=== PATIENT | female | born 1930 | race Caucasian/White ===

== ENCOUNTER 2017-03-12 19:47 | Emergency (ER) | payer MEDICARE, BC ==
[2017-03-12] MEDS ORDERED: SODIUM CHLORIDE 0.9% 1,000 ML IV STA (20:11)
--- NOTE | 2017-03-12 20:35 | ED ---
General Adult HPI - General Chief complaint: Dizziness Stated complaint: Dizziness Time Seen by Provider: 03/12/17 20:11 Source: patient, RN notes reviewed, old records reviewed Mode of arrival: wheelchair Limitations: no limitations - History of Present Illness Initial comments: This is an 86-year-old female the ER for multiple nonspecific complaints, patient states she is just does not feel well. Her left herself. She feels dizzy lightheaded and weak. Patient has no real significant medical issues of similar issues. She states the room is not spinning around. Denies headache denies episodes of nausea passed out no chest pain nephrosis of breath no dollop pain, no recent medication change, - Related Data Home Medications Medication Instructions Recorded Confirmed Gabapentin [Gabapentin] 300 mg PO BID PRN 11/04/15 03/12/17 Allopurinol [Zyloprim] 300 mg PO DAILY 03/12/17 03/12/17 Imbruvica 420 mg PO DAILY 03/12/17 03/12/17 Omeprazole 20 mg PO DAILY PRN 03/12/17 03/12/17 Allergies Allergy/AdvReac Type Severity Reaction Status Date / Time No Known Allergies Allergy Verified 03/12/17 20:34 Review of Systems ROS Statement: Those systems with pertinent positive or pertinent negative responses have been documented in the HPI. ROS Other: All systems not noted in ROS Statement are negative. Past Medical History Past Medical History: Coronary Artery Disease (CAD), Cancer, Hyperlipidemia, Hypertension History of Any Multi-Drug Resistant Organisms: None Reported Past Surgical History: No Surgical Hx Reported Past Psychological History: No Psychological Hx Reported Smoking Status: Never smoker Past Alcohol Use History: None Reported Past Drug Use History: None Reported General Exam Limitations: no limitations General appearance: alert, in no apparent distress Head exam: Present: atraumatic, normocephalic, normal inspection Eye exam: Present: normal appearance, PERRL, EOMI. Absent: scleral icterus, conjunctival injection, periorbital swelling ENT exam: Present: normal exam, mucous membranes moist Neck exam: Present: normal inspection. Absent: tenderness, meningismus, lymphadenopathy Respiratory exam: Present: normal lung sounds bilaterally. Absent: respiratory distress, wheezes, rales, rhonchi, stridor Cardiovascular Exam: Present: regular rate, normal rhythm, normal heart sounds. Absent: systolic murmur, diastolic murmur, rubs, gallop, clicks GI/Abdominal exam: Present: soft, normal bowel sounds. Absent: distended, tenderness, guarding, rebound, rigid Extremities exam: Present: normal inspection, full ROM, normal capillary refill. Absent: tenderness, pedal edema, joint swelling, calf tenderness Back exam: Present: normal inspection Neurological exam: Present: alert, oriented X3, CN II-XII intact Psychiatric exam: Present: normal affect, normal mood Skin exam: Present: warm, dry, intact, normal color. Absent: rash Course Vital Signs 03/12/17 03/12/17 03/12/17 19:50 21:03 21:50 Temperature 98.2 F 98.9 F Pulse Rate 83 75 Respiratory 20 18 Rate Blood Pressure 173/76 157/69 O2 Sat by Pulse 97 98 Oximetry - Reevaluation(s) Reevaluation #1: 03/12/17 20:58 Primary history does show severely elevated white count EKG Findings - EKG Comments: EKG Findings:: EKG shows sinus rhythm rate of 77, SC 188, QRS 1:30, QTC 482 - EKG Results: EKG: interpreted by CIELO Medical Decision Making - Medical Decision Making 86 female here with weakness and dizziness, no cause found. This time patient' s apartment apparently feeling better. Patient will be discharged home - Lab Data Result diagrams: 03/12/17 20:16 03/12/17 20:16 Lab Results 03/12/17 03/12/17 03/12/17 Range/Units 20:16 20:16 20:16 WBC 292.7 H* (3.8-10.6) k/uL RBC 3.52 L (3.80-5.40) m/uL Hgb 10.0 L (11.4-16.0) gm/dL Hct 31.5 L (34.0-46.0) % MCV 89.6 (80.0-100.0) fL MCH 28.3 (25.0-35.0) pg MCHC 31.6 (31.0-37.0) g/dL RDW 16.8 H (11.5-15.5) % Plt Count 65 L (150-450) k/uL Neutrophils % (Manual) 3.0 % Lymphocytes % (Manual) 96.0 % Monocytes % (Manual) 1.0 % Neutrophils # (Manual) 8.8 H (1.3-7.7) k/uL Lymphocytes # (Manual) 281.0 H (1.0-4.8) k/uL Monocytes # (Manual) 2.9 H (0-1.0) k/uL Nucleated RBCs 0 (0-0) /100 WBC Manual Slide Review Performed Hypochromasia Slight Anisocytosis Slight Ovalocytes Present Fragmented RBCs Present PT (9.0-12.0) sec INR (<1.1) APTT (22.0-30.0) sec Sodium 138 (137-145) mmol/L Potassium 3.6 (3.5-5.1) mmol/L Chloride 103 (98-107) mmol/L Carbon Dioxide 24 (22-30) mmol/L Anion Gap 11 mmol/L BUN 18 H (7-17) mg/dL Creatinine 0.80 (0.52-1.04) mg/dL Est GFR (MDRD) Af Amer >60 (>60 ml/min/1.73 sqM) Est GFR (MDRD) Non-Af >60 (>60 ml/min/1.73 sqM) Glucose 108 H (74-99) mg/dL Calcium 9.6 (8.4-10.2) mg/dL Phosphorus 3.3 (2.5-4.5) mg/dL Magnesium 1.7 (1.6-2.3) mg/dL Total Bilirubin 0.6 (0.2-1.3) mg/dL AST 23 (14-36) U/L ALT 20 (9-52) U/L Alkaline Phosphatase 70 (38-126) U/L Total Creatine Kinase 27 L (30-135) U/L CK-MB (CK-2) 0.7 (0.0-2.4) ng/mL CK-MB (CK-2) Rel Index 2.6 Troponin I <0.012 (0.000-0.034) ng/mL Total Protein 6.3 (6.3-8.2) g/dL Albumin 4.0 (3.5-5.0) g/dL Urine Color Urine Appearance (Clear) Urine pH (5.0-8.0) Ur Specific [place] (1.001-1.035) Urine Protein (Negative) Urine Glucose (UA) (Negative) Urine Ketones (Negative) Urine Blood (Negative) Urine Nitrite (Negative) Urine Bilirubin (Negative) Urine Urobilinogen (<2.0) mg/dL Ur Leukocyte Esterase (Negative) Urine RBC (0-5) /hpf Urine WBC (0-5) /hpf 03/12/17 03/12/17 Range/Units 20:16 21:00 WBC (3.8-10.6) k/uL RBC (3.80-5.40) m/uL Hgb (11.4-16.0) gm/dL Hct (34.0-46.0) % MCV (80.0-100.0) fL MCH (25.0-35.0) pg MCHC (31.0-37.0) g/dL RDW (11.5-15.5) % Plt Count (150-450) k/uL Neutrophils % (Manual) % Lymphocytes % (Manual) % Monocytes % (Manual) % Neutrophils # (Manual) (1.3-7.7) k/uL Lymphocytes # (Manual) (1.0-4.8) k/uL Monocytes # (Manual) (0-1.0) k/uL Nucleated RBCs (0-0) /100 WBC Manual Slide Review Hypochromasia Anisocytosis Ovalocytes Fragmented RBCs PT 10.0 (9.0-12.0) sec INR 1.0 (<1.1) APTT 22.1 (22.0-30.0) sec Sodium (137-145) mmol/L Potassium (3.5-5.1) mmol/L Chloride (98-107) mmol/L Carbon Dioxide (22-30) mmol/L Anion Gap mmol/L BUN (7-17) mg/dL Creatinine (0.52-1.04) mg/dL Est GFR (MDRD) Af Amer (>60 ml/min/1.73 sqM) Est GFR (MDRD) Non-Af (>60 ml/min/1.73 sqM) Glucose (74-99) mg/dL Calcium (8.4-10.2) mg/dL Phosphorus (2.5-4.5) mg/dL Magnesium (1.6-2.3) mg/dL Total Bilirubin (0.2-1.3) mg/dL AST (14-36) U/L ALT (9-52) U/L Alkaline Phosphatase (38-126) U/L Total Creatine Kinase (30-135) U/L CK-MB (CK-2) (0.0-2.4) ng/mL CK-MB (CK-2) Rel Index Troponin I (0.000-0.034) ng/mL Total Protein (6.3-8.2) g/dL Albumin (3.5-5.0) g/dL Urine Color Light Yellow Urine Appearance Clear (Clear) Urine pH 8.0 (5.0-8.0) Ur Specific [place] 1.005 (1.001-1.035) Urine Protein Negative (Negative) Urine Glucose (UA) Negative (Negative) Urine Ketones Negative (Negative) Urine Blood Small H (Negative) Urine Nitrite Negative (Negative) Urine Bilirubin Negative (Negative) Urine Urobilinogen <2.0 (<2.0) mg/dL Ur Leukocyte Esterase Small H (Negative) Urine RBC 13 H (0-5) /hpf Urine WBC 3 (0-5) /hpf - Radiology Data Radiology results: report reviewed (CT brain and chest x-ray are negative for acute disease), image reviewed Disposition Clinical Impression: Dehydration, Dizziness Disposition: HOME SELF-CARE Condition: Good Instructions: Dizziness (ED) Referrals: Janeth Castillo DO [Primary Care Provider] - 1-2 days
[2017-03-12 20:42] LABS: Partial Thromboplastin Time 22.1 sec (22.0-30.0)
[2017-03-12 20:46] LABS: Anisocytosis Slight; Aty Lym Flag Marked; CH 28.3; CHCM 31.6; HCT 31.5 % (34.0-46.0); HDW 3.05; Hypochromasia Slight; MCH 28.3 pg (25.0-35.0); MCHC 31.6 g/dL (31.0-37.0); MCV 89.6 fL (80.0-100.0); Mean Platelet Volume 8.8; RBC 3.52 m/uL (3.80-5.40); RDW 16.8 % (11.5-15.5); WBC (Perox) 264.1
[2017-03-12 20:49] LABS: WBC 292.7 k/uL (3.8-10.6)
[2017-03-12 20:50] LABS: ALT 20 U/L (9-52); AST 23 U/L (14-36); Alkaline Phosphatase 70 U/L (38-126); Anion Gap 11 mmol/L; Blood Urea Nitrogen 18 mg/dL (7-17); Calcium 9.6 mg/dL (8.4-10.2); Carbon Dioxide 24 mmol/L (22-30); Chloride 103 mmol/L (98-107); Glucose 108 mg/dL (74-99); Magnesium 1.7 mg/dL (1.6-2.3); Non-African American GFR(MDRD) >60 (>60 ml/min/1.73 sqM); Phosphorous 3.3 mg/dL (2.5-4.5); Potassium 3.6 mmol/L (3.5-5.1); Sodium 138 mmol/L (137-145); Total Bilirubin 0.6 mg/dL (0.2-1.3); Total Protein 6.3 g/dL (6.3-8.2)
--- NOTE | 2017-03-12 20:55 | XR ---
EXAMINATION TYPE: XR chest 2V DATE OF EXAM: 03/12/2017 8:49 PM COMPARISON: Prior chest x-ray 04 November 2015 HISTORY: Weakness, abnormal chest x-ray TECHNIQUE: Frontal and lateral views of the chest are obtained. FINDINGS: There is no focal air space opacity, pleural effusion, or pneumothorax seen. The cardiac silhouette size is stable and enlarged. There are overlying cardiac leads, patient is rotated. The o sseous structures are intact. IMPRESSION: Stable findings, cardiomegaly
[2017-03-12 20:58] LABS: Creatine Kinase 27 U/L (30-135)
[2017-03-12 20:59] LABS: Add Differential Manual Differential
--- NOTE | 2017-03-12 20:59 | CT ---
EXAMINATION TYPE: CT brain wo con DATE OF EXAM: 03/12/2017 8:47 PM COMPARISON: NONE HISTORY: Dizziness today CT DLP: 1036 mGycm Automated exposure control for dose reduction was used. FINDINGS: There is no acute intracranial hemorrhage, mass effect, or midline shift identified. Low attenuation present in the anterior limb of the internal capsule may represent old infarct. There is age-related atrophy. Cerebral vascular calcifications are present. The ventricles and sulci are within normal li mits in size. The globes are intact and the visualized sinuses are clear. IMPRESSION: No acute intracranial hemorrhage, mass effect, or midline shift is seen.
[2017-03-12 21:05] LABS: Nucleated Red Blood Cells 0 /100 WBC (0-0); Total Cells Counted 100
[2017-03-12 21:06] LABS: Manual Review Performed; Ovalocytes Present
[2017-03-12 21:09] LABS: Creatine Kinase MB 0.7 ng/mL (0.0-2.4); Troponin I <0.012 ng/mL (0.000-0.034)
[2017-03-12 21:20] LABS: Appearance,Urine Clear (Clear); Bilirubin,Urine Negative (Negative); Glucose,Urine (UA) Negative (Negative); Ketones,Urine Negative (Negative); Leukocyte Esterase,Urine Small (Negative); Nitrite,Urine Negative (Negative); Particle Count 514; Protein,Urine Negative (Negative); RBC,Urine 13 /hpf (0-5); Specific Gravity,Urine 1.005 (1.001-1.035); UA Billing (MACRO vs. MICRO) MICRO; Urobilinogen,Urine <2.0 mg/dL (<2.0); WBC,Urine 3 /hpf (0-5)
[2017-03-12 21:34] VITALS: BP 157/69; PULSE 75; RESP 18
[2017-03-12 21:51] VITALS: TEMP 98.9
== END 2017-03-12 21:50 | disposition home or self-care (01) ==
LOC: EC 19:47
DX: E86.0 Dehydration (principal); R42 Dizziness and giddiness; R53.1 Weakness; Z85.9 Personal history of malignant neoplasm, unspecified
CPT/HCPCS: 36415; 70450; 71020; 80053; 81001; 82550; 82553; 83735; 84100; 84484; 85025; 85610; 85730; 87086; 93005; 96360; 99285

== ENCOUNTER → 2017-09-25 | Outpatient (CLI) | payer MEDICARE, BC ==
--- NOTE | 2017-09-27 08:41 | MM ---
Reason for exam: screening (asymptomatic). Last mammogram was performed 1 year ago. History: Patient is postmenopausal and has history of other cancer at age 75. Family history of breast cancer in sister at age 83. Physical Findings: A clinical breast exam by your physician is recommended on an annual basis and results should be correlated with mammographic findings. MG 3D Screening Mammo W/Cad Bilateral CC and MLO view(s) were taken. Prior study comparison: September 20, 2016, bilateral MG 3d screening mammo w/ cad. September 16, 2015, bilateral MG screening mammo w CAD. September 15, 2014, bilateral MG screening mammo w CAD. The breast tissue is heterogeneously dense. This may lower the sensitivity of mammography. There is chronic nodularity in the right breast. Prominent axillary lymph nodes are stable to slightly increased in size compared to older priors. No significant new findings when compared with previous films. ASSESSMENT: Negative, BI-RAD 1 RECOMMENDATION: Routine screening mammogram of both breasts in 1 year. Manage patient on a clinical basis. (Prominent bilateral axillary lymph nodes which seem to be gradually increasing in size. We note a history of leukemia in this patient. Further evaluation to exclude leukemia/lymphoma or other systemic disease as clinically indicated). [facility]
== END | disposition home or self-care (01) ==
LOC: RADMAMWWP 11:15
PROVIDERS: ATTEND Family Medicine
DX: Z12.31 Encounter for screening mammogram for malignant neoplasm of breast (principal)
CPT/HCPCS: 77063; G0202

== ENCOUNTER 2018-05-20 02:55 | Inpatient (IN) | payer MEDICARE, BC ==
--- NOTE | 2018-05-20 03:43 | XR ---
EXAMINATION TYPE: XR chest 1V portable DATE OF EXAM: 05/20/2018 COMPARISON: 03/12/2017 HISTORY: Short of breath TECHNIQUE: Single frontal view of the chest is obtained. FINDINGS: Heart is enlarged. There is pulmonary vascular congestion. There is blunting of costophren ic angles. Thoracic aorta is atheromatous. There are chest leads. IMPRESSION: Congestive heart failure with pleural effusions that is new compared to old exam. Cardio megaly.
[2018-05-20 03:55] LABS: Anisocytosis Slight; HCT 26.6 % (34.0-46.0); HGB 8.3 gm/dL (11.4-16.0); Hypochromasia Marked; MCH 28.8 pg (25.0-35.0); MCHC 31.3 g/dL (31.0-37.0); MCV 91.9 fL (80.0-100.0); Mean Platelet Volume 7.3; Platelet Count 128 k/uL (150-450); RDW 18.2 % (11.5-15.5)
[2018-05-20 04:03] LABS: Calcium 9.5 mg/dL (8.4-10.2); Potassium 4.2 mmol/L (3.5-5.1); Total Bilirubin 0.5 mg/dL (0.2-1.3); Total Protein 6.1 g/dL (6.3-8.2)
[2018-05-20 04:16] LABS: WBC 319.4 k/uL (3.8-10.6)
[2018-05-20 04:38] LABS: Creatine Kinase MB 3.4 ng/mL (0.0-2.4); Troponin I 0.425 ng/mL (0.000-0.034)
[2018-05-20 04:41] LABS: D-Dimer 4.79 mg/L FEU (<0.60); Partial Thromboplastin Time 19.5 sec (22.0-30.0)
--- NOTE | 2018-05-20 05:23 | CT ---
EXAMINATION TYPE: CT chest angio for PE DATE OF EXAM: 05/20/2018 COMPARISON: None HISTORY: R/O PE chest pain CT DLP: 165.10 mGycm Automated exposure control for dose reduction was used. CONTRAST: CT Chest for pulmonary embolism performed with with IV Contrast, patient injected with 70 mL of Isovu e 370. FINDINGS: There are 3-D post processed images. There are mild to moderate bilateral pleural effusions. Heart is enlarged. There is interstitial and alveolar infiltrates in the mid and lower lung arce. I see no pulmonary mass. There is normal contrast opacification of the pulmonary arteries. I see no filling defect. Thoracic a raul has normal size. There is no evidence of aneurysm or dissection. There is no mediastinal adenopa thy. I see no bony destructive process. There is spurring in the thoracic spine. IMPRESSION: No evidence of pulmonary embolism. Cardiomegaly with pleural effusions and pulmonary edema consistent with congestive heart failure.
[2018-05-20] MEDS ORDERED: PANTOPRAZOLE 40 MG TABLET PO PRN (06:42)
[2018-05-20] MEDS ORDERED: GABAPENTIN 300 MG CAP PO PRN (06:42)
[2018-05-20] MEDS ORDERED: ENOXAPARIN 60 MG/0.6 ML SYRINGE SQ STA (06:44)
[2018-05-20] MEDS ORDERED: FUROSEMIDE 10 MG/ML 4 ML VIAL IV STA (06:44)
--- NOTE | 2018-05-20 06:50 | ED ---
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 She states that over the past 2 days she has been having what started as some mild dyspnea with exertion and now becoming more severe. She states that tonight after getting up to use the bathroom she was forced to sit back down and it took quite some time to catch her breath. The patient does acknowledge a little bit of cough but states that this is basically at her baseline. No fever or chills. No chest pain. No change in urination. She has not been having any bloody bowel movements or dark tarry stools. Patient denies leg pain or swelling. MD Complaint: shortness of breath Onset/Timin -: days(s) Severity: moderate Improves With: oxygen Worsens With: exertion Known History Of: other (CLL) Associated Symptoms: denies other symptoms Treatments Prior to Arrival: none - Related Data Home Oxygen Therapy: No Home Medications Medication Instructions Recorded Confirmed Gabapentin 300 mg PO BID PRN 11/04/15 03/12/17 Allopurinol [Zyloprim] 300 mg PO DAILY 03/12/17 03/12/17 Imbruvica 420 mg PO DAILY 03/12/17 03/12/17 Omeprazole 20 mg PO DAILY PRN 03/12/17 03/12/17 Allergies Allergy/AdvReac Type Severity Reaction Status Date / Time No Known Allergies Allergy Verified 05/20/18 03:00 Review of Systems ROS Statement: Those systems with pertinent positive or pertinent negative responses have been documented in the HPI. ROS Other: All systems not noted in ROS Statement are negative. Constitutional: Denies: fever, chills, weakness Respiratory: Reports: as per HPI, cough, dyspnea. Denies: wheezes, hemoptysis Cardiovascular: Reports: dyspnea on exertion. Denies: chest pain, palpitations , edema, syncope Gastrointestinal: Denies: abdominal pain, vomiting, diarrhea, melena, hematochezia Genitourinary: Denies: hematuria Musculoskeletal: Denies: back pain Skin: Denies: rash Neurological: Denies: headache, weakness, numbness, paresthesias Hematological/Lymphatic: Denies: easy bleeding Past Medical History Past Medical History: Coronary Artery Disease (CAD), Cancer, Hyperlipidemia, Hypertension History of Any Multi-Drug Resistant Organisms: None Reported Past Surgical History: No Surgical Hx Reported Past Psychological History: No Psychological Hx Reported Smoking Status: Never smoker Past Alcohol Use History: None Reported Past Drug Use History: None Reported General Exam Limitations: physical limitation General appearance: alert, in no apparent distress Head exam: Present: atraumatic, normocephalic Eye exam: Present: normal appearance. Absent: scleral icterus, conjunctival injection ENT exam: Present: normal oropharynx Neck exam: Present: normal inspection Respiratory exam: Present: rales (Bilateral bases). Absent: respiratory distress, wheezes, rhonchi, stridor, accessory muscle use, decreased breath sounds, prolonged expiratory Cardiovascular Exam: Present: normal rhythm, tachycardia (Rate approximately 14 bpm), systolic murmur (Grade 3/6 systolic ejection murmur, gallop, suggestive of aortic stenosis). Absent: diastolic murmur, rubs, gallop GI/Abdominal exam: Present: soft. Absent: distended, tenderness, guarding, rebound, mass, pulsatile mass Extremities exam: Present: normal inspection, normal capillary refill. Absent: pedal edema, calf tenderness Back exam: Present: normal inspection. Absent: CVA tenderness (R), CVA tenderness (L), vertebral tenderness Neurological exam: Present: alert Skin exam: Present: warm, dry, intact, normal color. Absent: rash Course Vital Signs 05/20/18 05/20/18 05/20/18 02:56 04:48 05:58 Temperature 97.4 F L Pulse Rate 107 H 87 90 Respiratory 18 17 22 Rate Blood Pressure 114/68 114/68 94/60 O2 Sat by Pulse 97 97 96 Oximetry Medical Decision Making - Medical Decision Making Patient is an 87-year-old woman presenting with worsening of exertional dyspnea. She is found to have some anemia and probably an underlying element of CHF. Dyspnea appears to be multifactorial, case discussed with Dr. Wiley who is covering for her primary physician and patient be admitted also to see her tamale maker/oncologist. - Lab Data Result diagrams: 05/20/18 03:05 05/20/18 03:05 Lab Results 05/20/18 05/20/18 05/20/18 Range/Units 03:05 03:05 03:05 WBC 319.4 H* (3.8-10.6) k/uL RBC 2.90 L (3.80-5.40) m/uL Hgb 8.3 L (11.4-16.0) gm/dL Hct 26.6 L (34.0-46.0) % MCV 91.9 (80.0-100.0) fL MCH 28.8 (25.0-35.0) pg MCHC 31.3 (31.0-37.0) g/dL RDW 18.2 H (11.5-15.5) % Plt Count 128 L (150-450) k/uL PT (9.0-12.0) sec INR (<1.2) APTT (22.0-30.0) sec D-Dimer (<0.60) mg/L FEU Sodium 138 (137-145) mmol/L Potassium 4.2 (3.5-5.1) mmol/L Chloride 103 (98-107) mmol/L Carbon Dioxide 25 (22-30) mmol/L Anion Gap 10 mmol/L BUN 29 H (7-17) mg/dL Creatinine 0.80 (0.52-1.04) mg/dL Est GFR (CKD-EPI)AfAm 76 (>60 ml/min/1.73 sqM) Est GFR (CKD-EPI)NonAf 66 (>60 ml/min/1.73 sqM) Glucose 133 H (74-99) mg/dL Calcium 9.5 (8.4-10.2) mg/dL Total Bilirubin 0.5 (0.2-1.3) mg/dL AST 37 H (14-36) U/L ALT 22 (9-52) U/L Alkaline Phosphatase 80 (38-126) U/L Total Creatine Kinase 28 L (30-135) U/L CK-MB (CK-2) 3.4 H* (0.0-2.4) ng/mL CK-MB (CK-2) Rel Index 12.1 Troponin I 0.425 H* (0.000-0.034) ng/mL NT-Pro-B Natriuret Pep pg/mL Total Protein 6.1 L (6.3-8.2) g/dL Albumin 4.0 (3.5-5.0) g/dL 05/20/18 05/20/18 Range/Units 03:05 03:05 WBC (3.8-10.6) k/uL RBC (3.80-5.40) m/uL Hgb (11.4-16.0) gm/dL Hct (34.0-46.0) % MCV (80.0-100.0) fL MCH (25.0-35.0) pg MCHC (31.0-37.0) g/dL RDW (11.5-15.5) % Plt Count (150-450) k/uL PT 10.0 (9.0-12.0) sec INR 1.0 (<1.2) APTT 19.5 L (22.0-30.0) sec D-Dimer 4.79 H (<0.60) mg/L FEU Sodium (137-145) mmol/L Potassium (3.5-5.1) mmol/L Chloride (98-107) mmol/L Carbon Dioxide (22-30) mmol/L Anion Gap mmol/L BUN (7-17) mg/dL Creatinine (0.52-1.04) mg/dL Est GFR (CKD-EPI)AfAm (>60 ml/min/1.73 sqM) Est GFR (CKD-EPI)NonAf (>60 ml/min/1.73 sqM) Glucose (74-99) mg/dL Calcium (8.4-10.2) mg/dL Total Bilirubin (0.2-1.3) mg/dL AST (14-36) U/L ALT (9-52) U/L Alkaline Phosphatase (38-126) U/L Total Creatine Kinase (30-135) U/L CK-MB (CK-2) (0.0-2.4) ng/mL CK-MB (CK-2) Rel Index Troponin I (0.000-0.034) ng/mL NT-Pro-B Natriuret Pep 30708 pg/mL Total Protein (6.3-8.2) g/dL Albumin (3.5-5.0) g/dL - EKG Data -: EKG Interpreted by Id EKG shows normal: sinus rhythm, axis (Normal), intervals (Normal) Rate: tachycardia (Rate 106 bpm) Interpretation: other (Possible old septal infarct) Disposition Clinical Impression: Congestive heart failure, Dyspnea, Anemia, CLL (chronic lymphocytic leukemia), Troponin level elevated Disposition: ADMITTED IP TO THIS HOSP Condition: Poor
[2018-05-20 08:30] LABS: Lymphocytes # (M) 313.01 k/uL (1.0-4.8); Monocytes # (M) 6.39 k/uL (0-1.0); Neutrophils # (M) 3.19 k/uL (1.3-7.7); Neutrophils % (M) 1 %; Nucleated Red Blood Cells 0 /100 WBC (0-0); Ovalocytes Present; Total Cells Counted 200
[2018-05-20] MEDS ORDERED: IMBRUVICA 420 MG PO SCH (09:00)
[2018-05-20 12:59] LABS: Creatine Kinase MB 3.4 ng/mL (0.0-2.4)
[2018-05-20 13:00] LABS: Troponin I 0.827 ng/mL (0.000-0.034)
--- NOTE | 2018-05-20 13:51 | P.HPIM ---
History of Present Illness H&P Date: 05/20/18 Chief Complaint: Shortness of breath Ginny Huerta is an 87-year-old female who presented to [facility] emergency room with a chief complaint of worsening shortness of breath patient states that she started having shortness of breath on Monday her symptoms worsened and she decided to come to emergency room on Monday, she was evaluated in emergency room she had tachycardia on presentation pulse ox was 97% on 2 L nasal cannula chest x-ray revealed evidence of pulmonary congestion suggestive of congestive heart failure exacerbation with pleural effusions and evidence of cardiomegaly, BNP was elevated at 18,100 d-dimer was elevated at 4.79 computed tomography scan angiogram of the chest was done and was negative for pulmonary embolism. Patient also had elevated troponin level of 0.425 on presentation, EKG revealed ST and T-wave changes in inferior leads patient was admitted to telemetry floor and cardiology consultation was requested. She was given IV Lasix in the emergency room and her shortness of breath improved significantly she has been maintained on oxygen supplements since presentation. Patient has a known history of chronic lymphocytic leukemia she has been followed by Dr. Kaplan for 11 years, currently she is only maintained on prednisone 5 mg by mouth daily her white blood count is significantly elevated at 319,000 hemoglobin is down to 8.3 on presentation. She states that she had received chemotherapy in the past by Dr. Kaplan but not recently. Patient denies any history of coronary artery disease or congestive heart failure, she states that she was seen by associate professor of english 1 year ago her next appointment will be in June of this year. Past Medical History Past Medical History: Coronary Artery Disease (CAD), Cancer, Hyperlipidemia, Hypertension History of Any Multi-Drug Resistant Organisms: None Reported Past Surgical History: No Surgical Hx Reported Past Psychological History: No Psychological Hx Reported Additional Psychological History / Comment(s): Patient lives with daughter. Patient juan diego ever suing tobacco. Juliana mosquera ever using alcohol Smoking Status: Never smoker Past Alcohol Use History: None Reported Past Drug Use History: None Reported Medications and Allergies Home Medications Medication Instructions Recorded Confirmed Type Allopurinol [Zyloprim] 300 mg PO DAILY 03/12/17 05/20/18 History Omeprazole 20 mg PO DAILY 03/12/17 05/20/18 History Gabapentin [Neurontin] 400 mg PO BID 05/20/18 05/20/18 History Levothyroxine Sodium [Synthroid] 25 mcg PO DAILY 05/20/18 05/20/18 History predniSONE 5 mg PO DAILY 05/20/18 05/20/18 History Allergies Allergy/AdvReac Type Severity Reaction Status Date / Time No Known Allergies Allergy Verified 05/20/18 03:00 Physical Exam Vitals: Vital Signs Temp Pulse Pulse Resp BP BP Pulse Ox 05/20/18 12:20 96.7 F L 88 20 129/58 97 05/20/18 11:56 97.6 F 90 18 96/68 98 05/20/18 09:02 93 18 112/67 98 05/20/18 08:42 55 L 18 118/81 98 05/20/18 08:15 78 18 91/59 98 05/20/18 05:58 90 22 94/60 96 05/20/18 04:48 87 17 114/68 97 05/20/18 02:56 97.4 F L 107 H 18 114/68 97 Intake and Output 05/19/18 05/20/18 05/20/18 22:59 06:59 14:59 Other: Weight 58.967 kg In general patient is alert and oriented 3 in no apparent distress HEENT head normocephalic and atraumatic Neck is supple no JVD no goiter no lymphadenopathy Chest exam reveals a few scattered rhonchi no wheezing Cardiac exam reveals regular heart sounds S1 and S2 no gallops no murmurs Abdomen is soft nontender no organomegaly with normal bowel sounds Extremity exam reveals no edema no cyanosis or clubbing Results CBC & Chem 7: 05/20/18 03:05 05/20/18 03:05 Labs: Abnormal Lab Results - Last 24 Hours (Table) 05/20/18 05/20/18 05/20/18 Range/Units 03:05 03:05 03:05 WBC 319.4 H* (3.8-10.6) k/uL RBC 2.90 L (3.80-5.40) m/uL Hgb 8.3 L (11.4-16.0) gm/dL Hct 26.6 L (34.0-46.0) % RDW 18.2 H (11.5-15.5) % Plt Count 128 L (150-450) k/uL Lymphocytes # (Manual) 313.01 H (1.0-4.8) k/uL Monocytes # (Manual) 6.39 H (0-1.0) k/uL APTT (22.0-30.0) sec D-Dimer (<0.60) mg/L FEU BUN 29 H (7-17) mg/dL Glucose 133 H (74-99) mg/dL AST 37 H (14-36) U/L Total Creatine Kinase 28 L (30-135) U/L CK-MB (CK-2) 3.4 H* (0.0-2.4) ng/mL Troponin I 0.425 H* (0.000-0.034) ng/mL Total Protein 6.1 L (6.3-8.2) g/dL 05/20/18 05/20/18 Range/Units 03:05 12:10 WBC (3.8-10.6) k/uL RBC (3.80-5.40) m/uL Hgb (11.4-16.0) gm/dL Hct (34.0-46.0) % RDW (11.5-15.5) % Plt Count (150-450) k/uL Lymphocytes # (Manual) (1.0-4.8) k/uL Monocytes # (Manual) (0-1.0) k/uL APTT 19.5 L (22.0-30.0) sec D-Dimer 4.79 H (<0.60) mg/L FEU BUN (7-17) mg/dL Glucose (74-99) mg/dL AST (14-36) U/L Total Creatine Kinase (30-135) U/L CK-MB (CK-2) 3.4 H* (0.0-2.4) ng/mL Troponin I 0.827 H* (0.000-0.034) ng/mL Total Protein (6.3-8.2) g/dL Thrombosis Risk Factor Assmnt - Choose All That Apply Any of the Below Risk Factors Present?: Yes Other Risk Factors: Yes Each Risk Factor Represents 3 Points: Age 75 years or older Other congenital or acquired thrombophilia - If yes, enter type in comment: No Thrombosis Risk Factor Assessment Total Risk Factor Score: 3 Thrombosis Risk Factor Assessment Level: Moderate Risk Assessment and Plan Plan: #1 worsening shortness of breath likely related to acute congestive heart failure exacerbation with check echocardiogram, cardiology consultation was requested patient improving with IV Lasix, patient has anemia and this may contribute to her shortness of breath. #2 elevated troponin level and EKG changes in the inferior leads, possible non- Q wave myocardial infarction cardiology consultation was requested in the emergency room, patient was started on subcu Lovenox #3 underlying history of chronic lymphocytic leukemia with severe leukocytosis and anemia, Dr. Harper was consulted #4 elevated d-dimer with negative computed tomography scan angiogram of the chest At this time will continue with current management awaiting input from cardiology and oncology, awaiting echocardiogram results Symptoms have improved significantly since admission Will add by mouth protonix for GI prophylaxis
[2018-05-20 15:14] LABS: Creatine Kinase MB 2.8 ng/mL (0.0-2.4); Troponin I 0.79 ng/mL (0.000-0.034)
--- NOTE | 2018-05-20 15:14 | P.CRDCN ---
History of Present Illness Consult date: 05/20/18 Chief complaint: Shortness of breath History of present illness: This is a pleasant 87-year-old female patient with a past medical history significant for chronic lymphocytic leukemia but no history of coronary artery disease or congestive heart failure or cardiac arrhythmia presented to the emergency room complaining of shortness of breath. The patient stated that the shortness of breath started about a week ago and was quite worse this past Monday when the patient noticed that she was unable to do her daily activities without being short of breath. No orthopnea and no paroxysmal nocturnal dyspnea. She is already feeling better. She did not have any symptoms of bilateral lower extremities edema.She did not have any symptoms of chest pain or chest discomfort. No dizziness or lightheadedness and no syncope. The patient did not have any fever or chills or cough. She decided to come to the emergency room where in the ER the patient saturation was 97% on 2 L nasal cannula. The chest x-ray showed findings consistent with CHF. The BNP came in to be around 18,000. The d-dimer came in to be alleviated but the computed tomography scan of the chest did not show any evidence of PE. The troponin was checked and came in to be slightly elevated along with slightly elevated CK-MB. The patient did not have no chest pain and no chest discomfort. The EKG showed sinus rhythm with intraventricular conduction delay and nonspecific changes. The patient denies having any history of coronary artery disease and she never seen a chief technology officer in the past. No history of congestive heart failure. No history of upper respiratory infection. On physical examination, the patient still have bilateral rhonchi mainly in the bases of the lung. The patient was admitted to the hospital and she was started on IV Lasix. Past Medical History Past Medical History: Coronary Artery Disease (CAD), Cancer, Hyperlipidemia, Hypertension History of Any Multi-Drug Resistant Organisms: None Reported Past Surgical History: No Surgical Hx Reported Past Psychological History: No Psychological Hx Reported Additional Psychological History / Comment(s): Patient lives with daughter. Patient juan diego ever suing tobacco. Kaykaydavidjaneth mosquera ever using alcohol Smoking Status: Never smoker Past Alcohol Use History: None Reported Past Drug Use History: None Reported Medications and Allergies Home Medications Medication Instructions Recorded Confirmed Type Allopurinol [Zyloprim] 300 mg PO DAILY 03/12/17 05/20/18 History Omeprazole 20 mg PO DAILY 03/12/17 05/20/18 History Gabapentin [Neurontin] 400 mg PO BID 05/20/18 05/20/18 History Levothyroxine Sodium [Synthroid] 25 mcg PO DAILY 05/20/18 05/20/18 History predniSONE 5 mg PO DAILY 05/20/18 05/20/18 History Allergies Allergy/AdvReac Type Severity Reaction Status Date / Time No Known Allergies Allergy Verified 05/20/18 03:00 Physical Exam Vitals: Vital Signs Temp Pulse Pulse Resp BP BP Pulse Ox 05/20/18 12:20 96.7 F L 88 20 129/58 97 05/20/18 11:56 97.6 F 90 18 96/68 98 05/20/18 09:02 93 18 112/67 98 05/20/18 08:42 55 L 18 118/81 98 05/20/18 08:15 78 18 91/59 98 05/20/18 05:58 90 22 94/60 96 05/20/18 04:48 87 17 114/68 97 05/20/18 02:56 97.4 F L 107 H 18 114/68 97 Intake and Output 05/20/18 05/20/18 05/20/18 06:59 14:59 22:59 Intake Total 240 Balance 240 Intake: Oral 240 Other: # Voids 1 Weight 58.967 kg - Constitutional General appearance: no acute distress - Respiratory Respiratory: bilateral: rales - Cardiovascular Rhythm: regular Heart sounds: normal: S1, S2 Results 05/20/18 03:05 05/20/18 03:05 Cardiac Enzymes 05/20/18 05/20/18 05/20/18 Range/Units 03:05 03:05 12:10 AST 37 H (14-36) U/L CK-MB (CK-2) 3.4 H* 3.4 H* (0.0-2.4) ng/mL Troponin I 0.425 H* 0.827 H* (0.000-0.034) ng/mL Coagulation 05/20/18 Range/Units 03:05 PT 10.0 (9.0-12.0) sec APTT 19.5 L (22.0-30.0) sec CBC 05/20/18 Range/Units 03:05 WBC 319.4 H* (3.8-10.6) k/uL RBC 2.90 L (3.80-5.40) m/uL Hgb 8.3 L (11.4-16.0) gm/dL Hct 26.6 L (34.0-46.0) % Plt Count 128 L (150-450) k/uL Comprehensive Metabolic Panel 05/20/18 Range/Units 03:05 Sodium 138 (137-145) mmol/L Potassium 4.2 (3.5-5.1) mmol/L Chloride 103 (98-107) mmol/L Carbon Dioxide 25 (22-30) mmol/L BUN 29 H (7-17) mg/dL Creatinine 0.80 (0.52-1.04) mg/dL Glucose 133 H (74-99) mg/dL Calcium 9.5 (8.4-10.2) mg/dL AST 37 H (14-36) U/L ALT 22 (9-52) U/L Alkaline Phosphatase 80 (38-126) U/L Total Protein 6.1 L (6.3-8.2) g/dL Albumin 4.0 (3.5-5.0) g/dL Current Medications Generic Name Dose Route Start Last Admin Trade Name Freq PRN Reason Stop Dose Admin Allopurinol 300 mg 05/20/18 13:45 Zyloprim PO DAILY [facility] Enoxaparin Sodium 60 mg 05/20/18 21:00 Lovenox SQ Q12HR JORDYN Furosemide 40 mg 05/20/18 21:00 Lasix IV Q12HR JORDYN Gabapentin 300 mg 05/20/18 06:42 Neurontin PO BID PRN Pain Levothyroxine Sodium 25 mcg 05/20/18 13:45 Synthroid PO DAILY@0630 JORDYN Pantoprazole Sodium 40 mg 05/20/18 06:42 Protonix PO DAILY PRN GERD Prednisone 5 mg 05/20/18 13:45 PO DAILY JORDYN Sodium Chloride 10 ml 05/20/18 09:00 05/20/18 09:04 Saline Flush IV 10 ml BID JORDYN Administration Intake and Output 05/20/18 05/20/18 05/20/18 06:59 14:59 22:59 Intake Total 240 Balance 240 Intake: Oral 240 Other: # Voids 1 Weight 58.967 kg 05/20/18 03:05 05/20/18 03:05 Assessment and Plan Assessment: Assessment #1 congestive heart failure exacerbation with a predominantly left heart failure more than right heart failure, and known if it's due to systolic or diastole dysfunction at this point. #2 mildly abnormal cardiac enzymes which is likely related to the congestive heart failure and fluid overload #3 mildly abnormal d-dimer. The computed tomography scan of the chest showed no PE. Plan #1 agree to keep the patient on the current dose of Lasix IV. #2 monitor the kidney function and electrolytes #3 agree to obtain an echocardiogram was Doppler to assess the LV function and for valvular abnormalities #4 consider the current treatment only for the mildly abnormal cardiac enzymes. I'm going to add aspirin to the current medical treatment. #5 follow-up with the patient. Thank you for allowing us participate in her care and we'll continue following up with the patient
[2018-05-20] MEDS: ALLOPURINOL 300 MG TAB PO SCH (18:12)
[2018-05-20] MEDS: predniSONE 5 MG TAB PO SCH (18:12)
[2018-05-20] MEDS: LEVOTHYROXINE 25 MCG TAB PO SCH (18:12)
[2018-05-20] MEDS: FUROSEMIDE 10 MG/ML 4 ML VIAL IV SCH (20:28)
[2018-05-20] MEDS: ENOXAPARIN 60 MG/0.6 ML SYRINGE SQ SCH (20:36)
[2018-05-21] MEDS: LEVOTHYROXINE 25 MCG TAB PO SCH (07:00)
[2018-05-21 07:52] LABS: Anisocytosis Slight; HCT 25.8 % (34.0-46.0); HGB 7.6 gm/dL (11.4-16.0); Hypochromasia Marked; MCH 26.8 pg (25.0-35.0); MCHC 29.5 g/dL (31.0-37.0); MCV 90.7 fL (80.0-100.0); Platelet Count 114 k/uL (150-450); RBC 2.85 m/uL (3.80-5.40); RDW 18.2 % (11.5-15.5)
[2018-05-21 07:54] LABS: Albumin 3.8 g/dL (3.5-5.0); Calcium 9.1 mg/dL (8.4-10.2); Potassium 3.8 mmol/L (3.5-5.1); Total Bilirubin 0.5 mg/dL (0.2-1.3); Total Protein 5.9 g/dL (6.3-8.2)
[2018-05-21 07:55] LABS: WBC 279.6 k/uL (3.8-10.6)
[2018-05-21 08:22] LABS: Lymphocytes # (M) 271.21 k/uL (1.0-4.8); Neutrophils # (M) 8.39 k/uL (1.3-7.7); Neutrophils % (M) 3 %; Nucleated Red Blood Cells 0 /100 WBC (0-0); Total Cells Counted 100
[2018-05-21 08:23] LABS: Poikilocytosis (M) Present
[2018-05-21] MEDS: ASPIRIN 81 MG PO SCH (09:02)
[2018-05-21] MEDS: ALLOPURINOL 300 MG TAB PO SCH (09:02)
[2018-05-21] MEDS: predniSONE 5 MG TAB PO SCH (09:02)
[2018-05-21] MEDS: ENOXAPARIN 60 MG/0.6 ML SYRINGE SQ SCH ×2 (09:02→19:46)
[2018-05-21] MEDS: FUROSEMIDE 10 MG/ML 4 ML VIAL IV SCH ×2 (10:22→19:46)
--- NOTE | 2018-05-21 10:56 | P.PN ---
Subjective Progress Note Date: 05/21/18 Ginny Huerta is an 87-year-old female who presented to [facility] emergency room with a chief complaint of worsening shortness of breath patient states that she started having shortness of breath on Monday her symptoms worsened and she decided to come to emergency room on Monday, she was evaluated in emergency room she had tachycardia on presentation pulse ox was 97% on 2 L nasal cannula chest x-ray revealed evidence of pulmonary congestion suggestive of congestive heart failure exacerbation with pleural effusions and evidence of cardiomegaly, BNP was elevated at 18,100 d-dimer was elevated at 4.79 computed tomography scan angiogram of the chest was done and was negative for pulmonary embolism. Patient also had elevated troponin level of 0.425 on presentation, EKG revealed ST and T-wave changes in inferior leads patient was admitted to telemetry floor and cardiology consultation was requested. She was given IV Lasix in the emergency room and her shortness of breath improved significantly she has been maintained on oxygen supplements since presentation. Patient has a known history of chronic lymphocytic leukemia she has been followed by Dr. Kaplan for 11 years, currently she is only maintained on prednisone 5 mg by mouth daily her white blood count is significantly elevated at 319,000 hemoglobin is down to 8.3 on presentation. She states that she had received chemotherapy in the past by Dr. Kaplan but not recently. Patient denies any history of coronary artery disease or congestive heart failure, she states that she was seen by manufacturing management associate 1 year ago her next appointment will be in June of this year. 05/21/2018 patient reports improvement in her shortness of breath. She has been off of the oxygen since last night. She denies any chest pain. Denies any nausea or vomiting. Denies any burning with urination. She is reporting constipation. It's been about 2 days since her last bowel movement. White count 279.6 and hemoglobin 7.6 Objective - Vital Signs Vital signs: Vital Signs Temp 97.7 F 05/21/18 08:55 Pulse 86 05/21/18 08:55 Resp 18 05/21/18 08:55 BP 98/57 05/21/18 08:55 Pulse Ox 96 05/21/18 09:26 Intake & Output 05/20/18 05/21/18 05/21/18 18:59 06:59 18:59 Intake Total 360 20 Output Total 600 Balance 360 -580 Intake: IV 20 Invasive Line 1 20 Oral 360 Output: Urine 600 Other: Voiding Method Toilet Toilet Toilet # Voids 0 1 - Exam Head normocephalic Neck supple Lungs clear to auscultation bilaterally no wheezing or crackles Heart regular rate and rhythm S1-S2, no rub or gallop Abdomen is soft nontender nondistended positive bowel sounds no hepatosplenomegaly Extremities no edema Neuro alert and orientated to 3 - Labs CBC & Chem 7: 05/21/18 06:32 18 06:32 Labs: Abnormal Lab Results - Last 24 Hours (Table) 05/20/18 05/20/18 05/21/18 Range/Units 12:10 14:32 06:32 WBC 279.6 H* (3.8-10.6) k/uL RBC 2.85 L (3.80-5.40) m/uL Hgb 7.6 L (11.4-16.0) gm/dL Hct 25.8 L (34.0-46.0) % MCHC 29.5 L (31.0-37.0) g/dL RDW 18.2 H (11.5-15.5) % Plt Count 114 L (150-450) k/uL Neutrophils # (Manual) 8.39 H (1.3-7.7) k/uL Lymphocytes # (Manual) 271.21 H (1.0-4.8) k/uL BUN (7-17) mg/dL Glucose (74-99) mg/dL CK-MB (CK-2) 3.4 H* 2.8 H* (0.0-2.4) ng/mL Troponin I 0.827 H* 0.790 H* (0.000-0.034) ng/mL Total Protein (6.3-8.2) g/dL 05/21/18 Range/Units 06:32 WBC (3.8-10.6) k/uL RBC (3.80-5.40) m/uL Hgb (11.4-16.0) gm/dL Hct (34.0-46.0) % MCHC (31.0-37.0) g/dL RDW (11.5-15.5) % Plt Count (150-450) k/uL Neutrophils # (Manual) (1.3-7.7) k/uL Lymphocytes # (Manual) (1.0-4.8) k/uL BUN 26 H (7-17) mg/dL Glucose 112 H (74-99) mg/dL CK-MB (CK-2) (0.0-2.4) ng/mL Troponin I (0.000-0.034) ng/mL Total Protein 5.9 L (6.3-8.2) g/dL Assessment and Plan Assessment: #1 worsening shortness of breath likely related to congestive heart failure exacerbation and possibly anemia. #2 acute congestive heart failure exacerbation: Awaiting echo to evaluate LV function. Continue IV Lasix. Cardiology following #3 underlying history of chronic lymphocytic leukemia with severe leukocytosis and anemia, Dr. Harper was consulted #4 elevated d-dimer with negative computed tomography scan angiogram of the chest #5 elevated troponins evaluated by cardiology. They felt this is likely related to congestive heart failure and fluid overload. Cardiology has added an aspirin GI prophylaxis Protonix and DVT prophylaxis Lovenox I performed an examination of the patient and discussed their management with the physician Mechanism Assembler. I have reviewed the Physician Mechanism Assembler's notes and agree with the documented findings and plan of care
--- NOTE | 2018-05-21 13:16 | ECHOF ---
Referral Reason:Heart Failure MEASUREMENTS -------- HEIGHT: 152.4 cm WEIGHT: 59.0 kg BP: 98/56 IVSd: 0.7 cm (0.6 - 1.1) LVIDd: 5.3 cm (3.9 - 5.3) LVPWd: 0.9 cm (0.6 - 1.1) IVSs: 1.1 cm LVIDs: 4.3 cm LVPWs: 0.9 cm LAESV Index (A-L): 41.62 ml/m Ao Diam: 2.8 cm (2.0 - 3.7) LA Diam: 3.1 cm (2.7 - 3.8) AV Cusp: 0.7 cm (1.5 - 2.6) MV E Niranjan: 1.34 m/s MV DecT: 175 ms MV A Niranjan: 1.98 m/s MV E/A Ratio: 0.67 AV maxP.57 mmHg AV meanP.14 mmHg RAP: 5.00 mmHg RVSP: 38.42 mmHg FINDINGS -------- Sinus rhythm. This was a technically good study. The left ventricular size is normal. Left ventricular wall thickness is normal. There is severe g lobal hypokinesis of LV . Overall left ventricular systolic function is severely impaired with, an EF between 20 - 25 %. The RV was not well visualized. LA is severely dilated >40 ml/m2 The right atrium is normal in size. There is severe aortic valve sclerosis. There is mild aortic regurgitation. There is severe aorti c stenosis present. Peak/mean gradient across the Aortic Valve is 72.57mmHg / 44.14mmHg. The mitral valve leaflets are mildly thickened. Moderate mitral annular calcification present. Mi [id number] mitral regurgitation is present. Mild tricuspid regurgitation present. There is mild pulmonary hypertension. The right ventricular systolic pressure, as measured by Doppler, is 38.42mmHg. Trace/mild (physiologic) pulmonic regurgitation. The aortic root size is normal. Normal inferior vena cava with normal inspiratory collapse consistent with estimated right atrial pre ssure of 5 mmHg. There is no pericardial effusion. CONCLUSIONS -------- 1. Sinus rhythm. 2. This was a technically good study. 3. The left ventricular size is normal. 4. Left ventricular wall thickness is normal. 5. There is severe global hypokinesis of LV . 6. Overall left ventricular systolic function is severely impaired with, an EF between 20 - 25 %. 7. The RV was not well visualized. 8. LA is severely dilated >40 ml/m2 9. There is severe aortic valve sclerosis. 10. There is mild aortic regurgitation. 11. There is severe aortic stenosis present. 12. Peak/mean gradient across the Aortic Valve is 72.57mmHg / 44.14mmHg. 13. The mitral valve leaflets are mildly thickened. 14. Moderate mitral annular calcification present. 15. [id number] mitral regurgitation is present. 16. Mild tricuspid regurgitation present. 17. There is mild pulmonary hypertension. 18. The right ventricular systolic pressure, as measured by Doppler, is 38.42mmHg. 19. Trace/mild (physiologic) pulmonic regurgitation. 20. The aortic root size is normal. 21. There is no pericardial effusion. CRANBERRY SORTER: Rajeev Eden RDCS
--- NOTE | 2018-05-21 14:01 | XR ---
EXAMINATION TYPE: XR chest 2V DATE OF EXAM: 05/21/2018 COMPARISON: Prior chest x-ray and chest CT 05/20/2018 HISTORY: Shortness of breath, pleural effusion TECHNIQUE: Frontal and lateral views of the chest are obtained. FINDINGS: There is improvement in interstitium. There is persistent blunting of the costophrenic ang les. Heart size remains enlarged. No evident pneumothorax. Pulmonary artery appears prominently. IMPRESSION: Improvement in patient's volume status. Bilateral effusions and associated atelectasis v ersus edema. Correlate for pulmonary artery hypertension.
--- NOTE | 2018-05-21 14:06 | P.PN ---
Subjective Progress Note Date: 05/21/18 This is a pleasant 87-year-old female patient with a past medical history significant for chronic lymphocytic leukemia but no history of coronary artery disease or congestive heart failure or cardiac arrhythmia presented to the emergency room complaining of shortness of breath. The patient stated that the shortness of breath started about a week ago and was quite worse this past Monday when the patient noticed that she was unable to do her daily activities without being short of breath. No orthopnea and no paroxysmal nocturnal dyspnea. She did not have any symptoms of bilateral lower extremities edema.She did not have any symptoms of chest pain or chest discomfort. No dizziness or lightheadedness and no syncope. The patient did not have any fever or chills or cough. She decided to come to the emergency room where in the ER the patient saturation was 97% on 2 L nasal cannula. The chest x-ray showed findings consistent with CHF. The BNP came in to be around 18,000. The d-dimer came in to be alleviated but the computed tomography scan of the chest did not show any evidence of PE. The troponin was checked and came in to be slightly elevated along with slightly elevated CK-MB. The patient did not have no chest pain and no chest discomfort. The EKG showed sinus rhythm with intraventricular conduction delay and nonspecific changes. The patient denies having any history of coronary artery disease and she never seen a loader helper sorting yard in the past. No history of congestive heart failure. No history of upper respiratory infection. Upon examination, patient is resting currently in bed. She feels her breathing is quite a bit better. She remains on Lasix 80 mg IV push every 12 hours. Objective - Vital Signs Vital signs: Vital Signs Temp 98.1 F 05/21/18 11:50 Pulse 100 05/21/18 11:50 Resp 18 05/21/18 11:50 BP 94/56 05/21/18 11:50 Pulse Ox 98 05/21/18 11:50 Intake & Output 05/20/18 05/21/18 05/21/18 18:59 06:59 18:59 Intake Total 360 20 Output Total 600 Balance 360 -580 Weight 53.4 kg Intake: IV 20 Invasive Line 1 20 Oral 360 Output: Urine 600 Other: Voiding Method Toilet Toilet Toilet # Voids 0 1 - Exam PHYSICAL EXAMINATION: HEENT: Head is atraumatic, normocephalic. Pupils equal, round. Neck is supple. There is no elevated jugular venous pressure. HEART EXAMINATION: Heart sounds regular, S1 and S2 with a systolic murmur. CHEST EXAMINATION: Lungs reveal crackles bilateral bases. No chest wall tenderness is noted on palpation or with deep breathing. ABDOMEN: Soft, nontender. Bowel sounds are heard. No organomegaly noted. EXTREMITIES: 2+ peripheral pulses with no evidence of peripheral edema and no calf tenderness noted. NEUROLOGIC patient is awake, alert and oriented x3. . - Labs CBC & Chem 7: 05/21/18 06:32 18 06:32 Labs: Abnormal Lab Results - Last 24 Hours (Table) 05/20/18 05/21/18 05/21/18 Range/Units 14:32 06:32 06:32 WBC 279.6 H* (3.8-10.6) k/uL RBC 2.85 L (3.80-5.40) m/uL Hgb 7.6 L (11.4-16.0) gm/dL Hct 25.8 L (34.0-46.0) % MCHC 29.5 L (31.0-37.0) g/dL RDW 18.2 H (11.5-15.5) % Plt Count 114 L (150-450) k/uL Neutrophils # (Manual) 8.39 H (1.3-7.7) k/uL Lymphocytes # (Manual) 271.21 H (1.0-4.8) k/uL BUN 26 H (7-17) mg/dL Glucose 112 H (74-99) mg/dL CK-MB (CK-2) 2.8 H* (0.0-2.4) ng/mL Troponin I 0.790 H* (0.000-0.034) ng/mL Total Protein 5.9 L (6.3-8.2) g/dL Assessment and Plan Assessment: #1 Congestive heart failure exacerbation, awaiting echocardiogram results #2 without abnormal cardiac enzymes likely related to congestive heart failure and fluid overload #3 elevated d-dimer, computed tomography scan of the chest showed no evidence of PE Plan: From cardiology's perspective, we will continue current dose of Lasix IV. Continue monitor renal function, electrolytes, daily weights and intake and output. We will await echocardiogram results. Further recommendations to follow. ASSISTANT DIRECTOR OF FINANCIAL AID note has been reviewed, I agree with a documented findings and plan of care. Patient was seen and examined.
--- NOTE | 2018-05-21 14:54 | P.CNPUL ---
History of Present Illness Consult date: 05/21/18 Requesting physician: Agustin Wiley Reason for consult: dyspnea, pleural effusion, abnormal CXR/CT Chief complaint: Shortness of breath, fatigue, CHF, pleural effusions History of present illness: Ginny is a 87-year-old white female patient of Dr. Castillo, presented to the emergency department on 05/20/2018 at 0255 by ambulance, with complaints of increasing shortness of breath, fatigue for the last 2 days. Patient states she has been increasingly dyspneic with her usual activities of daily living, such as walking to the bathroom, getting dressed, and she has to take frequent breaks of breath. Denied any fever or chills, denied any chest pain, no swelling in her lower legs. Denied any headache, denied any lightheadedness or dizziness. No cough, no hemoptysis, no phlegm production, no chest wall tenderness. No abdominal pain. Past medical history is positive for chronic lymphocytic leukemia diagnosed 11 years ago, the patient had received chemotherapy, however that was stopped about a year ago, and the patient is presently on prednisone of 5 mg daily. Other history includes hypertension, hyperlipidemia, she was told she has a heart murmur about a year ago. No fever , no chills, patient is on room air, with a pulse ox of 98%, hemodynamically stable, EKG in the emergency department showed sinus tachycardia with bundle branch block. Chest x-ray showed congestive heart failure with pleural effusions. D-dimer was elevated at 4.79, CT angios was completed showed no evidence of pulmonary embolism, cardiomegaly with pleural effusions and pulmonary edema consistent with congestive heart failure. Echocardiogram was completed, and showed severely impaired left ventricular systolic function with an EF between 20-25%, severe aortic valve sclerosis, with mild aortic regurgitation, with peak/mean gradients across the aortic valve of 72.57 mmHg/ 44.14 mmHg. [id number] mitral regurgitation, mild tricuspid regurgitation , with mild pulmonary hypertension with right ventricular systolic pressure of 38.4 mmHg. Patient was started on IV diuretics, has been diuresing, and she is already reporting improvement in her breathing. Admission lab work showed WBC of 319.4, hemoglobin of 8.3, electrolytes were within normal limits, BUN was 29 , creatinine is 0.80, 3 sets of troponins were completed, and they topped out at 0.827, and CK-MB topped out at 3.4, proBNP was elevated at 18,100. Urinalysis showed small amount of blood, and leukocyte esterase. We were consulted in regards to the pleural effusions, and dyspnea Past Medical History Past Medical History: Cancer, Hyperlipidemia, Hypertension History of Any Multi-Drug Resistant Organisms: None Reported Past Surgical History: No Surgical Hx Reported Past Psychological History: No Psychological Hx Reported Additional Psychological History / Comment(s): Patient lives with daughter. Patient juan diego ever suing tobacco. Juliana mosquera ever using alcohol Smoking Status: Never smoker Past Alcohol Use History: None Reported Past Drug Use History: None Reported Medications and Allergies Home Medications Medication Instructions Recorded Confirmed Type Allopurinol [Zyloprim] 300 mg PO DAILY 03/12/17 05/20/18 History Omeprazole 20 mg PO DAILY 03/12/17 05/20/18 History Gabapentin [Neurontin] 400 mg PO BID 05/20/18 05/20/18 History Levothyroxine Sodium [Synthroid] 25 mcg PO DAILY 05/20/18 05/20/18 History predniSONE 5 mg PO DAILY 05/20/18 05/20/18 History Allergies Allergy/AdvReac Type Severity Reaction Status Date / Time No Known Allergies Allergy Verified 05/20/18 03:00 Physical Exam Vitals: Vital Signs Temp Pulse Resp BP Pulse Ox 05/21/18 11:50 98.1 F 100 16 94/56 98 05/21/18 09:26 96 05/21/18 08:55 97.7 F 86 18 98/57 96 05/21/18 04:00 98.8 F 92 15 98/56 93 L 05/21/18 00:00 97.5 F L 96 19 93/54 98 05/20/18 20:00 97.6 F 103 H 19 113/56 97 05/20/18 18:10 97.2 F L 83 18 123/56 98 Intake and Output 05/20/18 05/21/18 05/21/18 22:59 06:59 14:59 Intake Total 140 Output Total 600 Balance 140 -600 Intake: IV 20 Invasive Line 1 20 Oral 120 Output: Urine 600 Other: Voiding Method Toilet Toilet Toilet # Voids 0 1 Weight 53.4 kg GENERAL EXAM: Alert, pleasant 87-year-old white female comfortable in no apparent distress. HEAD: Normocephalic/atraumatic. EYES: Normal reaction of pupils, equal size. Conjunctiva pink, sclera white. NOSE: Clear with pink turbinates. THROAT: No erythema or exudates. NECK: No masses, no JVD, no thyroid enlargement, no adenopathy. CHEST: No chest wall deformity. Symmetrical expansion. LUNGS: Equal air entry with no crackles, wheeze, rhonchi or dullness. CVS: Regular rate and rhythm, normal S1 and S2, patient has harsh systolic murmur loudest at the right sternal border second her costal space midclavicular line, and soft systolic murmur on the left, fifth intercostal space midclavicular line ABDOMEN: Soft, nontender. No hepatosplenomegaly, normal bowel sounds, no guarding or rigidity. EXTREMITIES: No clubbing, no edema, no cyanosis, 2+ pulses and upper and lower extremities. MUSCULOSKELETAL: Muscle strength and tone normal. SPINE: No scoliosis or deformity SKIN: No rashes CENTRAL NERVOUS SYSTEM: Alert and oriented -3. No focal deficits, tone is normal in all 4 extremities. PSYCHIATRIC: Alert and oriented -3. Appropriate affect. Intact judgment and insight. Results - Laboratory Findings CBC and BMP: 05/21/18 06:32 05/21/18 06:32 PT/INR, D-dimer PT 10.0 sec (9.0-12.0) 05/20/18 03:05 INR 1.0 (<1.2) 05/20/18 03:05 D-Dimer 4.79 mg/L FEU (<0.60) H 05/20/18 03:05 Abnormal lab findings: Abnormal Labs 05/20/18 05/20/18 05/20/18 03:05 03:05 03:05 WBC 319.4 H* RBC 2.90 L Hgb 8.3 L Hct 26.6 L MCHC RDW 18.2 H Plt Count 128 L Neutrophils # (Manual) Lymphocytes # (Manual) 313.01 H Monocytes # (Manual) 6.39 H APTT D-Dimer BUN 29 H Glucose 133 H AST 37 H Total Creatine Kinase 28 L CK-MB (CK-2) 3.4 H* Troponin I 0.425 H* Total Protein 6.1 L 05/20/18 05/20/18 05/20/18 03:05 12:10 14:32 WBC RBC Hgb Hct MCHC RDW Plt Count Neutrophils # (Manual) Lymphocytes # (Manual) Monocytes # (Manual) APTT 19.5 L D-Dimer 4.79 H BUN Glucose AST Total Creatine Kinase CK-MB (CK-2) 3.4 H* 2.8 H* Troponin I 0.827 H* 0.790 H* Total Protein 05/21/18 05/21/18 06:32 06:32 WBC 279.6 H* RBC 2.85 L Hgb 7.6 L Hct 25.8 L MCHC 29.5 L RDW 18.2 H Plt Count 114 L Neutrophils # (Manual) 8.39 H Lymphocytes # (Manual) 271.21 H Monocytes # (Manual) APTT D-Dimer BUN 26 H Glucose 112 H AST Total Creatine Kinase CK-MB (CK-2) Troponin I Total Protein 5.9 L - Diagnostic Findings Chest x-ray: report reviewed, image reviewed CT scan - chest: report reviewed, image reviewed Additional studies: EKG reviewed Assessment and Plan Plan: Assessment: #1. Acute exacerbation of systolic congestive heart failure, severely reduced left ventricular systolic function with an EF of 20-25% #2. Dyspnea, fatigue, bilateral pleural effusions, pulmonary vascular congestion due to the above #3. Valvular heart disease, severe aortic valve sclerosis, [id number] mitral regurgitation with moderate mitral annular calcification #4. Mild pulmonary hypertension #5. Chronic lymphocytic leukemia, status post chemotherapy treatments, continued a year ago, and the patient is currently on oral prednisone of #6. Hypertension, hyperlipidemia #7. Abnormal cardiac enzymes related to acute exacerbation of congestive heart failure and fluid overload #8. Elevated d-dimer, CT angios did not show any evidence of pulmonary embolism and benign. #9. Lifetime nonsmoker Plan: Repeat chest x-ray was obtained shows improvement in patient's volume status, treatment in the appearance of bilateral pleural effusions and associated atelectasis. She is responding well to IV diuretics, breathing easier today, less dyspneic, she is maintaining stable oxygenation on room air, afebrile. Continue IV diuretics, no need for thoracentesis at this time. Echocardiogram results were reviewed, and patient has significant valvular heart disease, cardiology is following. I performed a history & physical examination of the patient and discussed their management with my nurse practitioner, Cookie Diaz. I reviewed the nurse practitioner's note and agree with the documented findings and plan of care. Lung sounds are positive for a few scattered crackles over bilateral bases. The findings and the impression was discussed with the patient. I attest to the documentation by the nurse practitioner.
[2018-05-21 15:02] VITALS: BMI 23.0
--- NOTE | 2018-05-21 15:50 | P.CONS ---
History of Present Illness - Reason for Consult Consult date: 05/21/18 CLL Requesting physician: Tirso Baez - Chief Complaint DIPTI - History of Present Illness Ms. Huerta is a very pleasant lady who is monitored and treated by Dr. Harper for CLL that was originally diagnosed in July 2006, pt was on watchful approach for many years. Pt had symptoms of RUQ/abd pain in mid-2015, CT abdomen on 05/27/16 revealed splenomegaly, likely r/t to CLL but, she did not want any treatment. 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 She did well and continued on f/u when in January 2018 she had progressive anemia-low 8 range. Pt agreed to treatment with prednisone 2.5mg daily that she started 01/16/18, CBC/Hgb stable and since she was tolerating the prednisone dose was increased to 5 mg on 02/13/18 to see if CBC would improve. Pt admitted for CHF exacerbation, she states that she was feeling pretty good up until about a week ago, symptoms included activity intolerance, progressive SOB even at rest, BLE swelling and weakness. She denies fevers, appetite is fair, no difficulty swallowing, nausea, chest pain, palpitations, her cough has been congested, small amounts of clear/whitish sputum, BLE swelling is much better since admit, she is ambulating, denies any pain. Review of Systems 14 point ROS is negative except if otherwise stated in HPI Past Medical History Past Medical History: Cancer, Hyperlipidemia, Hypertension History of Any Multi-Drug Resistant Organisms: None Reported Past Surgical History: Appendectomy, Cholecystectomy, Hysterectomy Past Anesthesia/Blood Transfusion Reactions: No Reported Reaction (history of blood transfusion without complications) Past Psychological History: No Psychological Hx Reported Additional Psychological History / Comment(s): Patient lives with daughter. Patient denies ever using tobacco. Patietn denies ever using alcohol Smoking Status: Never smoker Past Alcohol Use History: None Reported Past Drug Use History: None Reported - Past Family History Father Family Medical History: No Reported History Additional Family Medical History / Comment(s): pt denies any significant medical conditions in mother or father Medications and Allergies Home Medications Medication Instructions Recorded Confirmed Type Allopurinol [Zyloprim] 300 mg PO DAILY 03/12/17 05/20/18 History Omeprazole 20 mg PO DAILY 03/12/17 05/20/18 History Gabapentin [Neurontin] 400 mg PO BID 05/20/18 05/20/18 History Levothyroxine Sodium [Synthroid] 25 mcg PO DAILY 05/20/18 05/20/18 History predniSONE 5 mg PO DAILY 05/20/18 05/20/18 History Allergies Allergy/AdvReac Type Severity Reaction Status Date / Time No Known Allergies Allergy Verified 05/20/18 03:00 Physical Exam Vitals: Vital Signs Temp Pulse Resp BP Pulse Ox 05/21/18 11:50 98.1 F 100 16 94/56 98 05/21/18 09:26 96 05/21/18 08:55 97.7 F 86 18 98/57 96 05/21/18 04:00 98.8 F 92 15 98/56 93 L 05/21/18 00:00 97.5 F L 96 19 93/54 98 05/20/18 20:00 97.6 F 103 H 19 113/56 97 05/20/18 18:10 97.2 F L 83 18 123/56 98 Intake and Output 05/20/18 05/21/18 05/21/18 22:59 06:59 14:59 Intake Total 140 360 Output Total 600 Balance 140 -600 360 Intake: IV 20 Invasive Line 1 20 Oral 120 360 Output: Urine 600 Other: Voiding Method Toilet Toilet Toilet # Voids 0 1 4 Weight 53.4 kg - Constitutional General appearance: average body habitus, cooperative, no acute distress - EENT Eyes: anicteric sclerae, EOMI ENT: normal oropharynx - Neck Neck: no lymphadenopathy - Respiratory Respiratory: bilateral: CTA (upper 2/3), rales (bases) - Cardiovascular Rhythm: regular Heart sounds: normal: S1, S2 Abnormal Heart Sounds: systolic murmur (3/6>at LSB, 5th ICS ) leg Peripheral Edema: bilateral: Trace - Gastrointestinal General gastrointestinal: no absent bowel sounds, no decreased bowel sounds, no distended, no hepatomegaly, no hyperactive bowel sounds, normal bowel sounds, no organomegaly, no rigid, no scaphoid, soft, no splenomegaly, no tenderness, no umbilical hernia, no ventral hernia - Integumentary Integumentary: decreased turgor - Neurologic Neurologic: CNII-XII intact - Musculoskeletal Musculoskeletal: generalized weakness, strength equal bilaterally - Psychiatric Psychiatric: A&O x's 3, appropriate affect, intact judgment & insight Results CBC & Chem 7: 05/21/18 06:32 18 06:32 Labs: Abnormal Lab Results - Last 24 Hours (Table) 05/20/18 05/21/18 05/21/18 Range/Units 14:32 06:32 06:32 WBC 279.6 H* (3.8-10.6) k/uL RBC 2.85 L (3.80-5.40) m/uL Hgb 7.6 L (11.4-16.0) gm/dL Hct 25.8 L (34.0-46.0) % MCHC 29.5 L (31.0-37.0) g/dL RDW 18.2 H (11.5-15.5) % Plt Count 114 L (150-450) k/uL Neutrophils # (Manual) 8.39 H (1.3-7.7) k/uL Lymphocytes # (Manual) 271.21 H (1.0-4.8) k/uL BUN 26 H (7-17) mg/dL Glucose 112 H (74-99) mg/dL CK-MB (CK-2) 2.8 H* (0.0-2.4) ng/mL Troponin I 0.790 H* (0.000-0.034) ng/mL Total Protein 5.9 L (6.3-8.2) g/dL Comments: ECHO report reviewed Chest x-ray: report reviewed CT scan - chest: report reviewed Assessment and Plan (1) Anemia Narrative/Plan: Secondary to CLL. Her Hgb has been in the 8 range, no PRBCs planned at this time. Pt is currently asymptomatic. Cont to monitor CBC. Transfuse conservatively and for symptoms. Current Visit: Yes Status: Chronic Priority: Medium Code(s): D64.9 - ANEMIA, UNSPECIFIED SNOMED Code(s): 095568808 (2) CLL (chronic lymphocytic leukemia) Narrative/Plan: Leukocytosis and lymphocytosis from CLL, elevated slightly when compared to recent results from office (lymphocyte % 60-80's, currently in the 90's). Suspect r/t CHF exacerbation. Pt is feeling better and labs are fairly stable today. CBC daily Pt has refused recommended therapies previously. Cont on 5mg prednisone for now , f/u with Dr. Harper as scheduled. 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 No acute intervention.
[2018-05-21] MEDS: DOCUSATE 100 MG CAP PO SCH ×2 (19:46→19:57)
[2018-05-22] MEDS: LEVOTHYROXINE 25 MCG TAB PO SCH (07:08)
[2018-05-22 07:22] LABS: Anisocytosis Slight; HCT 26.5 % (34.0-46.0); Hypochromasia Moderate; MCH 31.6 pg (25.0-35.0); MCV 90.3 fL (80.0-100.0); Mean Platelet Volume 7.2; Platelet Count 120 k/uL (150-450); RBC 2.93 m/uL (3.80-5.40)
[2018-05-22 07:25] LABS: Albumin 4.1 g/dL (3.5-5.0); Calcium 8.9 mg/dL (8.4-10.2); Potassium 3.1 mmol/L (3.5-5.1); Total Bilirubin 0.6 mg/dL (0.2-1.3); Total Protein 6.3 g/dL (6.3-8.2); WBC 308.8 k/uL (3.8-10.6)
[2018-05-22 07:27] LABS: HGB 9.3 gm/dL (11.4-16.0)
[2018-05-22] MEDS ORDERED: PANTOPRAZOLE 40 MG TABLET PO SCH (07:30)
[2018-05-22] MEDS: ENOXAPARIN 60 MG/0.6 ML SYRINGE SQ SCH (07:51)
[2018-05-22] MEDS: FUROSEMIDE 10 MG/ML 4 ML VIAL IV SCH (07:51)
[2018-05-22] MEDS: ASPIRIN 81 MG PO SCH (07:52)
[2018-05-22] MEDS: ALLOPURINOL 300 MG TAB PO SCH (07:52)
[2018-05-22] MEDS: DOCUSATE 100 MG CAP PO SCH (07:52)
[2018-05-22] MEDS: predniSONE 5 MG TAB PO SCH (07:52)
[2018-05-22 08:59] LABS: Lymphocytes # (M) 299.54 k/uL (1.0-4.8); Neutrophils # (M) 6.18 k/uL (1.3-7.7); Neutrophils % (M) 2 %
[2018-05-22 09:00] LABS: Eosinophils # (M) 3.09 k/uL (0-0.7); Monocytes # (M) 3.09 k/uL (0-1.0); Nucleated Red Blood Cells 0 /100 WBC (0-0); Total Cells Counted 200
[2018-05-22] MEDS ORDERED: POTASSIUM CHLORIDE ER 20 MEQ TAB.ER PO STA (09:10)
[2018-05-22 10:40] VITALS: RESP 16
--- NOTE | 2018-05-22 11:03 | P.PN ---
Subjective Progress Note Date: 05/22/18 Principal diagnosis: CHF secondary to systolic dysfunction/severe aortic stenosis This is a pleasant 87-year-old female patient with a past medical history significant for chronic lymphocytic leukemia but no history of coronary artery disease or congestive heart failure or cardiac arrhythmia presented to the emergency room complaining of shortness of breath. The patient stated that the shortness of breath started about a week ago and was quite worse this past Monday when the patient noticed that she was unable to do her daily activities without being short of breath. No orthopnea and no paroxysmal nocturnal dyspnea. She is already feeling better. She did not have any symptoms of bilateral lower extremities edema.She did not have any symptoms of chest pain or chest discomfort. No dizziness or lightheadedness and no syncope. The patient did not have any fever or chills or cough. She decided to come to the emergency room where in the ER the patient saturation was 97% on 2 L nasal cannula. The chest x-ray showed findings consistent with CHF. The BNP came in to be around 18,000. The d-dimer came in to be alleviated but the computed tomography scan of the chest did not show any evidence of PE. The troponin was checked and came in to be slightly elevated along with slightly elevated CK-MB. The patient did not have no chest pain and no chest discomfort. The EKG showed sinus rhythm with intraventricular conduction delay and nonspecific changes. The patient denies having any history of coronary artery disease and she never seen a custom shoe designer and maker in the past. No history of congestive heart failure. No history of upper respiratory infection. On follow-up with the patient today, she is feeling better in term of shortness of breath. No chest pain or chest discomfort. She continues to be on Lasix IV. The echocardiogram revealed severe cardiomyopathy with EF of 20% with evidence of severe aortic stenosis. Because of that, and because of the blood pressure on the low side, I am going to DC the Lasix IV and start the patient on small dose of Lasix by mouth. I would avoid any blood pressure medications on her or any medications to treat the cardiomyopathy because of her aortic valve condition and the tendency of developing hypotension. Objective - Vital Signs Vital signs: Vital Signs Temp 96.8 F L 05/22/18 08:00 Pulse 84 05/22/18 08:00 Resp 16 05/22/18 08:00 BP 102/52 05/22/18 08:00 Pulse Ox 95 05/22/18 08:00 Intake & Output 05/21/18 05/22/18 05/22/18 18:59 06:59 18:59 Intake Total 540 620 250 Output Total 500 Balance 540 120 250 Weight 53.4 kg 53.1 kg Intake: IV 20 10 Invasive Line 1 20 10 Oral 540 600 240 Output: Urine 500 Other: Voiding Method Toilet Toilet Toilet # Voids 4 3 - Constitutional General appearance: Present: no acute distress - Respiratory Respiratory: bilateral: diminished, rales - Cardiovascular Rhythm: regular Heart sounds: normal: S1, S2 Abnormal Heart Sounds: Present: systolic murmur - Labs CBC & Chem 7: 05/22/18 06:20 05/22/18 06:20 Labs: Abnormal Lab Results - Last 24 Hours (Table) 05/22/18 05/22/18 Range/Units 06:20 06:20 WBC 308.8 H* (3.8-10.6) k/uL RBC 2.93 L (3.80-5.40) m/uL Hgb 9.3 L D (11.4-16.0) gm/dL Hct 26.5 L (34.0-46.0) % RDW 18.0 H (11.5-15.5) % Plt Count 120 L (150-450) k/uL Lymphocytes # (Manual) 299.54 H (1.0-4.8) k/uL Monocytes # (Manual) 3.09 H (0-1.0) k/uL Eosinophils # (Manual) 3.09 H (0-0.7) k/uL Potassium 3.1 L (3.5-5.1) mmol/L Chloride 96 L (98-107) mmol/L Carbon Dioxide 31 H (22-30) mmol/L BUN 32 H (7-17) mg/dL Glucose 113 H (74-99) mg/dL Assessment and Plan Assessment: Assessment #1 congestive heart failure exacerbation secondary to systolic dysfunction. #2 severe cardiomyopathy, and known if is ischemic or nonischemic. The EF is 20 % #3 severe aortic stenoses. Plan #1 DC Lasix IV and start the patient on Lasix by mouth #2 avoid any medications for the cardiomyopathy. #3 follow-up with the patient
--- NOTE | 2018-05-22 11:46 | CDI ---
Last Revision, October 2017 Documentation Clarification Form Date: 05/22/2018 11:37:00 AM From: Autumn BrooksTAMIA, CCDS Admit Date: 05/20/2018 6:42:00 AM Patient Name: Ginny Huerta Visit Number: [id number] Discharge Date: ATTENTION: The Clinical Documentation Specialists (CDI) and [facility] Coding Staff appreciate your assistance in clarifying documentation. Please respond to the clarification below the line at the bottom and electronically sign. The CDI & [facility] Coding staff will review the response and follow-up if needed. Please note: Queries are made part of the Legal Health Record. If you have any questions, please contact the author of this message via ITS. Dr. Agustin Wiley: 87 yo female, admitted with Acute Exacerbation of Systolic Congestive Heart Failure and possible anemia. Anemia nos is documented in the History & Physical, the Oncology consult & subsequent progress notes. History/Risk Factors: CLL, Thrombocytopenia, CAD, Hypertension & Hyperlipidemia. Clinical indicators: Presented with SOB at rest & with exertion. Hemoglobin: 8.3 - 7.6 - 9.3 Hematocrit: 26.6 - 25.8 - 26.5 Treatment: IV fl rate 10, IV Lasix, now po. In order to capture the severity of condition, please clarify the type of anemia and etiology if known: Iron deficiency anemia Hemolytic anemia Drug induced anemia Anemia due to malignancy Nutritional anemia Anemia of chronic kidney disease Unable to determine Other, please specify Please continue to document in your progress notes and discharge summary in order to capture severity of illness and risk of mortality. Include clinical findings that support your diagnosis. MTDD
--- NOTE | 2018-05-22 11:51 | P.PN ---
Subjective Progress Note Date: 05/22/18 Principal diagnosis: Acute exacerbation of chronic systolic congestive heart failureSherrell Gross is a 87-year-old white female patient of Dr. Castillo, presented to the emergency department on 05/20/2018 at 0255 by ambulance, with complaints of increasing shortness of breath, fatigue for the last 2 days. Patient states she has been increasingly dyspneic with her usual activities of daily living, such as walking to the bathroom, getting dressed, and she has to take frequent breaks of breath. Denied any fever or chills, denied any chest pain, no swelling in her lower legs. Denied any headache, denied any lightheadedness or dizziness. No cough, no hemoptysis, no phlegm production, no chest wall tenderness. No abdominal pain. Past medical history is positive for chronic lymphocytic leukemia diagnosed 11 years ago, the patient had received chemotherapy, however that was stopped about a year ago, and the patient is presently on prednisone of 5 mg daily. Other history includes hypertension, hyperlipidemia, she was told she has a heart murmur about a year ago. No fever , no chills, patient is on room air, with a pulse ox of 98%, hemodynamically stable, EKG in the emergency department showed sinus tachycardia with bundle branch block. Chest x-ray showed congestive heart failure with pleural effusions. D-dimer was elevated at 4.79, CT angios was completed showed no evidence of pulmonary embolism, cardiomegaly with pleural effusions and pulmonary edema consistent with congestive heart failure. Echocardiogram was completed, and showed severely impaired left ventricular systolic function with an EF between 20-25%, severe aortic valve sclerosis, with mild aortic regurgitation, with peak/mean gradients across the aortic valve of 72.57 mmHg/ 44.14 mmHg. [id number]-lllddcyg mitral regurgitation, mild tricuspid regurgitation , with mild pulmonary hypertension with right ventricular systolic pressure of 38.4 mmHg. Patient was started on IV diuretics, has been diuresing, and she is already reporting improvement in her breathing. Admission lab work showed WBC of 319.4, hemoglobin of 8.3, electrolytes were within normal limits, BUN was 29 , creatinine is 0.80, 3 sets of troponins were completed, and they topped out at 0.827, and CK-MB topped out at 3.4, proBNP was elevated at 18,100. Urinalysis showed small amount of blood, and leukocyte esterase. We were consulted in regards to the pleural effusions, and dyspnea. The patient is seen again today 05/22/2018 in follow-up on the selective care unit. She is currently awake and alert in no acute distress. She is resting quite comfortably in bed. She states she is breathing quite a bit easier today as compared to yesterday. Nearly back to her baseline. She is maintaining good O2 saturations in the mid 90s on room air. She's been afebrile. Hemodynamically stable. Weight stable. Creatinine 1.00. She is anxious to go home. Objective - Vital Signs Vital signs: Vital Signs Temp 96.8 F L 05/22/18 08:00 Pulse 84 05/22/18 08:00 Resp 16 05/22/18 08:00 BP 102/52 05/22/18 08:00 Pulse Ox 95 05/22/18 08:00 Intake & Output 05/21/18 05/22/18 05/22/18 18:59 06:59 18:59 Intake Total 540 620 250 Output Total 500 Balance 540 120 250 Weight 53.4 kg 53.1 kg Intake: IV 20 10 Invasive Line 1 20 10 Oral 540 600 240 Output: Urine 500 Other: Voiding Method Toilet Toilet Toilet # Voids 4 3 - Exam GENERAL EXAM: Alert, pleasant 87-year-old white female comfortable in no apparent distress. HEAD: Normocephalic/atraumatic. EYES: Normal reaction of pupils, equal size. Conjunctiva pink, sclera white. NOSE: Clear with pink turbinates. THROAT: No erythema or exudates. NECK: No masses, no JVD, no thyroid enlargement, no adenopathy. CHEST: No chest wall deformity. Symmetrical expansion. LUNGS: Equal air entry with no crackles, wheeze, rhonchi or dullness. CVS: Regular rate and rhythm, normal S1 and S2, patient has harsh systolic murmur loudest at the right sternal border second her costal space midclavicular line, and soft systolic murmur on the left, fifth intercostal space midclavicular line ABDOMEN: Soft, nontender. No hepatosplenomegaly, normal bowel sounds, no guarding or rigidity. EXTREMITIES: No clubbing, no edema, no cyanosis, 2+ pulses and upper and lower extremities. MUSCULOSKELETAL: Muscle strength and tone normal. SPINE: No scoliosis or deformity SKIN: No rashes CENTRAL NERVOUS SYSTEM: Alert and oriented -3. No focal deficits, tone is normal in all 4 extremities. PSYCHIATRIC: Alert and oriented -3. Appropriate affect. Intact judgment and insight. - Labs CBC & Chem 7: 05/22/18 06:20 05/22/18 06:20 Labs: Abnormal Lab Results - Last 24 Hours (Table) 05/22/18 05/22/18 Range/Units 06:20 06:20 WBC 308.8 H* (3.8-10.6) k/uL RBC 2.93 L (3.80-5.40) m/uL Hgb 9.3 L D (11.4-16.0) gm/dL Hct 26.5 L (34.0-46.0) % RDW 18.0 H (11.5-15.5) % Plt Count 120 L (150-450) k/uL Lymphocytes # (Manual) 299.54 H (1.0-4.8) k/uL Monocytes # (Manual) 3.09 H (0-1.0) k/uL Eosinophils # (Manual) 3.09 H (0-0.7) k/uL Potassium 3.1 L (3.5-5.1) mmol/L Chloride 96 L (98-107) mmol/L Carbon Dioxide 31 H (22-30) mmol/L BUN 32 H (7-17) mg/dL Glucose 113 H (74-99) mg/dL Assessment and Plan Assessment: Assessment: #1. Acute exacerbation of systolic congestive heart failure, severely reduced left ventricular systolic function with an EF of 20-25% #2. Dyspnea, fatigue, bilateral pleural effusions, pulmonary vascular congestion due to the above #3. Valvular heart disease, severe aortic valve sclerosis, [id number]-sv-[id number] mitral regurgitation with moderate mitral annular calcification #4. Mild pulmonary hypertension #5. Chronic lymphocytic leukemia, status post chemotherapy treatments, continued a year ago, and the patient is currently on oral prednisone of #6. Hypertension, hyperlipidemia #7. Abnormal cardiac enzymes related to acute exacerbation of congestive heart failure and fluid overload #8. Elevated d-dimer, CT angios did not show any evidence of pulmonary embolism and benign. #9. Lifetime nonsmoker Plan: The patient was seen and evaluated by Dr. Campos. The patient is much improved today as compared to yesterday responding well to diuretics. No plans for thoracentesis at this time. She is stable from the pulmonary standpoint. I, the cosigning physician, performed a history & physical examination of the patient. Lungs sounds are clear. Maintaining good O2 saturations in the 90s on room air. I discussed the assessment and plan of care with my nurse practitioner, Lilian Hartman. I attest to the above note as dictated by her.
--- NOTE | 2018-05-22 12:05 | P.PN ---
Subjective Progress Note Date: 05/22/18 Principal diagnosis: CHF exacerbation Patient seen today in follow-up. reathing is better, leg swelling is only minor , appetite is fair, patient is ambulating in the room. No pain to report. Objective - Vital Signs Vital signs: Vital Signs Temp 96.8 F L 05/22/18 08:00 Pulse 84 05/22/18 08:00 Resp 16 05/22/18 08:00 BP 102/52 05/22/18 08:00 Pulse Ox 95 05/22/18 08:00 Intake & Output 05/21/18 05/22/18 05/22/18 18:59 06:59 18:59 Intake Total 540 620 250 Output Total 500 Balance 540 120 250 Weight 53.4 kg 53.1 kg Intake: IV 20 10 Invasive Line 1 20 10 Oral 540 600 240 Output: Urine 500 Other: Voiding Method Toilet Toilet Toilet # Voids 4 3 - Constitutional General appearance: Present: average body habitus, cooperative, no acute distress - Respiratory Respiratory: bilateral: CTA, rales (few scattered in the bases bilateral) - Cardiovascular Heart sounds: normal: S1, S2 Abnormal Heart Sounds: Present: systolic murmur - Peripheral edema leg Peripheral Edema: bilateral: Trace - Gastrointestinal General gastrointestinal: Present: normal bowel sounds, soft - Neurologic Neurologic: Present: CNII-XII intact - Musculoskeletal Musculoskeletal: Present: strength equal bilaterally - Psychiatric Psychiatric: Present: A&O x's 3, appropriate affect, intact judgment & insight - Labs CBC & Chem 7: 05/22/18 06:20 05/22/18 06:20 Labs: Abnormal Lab Results - Last 24 Hours (Table) 05/22/18 05/22/18 Range/Units 06:20 06:20 WBC 308.8 H* (3.8-10.6) k/uL RBC 2.93 L (3.80-5.40) m/uL Hgb 9.3 L D (11.4-16.0) gm/dL Hct 26.5 L (34.0-46.0) % RDW 18.0 H (11.5-15.5) % Plt Count 120 L (150-450) k/uL Lymphocytes # (Manual) 299.54 H (1.0-4.8) k/uL Monocytes # (Manual) 3.09 H (0-1.0) k/uL Eosinophils # (Manual) 3.09 H (0-0.7) k/uL Potassium 3.1 L (3.5-5.1) mmol/L Chloride 96 L (98-107) mmol/L Carbon Dioxide 31 H (22-30) mmol/L BUN 32 H (7-17) mg/dL Glucose 113 H (74-99) mg/dL Assessment and Plan (1) Anemia Current Visit: Yes Status: Chronic Priority: Medium Code(s): D64.9 - ANEMIA, UNSPECIFIED SNOMED Code(s): 443648254 (2) CLL (chronic lymphocytic leukemia) Current Visit: Yes Status: Chronic Priority: Medium Code(s): C91.90 - LYMPHOID LEUKEMIA, UNSPECIFIED NOT HAVING ACHIEVED REMISSION SNOMED Code(s): 87435218 Plan: CBC reviewed, noted changes to white count, still within patient's fluctuation pattern, no acute intervention. Patient's hemoglobin and platelets are stable, no intervention. Continue 5 mg of prednisone daily Continue daily PPI prophylaxis follow-up as scheduled with Dr. Harper
[2018-05-22 13:25] VITALS: BP 101/63; PULSE 91; TEMP 97.2
--- NOTE | 2018-05-22 14:30 | P.DS ---
Providers Date of admission: 05/20/18 06:42 Expected date of discharge: 05/22/18 Attending physician: Agustin Wiley Consults: 05/20/18 06:39 Consult Physician Routine Consulting Provider: Shaan Harper Consult Reason/Comments: CLL patient Do you want consulting provider notified?: Yes 05/20/18 06:54 Consult Physician Routine Consulting Provider: Reggie Kong Consult Reason/Comments: elevated troponin Do you want consulting provider notified?: Yes 05/20/18 12:59 Consult Physician Routine Consulting Provider: Judith Epperson Consult Reason/Comments: pleural effusion, dyspnea Do you want consulting provider notified?: Yes Primary care physician: Janeth Castillo [facility] Course: Discharge diagnosis #1 worsening shortness of breath likely related to congestive heart failure exacerbation and possibly anemia. #2 acute systolic congestive heart failure exacerbation: Echo shows an EF of 20 % with evidence of severe aortic stenosis. Case discussed with cardiology. They have switched her over to oral Lasix 20 mg daily. Blood pressures have been on the lower side. Cardiology wants to avoid any blood pressure medications or any medications to treat the cardiomyopathy because of her aortic valve condition and the tendency of developing hypotension #3 underlying history of chronic lymphocytic leukemia with severe leukocytosis and anemia, Dr. Harper was consulted #4 elevated d-dimer with negative computed tomography scan angiogram of the chest #5 elevated troponins evaluated by cardiology. They felt this is likely related to congestive heart failure and fluid overload. Cardiology has added an aspirin #6 anemia secondary to CLL. Hemoglobin stable did not require transfusions. Hemoglobin 9.3 at discharge #7 leukocytosis and lymphocytosis secondary to CLL patient seen by oncology the recommending patient to continue prednisone. And she'll follow-up with Dr. Kaplan as scheduled #8 mild thrombocytopenia secondary to CLL #9 hypokalemia: Patient received potassium supplement for potassium of 3.1. We' ll add a daily potassium of K-Dur 10 milliequivalents daily. Hospital course Ginny Huerta is an 87-year-old female who presented to [facility] emergency room with a chief complaint of worsening shortness of breath patient states that she started having shortness of breath on Monday her symptoms worsened and she decided to come to emergency room on Monday, she was evaluated in emergency room she had tachycardia on presentation pulse ox was 97% on 2 L nasal cannula chest x-ray revealed evidence of pulmonary congestion suggestive of congestive heart failure exacerbation with pleural effusions and evidence of cardiomegaly, BNP was elevated at 18,100 d-dimer was elevated at 4.79 computed tomography scan angiogram of the chest was done and was negative for pulmonary embolism. Patient also had elevated troponin level of 0.425 on presentation, EKG revealed ST and T-wave changes in inferior leads patient was admitted to telemetry floor and cardiology consultation was requested. She was given IV Lasix in the emergency room and her shortness of breath improved significantly she has been maintained on oxygen supplements since presentation. Patient has a known history of chronic lymphocytic leukemia she has been followed by Dr. Kaplan for 11 years, currently she is only maintained on prednisone 5 mg by mouth daily her white blood count is significantly elevated at 319,000 hemoglobin is down to 8.3 on presentation. She states that she had received chemotherapy in the past by Dr. Kaplan but not recently. Patient denies any history of coronary artery disease or congestive heart failure, she states that she was seen by receiving associate 1 year ago her next appointment will be in June of this year. 05/21/2018 patient reports improvement in her shortness of breath. She has been off of the oxygen since last night. She denies any chest pain. Denies any nausea or vomiting. Denies any burning with urination. She is reporting constipation. It's been about 2 days since her last bowel movement. White count 279.6 and hemoglobin 7.6 05/22/2018 patient is stable for discharge today. She was treated for congestive heart failure exacerbation. She was found to have an EF of 20-25% with echo showing severe aortic stenosis. Case discussed with cardiology. They have cleared her for discharge. During this admission they have added Lasix 20 mg by mouth daily and aspirin 81 mg daily. They'll follow her closely in the office. To discuss if any further treatment regarding the severe aortic stenosis. Patient's symptoms have improved. She is medically stable for discharge. Recommend checking BMP in 3 days I performed an examination of the patient and discussed their management with the physician Territory Sales Representative. I have reviewed the Physician Territory Sales Representative's notes and agree with the documented findings and plan of care Patient Condition at Discharge: Stable Plan - Discharge Summary Discharge Rx Participant: Yes New Discharge Prescriptions: New Aspirin 81 mg PO DAILY #30 chew Furosemide [Lasix] 20 mg PO DAILY #30 tab Continue Omeprazole 20 mg PO DAILY Allopurinol [Zyloprim] 300 mg PO DAILY Gabapentin [Neurontin] 400 mg PO BID Levothyroxine Sodium [Synthroid] 25 mcg PO DAILY predniSONE 5 mg PO DAILY Discharge Medication List Allopurinol [Zyloprim] 300 mg PO DAILY 03/12/17 [History] Omeprazole 20 mg PO DAILY 03/12/17 [History] Gabapentin [Neurontin] 400 mg PO BID 05/20/18 [History] Levothyroxine Sodium [Synthroid] 25 mcg PO DAILY 05/20/18 [History] predniSONE 5 mg PO DAILY 05/20/18 [History] Aspirin 81 mg PO DAILY #30 chew 05/22/18 [Rx] Furosemide [Lasix] 20 mg PO DAILY #30 tab 05/22/18 [Rx] Follow up Appointment(s)/Referral(s): Janeth Castillo DO [Primary Care Provider] - 05/28/18 1:15 pm (Monday at [place] location) Shaan Harper MD [STAFF PHYSICIAN] - 06/11/18 2:15 pm Reggie Kong MD [STAFF PHYSICIAN] - 1 Week Activity/Diet/Wound Care/Special Instructions: Diet: cardiac Activity: as tolerated Discharge Disposition: HOME WITH HOME HEALTH SERVICES
[2018-05-23] MEDS ORDERED: FUROSEMIDE 20 MG TAB PO SCH (09:00)
== END 2018-05-22 17:56 | disposition home health service (06) | DRG 292 ==
LOC: EC 02:55 → 6SEL 06:42
PROVIDERS: ADMIT Internal Medicine; ATTEND Internal Medicine
DX: I11.0 Hypertensive heart disease with heart failure (principal); C91.10 Chronic lymphocytic leukemia of B-cell type not having achieved remission; I50.23 Acute on chronic systolic (congestive) heart failure; D63.0 Anemia in neoplastic disease; D69.59 Other secondary thrombocytopenia; E78.5 Hyperlipidemia, unspecified; E87.6 Hypokalemia; I25.10 Atherosclerotic heart disease of native coronary artery without angina pectoris; I27.20 Pulmonary hypertension, unspecified; I42.9 Cardiomyopathy, unspecified; K59.00 Constipation, unspecified; R79.1 Abnormal coagulation profile; Z79.52 Long term (current) use of systemic steroids; Z79.82 Long term (current) use of aspirin; Z90.710 Acquired absence of both cervix and uterus; Z92.21 Personal history of antineoplastic chemotherapy; Z79.899 Other long term (current) drug therapy
CPT/HCPCS: 36415; 71045; 71046; 71275; 80053; 82550; 82553; 83735; 83880; 84484; 85025; 85379; 85610; 85730; 93005; 93306; 94760; 96372; 96374; 99285

== ENCOUNTER 2018-06-08 16:39 | Inpatient (IN) | payer MEDICARE, BC ==
[2018-06-08] MEDS ORDERED: IPRATROPIUM-ALBUTEROL 3 ML NEB INHALATION STA (18:39)
--- NOTE | 2018-06-08 18:42 | ED ---
General Adult HPI - General Chief complaint: Shortness of Breath Stated complaint: SOB when lying down Time Seen by Provider: 06/08/18 18:38 Source: patient, family, RN notes reviewed, old records reviewed Mode of arrival: wheelchair Limitations: no limitations - History of Present Illness Initial comments: This is an 87-year-old female the ER for evaluation. Patient started by family for evaluation of significant shortness of breath difficulty breathing 2-3 days of significant shortness of breath. Patient herself denies chest pain with that she cannot catch her breath. Symptoms are going on for about a week but significantly worse over the last 2 days. Patient cannot lay flat, cannot sleep , has not slept in 2 days. No recent change in medications. No fevers cough or congestion - Related Data Home Medications Medication Instructions Recorded Confirmed Allopurinol [Zyloprim] 300 mg PO DAILY 03/12/17 05/20/18 Omeprazole 20 mg PO DAILY 03/12/17 05/20/18 Gabapentin [Neurontin] 400 mg PO BID 05/20/18 05/20/18 Levothyroxine Sodium [Synthroid] 25 mcg PO DAILY 05/20/18 05/20/18 predniSONE 5 mg PO DAILY 05/20/18 05/20/18 Previous Rx's Medication Instructions Recorded Aspirin 81 mg PO DAILY #30 chew 05/22/18 Furosemide [Lasix] 20 mg PO DAILY #30 tab 05/22/18 Potassium Chloride ER [K-Dur 10] 10 meq PO DAILY #30 tab 05/22/18 Allergies Allergy/AdvReac Type Severity Reaction Status Date / Time No Known Allergies Allergy Verified 06/08/18 18:24 Review of Systems ROS Statement: Those systems with pertinent positive or pertinent negative responses have been documented in the HPI. ROS Other: All systems not noted in ROS Statement are negative. Past Medical History Past Medical History: Cancer, Hyperlipidemia, Hypertension Additional Past Medical History / Comment(s): cll History of Any Multi-Drug Resistant Organisms: None Reported Past Surgical History: Appendectomy, Cholecystectomy, Hysterectomy Past Anesthesia/Blood Transfusion Reactions: No Reported Reaction (history of blood transfusion without complications) Past Psychological History: No Psychological Hx Reported Smoking Status: Never smoker Past Alcohol Use History: None Reported Past Drug Use History: None Reported - Past Family History Father Family Medical History: No Reported History Additional Family Medical History / Comment(s): pt denies any significant medical conditions in mother or father General Exam Limitations: no limitations General appearance: alert, in no apparent distress Head exam: Present: atraumatic, normocephalic, normal inspection Eye exam: Present: normal appearance, PERRL, EOMI. Absent: scleral icterus, conjunctival injection, periorbital swelling ENT exam: Present: normal exam, mucous membranes moist Neck exam: Present: normal inspection. Absent: tenderness, meningismus, lymphadenopathy Respiratory exam: Present: normal lung sounds bilaterally. Absent: respiratory distress, wheezes, rales, rhonchi, stridor Cardiovascular Exam: Present: regular rate, normal rhythm, normal heart sounds. Absent: systolic murmur, diastolic murmur, rubs, gallop, clicks GI/Abdominal exam: Present: soft, normal bowel sounds. Absent: distended, tenderness, guarding, rebound, rigid Extremities exam: Present: normal inspection, full ROM, normal capillary refill. Absent: tenderness, pedal edema, joint swelling, calf tenderness Back exam: Present: normal inspection Neurological exam: Present: alert, oriented X3, CN II-XII intact Psychiatric exam: Present: normal affect, normal mood Skin exam: Present: warm, dry, intact, normal color. Absent: rash Course Vital Signs 06/08/18 18:21 Temperature 98.1 F Pulse Rate 107 H Respiratory 20 Rate Blood Pressure 106/68 O2 Sat by Pulse 93 L Oximetry - Reevaluation(s) Reevaluation #1: 06/08/18 19:28 Records thoroughly reviewed Reevaluation #2: 06/08/18 19:28 Spoke with of cardiology regarding patient, EKG Findings - EKG Comments: EKG Findings:: EKG shows sinus tachycardia rate of 111, WI 146, QRS 1:30, QTc 492 Medical Decision Making - Medical Decision Making 87 female the ER for evaluation of significant shortness of breath significant CHF exacerbation with impending respiratory failure. Low pulse ox. Patient will be admitted for IV diuresis and monitoring of cardiopulmonary state - Radiology Data Radiology results: report reviewed (CXR is neg for CHF), image reviewed Disposition Clinical Impression: Congestive heart failure, Systolic congestive heart failure, Acute respiratory failure Disposition: ADMITTED IP TO THIS [facility] Condition: Serious Is patient prescribed a controlled substance at d/c from ED?: No Referrals: Jnaeth Castillo DO [Primary Care Provider] - 1-2 days
[2018-06-08 19:14] LABS: Anisocytosis Slight; HCT 26.7 % (34.0-46.0); HGB 7.9 gm/dL (11.4-16.0); Hypochromasia Moderate; MCH 26.8 pg (25.0-35.0); MCHC 29.6 g/dL (31.0-37.0); MCV 90.4 fL (80.0-100.0); Mean Platelet Volume 7.6; Platelet Count 123 k/uL (150-450); RBC 2.95 m/uL (3.80-5.40); RDW 18.5 % (11.5-15.5)
--- NOTE | 2018-06-08 19:22 | XR ---
EXAMINATION TYPE: XR chest 2V DATE OF EXAM: 06/08/2018 COMPARISON: 05/21/2018 HISTORY: Short of breath TECHNIQUE: Frontal and lateral views of the chest are obtained. FINDINGS: Heart is enlarged. There is blunting of costophrenic angles. There is pulmonary vascular c ongestion. There are chest leads. Bony thorax is intact. IMPRESSION: There is some congestive heart failure that is slightly worse than last exam. There is i ncreasing pleural fluid.
[2018-06-08 19:28] LABS: WBC 375.9 k/uL (3.8-10.6)
[2018-06-08 19:30] LABS: INR 1.1 (<1.2); Prothrombin Time 10.8 sec (9.0-12.0)
[2018-06-08 19:32] LABS: Albumin 4.2 g/dL (3.5-5.0); Calcium 9.2 mg/dL (8.4-10.2); Magnesium 2.2 mg/dL (1.6-2.3); Potassium 4.7 mmol/L (3.5-5.1); Total Bilirubin 0.6 mg/dL (0.2-1.3); Total Protein 6.1 g/dL (6.3-8.2)
[2018-06-08 19:37] LABS: Creatine Kinase <20 U/L (30-135)
[2018-06-08 19:46] LABS: Partial Thromboplastin Time 20.4 sec (22.0-30.0)
[2018-06-08 19:51] LABS: Creatine Kinase MB 1.7 ng/mL (0.0-2.4)
[2018-06-08 20:13] LABS: Eosinophils # (M) 3.76 k/uL (0-0.7); Lymphocytes # (M) 345.83 k/uL (1.0-4.8); Monocytes # (M) 3.76 k/uL (0-1.0); Neutrophils # (M) 30.07 k/uL (1.3-7.7); Neutrophils % (M) 8 %; Nucleated Red Blood Cells 0 /100 WBC (0-0); Total Cells Counted 200
[2018-06-08 20:14] LABS: Ovalocytes Present; Poikilocytosis (M) Present; Troponin I 0.072 ng/mL (0.000-0.034)
[2018-06-08] MEDS: SODIUM CHLORIDE 0.9% 1,000 ML IV SCH (21:00)
[2018-06-08] MEDS ORDERED: FUROSEMIDE 10 MG/ML 4 ML VIAL IV SCH (21:00)
--- NOTE | 2018-06-08 21:05 | CONS ---
CONSULTATION Ginny Huerta is an 87-year-old female who presented to the ER at [facility] with increasing shortness of breath. This had started about a week or so ago. She is unable to lie flat. She has had a 12-pound weight gain over the last 14 days and apparently had been followed by Home Health Care as well as Telemedicine. None of her diuretics were adjusted. She was not counseled regarding any of her fluid intake. She subsequently came into the ED, was found to be in congestive heart failure and subsequently was admitted for further evaluation. She denies any fever, chills or rigors. Chest x-ray showed evidence of blunting of the costophrenic angles with pulmonary vascular congestion and cardiomegaly as well. Her recent echocardiogram on 05/21/2018 showed an ejection fraction between 20% and 25% with severe global hypokinesis. She did not pass out. PAST MEDICAL HISTORY: 1. Cardiomyopathy. 2. Coronary artery disease. 3. CLL, with which her white cell counts have been extremely high, for which she is on prednisone. 4. History of hypothyroidism. 5. History of gout. SOCIAL HISTORY: Patient was never a smoker. She does not drink alcohol excessively. She was not exposed to any chemicals. FAMILY HISTORY: Noncontributory. MEDICATIONS PRIOR TO ADMISSION: 1. Prednisone. 2. Potassium chloride. 3. Omeprazole. 4. Synthroid. 5. Neurontin. 6. Lasix. 7. Aspirin. 8. Zyloprim. PHYSICAL EXAMINATION: Respiratory rate is 20, pulse rate of 107, temperature 98.1, blood pressure 106/68. Weight is pending, but at home it had been 122 pounds. HEENT reveals pupils that are equal. There is prominence of her jugular veins. Chest reveals decreased breath sounds with scattered crackles in the bases. Cardiovascular system is in S1, S2. Short systolic murmur. S3 is heard. ABDOMEN: Soft. There is 1+ to 2+ pedal edema. LABS: White count 375,000. Hemoglobin 7.9, platelet count 123,000. Neutrophils 30,700, lymphocytes 345,000. Sodium 131, potassium 4.7, chloride 94, bicarb 26, BUN 30, creatinine of 0.9. Troponin 0.072. NT proBNP 22,700, albumin of 4.2. IMPRESSION AT THIS TIME: 1. Congestive heart failure with acute exacerbation. 2. Acute on chronic respiratory failure. 3. Bilateral pleural effusions secondary to congestive heart failure. 4. Chronic lymphocytic leukemia. At this point in time, keep her on an CLAUDIA inhibitor. Keep her in negative fluid balance. Keep her on supplemental oxygen. Check her weights daily. She was counseled regarding her weight as far as the fluid status is concerned. She was counseled regarding her condition and this approach in the presence of her daughter and has a fair understanding of our recommendations. MMCHRISTINAL / SAMSONN: [id number] /
[2018-06-08] MEDS: HEPARIN SODIUM,PORCINE 5,000 UNIT/ML 1 ML VIAL SQ SCH (21:43)
[2018-06-08] MEDS: LISINOPRIL 10 MG TAB PO SCH (21:43)
[2018-06-08] MEDS: GABAPENTIN 400 MG CAP PO SCH (21:43)
[2018-06-08] MEDS: FUROSEMIDE 10 MG/ML 4 ML VIAL IV SCH (23:42)
[2018-06-09 01:25] LABS: Glucose,Whole Blood 152 mg/dL (75-99)
[2018-06-09 04:35] LABS: Anisocytosis Slight; HCT 22.2 % (34.0-46.0); HGB 7.1 gm/dL (11.4-16.0); Hypochromasia Marked; MCH 28.8 pg (25.0-35.0); MCV 89.8 fL (80.0-100.0); Platelet Count 102 k/uL (150-450); RBC 2.47 m/uL (3.80-5.40); RDW 17.7 % (11.5-15.5)
[2018-06-09 04:38] LABS: WBC 291.1 k/uL (3.8-10.6)
[2018-06-09 04:43] LABS: Calcium 8.4 mg/dL (8.4-10.2)
--- NOTE | 2018-06-09 06:19 | CT ---
EXAMINATION TYPE: CT abdomen pelvis wo con DATE OF EXAM: 06/09/2018 COMPARISON: 05/27/2016 HISTORY: Abd distention CT DLP: 291.20 mGycm Automated exposure control for dose reduction was used. TECHNIQUE: Helical acquisition of images was performed from the lung bases through the pelvis. FINDINGS: There are moderate-sized bilateral pleural effusions. Heart is enlarged. There is small pericardial e ffusion. There are bilateral infiltrates and atelectasis at the lung bases. Liver shows no focal defect. There are clips from cholecystectomy. Bile ducts are not dilated. Spleen is markedly enlarged and measures 16 x 9 cm. There is medial displacement of the left kidney due to enlarged spleen. The kidneys show no hydronephrosis. I see no retroperitoneal adenopathy. Abdominal a raul is atheromatous. Exam is limited by lack of IV contrast. There is possible mesenteric and celiac adenopathy. I see no pancreatic mass. Bladder distends smoothly. There is no ascites. There is no evidence of a bowel obstruction. I see no bony destructive process. There is L3-4 moderate bony spinal stenosis. There is also similar spinal stenosis at L4-5. There are enlarged inguinal lymph nodes that measure up to 2 x 2 centimeters. IMPRESSION: COMPARED TO LAST EXAM THERE ARE NEW MODERATE-SIZED PLEURAL EFFUSIONS. CARDIOMEGALY. BILATERAL LOWER L OBE PULMONARY INFILTRATES AND ATELECTASIS. THIS COULD RELATE TO CONGESTIVE HEART FAILURE. THERE IS MODERATELY SEVERE SPLENOMEGALY THAT HAS PROGRESSED COMPARED TO OLD EXAM THERE IS MASS EFFECT ON THE LEFT KIDNEY. BILATERAL ENLARGED INGUINAL LYMPH NODES MEASURE UP TO 2 X 2 CENTIMETERS. NO HYDR ONEPHROSIS. 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 THE ADENOPATHY IS NEW COMPARED TO THE OLD CT SCAN OF AND 05/27/2016. Lymphoma should be highly considered. Moderate lumbar bony spinal stenosis as above.
[2018-06-09] MEDS: SODIUM CHLORIDE 0.9% 1,000 ML IV SCH ×2 (06:22→15:39)
[2018-06-09] MEDS: LEVOTHYROXINE 25 MCG TAB PO SCH (06:22)
[2018-06-09] MEDS: ASPIRIN 81 MG PO SCH (08:41)
[2018-06-09] MEDS: predniSONE 5 MG TAB PO SCH (08:41)
[2018-06-09] MEDS: ALLOPURINOL 300 MG TAB PO SCH (08:41)
[2018-06-09] MEDS: PANTOPRAZOLE 40 MG TABLET PO SCH (08:41)
[2018-06-09] MEDS: GABAPENTIN 400 MG CAP PO SCH ×2 (08:41→20:17)
[2018-06-09] MEDS ORDERED: POTASSIUM CHLORIDE ER 10 MEQ TAB.ER.PRT PO SCH (09:00)
[2018-06-09] MEDS ORDERED: ENOXAPARIN 40 MG/0.4 ML SYRINGE SQ SCH (09:00)
--- NOTE | 2018-06-09 12:33 | P.CRDCN ---
History of Present Illness Consult date: 06/09/18 Requesting physician: Agustin Wiley Consult reason: congestive heart failure Chief complaint: Shortness of breath History of present illness: This is a pleasant 87-year-old female with past medical history significant for chronic lymphocytic leukemia, hyperlipidemia, nonsmoker, she does not drink alcohol, she had a recent admission to the hospital in May of this year at which time she presented with congestive cardiac failure, who did an echocardiogram with Doppler study on admission which revealed an ejection fraction of 20-25%, LAD was severely dilated, patient was noted to have severe aortic stenosis and mild to moderate mitral regurgitation. Patient was not initiated on any medications for her cardiomyopathy because of significant hypotension at that time. She presents to the hospital on this occasion with progressively worsening shortness of breath, positive PND and orthopnea, and bilateral swelling in her feet. Chest x-ray showed congestive heart failure slightly worse than prior exam. With an increase in pleural fluid. EKG showed sinus tachycardia with a left bundle-branch block pattern. CAT scan of the abdomen and pelvis was performed which revealed new moderate-sized pleural effusions, cardiomegaly, bilateral lower lobe pulmonary infiltrates and atelectasis. Moderately severe splenomegaly has progressed as compared with prior exam. There is a mass effect in the left kidney. Bilateral large inguinal lymph nodes. Significant retroperitoneal adenopathy with enlarged para -aortic nodes as well as mesenteric and celiac lymph nodes. This appears to be new as compared with prior exam. Blood pressure on arrival here 106/60 with a heart rate of 107, 93% on room air. Blood pressure this morning, 75/44, heart rate in the 70s, 97% on 3 L of oxygen. White blood cell count 291, hemoglobin 7.1, platelet count 102. Sodium 134, potassium 4.0, BUN 30, creatinine 0.9. Troponins 0.7, 0.9, 0.1. BNP level 22,700. At the time of my examination this morning, patient does state that her breathing is improved since admission, she still feels somewhat short of breath. Past Medical History Past Medical History: Cancer, Heart Failure, Hyperlipidemia, Hypertension, Thyroid Disorder Additional Past Medical History / Comment(s): CLL History of Any Multi-Drug Resistant Organisms: None Reported Past Surgical History: Appendectomy, Cholecystectomy, Hysterectomy Past Anesthesia/Blood Transfusion Reactions: No Reported Reaction Past Psychological History: No Psychological Hx Reported Additional Psychological History / Comment(s): Patient lives with daughter. Patient denies ever using tobacco. Patietn denies ever using alcohol. Smoking Status: Never smoker Past Alcohol Use History: None Reported Past Drug Use History: None Reported - Past Family History Father Family Medical History: No Reported History Additional Family Medical History / Comment(s): pt denies any significant medical conditions in mother or father Medications and Allergies Home Medications Medication Instructions Recorded Confirmed Type Allopurinol [Zyloprim] 300 mg PO DAILY 03/12/17 06/08/18 History Omeprazole 20 mg PO DAILY 03/12/17 06/08/18 History Gabapentin [Neurontin] 400 mg PO BID 05/20/18 06/08/18 History Levothyroxine Sodium [Synthroid] 25 mcg PO DAILY 05/20/18 06/08/18 History predniSONE 5 mg PO DAILY 05/20/18 06/08/18 History Aspirin 81 mg PO DAILY #30 chew 05/22/18 06/08/18 Rx Furosemide [Lasix] 20 mg PO DAILY #30 tab 05/22/18 06/08/18 Rx Potassium Chloride ER [K-Dur 10] 10 meq PO DAILY #30 tab 05/22/18 06/08/18 Rx Allergies Allergy/AdvReac Type Severity Reaction Status Date / Time No Known Allergies Allergy Verified 06/08/18 18:24 Physical Exam Vitals: Vital Signs Temp Pulse Pulse Resp BP BP BP 06/09/18 11:32 97.0 F L 76 18 75/44 06/09/18 08:00 97.0 F L 75 18 80/48 06/09/18 04:46 87 18 102/56 06/09/18 04:20 92/53 06/09/18 04:00 96.8 F L 82 20 80/53 06/09/18 01:32 97.5 F L 84 20 106/52 06/08/18 23:56 97.6 F 92 19 98/53 06/08/18 20:56 98.1 F 98 16 97/50 06/08/18 20:08 97 F L 102 H 18 106/60 06/08/18 19:53 108 H 06/08/18 19:31 107 H 06/08/18 18:21 98.1 F 107 H 20 106/68 Pulse Ox 06/09/18 11:32 97 06/09/18 08:00 98 06/09/18 04:46 97 06/09/18 04:20 06/09/18 04:00 97 06/09/18 01:32 98 06/08/18 23:56 99 06/08/18 20:56 93 L 06/08/18 20:08 95 06/08/18 19:53 06/08/18 19:31 06/08/18 18:21 93 L Intake and Output 06/08/18 06/09/18 06/09/18 22:59 06:59 14:59 Intake Total 500 Output Total 450 Balance -450 500 Intake: Intake, IV Titration 500 Amount Sodium Chloride 0.9% 1, 500 000 ml @ 100 mls/hr IV . Q10H [facility] Rx#:[id number] Output: Urine 450 Other: Voiding Method Toilet # Voids 1 1 Weight 54 kg 55 kg PHYSICAL EXAMINATION: GENERAL: 87-year-old female in no acute distress at the time of my examination. HEENT: Head is atraumatic, normocephalic. Pupils equal, round. Sclera anicteric. Conjunctiva are clear. Mucous membranes of the mouth are moist. Neck is supple. There is elevated jugular venous pressure to the angle of the jaw. No carotid bruit is heard. HEART EXAMINATION: Heart S1 no S2 audible, systolic murmur suggesting severe aortic stenosis is noted. CHEST EXAMINATION: There are diminished bilaterally quarter to half way up. ABDOMEN: Soft, nontender. Bowel sounds are heard. No organomegaly noted. EXTREMITIES: 2+ peripheral pulses with trace evidence of peripheral edema and no calf tenderness noted. NEUROLOGIC patient is awake, alert and oriented X3. . Results 06/09/18 04:22 06/09/18 04:28 Cardiac Enzymes 06/08/18 06/08/18 06/09/18 Range/Units 18:57 18:57 00:47 AST 27 (14-36) U/L CK-MB (CK-2) 1.7 (0.0-2.4) ng/mL Troponin I 0.072 H* 0.094 H* (0.000-0.034) ng/mL 06/09/18 Range/Units 06:15 AST (14-36) U/L CK-MB (CK-2) (0.0-2.4) ng/mL Troponin I 0.106 H* (0.000-0.034) ng/mL Coagulation 06/08/18 Range/Units 18:57 PT 10.8 (9.0-12.0) sec APTT 20.4 L (22.0-30.0) sec CBC 06/08/18 06/09/18 Range/Units 18:57 04:22 WBC 375.9 H* 291.1 H* (3.8-10.6) k/uL RBC 2.95 L 2.47 L (3.80-5.40) m/uL Hgb 7.9 L 7.1 L (11.4-16.0) gm/dL Hct 26.7 L 22.2 L (34.0-46.0) % Plt Count 123 L 102 L (150-450) k/uL Comprehensive Metabolic Panel 06/08/18 06/09/18 Range/Units 18:57 04:28 Sodium 131 L 134 L (137-145) mmol/L Potassium 4.7 4.0 (3.5-5.1) mmol/L Chloride 94 L 98 (98-107) mmol/L Carbon Dioxide 26 28 (22-30) mmol/L BUN 30 H 30 H (7-17) mg/dL Creatinine 0.90 0.91 (0.52-1.04) mg/dL Glucose 126 H 104 H (74-99) mg/dL Calcium 9.2 8.4 (8.4-10.2) mg/dL AST 27 (14-36) U/L ALT 30 (9-52) U/L Alkaline Phosphatase 93 (38-126) U/L Total Protein 6.1 L (6.3-8.2) g/dL Albumin 4.2 (3.5-5.0) g/dL Current Medications Generic Name Dose Route Start Last Admin Trade Name Freq PRN Reason Stop Dose Admin Allopurinol 300 mg 06/09/18 09:00 06/09/18 08:41 Zyloprim PO 300 mg DAILY JORDYN Administration Aspirin 81 mg 06/09/18 09:00 06/09/18 08:41 Aspirin PO 81 mg DAILY JORDYN Administration Furosemide 40 mg 06/09/18 00:00 06/08/18 23:42 Lasix IV 40 mg Q8HR JORDYN Administration Gabapentin 400 mg 06/08/18 21:00 06/09/18 08:41 Neurontin PO 400 mg BID JORDYN Administration Heparin Sodium (Porcine) 5,000 unit 06/08/18 21:00 06/08/18 21:43 Heparin SQ 5,000 unit Q12HR JORDYN Administration Sodium Chloride 1,000 mls @ 100 mls/hr 06/08/18 19:30 06/09/18 06:22 Saline 0.9% IV 100 mls/hr .Q10H JORDYN Administration Levothyroxine Sodium 25 mcg 06/09/18 06:30 06/09/18 06:22 Synthroid PO 25 mcg 0630 JORDYN Administration Lisinopril 10 mg 06/08/18 21:00 06/08/18 21:43 Zestril PO 10 mg BID JORDYN Administration Pantoprazole Sodium 40 mg 06/09/18 09:00 06/09/18 08:41 Protonix PO 40 mg DAILY JORDYN Administration Potassium Chloride 10 meq 06/09/18 09:00 06/09/18 08:41 K-Dur 10 PO 10 meq DAILY JORDYN Administration Prednisone 5 mg 06/09/18 09:00 06/09/18 08:41 PO 5 mg DAILY JORDYN Administration Intake and Output 06/08/18 06/09/18 06/09/18 22:59 06:59 14:59 Intake Total 500 Output Total 450 Balance -450 500 Intake: Intake, IV Titration 500 Amount Sodium Chloride 0.9% 1, 500 000 ml @ 100 mls/hr IV . Q10H JORDYN Rx#:[id number] Output: Urine 450 Other: Voiding Method Toilet # Voids 1 1 Weight 54 kg 55 kg 06/09/18 04:22 06/09/18 04:28 EKG Interpretations (text) EKG shows a sinus tachycardia with left bundle branch block pattern Assessment and Plan Plan: Assessment and plan #1 systolic congestive heart failure acute on chronic. Bilateral pleural effusions. Echocardiogram with Doppler study was performed in May of this year which revealed an ejection fraction of 20-25%, severe global hypokinesia, severe aortic stenosis, moderate MR. BNP level 22,700. #2 chronic lymphocytic leukemia #3 hyperlipidemia #4 cardiomyopathy, unknown etiology #5 abnormal troponin, likely representing a type II event. Plan We'll not repeat an echocardiogram with Doppler study as the patient just recently had one a couple of weeks ago. We will consult hematology. We'll obtain ultrasound of the chest bilaterally to assess her pleural effusions. Continue IV Lasix. Continue to monitor intake and output along with daily weights and daily lytes BUN and creatinine. We will decrease her lisinopril to 2.5mg daily. Discontinue potassium and start the patient on Aldactone. Patient has not been able to tolerate medications for cardiomyopathy because of hypotension, if blood pressure tolerates, consider low-dose beta tree. Further recommendations to follow. DNP note has been reviewed, I agree with a documented findings and plan of care. Patient was seen and examined.
[2018-06-09] MEDS: FUROSEMIDE 10 MG/ML 4 ML VIAL IV SCH ×2 (13:07→15:39)
[2018-06-09] MEDS: LISINOPRIL 10 MG TAB PO SCH (13:07)
--- NOTE | 2018-06-09 13:09 | PN ---
PROGRESS NOTE DATE OF SERVICE: 06/09/2018 She is less short of breath. She is sitting up in bed. She has a blood pressure of 102/56, respiratory rate of 18, pulse rate 87, temperature 97 degrees Fahrenheit, O2 saturation on 3 L by nasal cannula is 98%. HEENT is unremarkable. Chest reveals decreased breath sounds on the bases. Cardiovascular system reveals an S1, S2. Abdomen is soft. There is 1+ pedal edema. IMPRESSION: At this time is: 1. Congestive heart failure with congestive cardiomyopathy. 2. CLL for which her hemoglobin is around 7 along with a white count of 291. 3. Hyponatremia. 4. Medical debility. Continue to keep her in negative fluid balance. Use afterload reduction and diuretic to further treat her. Increase her activity level slowly. Optimize her fluid status. She was counseled regarding her condition. STACI / JULY: [id number] /
[2018-06-09] MEDS: HEPARIN SODIUM,PORCINE 5,000 UNIT/ML 1 ML VIAL SQ SCH ×2 (13:34→20:17)
--- NOTE | 2018-06-09 14:09 | US ---
EXAMINATION TYPE: US chest DATE OF EXAM: 06/09/2018 COMPARISON: NONE CLINICAL HISTORY: assess bilateral pleural eff and lazara for possible. SOB EXAM MEASUREMENTS: Right Pleural Effusion fluid pocket: 8.0cm Right skin to fluid thickness: 3.7cm, lung tissue overlays access point to fluid Left Pleural Effusion fluid pocket: 8.2cm Left skin to fluid thickness: 2.8cm Right side NOT marked for possible thoracentesis - patient has lung tissue that overlays entry point for tap Left side marked for possible thoracentesis outside the dept. Pulmonologists are able to review the images in the patient?s EMR. IMPRESSIONS: BILATERAL PLEURAL EFFUSIONS, LARGER ON THE LEFT THAN THE RIGHT.
[2018-06-09] MEDS ORDERED: DOCUSATE 100 MG CAP PO PRN (15:36)
[2018-06-09] MEDS ORDERED: SENNOSIDES 8.6 MG TAB PO PRN (15:36)
--- NOTE | 2018-06-09 15:39 | P.GSCN ---
History of Present Illness Consult date: 06/09/18 History of present illness: Is a 87-year-old female with multiple medical comorbidities who has been experiencing some abdominal distention and bloating per the patient. She denies any nausea vomiting. She is tolerating her diet. She had a very small hard bowel movement. She states she's been constipated over the last several days. She denies any history of abdominal surgery. She denies any current abdominal pain at this time. Past Medical History Past Medical History: Cancer, Heart Failure, Hyperlipidemia, Hypertension, Thyroid Disorder Additional Past Medical History / Comment(s): CLL History of Any Multi-Drug Resistant Organisms: None Reported Past Surgical History: Appendectomy, Cholecystectomy, Hysterectomy Past Anesthesia/Blood Transfusion Reactions: No Reported Reaction Past Psychological History: No Psychological Hx Reported Additional Psychological History / Comment(s): Patient lives with daughter. Patient denies ever using tobacco. Jimn denies ever using alcohol. Smoking Status: Never smoker Past Alcohol Use History: None Reported Past Drug Use History: None Reported - Past Family History Father Family Medical History: No Reported History Additional Family Medical History / Comment(s): pt denies any significant medical conditions in mother or father Medications and Allergies Home Medications Medication Instructions Recorded Confirmed Type Allopurinol [Zyloprim] 300 mg PO DAILY 03/12/17 06/08/18 History Omeprazole 20 mg PO DAILY 03/12/17 06/08/18 History Gabapentin [Neurontin] 400 mg PO BID 05/20/18 06/08/18 History Levothyroxine Sodium [Synthroid] 25 mcg PO DAILY 05/20/18 06/08/18 History predniSONE 5 mg PO DAILY 05/20/18 06/08/18 History Aspirin 81 mg PO DAILY #30 chew 05/22/18 06/08/18 Rx Furosemide [Lasix] 20 mg PO DAILY #30 tab 05/22/18 06/08/18 Rx Potassium Chloride ER [K-Dur 10] 10 meq PO DAILY #30 tab 05/22/18 06/08/18 Rx Allergies Allergy/AdvReac Type Severity Reaction Status Date / Time No Known Allergies Allergy Verified 06/08/18 18:24 Surgical - Exam Osteopathic Statement: *. No significant issues noted on an osteopathic structural exam other than those noted in the History and Physical/Consult. Vital Signs Temp Pulse Resp BP Pulse Ox 98.1 F 107 H 20 106/68 93 L 06/08/18 18:21 06/08/18 18:21 06/08/18 18:21 06/08/18 18:21 06/08/18 18:21 - General well developed, well nourished, no distress - Neck trachea midline - Respiratory normal expansion, normal respiratory effort - Abdomen Mild distention Abdomen: soft, non tender - Neurologic normal coordination, normal sensation - Psychiatric oriented to time, oriented to person, oriented to place Results - Labs 06/09/18 04:22 06/09/18 04:28 Abnormal Lab Results - Last 24 Hours (Table) 06/08/18 06/08/18 06/08/18 Range/Units 18:57 18:57 18:57 WBC 375.9 H* (3.8-10.6) k/uL RBC 2.95 L (3.80-5.40) m/uL Hgb 7.9 L (11.4-16.0) gm/dL Hct 26.7 L (34.0-46.0) % MCHC 29.6 L (31.0-37.0) g/dL RDW 18.5 H (11.5-15.5) % Plt Count 123 L (150-450) k/uL Neutrophils # (Manual) 30.07 H (1.3-7.7) k/uL Lymphocytes # (Manual) 345.83 H (1.0-4.8) k/uL Monocytes # (Manual) 3.76 H (0-1.0) k/uL Eosinophils # (Manual) 3.76 H (0-0.7) k/uL APTT (22.0-30.0) sec Sodium 131 L (137-145) mmol/L Chloride 94 L (98-107) mmol/L BUN 30 H (7-17) mg/dL Glucose 126 H (74-99) mg/dL POC Glucose (mg/dL) (75-99) mg/dL Total Creatine Kinase <20 L (30-135) U/L Troponin I 0.072 H* (0.000-0.034) ng/mL Total Protein 6.1 L (6.3-8.2) g/dL 06/08/18 06/09/18 06/09/18 Range/Units 18:57 00:47 01:24 WBC (3.8-10.6) k/uL RBC (3.80-5.40) m/uL Hgb (11.4-16.0) gm/dL Hct (34.0-46.0) % MCHC (31.0-37.0) g/dL RDW (11.5-15.5) % Plt Count (150-450) k/uL Neutrophils # (Manual) (1.3-7.7) k/uL Lymphocytes # (Manual) (1.0-4.8) k/uL Monocytes # (Manual) (0-1.0) k/uL Eosinophils # (Manual) (0-0.7) k/uL APTT 20.4 L (22.0-30.0) sec Sodium (137-145) mmol/L Chloride (98-107) mmol/L BUN (7-17) mg/dL Glucose (74-99) mg/dL POC Glucose (mg/dL) 152 H (75-99) mg/dL Total Creatine Kinase (30-135) U/L Troponin I 0.094 H* (0.000-0.034) ng/mL Total Protein (6.3-8.2) g/dL 06/09/18 06/09/18 06/09/18 Range/Units 04:22 04:28 06:15 WBC 291.1 H* (3.8-10.6) k/uL RBC 2.47 L (3.80-5.40) m/uL Hgb 7.1 L (11.4-16.0) gm/dL Hct 22.2 L (34.0-46.0) % MCHC (31.0-37.0) g/dL RDW 17.7 H (11.5-15.5) % Plt Count 102 L (150-450) k/uL Neutrophils # (Manual) (1.3-7.7) k/uL Lymphocytes # (Manual) (1.0-4.8) k/uL Monocytes # (Manual) (0-1.0) k/uL Eosinophils # (Manual) (0-0.7) k/uL APTT (22.0-30.0) sec Sodium 134 L (137-145) mmol/L Chloride (98-107) mmol/L BUN 30 H (7-17) mg/dL Glucose 104 H (74-99) mg/dL POC Glucose (mg/dL) (75-99) mg/dL Total Creatine Kinase (30-135) U/L Troponin I 0.106 H* (0.000-0.034) ng/mL Total Protein (6.3-8.2) g/dL Diabetes panel 06/08/18 06/09/18 Range/Units 18:57 04:28 Sodium 131 L 134 L (137-145) mmol/L Potassium 4.7 4.0 (3.5-5.1) mmol/L Chloride 94 L 98 (98-107) mmol/L Carbon Dioxide 26 28 (22-30) mmol/L BUN 30 H 30 H (7-17) mg/dL Creatinine 0.90 0.91 (0.52-1.04) mg/dL Glucose 126 H 104 H (74-99) mg/dL Calcium 9.2 8.4 (8.4-10.2) mg/dL AST 27 (14-36) U/L ALT 30 (9-52) U/L Alkaline Phosphatase 93 (38-126) U/L Total Protein 6.1 L (6.3-8.2) g/dL Albumin 4.2 (3.5-5.0) g/dL Calcium panel 06/08/18 06/09/18 Range/Units 18:57 04:28 Calcium 9.2 8.4 (8.4-10.2) mg/dL Albumin 4.2 (3.5-5.0) g/dL Pituitary panel 06/08/18 06/09/18 Range/Units 18:57 04:28 Sodium 131 L 134 L (137-145) mmol/L Potassium 4.7 4.0 (3.5-5.1) mmol/L Chloride 94 L 98 (98-107) mmol/L Carbon Dioxide 26 28 (22-30) mmol/L BUN 30 H 30 H (7-17) mg/dL Creatinine 0.90 0.91 (0.52-1.04) mg/dL Glucose 126 H 104 H (74-99) mg/dL Calcium 9.2 8.4 (8.4-10.2) mg/dL Adrenal panel 06/08/18 06/09/18 Range/Units 18:57 04:28 Sodium 131 L 134 L (137-145) mmol/L Potassium 4.7 4.0 (3.5-5.1) mmol/L Chloride 94 L 98 (98-107) mmol/L Carbon Dioxide 26 28 (22-30) mmol/L BUN 30 H 30 H (7-17) mg/dL Creatinine 0.90 0.91 (0.52-1.04) mg/dL Glucose 126 H 104 H (74-99) mg/dL Calcium 9.2 8.4 (8.4-10.2) mg/dL Total Bilirubin 0.6 (0.2-1.3) mg/dL AST 27 (14-36) U/L ALT 30 (9-52) U/L Alkaline Phosphatase 93 (38-126) U/L Total Protein 6.1 L (6.3-8.2) g/dL Albumin 4.2 (3.5-5.0) g/dL Assessment and Plan Assessment: Constipation Plan: Discussed with the patient starting her on stool softeners. She'll be started on Colace and Senokot. This can be taken when necessary. Patient can continue on a regular diet. We will continue to follow
[2018-06-09 15:43] LABS: Reticulocyte % 9.5 % (0.5-2.0)
[2018-06-09 15:47] LABS: Uric Acid 3.1 mg/dL (3.7-7.4)
[2018-06-09 16:47] LABS: Glucose,Whole Blood 256 mg/dL (75-99)
--- NOTE | 2018-06-09 22:11 | P.CONS ---
History of Present Illness - Reason for Consult Consult date: 06/09/18 CLL Requesting physician: Nadia Lynn - Chief Complaint Shortness of Breath - History of Present Illness Ms. Huerta is a patient of Dr. 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 She was diagnosed with CLL in . She had a CT scan of abdomen on 05/27/2016 (because of RUQ abdominal pain happened over night and resolved) revealed splenomegaly. She required blood transfusion for progressive anemia in and in . CLL FISH done on 11/28/2016 revealed TP53/17p13.1 deletion and 13q14 She started ibrutinib on 01/16/2017. She did well until 03/08/2017 when she started to have episodes of dizzyness, loss of strength,went to ER,EKG revealed sinus tachycardiac and supraventricular premature complex,repeat EKG on 03/15/2017 revealed similar finding,imbruvica was discontinued on 03/08/2017 and she declined further treatment. She declined further treatments with the exception of low dose prednisone. She was started on 2.5mg/day on 01/16/2018, she felt a little better and her hemoglobin has remained stable although did not improve. She was increased to a dose to 5 mg/day of prednisone in May 2018. Ms. Huerta presented to [facility] ED on 06/08/18 with complaints of progressive Shortness of Breath over the past few days. She was recently admitted in May of this year for exacerbation of CHF. Her Ejection Fracture on that admission revealed 20-25% per echocardiogram. It was also noted she had severe dilation of the LAD, severe aortic stenosis, and mitral regurgitation. On presentation she was in mild distress with positive orthopnea and bilateral lower extremity edema. Chest Xray revealed bilateral pleural effusions, abnormal EKG. A CT of the abdomen and pelvis was also copleted and showed likely progression of underlying CLL with progressive splenomegaly, mass effect on the left kidney, significant bilateral inguinal lymphadenopathy, retroperitoneal adenopathy with enlarged para-arotic, mesenteric, and celiac nodes. Blood pressure has been running low, this am 75/44. She is requiring 3-4Liters of oxygen to maintain saturations above 92%. Her blood counts today revealed the following: WBC = 291 , Hemoglin = 7.1, Platelets = 107BNP = 22,700. During assessment she states she is overall feeling better than admission but still very short of breath with exertion. Swelling of legs has also improved since admission. Review of Systems A 14 point review of systems was assessed and completed and all negative except HPI Past Medical History Past Medical History: Cancer, Heart Failure, Hyperlipidemia, Hypertension, Thyroid Disorder Additional Past Medical History / Comment(s): CLL History of Any Multi-Drug Resistant Organisms: None Reported Past Surgical History: Appendectomy, Cholecystectomy, Hysterectomy Past Anesthesia/Blood Transfusion Reactions: No Reported Reaction Past Psychological History: No Psychological Hx Reported Additional Psychological History / Comment(s): Patient lives with daughter. Patient denies ever using tobacco. Patietn denies ever using alcohol. Smoking Status: Never smoker Past Alcohol Use History: None Reported Past Drug Use History: None Reported - Past Family History Father Family Medical History: No Reported History Additional Family Medical History / Comment(s): pt denies any significant medical conditions in mother or father Medications and Allergies Home Medications Medication Instructions Recorded Confirmed Type Allopurinol [Zyloprim] 300 mg PO DAILY 03/12/17 06/08/18 History Omeprazole 20 mg PO DAILY 03/12/17 06/08/18 History Gabapentin [Neurontin] 400 mg PO BID 05/20/18 06/08/18 History Levothyroxine Sodium [Synthroid] 25 mcg PO DAILY 05/20/18 06/08/18 History predniSONE 5 mg PO DAILY 05/20/18 06/08/18 History Aspirin 81 mg PO DAILY #30 chew 05/22/18 06/08/18 Rx Furosemide [Lasix] 20 mg PO DAILY #30 tab 05/22/18 06/08/18 Rx Potassium Chloride ER [K-Dur 10] 10 meq PO DAILY #30 tab 05/22/18 06/08/18 Rx Allergies Allergy/AdvReac Type Severity Reaction Status Date / Time No Known Allergies Allergy Verified 06/08/18 18:24 Physical Exam Vitals: Vital Signs Temp Pulse Pulse Resp BP BP BP 06/09/18 11:32 97.0 F L 76 18 75/44 06/09/18 08:00 97.0 F L 75 18 80/48 06/09/18 04:46 87 18 102/56 06/09/18 04:20 92/53 06/09/18 04:00 96.8 F L 82 20 80/53 06/09/18 01:32 97.5 F L 84 20 106/52 06/08/18 23:56 97.6 F 92 19 98/53 06/08/18 20:56 98.1 F 98 16 97/50 06/08/18 20:08 97 F L 102 H 18 106/60 06/08/18 19:53 108 H 06/08/18 19:31 107 H 06/08/18 18:21 98.1 F 107 H 20 106/68 Pulse Ox 06/09/18 11:32 97 06/09/18 08:00 98 06/09/18 04:46 97 06/09/18 04:20 06/09/18 04:00 97 06/09/18 01:32 98 06/08/18 23:56 99 06/08/18 20:56 93 L 06/08/18 20:08 95 06/08/18 19:53 06/08/18 19:31 06/08/18 18:21 93 L Intake and Output 06/08/18 06/09/18 06/09/18 22:59 06:59 14:59 Intake Total 500 Output Total 450 Balance -450 500 Intake: Intake, IV Titration 500 Amount Sodium Chloride 0.9% 1, 500 000 ml @ 100 mls/hr IV . Q10H [facility] Rx#:[id number] Output: Urine 450 Other: Voiding Method Toilet # Voids 1 1 Weight 54 kg 55 kg 55 kg - Constitutional General appearance: cooperative, mild distress - EENT Eyes: EOMI, dentition normal ENT: hard of hearing, NA/AT, normal oropharynx - Neck Supple, Trachea midline Neck: normal ROM - Respiratory Respiratory: bilateral: diminished (throughout, Left greater than right) - Cardiovascular Rhythm: irregularly irregular leg Peripheral Edema: bilateral: 1+ - Gastrointestinal Palpable Lymphadenopathy General gastrointestinal: normal bowel sounds, organomegaly, soft, splenomegaly - Integumentary Integumentary: pale - Neurologic Non focal defects Neurologic: CNII-XII intact - Musculoskeletal Musculoskeletal: generalized weakness, strength equal bilaterally - Psychiatric Psychiatric: A&O x's 3, appropriate affect, intact judgment & insight Results CBC & Chem 7: 06/09/18 04:22 06/09/18 04:28 Labs: Abnormal Lab Results - Last 24 Hours (Table) 06/08/18 06/08/18 06/08/18 Range/Units 18:57 18:57 18:57 WBC 375.9 H* (3.8-10.6) k/uL RBC 2.95 L (3.80-5.40) m/uL Hgb 7.9 L (11.4-16.0) gm/dL Hct 26.7 L (34.0-46.0) % MCHC 29.6 L (31.0-37.0) g/dL RDW 18.5 H (11.5-15.5) % Plt Count 123 L (150-450) k/uL Neutrophils # (Manual) 30.07 H (1.3-7.7) k/uL Lymphocytes # (Manual) 345.83 H (1.0-4.8) k/uL Monocytes # (Manual) 3.76 H (0-1.0) k/uL Eosinophils # (Manual) 3.76 H (0-0.7) k/uL APTT (22.0-30.0) sec Sodium 131 L (137-145) mmol/L Chloride 94 L (98-107) mmol/L BUN 30 H (7-17) mg/dL Glucose 126 H (74-99) mg/dL POC Glucose (mg/dL) (75-99) mg/dL Total Creatine Kinase <20 L (30-135) U/L Troponin I 0.072 H* (0.000-0.034) ng/mL Total Protein 6.1 L (6.3-8.2) g/dL 06/08/18 06/09/18 06/09/18 Range/Units 18:57 00:47 01:24 WBC (3.8-10.6) k/uL RBC (3.80-5.40) m/uL Hgb (11.4-16.0) gm/dL Hct (34.0-46.0) % MCHC (31.0-37.0) g/dL RDW (11.5-15.5) % Plt Count (150-450) k/uL Neutrophils # (Manual) (1.3-7.7) k/uL Lymphocytes # (Manual) (1.0-4.8) k/uL Monocytes # (Manual) (0-1.0) k/uL Eosinophils # (Manual) (0-0.7) k/uL APTT 20.4 L (22.0-30.0) sec Sodium (137-145) mmol/L Chloride (98-107) mmol/L BUN (7-17) mg/dL Glucose (74-99) mg/dL POC Glucose (mg/dL) 152 H (75-99) mg/dL Total Creatine Kinase (30-135) U/L Troponin I 0.094 H* (0.000-0.034) ng/mL Total Protein (6.3-8.2) g/dL 06/09/18 06/09/18 06/09/18 Range/Units 04:22 04:28 06:15 WBC 291.1 H* (3.8-10.6) k/uL RBC 2.47 L (3.80-5.40) m/uL Hgb 7.1 L (11.4-16.0) gm/dL Hct 22.2 L (34.0-46.0) % MCHC (31.0-37.0) g/dL RDW 17.7 H (11.5-15.5) % Plt Count 102 L (150-450) k/uL Neutrophils # (Manual) (1.3-7.7) k/uL Lymphocytes # (Manual) (1.0-4.8) k/uL Monocytes # (Manual) (0-1.0) k/uL Eosinophils # (Manual) (0-0.7) k/uL APTT (22.0-30.0) sec Sodium 134 L (137-145) mmol/L Chloride (98-107) mmol/L BUN 30 H (7-17) mg/dL Glucose 104 H (74-99) mg/dL POC Glucose (mg/dL) (75-99) mg/dL Total Creatine Kinase (30-135) U/L Troponin I 0.106 H* (0.000-0.034) ng/mL Total Protein (6.3-8.2) g/dL Chest x-ray: report reviewed CT scan - abdomen: report reviewed CT scan - pelvis: report reviewed Assessment and Plan Plan: Assessment and Recommendations: 1. Chronic Lymphocytic Leukemia - Likely with progressive disease - Continue on Prednisone 5mg PO Daily - Patient has refused further treatment other than Prednisone - She will continue on supportive care and symptom management with the refusal of other treatment modalities - Check LDH and Uric acid 2. Leukocytosis secondary to CLL - Monitor Differential 3. Normocytic Anemia - Secondary to chronic disease and CLL - Continue to monitor CBC and Transfuse hemoglobin less than 7. Reasonable to transfuse less than 7.5 with symptoms, will defer to Cardiology for hemoglobin between 7-7.5. - Recheck Anemia work-up (Retic, Iron studies, B12, Folate) 4. Thrombocytopenia - Secondary to CLL - No transfusion needed at this time - Monitor CBC and if lower than 10 transfuse platelets - If s/s bleeding transfusion support below 50K 5. Exacerbation CHF - Per Cardiology 6. Acute on Chronic Respiratory Failure - Secondary to #5 - Pulmonology 7. Bilateral Pleural Effusions. Thank You for allowing us to care along with you for this patient.
[2018-06-10] MEDS: FUROSEMIDE 10 MG/ML 4 ML VIAL IV SCH ×4 (06:14→23:16)
[2018-06-10] MEDS: LEVOTHYROXINE 25 MCG TAB PO SCH (06:29)
[2018-06-10] MEDS: SODIUM CHLORIDE 0.9% 1,000 ML IV SCH ×3 (06:30→20:05)
[2018-06-10] MEDS: LISINOPRIL 2.5 MG TAB PO SCH (08:28)
[2018-06-10] MEDS: ASPIRIN 81 MG PO SCH (08:30)
[2018-06-10] MEDS: predniSONE 5 MG TAB PO SCH (08:30)
[2018-06-10] MEDS: HEPARIN SODIUM,PORCINE 5,000 UNIT/ML 1 ML VIAL SQ SCH (08:30)
[2018-06-10] MEDS: ALLOPURINOL 300 MG TAB PO SCH (08:30)
[2018-06-10] MEDS: PANTOPRAZOLE 40 MG TABLET PO SCH (08:30)
[2018-06-10] MEDS: GABAPENTIN 400 MG CAP PO SCH ×2 (08:30→20:04)
--- NOTE | 2018-06-10 09:49 | P.PN ---
Subjective Progress Note Date: 06/10/18 Patient seen and examined denies any abdominal pain. Passing gas no bowel movement. She states she feels that she is about to have a bowel movement no nausea vomiting tolerating diet Objective - Vital Signs Vital signs: Vital Signs Temp 97.8 F 06/10/18 08:00 Pulse 85 06/10/18 08:00 Resp 18 06/10/18 08:00 BP 86/52 06/10/18 08:00 Pulse Ox 98 06/10/18 08:00 Intake & Output 06/09/18 06/10/18 06/10/18 18:59 06:59 18:59 Intake Total 620 120 Output Total 100 600 Balance 520 -600 120 Weight 55 kg 59 kg Intake: Intake, IV Titration 500 Amount Sodium Chloride 0.9% 1, 500 000 ml @ 100 mls/hr IV . Q10H [facility] Rx#:[id number] Oral 120 120 Output: Urine 100 600 Other: Voiding Method Bedpan Bedpan # Voids 1 1 # Bowel Movements 0 - Constitutional General appearance: Present: cooperative - Respiratory Details: Nonlabored - Cardiovascular Rhythm: regular - Gastrointestinal Gastrointestinal Comment(s): Soft mild distention no tenderness palpation - Psychiatric Psychiatric: Present: A&O x's 3 - Labs CBC & Chem 7: 06/09/18 04:22 06/09/18 04:28 Labs: Abnormal Lab Results - Last 24 Hours (Table) 06/09/18 06/09/18 06/09/18 Range/Units 04:22 04:22 16:28 Retic Count 9.5 H (0.5-2.0) % POC Glucose (mg/dL) 256 H (75-99) mg/dL Uric Acid 3.1 L (3.7-7.4) mg/dL Assessment and Plan Assessment: Constipation, splenomegaly, CLL Plan: Discussed with the patient starting her on stool softeners. She'll be started on Colace and Senokot. This can be taken when necessary. Patient can continue on a regular diet. Management of CLL per heme/onc. No plans for acute surgical intervention at this time
--- NOTE | 2018-06-10 17:46 | P.PN ---
Subjective Progress Note Date: 06/10/18 Principal diagnosis: Acute exacerbation of systolic heart failure with baseline ejection fraction 20% , bilateral pleural effusion left more than right, shortness of breath related to above, CLL 06/10/2018, patient seen eval examined during the rounds clinically she is slightly better in terms of breathing but is still get short of breath, patient underwent ultrasound of the chest bilateral pleural effusion is noted right more than left on the right side more than 8 cm depth of fluid has been noted, procedure thoracentesis has been explained to the patient patient would like to proceed to relieve symptoms Ms. Huerta presented to [facility] ED on 06/08/18 with complaints of progressive Shortness of Breath over the past few days. She was recently admitted in May of this year for exacerbation of CHF. Her Ejection Fracture on that admission revealed 20-25% per echocardiogram. It was also noted she had severe dilation of the LAD, severe aortic stenosis, and mitral regurgitation. On presentation she was in mild distress with positive orthopnea and bilateral lower extremity edema. Chest Xray revealed bilateral pleural effusions, abnormal EKG. A CT of the abdomen and pelvis was also copleted and showed likely progression of underlying CLL with progressive splenomegaly, mass effect on the left kidney, significant bilateral inguinal lymphadenopathy, retroperitoneal adenopathy with enlarged para-arotic, mesenteric, and celiac nodes. Blood pressure has been running low, this am 75/44. She is requiring 3-4Liters of oxygen to maintain saturations above 92%. Her blood counts today revealed the following: WBC = 291 , Hemoglin = 7.1, Platelets = 107BNP = 22,700. During assessment she states she is overall feeling better than admission but still very short of breath with exertion. Swelling of legs has also improved since admission. Objective - Vital Signs Vital signs: Vital Signs Temp 97.1 F L 06/10/18 16:00 Pulse 96 06/10/18 16:00 Resp 18 06/10/18 16:00 BP 86/55 06/10/18 16:00 Pulse Ox 96 06/10/18 16:00 Intake & Output 06/09/18 06/10/18 06/10/18 18:59 06:59 18:59 Intake Total 620 240 Output Total 100 600 600 Balance 520 -600 -360 Weight 55 kg 59 kg Intake: Intake, IV Titration 500 Amount Sodium Chloride 0.9% 1, 500 000 ml @ 100 mls/hr IV . Q10H [facility] Rx#:[id number] Oral 120 240 Output: Urine 100 600 600 Other: Voiding Method Bedpan Bedpan # Voids 1 1 # Bowel Movements 0 - Exam - Constitutional General appearance: cooperative, mild distress - EENT Eyes: EOMI, dentition normal ENT: hard of hearing, NA/AT, normal oropharynx - Neck Supple, Trachea midline Neck: normal ROM - Respiratory Respiratory: bilateral: diminished (throughout, Left greater than right) - Cardiovascular Rhythm: irregularly irregular leg Peripheral Edema: bilateral: 1+ - Gastrointestinal Palpable Lymphadenopathy General gastrointestinal: normal bowel sounds, organomegaly, soft, splenomegaly - Integumentary Integumentary: pale - Neurologic Non focal defects Neurologic: CNII-XII intact - Musculoskeletal Musculoskeletal: generalized weakness, strength equal bilaterally - Psychiatric Psychiatric: A&O x's 3, appropriate affect, intact judgment & insight - Labs CBC & Chem 7: 06/09/18 04:22 06/09/18 04:28 Assessment and Plan Assessment: Acute exacerbation of CHF due to acute on chronic systolic heart failure Bilateral pleural effusion left more than right CLL and severe leukocytosis related to above Chronic anemia thrombocytopenia Plan: Repeat labs tomorrow Patient could benefit from thoracentesis provided platelet count remains stable Continue gentle diuresis Repeat labs tomorrow We'll DC the heparin due to thrombocytopenia we'll use pneumatic compression device for DVT prophylaxis Time with Patient: Greater than 30
[2018-06-10 20:11] LABS: Glucose,Whole Blood 152 mg/dL (75-99)
[2018-06-11] MEDS ORDERED: ALPRAZolam 0.5 MG TAB PO PRN (03:32)
[2018-06-11] MEDS ORDERED: FUROSEMIDE 10 MG/ML 4 ML VIAL IV STA (03:32)
[2018-06-11 04:04] LABS: Glucose,Whole Blood 215 mg/dL (75-99)
[2018-06-11 04:29] LABS: Glucose,Whole Blood 369 mg/dL (75-99)
[2018-06-11 06:39] LABS: Albumin 3.6 g/dL (3.5-5.0); Calcium 7.7 mg/dL (8.4-10.2); Total Bilirubin 0.5 mg/dL (0.2-1.3); Total Protein 5.6 g/dL (6.3-8.2)
[2018-06-11] MEDS: SODIUM CHLORIDE 0.9% 1,000 ML IV SCH (06:39)
[2018-06-11] MEDS: LEVOTHYROXINE 25 MCG TAB PO SCH ×2 (06:39→13:07)
[2018-06-11 06:47] LABS: Potassium 4.7 mmol/L (3.5-5.1)
[2018-06-11 08:00] LABS: Anisocytosis Slight; HCT 26.1 % (34.0-46.0); HGB 10.1 gm/dL (11.4-16.0); Hypochromasia Moderate; MCH 35.3 pg (25.0-35.0); Mean Platelet Volume 10.5; RBC 2.87 m/uL (3.80-5.40); RDW 18.2 % (11.5-15.5)
[2018-06-11] MEDS: FUROSEMIDE 10 MG/ML 4 ML VIAL IV SCH ×2 (08:03→16:30)
[2018-06-11] MEDS: LISINOPRIL 2.5 MG TAB PO SCH (08:05)
[2018-06-11] MEDS: ALLOPURINOL 300 MG TAB PO SCH ×2 (08:05→13:08)
[2018-06-11] MEDS: GABAPENTIN 400 MG CAP PO SCH ×3 (08:05→20:02)
[2018-06-11] MEDS: ASPIRIN 81 MG PO SCH (08:05)
[2018-06-11] MEDS: predniSONE 5 MG TAB PO SCH ×2 (08:05→13:07)
[2018-06-11] MEDS: PANTOPRAZOLE 40 MG TABLET PO SCH ×2 (08:05→13:08)
[2018-06-11 08:23] LABS: MCHC 38.8 g/dL (31.0-37.0)
[2018-06-11 08:49] LABS: Lymphocytes # (M) 339.15 k/uL (1.0-4.8); Neutrophils # (M) 17.85 k/uL (1.3-7.7); Neutrophils % (M) 5 %; Nucleated Red Blood Cells 0 /100 WBC (0-0); Poikilocytosis (M) Present; Total Cells Counted 100
[2018-06-11 08:50] LABS: Platelet Count 95 k/uL (150-450)
--- NOTE | 2018-06-11 10:09 | P.PN ---
Subjective Progress Note Date: 06/11/18 Principal diagnosis: Acute exacerbation of systolic heart failure with baseline ejection fraction 20% , bilateral pleural effusion left more than right, shortness of breath related to above, CLL, acute agitated delirium acute hypoxic respiratory failure 06/11/2018, patient seen hawa examined during the rounds patient had a rough night she became's hypoxic short of breath has a significant respiratory distress she did require extra dose of furosemide in addition required BiPAP 15/ 10 currently she is down to 6 L oxygen she is sleeping I have discussed with the oncology service about thoracentesis on the left side that may relieve some of the respiratory distress would plan to do it this afternoon 06/10/2018, patient seen hawa examined during the rounds clinically she is slightly better in terms of breathing but is still get short of breath, patient underwent ultrasound of the chest bilateral pleural effusion is noted right more than left on the right side more than 8 cm depth of fluid has been noted, procedure thoracentesis has been explained to the patient patient would like to proceed to relieve symptoms Ms. Huerta presented to [facility] ED on 06/08/18 with complaints of progressive Shortness of Breath over the past few days. She was recently admitted in May of this year for exacerbation of CHF. Her Ejection Fracture on that admission revealed 20-25% per echocardiogram. It was also noted she had severe dilation of the LAD, severe aortic stenosis, and mitral regurgitation. On presentation she was in mild distress with positive orthopnea and bilateral lower extremity edema. Chest Xray revealed bilateral pleural effusions, abnormal EKG. A CT of the abdomen and pelvis was also copleted and showed likely progression of underlying CLL with progressive splenomegaly, mass effect on the left kidney, significant bilateral inguinal lymphadenopathy, retroperitoneal adenopathy with enlarged para-arotic, mesenteric, and celiac nodes. Blood pressure has been running low, this am 75/44. She is requiring 3-4Liters of oxygen to maintain saturations above 92%. Her blood counts today revealed the following: WBC = 291 , Hemoglin = 7.1, Platelets = 107BNP = 22,700. During assessment she states she is overall feeling better than admission but still very short of breath with exertion. Swelling of legs has also improved since admission. Objective - Vital Signs Vital signs: Vital Signs Temp 96.7 F L 06/11/18 08:01 Pulse 77 06/11/18 08:01 Resp 26 H 06/11/18 08:01 BP 90/53 06/11/18 08:01 Pulse Ox 97 06/11/18 08:01 Intake & Output 06/10/18 06/11/18 06/11/18 18:59 06:59 18:59 Intake Total 480 950 Output Total 600 1150 Balance -120 -200 Weight 57.5 kg Intake: Intake, IV Titration 800 Amount Sodium Chloride 0.9% 1, 800 000 ml @ 100 mls/hr IV . Q10H [facility] Rx#:[id number] Oral 480 150 Output: Urine 600 1150 Other: Voiding Method Bedpan Bedpan Indwelling Catheter - Exam - Constitutional General appearance: cooperative, mild distress - EENT Eyes: EOMI, dentition normal ENT: hard of hearing, NA/AT, normal oropharynx - Neck Supple, Trachea midline Neck: normal ROM - Respiratory Respiratory: bilateral: diminished (throughout, Left greater than right) - Cardiovascular Rhythm: irregularly irregular leg Peripheral Edema: bilateral: 1+ - Gastrointestinal Palpable Lymphadenopathy General gastrointestinal: normal bowel sounds, organomegaly, soft, splenomegaly - Integumentary Integumentary: pale - Neurologic Non focal defects Neurologic: CNII-XII intact - Musculoskeletal Musculoskeletal: generalized weakness, strength equal bilaterally - Psychiatric Psychiatric: A&O x's 3, appropriate affect, intact judgment & insight - Labs CBC & Chem 7: 06/11/18 06:03 06/11/18 06:03 Labs: Abnormal Lab Results - Last 24 Hours (Table) 06/10/18 06/11/18 06/11/18 Range/Units 20:10 03:44 04:27 WBC (3.8-10.6) k/uL RBC (3.80-5.40) m/uL Hgb (11.4-16.0) gm/dL Hct (34.0-46.0) % MCH (25.0-35.0) pg MCHC (31.0-37.0) g/dL RDW (11.5-15.5) % Plt Count (150-450) k/uL Neutrophils # (Manual) (1.3-7.7) k/uL Lymphocytes # (Manual) (1.0-4.8) k/uL Sodium (137-145) mmol/L Carbon Dioxide (22-30) mmol/L BUN (7-17) mg/dL Glucose (74-99) mg/dL POC Glucose (mg/dL) 152 H 215 H 369 H (75-99) mg/dL Calcium (8.4-10.2) mg/dL AST (14-36) U/L Total Protein (6.3-8.2) g/dL 06/11/18 06/11/18 Range/Units 06:03 06:03 WBC 357.0 H* (3.8-10.6) k/uL RBC 2.87 L (3.80-5.40) m/uL Hgb 10.1 L D (11.4-16.0) gm/dL Hct 26.1 L (34.0-46.0) % MCH 35.3 H (25.0-35.0) pg MCHC 38.8 H (31.0-37.0) g/dL RDW 18.2 H (11.5-15.5) % Plt Count 95 L (150-450) k/uL Neutrophils # (Manual) 17.85 H (1.3-7.7) k/uL Lymphocytes # (Manual) 339.15 H (1.0-4.8) k/uL Sodium 134 L (137-145) mmol/L Carbon Dioxide 17 L (22-30) mmol/L BUN 24 H (7-17) mg/dL Glucose 213 H (74-99) mg/dL POC Glucose (mg/dL) (75-99) mg/dL Calcium 7.7 L (8.4-10.2) mg/dL AST 61 H (14-36) U/L Total Protein 5.6 L (6.3-8.2) g/dL Assessment and Plan Assessment: Acute exacerbation of CHF due to acute on chronic systolic heart failure Acute hypoxic respirator failure related to above Bilateral pleural effusion left more than right CLL and severe leukocytosis related to above Chronic anemia thrombocytopenia Plan: Repeat labs reviewed, events noted Patient could benefit from thoracentesis will do later on today Continue gentle diuresis Repeat labs tomorrow We'll DC the heparin due to thrombocytopenia we'll use pneumatic compression device for DVT prophylaxis Time with Patient: Greater than 30
[2018-06-11 10:20] LABS: Iron Saturation 12.58 (12.00-45.00)
[2018-06-11 10:32] LABS: Folate, Serum >24.0 ng/mL
--- NOTE | 2018-06-11 12:10 | P.PN ---
Subjective Progress Note Date: 06/11/18 Principal diagnosis: Exacerbation CHF, Chronic Lymphocytic Leukemia Ms Huerta is very lethargic this am, difficult to arouse. This is a change from her baseline when seen in consultation 2 days prior. Discussed with nurse and stated she became hypoxic overnight, although at this time her vistals are stable. Discussed with Dr. Muro and planning for thoracentesis, platlets are 90K. Ok from Hematology standpoint. Objective - Vital Signs Vital signs: Vital Signs Temp 96.7 F L 06/11/18 08:01 Pulse 78 06/11/18 11:32 Resp 18 06/11/18 11:32 BP 86/49 06/11/18 11:41 Pulse Ox 99 06/11/18 11:32 Intake & Output 06/10/18 06/11/18 06/11/18 18:59 06:59 18:59 Intake Total 480 950 Output Total 600 1150 Balance -120 -200 Weight 57.5 kg Intake: Intake, IV Titration 800 Amount Sodium Chloride 0.9% 1, 800 000 ml @ 100 mls/hr IV . Q10H [facility] Rx#:[id number] Oral 480 150 Output: Urine 600 1150 Other: Voiding Method Bedpan Bedpan Indwelling Catheter - Exam Difficult to arouse, lethargic, no following commands without repetitve prompting - Constitutional General appearance: Present: no acute distress - EENT EENT Comment(s): Dry mucus membranes Eyes: Present: dentition normal ENT: Present: hard of hearing, NA/AT - Neck Details: supple, Trache Midline Neck: Present: normal ROM - Respiratory Respiratory: bilateral: diminished (Bilateral) - Cardiovascular Rhythm: regular Heart sounds: normal: S1, S2 - Gastrointestinal General gastrointestinal: Present: distended, soft, tenderness - Integumentary Integumentary: Present: pale - Neurologic Neurologic: Present: focal deficits - Musculoskeletal Musculoskeletal: Present: generalized weakness - Psychiatric Psychiatric Comment(s): Difficult to arouse, does awake with prompting, speech slurred - Labs CBC & Chem 7: 06/11/18 06:03 06/11/18 06:03 Labs: Abnormal Lab Results - Last 24 Hours (Table) 06/10/18 06/11/18 06/11/18 Range/Units 20:10 03:44 04:27 WBC (3.8-10.6) k/uL RBC (3.80-5.40) m/uL Hgb (11.4-16.0) gm/dL Hct (34.0-46.0) % MCH (25.0-35.0) pg MCHC (31.0-37.0) g/dL RDW (11.5-15.5) % Plt Count (150-450) k/uL Neutrophils # (Manual) (1.3-7.7) k/uL Lymphocytes # (Manual) (1.0-4.8) k/uL Sodium (137-145) mmol/L Carbon Dioxide (22-30) mmol/L BUN (7-17) mg/dL Glucose (74-99) mg/dL POC Glucose (mg/dL) 152 H 215 H 369 H (75-99) mg/dL Calcium (8.4-10.2) mg/dL AST (14-36) U/L Total Protein (6.3-8.2) g/dL 06/11/18 06/11/18 Range/Units 06:03 06:03 WBC 357.0 H* (3.8-10.6) k/uL RBC 2.87 L (3.80-5.40) m/uL Hgb 10.1 L D (11.4-16.0) gm/dL Hct 26.1 L (34.0-46.0) % MCH 35.3 H (25.0-35.0) pg MCHC 38.8 H (31.0-37.0) g/dL RDW 18.2 H (11.5-15.5) % Plt Count 95 L (150-450) k/uL Neutrophils # (Manual) 17.85 H (1.3-7.7) k/uL Lymphocytes # (Manual) 339.15 H (1.0-4.8) k/uL Sodium 134 L (137-145) mmol/L Carbon Dioxide 17 L (22-30) mmol/L BUN 24 H (7-17) mg/dL Glucose 213 H (74-99) mg/dL POC Glucose (mg/dL) (75-99) mg/dL Calcium 7.7 L (8.4-10.2) mg/dL AST 61 H (14-36) U/L Total Protein 5.6 L (6.3-8.2) g/dL Assessment and Plan Plan: Assessment and Recommendations: 1. Chronic Lymphocytic Leukemia - Likely with progressive disease - Continue on Prednisone 5mg PO Daily - Patient has refused further treatment other than Prednisone - She will continue on supportive care and symptom management with the refusal of other treatment modalities - Check LDH and Uric acid 2. Leukocytosis secondary to CLL - Monitor Differential 3. Normocytic Anemia - Secondary to chronic disease and CLL - Continue to monitor CBC and Transfuse hemoglobin less than 7. Reasonable to transfuse less than 7.5 with symptoms, will defer to Cardiology for hemoglobin between 7-7.5. - Recheck Anemia work-up (Retic, Iron studies, B12, Folate) 4. Thrombocytopenia - Secondary to CLL - No transfusion needed at this time - Monitor CBC and if lower than 10 transfuse platelets - If s/s bleeding transfusion support below 50K 5. Exacerbation CHF - Per Cardiology 6. Acute on Chronic Respiratory Failure - Secondary to #5 - Pulmonology 7. Bilateral Pleural Effusions. - Discussed with Dr. Jina worrell and ok for thoracentesis with platlet count 95K 8. Acute Mental Status change, DIfficult to arouse and not following commands: - CHange from baseline - Not answering questions this am - CT head without contrast - If Negtive consider negro work-up (UA, repeat Cxray, BC) Thank You for allowing us to care along with you for this patient.
--- NOTE | 2018-06-11 14:23 | P.PN ---
Subjective Progress Note Date: 06/11/18 This is a pleasant 87-year-old female with past medical history significant for chronic lymphocytic leukemia, hyperlipidemia, nonsmoker, she does not drink alcohol, she had a recent admission to the hospital in May of this year at which time she presented with congestive cardiac failure, who did an echocardiogram with Doppler study on admission which revealed an ejection fraction of 20-25%, LAD was severely dilated, patient was noted to have severe aortic stenosis and mild to moderate mitral regurgitation. Patient was not initiated on any medications for her cardiomyopathy because of significant hypotension at that time. She presents to the hospital on this occasion with progressively worsening shortness of breath, positive PND and orthopnea, and bilateral swelling in her feet. Chest x-ray showed congestive heart failure slightly worse than prior exam. With an increase in pleural fluid. EKG showed sinus tachycardia with a left bundle-branch block pattern. CAT scan of the abdomen and pelvis was performed which revealed new moderate-sized pleural effusions, cardiomegaly, bilateral lower lobe pulmonary infiltrates and atelectasis. Moderately severe splenomegaly has progressed as compared with prior exam. There is a mass effect in the left kidney. Bilateral large inguinal lymph nodes. Significant retroperitoneal adenopathy with enlarged para -aortic nodes as well as mesenteric and celiac lymph nodes. This appears to be new as compared with prior exam. Blood pressure on arrival here 106/60 with a heart rate of 107, 93% on room air. Blood pressure this morning, 75/44, heart rate in the 70s, 97% on 3 L of oxygen. White blood cell count 291, hemoglobin 7.1, platelet count 102. Sodium 134, potassium 4.0, BUN 30, creatinine 0.9. Troponins 0.7, 0.9, 0.1. BNP level 22,700. At the time of my examination this morning, patient does state that her breathing is improved since admission, she still feels somewhat short of breath. 06/11/2018 Patient seen and examined this morning, very short of breath, somewhat lethargic. Ultrasound of the chest revealed bilateral significant pleural effusions of 8 cm. Patient had been seen in consultation by hematology to have cleared the patient to go ahead with a thoracentesis. Let pressure this morning 86/40 with a heart rate in the 70s, 95% on 5 L of oxygen. Sodium 134, potassium 4.7, BUN 24, creatinine 0.8. Objective - Vital Signs Vital signs: Vital Signs Temp 96.7 F L 06/11/18 08:01 Pulse 78 06/11/18 11:32 Resp 20 06/11/18 11:32 BP 86/49 06/11/18 11:41 Pulse Ox 99 06/11/18 11:32 Intake & Output 06/10/18 06/11/18 06/11/18 18:59 06:59 18:59 Intake Total 480 950 400 Output Total 600 1150 Balance -120 -200 400 Weight 57.5 kg Intake: Intake, IV Titration 800 Amount Sodium Chloride 0.9% 1, 800 000 ml @ 100 mls/hr IV . Q10H [facility] Rx#:[id number] Oral 480 150 400 Output: Urine 600 1150 Other: Voiding Method Bedpan Bedpan Indwelling Catheter - Exam PHYSICAL EXAMINATION: GENERAL: 87-year-old female in no acute distress at the time of my examination. HEENT: Head is atraumatic, normocephalic. Pupils equal, round. Sclera anicteric. Conjunctiva are clear. Mucous membranes of the mouth are moist. Neck is supple. There is elevated jugular venous pressure to the angle of the jaw. No carotid bruit is heard. HEART EXAMINATION: Heart S1 no S2 audible, systolic murmur suggesting severe aortic stenosis is noted. CHEST EXAMINATION: There are diminished bilaterally quarter to half way up. ABDOMEN: Soft, nontender. Bowel sounds are heard. No organomegaly noted. EXTREMITIES: 2+ peripheral pulses with trace evidence of peripheral edema and no calf tenderness noted. NEUROLOGIC patient is awake, alert and oriented X3. - Labs CBC & Chem 7: 06/11/18 06:03 06/11/18 06:03 Labs: Abnormal Lab Results - Last 24 Hours (Table) 06/09/18 06/10/18 06/11/18 Range/Units 04:22 20:10 03:44 WBC (3.8-10.6) k/uL RBC (3.80-5.40) m/uL Hgb (11.4-16.0) gm/dL Hct (34.0-46.0) % MCH (25.0-35.0) pg MCHC (31.0-37.0) g/dL RDW (11.5-15.5) % Plt Count (150-450) k/uL Neutrophils # (Manual) (1.3-7.7) k/uL Lymphocytes # (Manual) (1.0-4.8) k/uL Sodium (137-145) mmol/L Carbon Dioxide (22-30) mmol/L BUN (7-17) mg/dL Glucose (74-99) mg/dL POC Glucose (mg/dL) 152 H 215 H (75-99) mg/dL Calcium (8.4-10.2) mg/dL Iron 41 L (50-170) ug/dL AST (14-36) U/L Total Protein (6.3-8.2) g/dL 06/11/18 06/11/18 06/11/18 Range/Units 04:27 06:03 06:03 WBC 357.0 H* (3.8-10.6) k/uL RBC 2.87 L (3.80-5.40) m/uL Hgb 10.1 L D (11.4-16.0) gm/dL Hct 26.1 L (34.0-46.0) % MCH 35.3 H (25.0-35.0) pg MCHC 38.8 H (31.0-37.0) g/dL RDW 18.2 H (11.5-15.5) % Plt Count 95 L (150-450) k/uL Neutrophils # (Manual) 17.85 H (1.3-7.7) k/uL Lymphocytes # (Manual) 339.15 H (1.0-4.8) k/uL Sodium 134 L (137-145) mmol/L Carbon Dioxide 17 L (22-30) mmol/L BUN 24 H (7-17) mg/dL Glucose 213 H (74-99) mg/dL POC Glucose (mg/dL) 369 H (75-99) mg/dL Calcium 7.7 L (8.4-10.2) mg/dL Iron (50-170) ug/dL AST 61 H (14-36) U/L Total Protein 5.6 L (6.3-8.2) g/dL Assessment and Plan Plan: Assessment and plan #1 systolic congestive heart failure acute on chronic. Bilateral pleural effusions. Echocardiogram with Doppler study was performed in May of this year which revealed an ejection fraction of 20-25%, severe global hypokinesia, severe aortic stenosis, moderate MR. BNP level 22,700. #2 chronic lymphocytic leukemia #3 hyperlipidemia #4 cardiomyopathy, unknown etiology #5 abnormal troponin, likely representing a type II event. Plan Patient has significant bilateral pleural effusions. We would recommend patient undergo thoracentesis by pulmonary. Patient has been cleared by hematology undergo thoracentesis if the platelets are above 90, platelet count is 95 today. We will continue IV Lasix, continue to follow. DNP note has been reviewed, I agree with a documented findings and plan of care. Patient was seen and examined.
[2018-06-11] MEDS ORDERED: LIDOCAINE 1% INJ 10MG/ML (20 ML MDV) SQ ONE (14:29)
[2018-06-11 16:29] LABS: Glucose,Whole Blood 138 mg/dL (75-99)
--- NOTE | 2018-06-11 16:41 | PN ---
PROGRESS NOTE This patient is admitted with congestive cardiac failure. Patient has a history of chronic lymphocytic leukemia. Patient has evidence of bilateral pleural effusion. Ultrasound of the chest shows moderate to large-size pleural effusion. The patient's hemoglobin was 7.7. Hematologic consultation is requested. The patient's blood pressure is 99/60 mmHg. First and second heart sounds are normal. Lung examination reveals bilateral diminished air entry. We will ask Pulmonary Service to consider therapeutic thoracentesis. MMODL / IJN: [id number] /
[2018-06-11] MEDS: INSULIN ASPART 100 UNIT/ML 1 ML 10 ML VIAL SQ SCH ×2 (16:58→21:05)
--- NOTE | 2018-06-11 17:51 | P.PCN ---
Date of Procedure: 06/11/18 Preoperative Diagnosis: Acute hypoxic respirator failure, acute exacerbation of CHF related to acute on chronic systolic heart failure, bilateral pleural effusion more so on the left side compared right side, chronic lymphocytic leukemia Postoperative Diagnosis: As above Procedure(s) Performed: Left thoracentesis Anesthesia: local Surgeon: Dani Muro Estimated Blood Loss (ml): 1 Condition: stable Disposition: floor Indications for Procedure: As above Operative Findings: As below Description of Procedure: Patient prepared and draped and has a usual fashion, informed consent obtained from the patient and family, ultrasound was performed to lazara the maximum depth of the fluid, 1% lidocaine was infiltrated in posterior mid scapular line at eighth intercostal space, after infiltration of 1% lidocaine gauge 24 needle was placed on upper margin of the rib into the pleural cavity blood-tinged pleural fluid was aspirated followed by placement of a stab incision through the stab incision catheter in needle was placed needle was withdrawn catheter left in position and 850 mL of the dark hemorrhagic pleural fluid aspirated patient tolerated the procedure well no complication noted post procedure chest x-ray pending labs are being ordered
--- NOTE | 2018-06-11 18:04 | XR ---
EXAMINATION: XR chest 1V portable DATE AND TIME: 06/11/2018 5:42 PM ORDERING PROVIDER: Dani Muro CLINICAL INDICATION: post thoracentesis TECHNIQUE: AP portable upright COMPARISON: 06/08/2008 DESCRIPTION: On the right there is now a moderate pleural effusion, with associated complete atelecta sis of the right middle and right lower lobes. This right pleural effusion has increased at least mil dly compared to the prior study. There is no right pneumothorax. The right upper lobe is well inflate d and clear. On the left, a small pleural effusion is evident. No left pneumothorax. There is only partial left lo wer lobe atelectasis; nearly all of the left lung parenchyma is well expanded and clear. Moderately enlarged cardiac silhouette is redemonstrated. No acute bone or soft tissue findings. IMPRESSION: INTERVAL WORSENING ON THE RIGHT.
[2018-06-11 21:05] LABS: Glucose,Whole Blood 124 mg/dL (75-99)
[2018-06-11 22:30] LABS: Appearance,BF Bloody; Color,BF Red; Nucleated Cells, Body Fluid 5111 /uL; RBC, Body Fluid 30500 /uL
[2018-06-11 22:31] LABS: Mononuclear WBC,Body Fluid 99 %; Polynuclear WBC,Body Fluid 1 %; Total Cells Counted,Body Fluid 100
[2018-06-12] MEDS: FUROSEMIDE 10 MG/ML 4 ML VIAL IV SCH ×2 (01:12→09:58)
[2018-06-12 01:46] LABS: Total Protein, Body Fluid 1866 mg/dL
[2018-06-12 06:12] LABS: Glucose,Whole Blood 114 mg/dL (75-99)
[2018-06-12] MEDS: INSULIN ASPART 100 UNIT/ML 1 ML 10 ML VIAL SQ SCH ×4 (06:15→20:59)
[2018-06-12] MEDS: LEVOTHYROXINE 25 MCG TAB PO SCH (06:16)
[2018-06-12 06:27] LABS: Anisocytosis Slight; HCT 22.7 % (34.0-46.0); Hypochromasia Marked; MCH 29.1 pg (25.0-35.0); MCHC 31.6 g/dL (31.0-37.0); MCV 92.2 fL (80.0-100.0); Mean Platelet Volume 7.6; RBC 2.46 m/uL (3.80-5.40); RDW 18.6 % (11.5-15.5)
[2018-06-12 06:36] LABS: HGB 7.2 gm/dL (11.4-16.0); Platelet Count 86 k/uL (150-450); WBC 290.7 k/uL (3.8-10.6)
[2018-06-12 06:48] LABS: Calcium 7.4 mg/dL (8.4-10.2); Potassium 3.3 mmol/L (3.5-5.1); Total Protein 4.9 g/dL (6.3-8.2)
[2018-06-12] MEDS ORDERED: Potassium Replacement Protocol 1 EACH MISC MISCELLANE PRN (07:08)
[2018-06-12] MEDS: PANTOPRAZOLE 40 MG TABLET PO SCH (07:54)
[2018-06-12] MEDS: ALLOPURINOL 300 MG TAB PO SCH (07:54)
[2018-06-12] MEDS: GABAPENTIN 400 MG CAP PO SCH ×2 (07:54→20:59)
[2018-06-12] MEDS: POTASSIUM CHLORIDE ER 20 MEQ TAB.ER PO SCH ×2 (07:54→09:20)
[2018-06-12] MEDS: predniSONE 5 MG TAB PO SCH (07:55)
--- NOTE | 2018-06-12 08:09 | XR ---
EXAMINATION TYPE: XR chest 1V portable DATE OF EXAM: 06/12/2018 COMPARISON: Prior chest 06/11/2018 HISTORY: Status post thoracentesis TECHNIQUE: Single frontal view of the chest is obtained. FINDINGS: There is not a significant interval change. No evident pneumothorax. Bibasilar increased d ensity persists. Heart is enlarged. There are overlying cardiac leads. IMPRESSION: No evident complication status post thoracentesis. Bibasilar effusions and associated at electasis versus edema, correlate to exclude pneumonia. Cardiomegaly.
[2018-06-12] MEDS: ASPIRIN 81 MG PO SCH (09:59)
[2018-06-12] MEDS: LISINOPRIL 2.5 MG TAB PO SCH (09:59)
[2018-06-12 10:39] LABS: Lymphocytes # (M) 281.98 k/uL (1.0-4.8); Monocytes # (M) 5.81 k/uL (0-1.0); Neutrophils # (M) 5.81 k/uL (1.3-7.7); Neutrophils % (M) 2 %; Nucleated Red Blood Cells 0 /100 WBC (0-0); Poikilocytosis (M) Present; Total Cells Counted 200
[2018-06-12 12:00] LABS: Anisocytosis Slight; HCT 25.3 % (34.0-46.0); HGB 7.9 gm/dL (11.4-16.0); Hypochromasia Marked; MCH 29.4 pg (25.0-35.0); MCHC 31.4 g/dL (31.0-37.0); MCV 93.6 fL (80.0-100.0); Mean Platelet Volume 7.4; RDW 18.6 % (11.5-15.5)
[2018-06-12 12:08] LABS: Platelet Count 99 k/uL (150-450)
[2018-06-12 12:21] LABS: Glucose,Whole Blood 171 mg/dL (75-99)
--- NOTE | 2018-06-12 12:31 | P.PN ---
Subjective Progress Note Date: 06/12/18 Principal diagnosis: Exacerbation CHF, Chronic Lymphocytic Leukemia Ms Huerta's mental status has greatly improved since yesterday. She is alert and conversational. She remembers being "very tired and out of it" yesterday. She had fluid removed from lung and states she is feeling better. Objective - Vital Signs Vital signs: Vital Signs Temp 97.1 F L 06/12/18 11:27 Pulse 105 H 06/12/18 11:27 Resp 18 06/12/18 11:27 BP 94/57 06/12/18 11:27 Pulse Ox 95 06/12/18 11:27 Intake & Output 06/11/18 06/12/18 06/12/18 18:59 06:59 18:59 Intake Total 1040 200 240 Output Total 800 1100 Balance 240 -900 240 Weight 55.4 kg Intake: Oral 1040 200 240 Output: Urine 800 1100 Uretheral ([place]) 800 Stool 0 0 Other: Voiding Method Indwelling Catheter Indwelling Catheter # Voids 1 # Bowel Movements 1 - Constitutional General appearance: Present: cooperative, no acute distress - EENT Eyes: Present: EOMI, PERRLA, dentition normal ENT: Present: hard of hearing, NA/AT, normal oropharynx - Neck Details: Supple, Trachea midline Neck: Present: normal ROM - Respiratory Respiratory: bilateral: diminished (No increased effort) - Cardiovascular Heart rate: 103 Rhythm: irregularly irregular - Gastrointestinal General gastrointestinal: Present: normal bowel sounds, soft - Integumentary Integumentary: Present: pale - Neurologic Neurologic Comment(s): No focal defects Neurologic: Present: CNII-XII intact - Musculoskeletal Musculoskeletal: Present: generalized weakness, strength equal bilaterally - Psychiatric Psychiatric: Present: A&O x's 3, appropriate affect, intact judgment & insight - Labs CBC & Chem 7: 06/12/18 11:39 06/12/18 05:49 Labs: Abnormal Lab Results - Last 24 Hours (Table) 06/09/18 06/11/18 06/11/18 Range/Units 04:22 16:27 20:50 WBC (3.8-10.6) k/uL RBC (3.80-5.40) m/uL Hgb (11.4-16.0) gm/dL Hct (34.0-46.0) % RDW (11.5-15.5) % Plt Count (150-450) k/uL Lymphocytes # (Manual) (1.0-4.8) k/uL Monocytes # (Manual) (0-1.0) k/uL Sodium (137-145) mmol/L Potassium (3.5-5.1) mmol/L BUN (7-17) mg/dL POC Glucose (mg/dL) 138 H 124 H (75-99) mg/dL Calcium (8.4-10.2) mg/dL Iron 41 L (50-170) ug/dL Total Protein (6.3-8.2) g/dL 06/12/18 06/12/18 06/12/18 Range/Units 05:49 05:49 06:03 WBC 290.7 H* (3.8-10.6) k/uL RBC 2.46 L (3.80-5.40) m/uL Hgb 7.2 L D (11.4-16.0) gm/dL Hct 22.7 L (34.0-46.0) % RDW 18.6 H (11.5-15.5) % Plt Count 86 L (150-450) k/uL Lymphocytes # (Manual) 281.98 H (1.0-4.8) k/uL Monocytes # (Manual) 5.81 H (0-1.0) k/uL Sodium 133 L (137-145) mmol/L Potassium 3.3 L (3.5-5.1) mmol/L BUN 21 H (7-17) mg/dL POC Glucose (mg/dL) 114 H (75-99) mg/dL Calcium 7.4 L (8.4-10.2) mg/dL Iron (50-170) ug/dL Total Protein 4.9 L (6.3-8.2) g/dL 06/12/18 Range/Units 11:39 WBC 338.0 H* (3.8-10.6) k/uL RBC 2.70 L (3.80-5.40) m/uL Hgb 7.9 L (11.4-16.0) gm/dL Hct 25.3 L (34.0-46.0) % RDW 18.6 H (11.5-15.5) % Plt Count 99 L (150-450) k/uL Lymphocytes # (Manual) (1.0-4.8) k/uL Monocytes # (Manual) (0-1.0) k/uL Sodium (137-145) mmol/L Potassium (3.5-5.1) mmol/L BUN (7-17) mg/dL POC Glucose (mg/dL) (75-99) mg/dL Calcium (8.4-10.2) mg/dL Iron (50-170) ug/dL Total Protein (6.3-8.2) g/dL Microbiology - Last 24 Hours (Table) 06/11/18 16:30 Gram Stain - Preliminary Pleural Fluid Body Fluid Culture - Preliminary 06/11/18 16:30 Anaerobic Culture - Preliminary Pleural Fluid 06/11/18 16:30 Acid Fast Bacilli Culture - Preliminary Pleural Fluid 06/11/18 16:30 Fungal Culture - Preliminary Pleural Fluid Assessment and Plan Plan: Assessment and Recommendations: 1. Chronic Lymphocytic Leukemia - Likely with progressive disease - Continue on Prednisone 5mg PO Daily - Patient has refused further treatment other than Prednisone - She will continue on supportive care and symptom management with the refusal of other treatment modalities - Check LDH and Uric acid 2. Leukocytosis secondary to CLL - Monitor Differential 3. Normocytic Anemia - Secondary to chronic disease and CLL - Continue to monitor CBC and Transfuse hemoglobin less than 7. Reasonable to transfuse less than 7.5 with symptoms. - Hemoglobin 7.2 today, she is asymptomatic, no transfusion needed frp, hematology standpoint 4. Thrombocytopenia - Secondary to CLL - No transfusion needed at this time - Monitor CBC and if lower than 10 transfuse platelets - If s/s bleeding transfusion support below 50K 5. Exacerbation CHF - Per Cardiology 6. Acute on Chronic Respiratory Failure - Secondary to #5 - Pulmonology 7. Bilateral Pleural Effusions. - Discussed with Dr. Jina worrell and ok for thoracentesis with platelet count 86K 8. Acute Mental Status change: Resolved - Improved, likely medication related. Thank You for allowing us to care along with you for this patient.
[2018-06-12 12:43] LABS: Lymphocytes # (M) 331.24 k/uL (1.0-4.8); Neutrophils # (M) 6.76 k/uL (1.3-7.7); Neutrophils % (M) 2 %; Nucleated Red Blood Cells 0 /100 WBC (0-0); Poikilocytosis (M) Present; Total Cells Counted 100
--- NOTE | 2018-06-12 12:52 | P.PN ---
Subjective Progress Note Date: 06/12/18 Acute exacerbation of systolic heart failure with baseline ejection fraction 20% , bilateral pleural effusion left more than right, shortness of breath related to above, CLL, acute agitated delirium acute hypoxic respiratory failure Ms. Huerta presented to [facility] ED on 06/08/18 with complaints of progressive Shortness of Breath over the past few days. She was recently admitted in May of this year for exacerbation of CHF. Her Ejection Fracture on that admission revealed 20-25% per echocardiogram. It was also noted she had severe dilation of the LAD, severe aortic stenosis, and mitral regurgitation. On presentation she was in mild distress with positive orthopnea and bilateral lower extremity edema. Chest Xray revealed bilateral pleural effusions, abnormal EKG. A CT of the abdomen and pelvis was also copleted and showed likely progression of underlying CLL with progressive splenomegaly, mass effect on the left kidney, significant bilateral inguinal lymphadenopathy, retroperitoneal adenopathy with enlarged para-arotic, mesenteric, and celiac nodes. Blood pressure has been running low, this am 75/44. She is requiring 3-4Liters of oxygen to maintain saturations above 92%. Her blood counts today revealed the following: WBC = 291 , Hemoglin = 7.1, Platelets = 107BNP = 22,700. During assessment she states she is overall feeling better than admission but still very short of breath with exertion. Swelling of legs has also improved since admission. 06/10/2018, patient seen eval examined during the rounds clinically she is slightly better in terms of breathing but is still get short of breath, patient underwent ultrasound of the chest bilateral pleural effusion is noted right more than left on the right side more than 8 cm depth of fluid has been noted, procedure thoracentesis has been explained to the patient patient would like to proceed to relieve symptoms 06/11/2018, patient seen eval examined during the rounds patient had a rough night she became's hypoxic short of breath has a significant respiratory distress she did require extra dose of furosemide in addition required BiPAP 15/ 10 currently she is down to 6 L oxygen she is sleeping I have discussed with the oncology service about thoracentesis on the left side that may relieve some of the respiratory distress would plan to do it this afternoon On 06/12/2018 patient is currently sitting up in bed stating she feels much improved from yesterday. Patient underwent a thoracentesis yesterday removing 850 mL. Patient denies chest pain or shortness breath at this time. Blood pressure remains marginal. Hemoglobin level 7.2 patient is asymptomatic, no transfusion per oncology services. Will continue to monitor patient closely Objective - Vital Signs Vital signs: Vital Signs Temp 97.1 F L 06/12/18 11:27 Pulse 105 H 06/12/18 11:27 Resp 18 06/12/18 11:27 BP 94/57 06/12/18 11:27 Pulse Ox 95 06/12/18 11:27 Intake & Output 06/11/18 06/12/18 06/12/18 18:59 06:59 18:59 Intake Total 1040 200 240 Output Total 800 1100 Balance 240 -900 240 Weight 55.4 kg Intake: Oral 1040 200 240 Output: Urine 800 1100 Uretheral ([place]) 800 Stool 0 0 Other: Voiding Method Indwelling Catheter Indwelling Catheter # Voids 1 # Bowel Movements 1 - Exam Head normocephalic Neck supple Lungs diminished bilaterally Heart regular rate and rhythm S1-S2, no rub or gallop Abdomen is soft nontender nondistended positive bowel sounds no hepatosplenomegaly Extremities no edema Neuro alert and orientated to 3 - Labs CBC & Chem 7: 06/12/18 11:39 06/12/18 05:49 Labs: Abnormal Lab Results - Last 24 Hours (Table) 06/11/18 06/11/18 06/12/18 Range/Units 16:27 20:50 05:49 WBC (3.8-10.6) k/uL RBC (3.80-5.40) m/uL Hgb (11.4-16.0) gm/dL Hct (34.0-46.0) % RDW (11.5-15.5) % Plt Count (150-450) k/uL Lymphocytes # (Manual) (1.0-4.8) k/uL Monocytes # (Manual) (0-1.0) k/uL Sodium 133 L (137-145) mmol/L Potassium 3.3 L (3.5-5.1) mmol/L BUN 21 H (7-17) mg/dL POC Glucose (mg/dL) 138 H 124 H (75-99) mg/dL Calcium 7.4 L (8.4-10.2) mg/dL Total Protein 4.9 L (6.3-8.2) g/dL 06/12/18 06/12/18 06/12/18 Range/Units 05:49 06:03 11:39 WBC 290.7 H* 338.0 H* (3.8-10.6) k/uL RBC 2.46 L 2.70 L (3.80-5.40) m/uL Hgb 7.2 L D 7.9 L (11.4-16.0) gm/dL Hct 22.7 L 25.3 L (34.0-46.0) % RDW 18.6 H 18.6 H (11.5-15.5) % Plt Count 86 L 99 L (150-450) k/uL Lymphocytes # (Manual) 281.98 H (1.0-4.8) k/uL Monocytes # (Manual) 5.81 H (0-1.0) k/uL Sodium (137-145) mmol/L Potassium (3.5-5.1) mmol/L BUN (7-17) mg/dL POC Glucose (mg/dL) 114 H (75-99) mg/dL Calcium (8.4-10.2) mg/dL Total Protein (6.3-8.2) g/dL 06/12/18 Range/Units 11:50 WBC (3.8-10.6) k/uL RBC (3.80-5.40) m/uL Hgb (11.4-16.0) gm/dL Hct (34.0-46.0) % RDW (11.5-15.5) % Plt Count (150-450) k/uL Lymphocytes # (Manual) (1.0-4.8) k/uL Monocytes # (Manual) (0-1.0) k/uL Sodium (137-145) mmol/L Potassium (3.5-5.1) mmol/L BUN (7-17) mg/dL POC Glucose (mg/dL) 171 H (75-99) mg/dL Calcium (8.4-10.2) mg/dL Total Protein (6.3-8.2) g/dL Microbiology - Last 24 Hours (Table) 06/11/18 16:30 Gram Stain - Preliminary Pleural Fluid Body Fluid Culture - Preliminary 06/11/18 16:30 Anaerobic Culture - Preliminary Pleural Fluid 06/11/18 16:30 Acid Fast Bacilli Culture - Preliminary Pleural Fluid 06/11/18 16:30 Fungal Culture - Preliminary Pleural Fluid Assessment and Plan Assessment: 1. Acute exacerbation of CHF due to acute on chronic systolic heart failure. Patient currently remains on 40 mg IV Lasix. 2. Acute hypoxic respirator failure related to above. 3. Bilateral pleural effusion left more than right. Patient received left thoracentesis yesterday with 850 mL of fluid removed. Chest x-ray completed showing no evident complications status post pleurocentesis. Bibasilar effusions and associated atelectasis versus edema, correlate to exclude pneumonia. Cardiomegaly. 4. Chronic lymphocytic leukemia and severe leukocytosis related to above. Oncology services are following. WBC remains elevated at 338 5. Chronic anemia thrombocytopenia. Hemoglobin 7.9 patient remains asymptomatic. We'll hold off on transfusion per oncology services. Platelets 99 DVT prophylaxis SCDs due to thrombocytopenia and GI prophylaxis protonix I performed an examination of the patient and discussed their management with the Nurse Practitioner. I have reviewed the Nurse Practitioner's notes and agree with the documented findings and plan of care
[2018-06-12 13:24] LABS: Hemoglobin A1C 6.1 % (4.0-6.0)
--- NOTE | 2018-06-12 14:50 | P.PN ---
Subjective Progress Note Date: 06/12/18 This is a pleasant 87-year-old female with past medical history significant for chronic lymphocytic leukemia, hyperlipidemia, nonsmoker, she does not drink alcohol, she had a recent admission to the hospital in May of this year at which time she presented with congestive cardiac failure, who did an echocardiogram with Doppler study on admission which revealed an ejection fraction of 20-25%, LAD was severely dilated, patient was noted to have severe aortic stenosis and mild to moderate mitral regurgitation. Patient was not initiated on any medications for her cardiomyopathy because of significant hypotension at that time. She presents to the hospital on this occasion with progressively worsening shortness of breath, positive PND and orthopnea, and bilateral swelling in her feet. Chest x-ray showed congestive heart failure slightly worse than prior exam. With an increase in pleural fluid. EKG showed sinus tachycardia with a left bundle-branch block pattern. CAT scan of the abdomen and pelvis was performed which revealed new moderate-sized pleural effusions, cardiomegaly, bilateral lower lobe pulmonary infiltrates and atelectasis. Moderately severe splenomegaly has progressed as compared with prior exam. There is a mass effect in the left kidney. Bilateral large inguinal lymph nodes. Significant retroperitoneal adenopathy with enlarged para -aortic nodes as well as mesenteric and celiac lymph nodes. This appears to be new as compared with prior exam. Blood pressure on arrival here 106/60 with a heart rate of 107, 93% on room air. Blood pressure this morning, 75/44, heart rate in the 70s, 97% on 3 L of oxygen. White blood cell count 291, hemoglobin 7.1, platelet count 102. Sodium 134, potassium 4.0, BUN 30, creatinine 0.9. Troponins 0.7, 0.9, 0.1. BNP level 22,700. At the time of my examination this morning, patient does state that her breathing is improved since admission, she still feels somewhat short of breath. 06/11/2018 Patient seen and examined this morning, very short of breath, somewhat lethargic. Ultrasound of the chest revealed bilateral significant pleural effusions of 8 cm. Patient had been seen in consultation by hematology to have cleared the patient to go ahead with a thoracentesis. Let pressure this morning 86/40 with a heart rate in the 70s, 95% on 5 L of oxygen. Sodium 134, potassium 4.7, BUN 24, creatinine 0.8. 06/12/2018 Should seen and examined this morning, underwent left-sided thoracentesis for 850 mL of dark hemorrhagic fluid yesterday. She was seen and examined this morning sitting up in bed, appeared more stable than yesterday, alert and oriented. Still short of breath. Pressure this morning in the 80 systolic range. CLAUDIA inhibitor has been discontinued, we will also decrease her Lasix to 20 mg daily today. Objective - Vital Signs Vital signs: Vital Signs Temp 97.1 F L 06/12/18 11:27 Pulse 105 H 06/12/18 11:27 Resp 18 06/12/18 11:27 BP 94/57 06/12/18 11:27 Pulse Ox 95 06/12/18 11:27 Intake & Output 06/11/18 06/12/18 06/12/18 18:59 06:59 18:59 Intake Total 1040 200 360 Output Total 800 1100 Balance 240 -900 360 Weight 55.4 kg Intake: Oral 1040 200 360 Output: Urine 800 1100 Uretheral ([place]) 800 Stool 0 0 Other: Voiding Method Indwelling Catheter Indwelling Catheter # Voids 0 # Bowel Movements 1 - Exam PHYSICAL EXAMINATION: GENERAL: 87-year-old female in no acute distress at the time of my examination. HEENT: Head is atraumatic, normocephalic. Pupils equal, round. Sclera anicteric. Conjunctiva are clear. Mucous membranes of the mouth are moist. Neck is supple. There is elevated jugular venous pressure to the angle of the jaw. No carotid bruit is heard. HEART EXAMINATION: Heart S1 no S2 audible, systolic murmur suggesting severe aortic stenosis is noted. CHEST EXAMINATION: There are diminished bilaterally quarter to half way up on the right, a quarter way up on the left. ABDOMEN: Soft, nontender. Bowel sounds are heard. No organomegaly noted. EXTREMITIES: 2+ peripheral pulses with trace evidence of peripheral edema and no calf tenderness noted. NEUROLOGIC patient is awake, alert and oriented X3. - Labs CBC & Chem 7: 06/12/18 11:39 06/12/18 05:49 Labs: Abnormal Lab Results - Last 24 Hours (Table) 06/11/18 06/11/18 06/12/18 Range/Units 16:27 20:50 05:49 WBC (3.8-10.6) k/uL RBC (3.80-5.40) m/uL Hgb (11.4-16.0) gm/dL Hct (34.0-46.0) % RDW (11.5-15.5) % Plt Count (150-450) k/uL Lymphocytes # (Manual) (1.0-4.8) k/uL Monocytes # (Manual) (0-1.0) k/uL Sodium 133 L (137-145) mmol/L Potassium 3.3 L (3.5-5.1) mmol/L BUN 21 H (7-17) mg/dL POC Glucose (mg/dL) 138 H 124 H (75-99) mg/dL Calcium 7.4 L (8.4-10.2) mg/dL Total Protein 4.9 L (6.3-8.2) g/dL 06/12/18 06/12/18 06/12/18 Range/Units 05:49 06:03 11:39 WBC 290.7 H* 338.0 H* (3.8-10.6) k/uL RBC 2.46 L 2.70 L (3.80-5.40) m/uL Hgb 7.2 L D 7.9 L (11.4-16.0) gm/dL Hct 22.7 L 25.3 L (34.0-46.0) % RDW 18.6 H 18.6 H (11.5-15.5) % Plt Count 86 L 99 L (150-450) k/uL Lymphocytes # (Manual) 281.98 H 331.24 H (1.0-4.8) k/uL Monocytes # (Manual) 5.81 H (0-1.0) k/uL Sodium (137-145) mmol/L Potassium (3.5-5.1) mmol/L BUN (7-17) mg/dL POC Glucose (mg/dL) 114 H (75-99) mg/dL Calcium (8.4-10.2) mg/dL Total Protein (6.3-8.2) g/dL 06/12/18 Range/Units 11:50 WBC (3.8-10.6) k/uL RBC (3.80-5.40) m/uL Hgb (11.4-16.0) gm/dL Hct (34.0-46.0) % RDW (11.5-15.5) % Plt Count (150-450) k/uL Lymphocytes # (Manual) (1.0-4.8) k/uL Monocytes # (Manual) (0-1.0) k/uL Sodium (137-145) mmol/L Potassium (3.5-5.1) mmol/L BUN (7-17) mg/dL POC Glucose (mg/dL) 171 H (75-99) mg/dL Calcium (8.4-10.2) mg/dL Total Protein (6.3-8.2) g/dL Microbiology - Last 24 Hours (Table) 06/11/18 16:30 Gram Stain - Preliminary Pleural Fluid Body Fluid Culture - Preliminary 06/11/18 16:30 Anaerobic Culture - Preliminary Pleural Fluid 06/11/18 16:30 Acid Fast Bacilli Culture - Preliminary Pleural Fluid 06/11/18 16:30 Fungal Culture - Preliminary Pleural Fluid Assessment and Plan Plan: Assessment and plan #1 systolic congestive heart failure acute on chronic. Bilateral pleural effusions. Echocardiogram with Doppler study was performed in May of this year which revealed an ejection fraction of 20-25%, severe global hypokinesia, severe aortic stenosis, moderate MR. BNP level 22,700. #2 chronic lymphocytic leukemia #3 hyperlipidemia #4 cardiomyopathy, unknown etiology #5 abnormal troponin, likely representing a type II event. Plan Patient is hypotensive, we will discontinue the CLAUDIA inhibitor and decrease her Lasix to 20 mg daily. Overall prognosis is guarded being that the patient has CLL and. Severe aortic stenosis. DNP note has been reviewed, I agree with a documented findings and plan of care. Patient was seen and examined.
[2018-06-12 17:04] LABS: Glucose,Whole Blood 138 mg/dL (75-99)
[2018-06-12 20:35] LABS: Glucose,Whole Blood 127 mg/dL (75-99)
[2018-06-13 05:38] LABS: Glucose,Whole Blood 112 mg/dL (75-99)
[2018-06-13] MEDS: INSULIN ASPART 100 UNIT/ML 1 ML 10 ML VIAL SQ SCH ×4 (06:05→22:24)
[2018-06-13] MEDS: LEVOTHYROXINE 25 MCG TAB PO SCH (06:07)
[2018-06-13 06:43] LABS: Anisocytosis Slight; HCT 24.3 % (34.0-46.0); HGB 7.3 gm/dL (11.4-16.0); Hypochromasia Marked; MCH 28.1 pg (25.0-35.0); MCHC 30.1 g/dL (31.0-37.0); MCV 93.6 fL (80.0-100.0); Macrocytosis Slight; Mean Platelet Volume 7.3; Platelet Count 89 k/uL (150-450); RDW 18.6 % (11.5-15.5)
[2018-06-13 06:45] LABS: WBC 292.5 k/uL (3.8-10.6)
[2018-06-13 06:53] LABS: Albumin 3.1 g/dL (3.5-5.0); Calcium 7.8 mg/dL (8.4-10.2); Magnesium 2.2 mg/dL (1.6-2.3); Phosphorus 2.4 mg/dL (2.5-4.5); Potassium 4.2 mmol/L (3.5-5.1); Total Bilirubin 0.5 mg/dL (0.2-1.3); Total Protein 4.9 g/dL (6.3-8.2)
[2018-06-13 07:13] LABS: Lymphocytes # (M) 286.65 k/uL (1.0-4.8); Neutrophils # (M) 5.85 k/uL (1.3-7.7); Neutrophils % (M) 2 %
[2018-06-13 07:14] LABS: Nucleated Red Blood Cells 0 /100 WBC (0-0); Total Cells Counted 100
[2018-06-13 07:16] LABS: Poikilocytosis (M) Present
[2018-06-13] MEDS ORDERED: FUROSEMIDE 10 MG/ML 4 ML VIAL IV SCH (09:00)
[2018-06-13] MEDS: GABAPENTIN 400 MG CAP PO SCH ×2 (09:31→20:24)
[2018-06-13] MEDS: ALLOPURINOL 300 MG TAB PO SCH (09:31)
[2018-06-13] MEDS: predniSONE 5 MG TAB PO SCH (09:31)
[2018-06-13] MEDS: PANTOPRAZOLE 40 MG TABLET PO SCH (09:31)
[2018-06-13] MEDS: ASPIRIN 81 MG PO SCH (09:31)
--- NOTE | 2018-06-13 11:34 | P.PN ---
Subjective Progress Note Date: 06/13/18 Acute exacerbation of systolic heart failure with baseline ejection fraction 20% , bilateral pleural effusion left more than right, shortness of breath related to above, CLL, acute agitated delirium acute hypoxic respiratory failure Ms. Huerta presented to [facility] ED on 06/08/18 with complaints of progressive Shortness of Breath over the past few days. She was recently admitted in May of this year for exacerbation of CHF. Her Ejection Fracture on that admission revealed 20-25% per echocardiogram. It was also noted she had severe dilation of the LAD, severe aortic stenosis, and mitral regurgitation. On presentation she was in mild distress with positive orthopnea and bilateral lower extremity edema. Chest Xray revealed bilateral pleural effusions, abnormal EKG. A CT of the abdomen and pelvis was also copleted and showed likely progression of underlying CLL with progressive splenomegaly, mass effect on the left kidney, significant bilateral inguinal lymphadenopathy, retroperitoneal adenopathy with enlarged para-arotic, mesenteric, and celiac nodes. Blood pressure has been running low, this am 75/44. She is requiring 3-4Liters of oxygen to maintain saturations above 92%. Her blood counts today revealed the following: WBC = 291 , Hemoglin = 7.1, Platelets = 107BNP = 22,700. During assessment she states she is overall feeling better than admission but still very short of breath with exertion. Swelling of legs has also improved since admission. 06/10/2018, patient seen eval examined during the rounds clinically she is slightly better in terms of breathing but is still get short of breath, patient underwent ultrasound of the chest bilateral pleural effusion is noted right more than left on the right side more than 8 cm depth of fluid has been noted, procedure thoracentesis has been explained to the patient patient would like to proceed to relieve symptoms 06/11/2018, patient seen eval examined during the rounds patient had a rough night she became's hypoxic short of breath has a significant respiratory distress she did require extra dose of furosemide in addition required BiPAP 15/ 10 currently she is down to 6 L oxygen she is sleeping I have discussed with the oncology service about thoracentesis on the left side that may relieve some of the respiratory distress would plan to do it this afternoon On 06/12/2018 patient is currently sitting up in bed stating she feels much improved from yesterday. Patient underwent a thoracentesis yesterday removing 850 mL. Patient denies chest pain or shortness breath at this time. Blood pressure remains marginal. Hemoglobin level 7.2 patient is asymptomatic, no transfusion per oncology services. Will continue to monitor patient closely On 06/13/2018 patient is currently sitting up in bed A & O x 3. Patient remains on 3 L NC. Denies chest pain or shortness of breath. Hemoglobin 7.3 patient remains asymptomatic . Oncology services are following for her CLL. Cardiology services CLAUDIA inhibitor has been discontinued and Lasix have been decreased to 20 mg per. Objective - Vital Signs Vital signs: Vital Signs Temp 97.0 F L 06/13/18 03:45 Pulse 101 H 06/13/18 03:45 Resp 18 06/13/18 03:45 BP 101/58 06/13/18 03:45 Pulse Ox 98 06/13/18 03:45 Intake & Output 06/12/18 06/13/18 06/13/18 18:59 06:59 18:59 Intake Total 480 20 240 Balance 480 20 240 Weight 58.5 kg Intake: IV 20 0.9 20 Oral 480 240 Other: Voiding Method Incontinent # Voids 0 # Bowel Movements 1 - Exam Head normocephalic Neck supple Lungs diminished bilaterally Heart regular rate and rhythm S1-S2, no rub or gallop Abdomen is soft nontender nondistended positive bowel sounds no hepatosplenomegaly Extremities no edema Neuro alert and orientated to 3 - Labs CBC & Chem 7: 06/13/18 06:02 06/13/18 06:02 Labs: Abnormal Lab Results - Last 24 Hours (Table) 06/11/18 06/12/18 06/12/18 Range/Units 06:03 11:39 11:50 WBC 338.0 H* (3.8-10.6) k/uL RBC 2.70 L (3.80-5.40) m/uL Hgb 7.9 L (11.4-16.0) gm/dL Hct 25.3 L (34.0-46.0) % MCHC (31.0-37.0) g/dL RDW 18.6 H (11.5-15.5) % Plt Count 99 L (150-450) k/uL Lymphocytes # (Manual) 331.24 H (1.0-4.8) k/uL Sodium (137-145) mmol/L BUN (7-17) mg/dL Glucose (74-99) mg/dL POC Glucose (mg/dL) 171 H (75-99) mg/dL Hemoglobin A1c 6.1 H (4.0-6.0) % Calcium (8.4-10.2) mg/dL Phosphorus (2.5-4.5) mg/dL AST (14-36) U/L Total Protein (6.3-8.2) g/dL Albumin (3.5-5.0) g/dL 06/12/18 06/12/18 06/13/18 Range/Units 16:29 20:34 05:37 WBC (3.8-10.6) k/uL RBC (3.80-5.40) m/uL Hgb (11.4-16.0) gm/dL Hct (34.0-46.0) % MCHC (31.0-37.0) g/dL RDW (11.5-15.5) % Plt Count (150-450) k/uL Lymphocytes # (Manual) (1.0-4.8) k/uL Sodium (137-145) mmol/L BUN (7-17) mg/dL Glucose (74-99) mg/dL POC Glucose (mg/dL) 138 H 127 H 112 H (75-99) mg/dL Hemoglobin A1c (4.0-6.0) % Calcium (8.4-10.2) mg/dL Phosphorus (2.5-4.5) mg/dL AST (14-36) U/L Total Protein (6.3-8.2) g/dL Albumin (3.5-5.0) g/dL 06/13/18 06/13/18 Range/Units 06:02 06:02 WBC 292.5 H* (3.8-10.6) k/uL RBC 2.60 L (3.80-5.40) m/uL Hgb 7.3 L (11.4-16.0) gm/dL Hct 24.3 L (34.0-46.0) % MCHC 30.1 L (31.0-37.0) g/dL RDW 18.6 H (11.5-15.5) % Plt Count 89 L (150-450) k/uL Lymphocytes # (Manual) 286.65 H (1.0-4.8) k/uL Sodium 132 L (137-145) mmol/L BUN 20 H (7-17) mg/dL Glucose 102 H (74-99) mg/dL POC Glucose (mg/dL) (75-99) mg/dL Hemoglobin A1c (4.0-6.0) % Calcium 7.8 L (8.4-10.2) mg/dL Phosphorus 2.4 L (2.5-4.5) mg/dL AST 49 H (14-36) U/L Total Protein 4.9 L (6.3-8.2) g/dL Albumin 3.1 L (3.5-5.0) g/dL Microbiology - Last 24 Hours (Table) 06/11/18 16:30 Gram Stain - Preliminary Pleural Fluid Body Fluid Culture - Preliminary 06/11/18 16:30 Acid Fast Bacilli Smear - Final Pleural Fluid Acid Fast Bacilli Culture - Preliminary Assessment and Plan Assessment: 1. Acute exacerbation of CHF due to acute on chronic systolic heart failure. Patient currently remains on 40 mg IV Lasix. Cardiology services are following. Per cardiology 2Decho with Doppler study was performed in May of this year which revealed an EF of 20-25%, severe global hypokinesia with severe aortic stenosis, moderate MR. 2. Acute hypoxic respirator failure related to above. 3. Bilateral pleural effusion left more than right. Patient received left thoracentesis yesterday with 850 mL of fluid removed. Chest x-ray completed showing no evident complications status post pleurocentesis. Bibasilar effusions and associated atelectasis versus edema, correlate to exclude pneumonia. Cardiomegaly. 4. Chronic lymphocytic leukemia and severe leukocytosis related to above. Oncology services are following. WBC remains elevated at 338 5. Chronic anemia thrombocytopenia. Hemoglobin 7.9 patient remains asymptomatic. We'll hold off on transfusion per oncology services. Platelets 89. Hemoglobin 7.3 6. Elevated cardiac enzymes. Troponins on admission 0.072, 0.094 and 0.106. Cardiology services are following. Per cardiology abnormal troponins, likely representing a type II event 7. Hyperlipedmia 8. Cardiomyopathy , uknown etiology. Cardiology services are following DVT prophylaxis SCDs due to thrombocytopenia and GI prophylaxis protonix I performed an examination of the patient and discussed their management with the Nurse Practitioner. I have reviewed the Nurse Practitioner's notes and agree with the documented findings and plan of care
[2018-06-13 11:38] LABS: Glucose,Whole Blood 152 mg/dL (75-99)
[2018-06-13 12:46] LABS: Anisocytosis Slight; HCT 25.9 % (34.0-46.0); HGB 7.8 gm/dL (11.4-16.0); Hypochromasia Marked; MCV 93.5 fL (80.0-100.0); Mean Platelet Volume 7.5; Platelet Count 104 k/uL (150-450); RBC 2.77 m/uL (3.80-5.40); RDW 18.7 % (11.5-15.5)
[2018-06-13 12:48] LABS: WBC 313.7 k/uL (3.8-10.6)
--- NOTE | 2018-06-13 13:29 | P.PN ---
Subjective Progress Note Date: 06/13/18 Principal diagnosis: Exacerbation CHF, Chronic Lymphocytic Leukemia Ms Huerta's mental status is stable today, her hemoglobin and platelets show mild improvement, WBC mildly increased as well, which is stable for her disease Objective - Vital Signs Vital signs: Vital Signs Temp 96.9 F L 06/13/18 12:00 Pulse 92 06/13/18 12:00 Resp 16 06/13/18 12:00 BP 85/55 06/13/18 12:00 Pulse Ox 97 06/13/18 12:00 Intake & Output 06/12/18 06/13/18 06/13/18 18:59 06:59 18:59 Intake Total 480 20 480 Output Total 0 Balance 480 20 480 Weight 58.5 kg Intake: IV 20 0.9 20 Oral 480 480 Output: Stool 0 Other: Voiding Method Incontinent Incontinent # Voids 0 # Bowel Movements 1 1 - Constitutional General appearance: Present: cooperative, no acute distress - EENT Eyes: Present: PERRLA, dentition normal ENT: Present: hard of hearing, NA/AT, normal oropharynx - Neck Details: supple, trachea midline Neck: Present: normal ROM - Respiratory Respiratory: bilateral: CTA (bilateral no increased effort) - Cardiovascular Rhythm: irregularly irregular - Gastrointestinal General gastrointestinal: Present: distended, normal bowel sounds, soft - Integumentary Integumentary: Present: pale - Neurologic Neurologic: Present: CNII-XII intact - Musculoskeletal Musculoskeletal: Present: generalized weakness, strength equal bilaterally - Psychiatric Psychiatric: Present: A&O x's 3, appropriate affect - Labs CBC & Chem 7: 06/13/18 12:22 06/13/18 06:02 Labs: Abnormal Lab Results - Last 24 Hours (Table) 06/11/18 06/12/18 06/12/18 Range/Units 06:03 16:29 20:34 WBC (3.8-10.6) k/uL RBC (3.80-5.40) m/uL Hgb (11.4-16.0) gm/dL Hct (34.0-46.0) % MCHC (31.0-37.0) g/dL RDW (11.5-15.5) % Plt Count (150-450) k/uL Lymphocytes # (Manual) (1.0-4.8) k/uL Sodium (137-145) mmol/L BUN (7-17) mg/dL Glucose (74-99) mg/dL POC Glucose (mg/dL) 138 H 127 H (75-99) mg/dL Hemoglobin A1c 6.1 H (4.0-6.0) % Calcium (8.4-10.2) mg/dL Phosphorus (2.5-4.5) mg/dL AST (14-36) U/L Total Protein (6.3-8.2) g/dL Albumin (3.5-5.0) g/dL 06/13/18 06/13/18 06/13/18 Range/Units 05:37 06:02 06:02 WBC 292.5 H* (3.8-10.6) k/uL RBC 2.60 L (3.80-5.40) m/uL Hgb 7.3 L (11.4-16.0) gm/dL Hct 24.3 L (34.0-46.0) % MCHC 30.1 L (31.0-37.0) g/dL RDW 18.6 H (11.5-15.5) % Plt Count 89 L (150-450) k/uL Lymphocytes # (Manual) 286.65 H (1.0-4.8) k/uL Sodium 132 L (137-145) mmol/L BUN 20 H (7-17) mg/dL Glucose 102 H (74-99) mg/dL POC Glucose (mg/dL) 112 H (75-99) mg/dL Hemoglobin A1c (4.0-6.0) % Calcium 7.8 L (8.4-10.2) mg/dL Phosphorus 2.4 L (2.5-4.5) mg/dL AST 49 H (14-36) U/L Total Protein 4.9 L (6.3-8.2) g/dL Albumin 3.1 L (3.5-5.0) g/dL 06/13/18 06/13/18 Range/Units 11:29 12:22 WBC 313.7 H* (3.8-10.6) k/uL RBC 2.77 L (3.80-5.40) m/uL Hgb 7.8 L (11.4-16.0) gm/dL Hct 25.9 L (34.0-46.0) % MCHC 30.0 L (31.0-37.0) g/dL RDW 18.7 H (11.5-15.5) % Plt Count 104 L (150-450) k/uL Lymphocytes # (Manual) (1.0-4.8) k/uL Sodium (137-145) mmol/L BUN (7-17) mg/dL Glucose (74-99) mg/dL POC Glucose (mg/dL) 152 H (75-99) mg/dL Hemoglobin A1c (4.0-6.0) % Calcium (8.4-10.2) mg/dL Phosphorus (2.5-4.5) mg/dL AST (14-36) U/L Total Protein (6.3-8.2) g/dL Albumin (3.5-5.0) g/dL Microbiology - Last 24 Hours (Table) 06/11/18 16:30 Gram Stain - Preliminary Pleural Fluid Body Fluid Culture - Preliminary 06/11/18 16:30 Acid Fast Bacilli Smear - Final Pleural Fluid Acid Fast Bacilli Culture - Preliminary Assessment and Plan Plan: Assessment and Recommendations: 1. Chronic Lymphocytic Leukemia - Likely with progressive disease - Continue on Prednisone 5mg PO Daily - Patient has refused further treatment other than Prednisone - She will continue on supportive care and symptom management with the refusal of other treatment modalities - Reviewed LDH and Uric acid, stable 2. Leukocytosis secondary to CLL - Monitor Differential - mildly increased tday, stable for her untreated disease 3. Normocytic Anemia - Secondary to chronic disease and CLL - Continue to monitor CBC and Transfuse hemoglobin less than 7. Reasonable to transfuse less than 7.5 with symptoms. - Hemoglobin 7.8 today, she is asymptomatic, no transfusion needed frp, hematology standpoint 4. Thrombocytopenia - Secondary to CLL - No transfusion needed at this time - Monitor CBC and if lower than 10 transfuse platelets - If s/s bleeding transfusion support below 50K - Stable over 100 today 5. Exacerbation CHF - Per Cardiology 6. Acute on Chronic Respiratory Failure - Secondary to #5 - Pulmonology 7. Bilateral Pleural Effusions. - Discussed with Dr. Muro today and ok for thoracentesis with platelet count 86K 8. Acute Mental Status change: Resolved - Improved, likely medication related. Thank You for allowing us to care along with you for this patient.
[2018-06-13 14:09] LABS: Lymphocytes # (M) 298.02 k/uL (1.0-4.8); Neutrophils # (M) 15.69 k/uL (1.3-7.7); Neutrophils % (M) 5 %; Nucleated Red Blood Cells 0 /100 WBC (0-0); Total Cells Counted 200
[2018-06-13 14:10] LABS: Poikilocytosis (M) Present; Target Cells Present
--- NOTE | 2018-06-13 14:52 | P.PN ---
Subjective Progress Note Date: 06/13/18 This is a pleasant 87-year-old female with past medical history significant for chronic lymphocytic leukemia, hyperlipidemia, nonsmoker, she does not drink alcohol, she had a recent admission to the hospital in May of this year at which time she presented with congestive cardiac failure, who did an echocardiogram with Doppler study on admission which revealed an ejection fraction of 20-25%, LAD was severely dilated, patient was noted to have severe aortic stenosis and mild to moderate mitral regurgitation. Patient was not initiated on any medications for her cardiomyopathy because of significant hypotension at that time. She presents to the hospital on this occasion with progressively worsening shortness of breath, positive PND and orthopnea, and bilateral swelling in her feet. Chest x-ray showed congestive heart failure slightly worse than prior exam. With an increase in pleural fluid. EKG showed sinus tachycardia with a left bundle-branch block pattern. CAT scan of the abdomen and pelvis was performed which revealed new moderate-sized pleural effusions, cardiomegaly, bilateral lower lobe pulmonary infiltrates and atelectasis. Moderately severe splenomegaly has progressed as compared with prior exam. There is a mass effect in the left kidney. Bilateral large inguinal lymph nodes. Significant retroperitoneal adenopathy with enlarged para -aortic nodes as well as mesenteric and celiac lymph nodes. This appears to be new as compared with prior exam. Blood pressure on arrival here 106/60 with a heart rate of 107, 93% on room air. Blood pressure this morning, 75/44, heart rate in the 70s, 97% on 3 L of oxygen. White blood cell count 291, hemoglobin 7.1, platelet count 102. Sodium 134, potassium 4.0, BUN 30, creatinine 0.9. Troponins 0.7, 0.9, 0.1. BNP level 22,700. At the time of my examination this morning, patient does state that her breathing is improved since admission, she still feels somewhat short of breath. 06/11/2018 Patient seen and examined this morning, very short of breath, somewhat lethargic. Ultrasound of the chest revealed bilateral significant pleural effusions of 8 cm. Patient had been seen in consultation by hematology to have cleared the patient to go ahead with a thoracentesis. Let pressure this morning 86/40 with a heart rate in the 70s, 95% on 5 L of oxygen. Sodium 134, potassium 4.7, BUN 24, creatinine 0.8. 06/12/2018 Should seen and examined this morning, underwent left-sided thoracentesis for 850 mL of dark hemorrhagic fluid yesterday. She was seen and examined this morning sitting up in bed, appeared more stable than yesterday, alert and oriented. Still short of breath. Pressure this morning in the 80 systolic range. CLAUDIA inhibitor has been discontinued, we will also decrease her Lasix to 20 mg daily today. 06/13/2018 Patient seen and examined this morning, she is sitting up in her chair at bedside. Repeat chest x-ray did show significant improvement, she still has evidence of small bilateral pleural effusions. Overall she is feeling significantly better, air entry much improved bilaterally. Blood pressure 90/ 50 with a heart rate in the 90s, 97% on 3 L of oxygen. Hemoglobin 7.8 today, platelet count 104. Objective - Vital Signs Vital signs: Vital Signs Temp 96.9 F L 06/13/18 12:00 Pulse 92 06/13/18 12:00 Resp 16 06/13/18 12:00 BP 85/55 06/13/18 12:00 Pulse Ox 97 06/13/18 12:00 Intake & Output 06/12/18 06/13/18 06/13/18 18:59 06:59 18:59 Intake Total 480 20 480 Output Total 0 Balance 480 20 480 Weight 58.5 kg Intake: IV 20 0.9 20 Oral 480 480 Output: Stool 0 Other: Voiding Method Incontinent Incontinent # Voids 0 # Bowel Movements 1 1 - Exam PHYSICAL EXAMINATION: GENERAL: 87-year-old female in no acute distress at the time of my examination. HEENT: Head is atraumatic, normocephalic. Pupils equal, round. Sclera anicteric. Conjunctiva are clear. Mucous membranes of the mouth are moist. Neck is supple. There is elevated jugular venous pressure to the angle of the jaw. No carotid bruit is heard. HEART EXAMINATION: Heart S1 no S2 audible, systolic murmur suggesting severe aortic stenosis is noted. CHEST EXAMINATION: There are diminished bilaterally quarter to half way up on the right, a quarter way up on the left. ABDOMEN: Soft, nontender. Bowel sounds are heard. No organomegaly noted. EXTREMITIES: 2+ peripheral pulses with trace evidence of peripheral edema and no calf tenderness noted. NEUROLOGIC patient is awake, alert and oriented X3. - Labs CBC & Chem 7: 06/13/18 12:22 06/13/18 06:02 Labs: Abnormal Lab Results - Last 24 Hours (Table) 06/11/18 06/12/18 06/12/18 Range/Units 06:03 16:29 20:34 WBC (3.8-10.6) k/uL RBC (3.80-5.40) m/uL Hgb (11.4-16.0) gm/dL Hct (34.0-46.0) % MCHC (31.0-37.0) g/dL RDW (11.5-15.5) % Plt Count (150-450) k/uL Neutrophils # (Manual) (1.3-7.7) k/uL Lymphocytes # (Manual) (1.0-4.8) k/uL Sodium (137-145) mmol/L BUN (7-17) mg/dL Glucose (74-99) mg/dL POC Glucose (mg/dL) 138 H 127 H (75-99) mg/dL Hemoglobin A1c 6.1 H (4.0-6.0) % Calcium (8.4-10.2) mg/dL Phosphorus (2.5-4.5) mg/dL AST (14-36) U/L Total Protein (6.3-8.2) g/dL Albumin (3.5-5.0) g/dL 06/13/18 06/13/18 06/13/18 Range/Units 05:37 06:02 06:02 WBC 292.5 H* (3.8-10.6) k/uL RBC 2.60 L (3.80-5.40) m/uL Hgb 7.3 L (11.4-16.0) gm/dL Hct 24.3 L (34.0-46.0) % MCHC 30.1 L (31.0-37.0) g/dL RDW 18.6 H (11.5-15.5) % Plt Count 89 L (150-450) k/uL Neutrophils # (Manual) (1.3-7.7) k/uL Lymphocytes # (Manual) 286.65 H (1.0-4.8) k/uL Sodium 132 L (137-145) mmol/L BUN 20 H (7-17) mg/dL Glucose 102 H (74-99) mg/dL POC Glucose (mg/dL) 112 H (75-99) mg/dL Hemoglobin A1c (4.0-6.0) % Calcium 7.8 L (8.4-10.2) mg/dL Phosphorus 2.4 L (2.5-4.5) mg/dL AST 49 H (14-36) U/L Total Protein 4.9 L (6.3-8.2) g/dL Albumin 3.1 L (3.5-5.0) g/dL 06/13/18 06/13/18 Range/Units 11:29 12:22 WBC 313.7 H* (3.8-10.6) k/uL RBC 2.77 L (3.80-5.40) m/uL Hgb 7.8 L (11.4-16.0) gm/dL Hct 25.9 L (34.0-46.0) % MCHC 30.0 L (31.0-37.0) g/dL RDW 18.7 H (11.5-15.5) % Plt Count 104 L (150-450) k/uL Neutrophils # (Manual) 15.69 H (1.3-7.7) k/uL Lymphocytes # (Manual) 298.02 H (1.0-4.8) k/uL Sodium (137-145) mmol/L BUN (7-17) mg/dL Glucose (74-99) mg/dL POC Glucose (mg/dL) 152 H (75-99) mg/dL Hemoglobin A1c (4.0-6.0) % Calcium (8.4-10.2) mg/dL Phosphorus (2.5-4.5) mg/dL AST (14-36) U/L Total Protein (6.3-8.2) g/dL Albumin (3.5-5.0) g/dL Microbiology - Last 24 Hours (Table) 06/11/18 16:30 Gram Stain - Preliminary Pleural Fluid Body Fluid Culture - Preliminary 06/11/18 16:30 Acid Fast Bacilli Smear - Final Pleural Fluid Acid Fast Bacilli Culture - Preliminary Assessment and Plan Plan: Assessment and plan #1 systolic congestive heart failure acute on chronic. Bilateral pleural effusions. Echocardiogram with Doppler study was performed in May of this year which revealed an ejection fraction of 20-25%, severe global hypokinesia, severe aortic stenosis, moderate MR. BNP level 22,700. #2 chronic lymphocytic leukemia #3 hyperlipidemia #4 cardiomyopathy, unknown etiology #5 abnormal troponin, likely representing a type II event. Plan We'll continue current dose of IV Lasix, check lytes BUN and creatinine in the morning. DNP note has been reviewed, I agree with a documented findings and plan of care. Patient was seen and examined.
[2018-06-13] MEDS: FUROSEMIDE 10 MG/ML 2 ML VIAL IV SCH ×2 (16:40→20:23)
[2018-06-13 16:46] LABS: Glucose,Whole Blood 152 mg/dL (75-99)
[2018-06-13 21:11] LABS: Glucose,Whole Blood 152 mg/dL (75-99)
[2018-06-14 05:52] LABS: Glucose,Whole Blood 123 mg/dL (75-99)
[2018-06-14] MEDS: INSULIN ASPART 100 UNIT/ML 1 ML 10 ML VIAL SQ SCH ×4 (05:57→22:10)
[2018-06-14] MEDS: LEVOTHYROXINE 25 MCG TAB PO SCH (05:57)
[2018-06-14 06:05] LABS: Anisocytosis Slight; HCT 24.9 % (34.0-46.0); Hypochromasia Marked; MCH 29.7 pg (25.0-35.0); MCV 92.8 fL (80.0-100.0); Mean Platelet Volume 7.5; Platelet Count 106 k/uL (150-450); RBC 2.68 m/uL (3.80-5.40); RDW 18.5 % (11.5-15.5)
[2018-06-14 06:11] LABS: WBC 281.9 k/uL (3.8-10.6)
[2018-06-14 06:16] LABS: Albumin 3.1 g/dL (3.5-5.0); Calcium 8.1 mg/dL (8.4-10.2); Magnesium 2.2 mg/dL (1.6-2.3); Phosphorus 2.5 mg/dL (2.5-4.5); Potassium 4.2 mmol/L (3.5-5.1); Total Bilirubin 0.5 mg/dL (0.2-1.3)
[2018-06-14 06:35] LABS: INR 1.1 (<1.2); Prothrombin Time 10.4 sec (9.0-12.0)
[2018-06-14 07:32] LABS: Lymphocytes # (M) 279.08 k/uL (1.0-4.8); Neutrophils # (M) 2.82 k/uL (1.3-7.7); Neutrophils % (M) 1 %; Nucleated Red Blood Cells 0 /100 WBC (0-0); Total Cells Counted 100
[2018-06-14 07:34] LABS: Poikilocytosis (M) Present
[2018-06-14 07:57] LABS: Partial Thromboplastin Time 20.5 sec (22.0-30.0)
[2018-06-14] MEDS: PANTOPRAZOLE 40 MG TABLET PO SCH (09:07)
[2018-06-14] MEDS: ASPIRIN 81 MG PO SCH (09:08)
[2018-06-14] MEDS: predniSONE 5 MG TAB PO SCH (09:08)
[2018-06-14] MEDS: FUROSEMIDE 10 MG/ML 2 ML VIAL IV SCH ×2 (09:08→15:43)
[2018-06-14] MEDS: ALLOPURINOL 300 MG TAB PO SCH (09:08)
[2018-06-14] MEDS: GABAPENTIN 400 MG CAP PO SCH ×2 (09:08→20:06)
--- NOTE | 2018-06-14 09:52 | US ---
EXAMINATION TYPE: US chest DATE OF EXAM: 06/14/2018 COMPARISON: US 2018 CLINICAL HISTORY: follow up after thoracentesis. TECHNIQUE: Targeted ultrasound of the posterior lower left hemithorax EXAM MEASUREMENTS: Left Pleural Effusion pocket size: 3.9 cm Left skin surface to fluid distance: 2.3 cm Left side pocket of fluid seen at previous thora site, lung seen within mid portion of fluid pocket. Pulmonologists are able to review the images in the patient?s EMR. IMPRESSIONS: Small left pleural effusion
--- NOTE | 2018-06-14 10:55 | P.PN ---
Subjective Progress Note Date: 06/14/18 Acute exacerbation of systolic heart failure with baseline ejection fraction 20% , bilateral pleural effusion left more than right, shortness of breath related to above, CLL, acute agitated delirium acute hypoxic respiratory failure Ms. Huerta presented to [facility] ED on 06/08/18 with complaints of progressive Shortness of Breath over the past few days. She was recently admitted in May of this year for exacerbation of CHF. Her Ejection Fracture on that admission revealed 20-25% per echocardiogram. It was also noted she had severe dilation of the LAD, severe aortic stenosis, and mitral regurgitation. On presentation she was in mild distress with positive orthopnea and bilateral lower extremity edema. Chest Xray revealed bilateral pleural effusions, abnormal EKG. A CT of the abdomen and pelvis was also copleted and showed likely progression of underlying CLL with progressive splenomegaly, mass effect on the left kidney, significant bilateral inguinal lymphadenopathy, retroperitoneal adenopathy with enlarged para-arotic, mesenteric, and celiac nodes. Blood pressure has been running low, this am 75/44. She is requiring 3-4Liters of oxygen to maintain saturations above 92%. Her blood counts today revealed the following: WBC = 291 , Hemoglin = 7.1, Platelets = 107BNP = 22,700. During assessment she states she is overall feeling better than admission but still very short of breath with exertion. Swelling of legs has also improved since admission. 06/10/2018, patient seen eval examined during the rounds clinically she is slightly better in terms of breathing but is still get short of breath, patient underwent ultrasound of the chest bilateral pleural effusion is noted right more than left on the right side more than 8 cm depth of fluid has been noted, procedure thoracentesis has been explained to the patient patient would like to proceed to relieve symptoms 06/11/2018, patient seen eval examined during the rounds patient had a rough night she became's hypoxic short of breath has a significant respiratory distress she did require extra dose of furosemide in addition required BiPAP 15/ 10 currently she is down to 6 L oxygen she is sleeping I have discussed with the oncology service about thoracentesis on the left side that may relieve some of the respiratory distress would plan to do it this afternoon On 06/12/2018 patient is currently sitting up in bed stating she feels much improved from yesterday. Patient underwent a thoracentesis yesterday removing 850 mL. Patient denies chest pain or shortness breath at this time. Blood pressure remains marginal. Hemoglobin level 7.2 patient is asymptomatic, no transfusion per oncology services. Will continue to monitor patient closely On 06/13/2018 patient is currently sitting up in bed A & O x 3. Patient remains on 3 L NC. Denies chest pain or shortness of breath. Hemoglobin 7.3 patient remains asymptomatic . Oncology services are following for her CLL. Cardiology services CLAUDIA inhibitor has been discontinued and Lasix have been decreased to 20 mg per. On 06/14/2018 patient is currently resting comfortably in bed. Patient states she feels improved from previous days. Patient is still on 2 L nasal cannula. Patient did not wear any home O2 previously. Hemoglobin up to 8.0. oncology services are still following for her CLL. Lasix 20 twice a day. Blood pressure remains marginal. Patient continues to be asymptomatic and making good urine. Objective - Vital Signs Vital signs: Vital Signs Temp 96.9 F L 06/14/18 04:00 Pulse 89 06/14/18 04:00 Resp 20 06/14/18 04:00 BP 86/54 06/14/18 04:00 Pulse Ox 98 06/14/18 04:00 Intake & Output 06/13/18 06/14/18 06/14/18 18:59 06:59 18:59 Intake Total 720 Output Total 0 3800 Balance 720 -3800 Weight 53.5 kg Intake: Oral 720 Output: Urine 3800 Stool 0 0 Other: Voiding Method Incontinent Incontinent # Voids 2 2 # Bowel Movements 1 1 - Exam Head normocephalic Neck supple Lungs diminished bilaterally Heart regular rate and rhythm S1-S2, no rub or gallop Abdomen is soft nontender nondistended positive bowel sounds no hepatosplenomegaly Extremities no edema Neuro alert and orientated to 3 - Labs CBC & Chem 7: 06/14/18 05:46 06/14/18 05:46 Labs: Abnormal Lab Results - Last 24 Hours (Table) 06/13/18 06/13/18 06/13/18 Range/Units 11:29 12:22 16:22 WBC 313.7 H* (3.8-10.6) k/uL RBC 2.77 L (3.80-5.40) m/uL Hgb 7.8 L (11.4-16.0) gm/dL Hct 25.9 L (34.0-46.0) % MCHC 30.0 L (31.0-37.0) g/dL RDW 18.7 H (11.5-15.5) % Plt Count 104 L (150-450) k/uL Neutrophils # (Manual) 15.69 H (1.3-7.7) k/uL Lymphocytes # (Manual) 298.02 H (1.0-4.8) k/uL APTT (22.0-30.0) sec Sodium (137-145) mmol/L BUN (7-17) mg/dL Glucose (74-99) mg/dL POC Glucose (mg/dL) 152 H 152 H (75-99) mg/dL Calcium (8.4-10.2) mg/dL Total Protein (6.3-8.2) g/dL Albumin (3.5-5.0) g/dL 06/13/18 06/14/18 06/14/18 Range/Units 21:09 05:46 05:46 WBC 281.9 H* (3.8-10.6) k/uL RBC 2.68 L (3.80-5.40) m/uL Hgb 8.0 L (11.4-16.0) gm/dL Hct 24.9 L (34.0-46.0) % MCHC (31.0-37.0) g/dL RDW 18.5 H (11.5-15.5) % Plt Count 106 L (150-450) k/uL Neutrophils # (Manual) (1.3-7.7) k/uL Lymphocytes # (Manual) 279.08 H (1.0-4.8) k/uL APTT (22.0-30.0) sec Sodium 133 L (137-145) mmol/L BUN 18 H (7-17) mg/dL Glucose 111 H (74-99) mg/dL POC Glucose (mg/dL) 152 H (75-99) mg/dL Calcium 8.1 L (8.4-10.2) mg/dL Total Protein 5.0 L (6.3-8.2) g/dL Albumin 3.1 L (3.5-5.0) g/dL 06/14/18 06/14/18 Range/Units 05:46 05:51 WBC (3.8-10.6) k/uL RBC (3.80-5.40) m/uL Hgb (11.4-16.0) gm/dL Hct (34.0-46.0) % MCHC (31.0-37.0) g/dL RDW (11.5-15.5) % Plt Count (150-450) k/uL Neutrophils # (Manual) (1.3-7.7) k/uL Lymphocytes # (Manual) (1.0-4.8) k/uL APTT 20.5 L (22.0-30.0) sec Sodium (137-145) mmol/L BUN (7-17) mg/dL Glucose (74-99) mg/dL POC Glucose (mg/dL) 123 H (75-99) mg/dL Calcium (8.4-10.2) mg/dL Total Protein (6.3-8.2) g/dL Albumin (3.5-5.0) g/dL Microbiology - Last 24 Hours (Table) 06/11/18 16:30 Anaerobic Culture - Preliminary Pleural Fluid 06/11/18 16:30 Gram Stain - Preliminary Pleural Fluid Body Fluid Culture - Preliminary Assessment and Plan Assessment: 1. Acute exacerbation of CHF due to acute on chronic systolic heart failure. Patient currently remains on 40 mg IV Lasix. Cardiology services are following. Per cardiology 2Decho with Doppler study was performed in May of this year which revealed an EF of 20-25%, severe global hypokinesia with severe aortic stenosis, moderate MR. 2. Acute hypoxic respirator failure related to above. 3. Bilateral pleural effusion left more than right. Patient received left thoracentesis 06/11 with 850 mL of fluid removed. Chest x-ray completed showing no evident complications status post pleurocentesis. Bibasilar effusions and associated atelectasis versus edema, correlate to exclude pneumonia. Cardiomegaly. Per Dr. Muro considering possible thoracentesis today on the right side. 4. Chronic lymphocytic leukemia and severe leukocytosis related to above. Oncology services are following. WBC remains elevated at 281.9 5. Chronic anemia thrombocytopenia. Hemoglobin 7.9 patient remains asymptomatic. We'll hold off on transfusion per oncology services. Platelets 104. Hemoglobin 8.0 6. Elevated cardiac enzymes. Troponins on admission 0.072, 0.094 and 0.106. Cardiology services are following. Per cardiology abnormal troponins, likely representing a type II event 7. Hyperlipedmia 8. Cardiomyopathy , uknown etiology. Cardiology services are following 9. hypotension. Blood pressure remains in the high 80s low 90s. Patient is making good urine and is asymptomatic. Lasix had been decreased to 20 twice a day. We'll continue to monitor closely DVT prophylaxis SCDs due to thrombocytopenia and GI prophylaxis protonix I performed an examination of the patient and discussed their management with the Nurse Practitioner. I have reviewed the Nurse Practitioner's notes and agree with the documented findings and plan of care
[2018-06-14 11:45] LABS: Glucose,Whole Blood 119 mg/dL (75-99)
--- NOTE | 2018-06-14 13:10 | P.PN ---
Subjective Progress Note Date: 06/14/18 Principal diagnosis: Exacerbation CHF, Chronic Lymphocytic Leukemia Ms Huerta's mental status is stable today, She is doing well without complaints of acute events over night. Objective - Vital Signs Vital signs: Vital Signs Temp 96.9 F L 06/14/18 12:00 Pulse 99 06/14/18 12:00 Resp 22 06/14/18 12:00 BP 86/56 06/14/18 12:00 Pulse Ox 99 06/14/18 12:00 Intake & Output 06/13/18 06/14/18 06/14/18 18:59 06:59 18:59 Intake Total 720 240 Output Total 0 3800 200 Balance 720 -3800 40 Weight 53.5 kg Intake: Oral 720 240 Output: Urine 3800 200 Stool 0 0 0 Other: Voiding Method Incontinent Incontinent Bedside Commode Incontinent # Voids 2 2 1 # Bowel Movements 1 1 0 - Constitutional General appearance: Present: cooperative, no acute distress - EENT Eyes: Present: EOMI, dentition normal ENT: Present: hard of hearing, NA/AT, normal oropharynx - Neck Details: Supple, Trachea Midline Neck: Present: normal ROM - Respiratory Respiratory: bilateral: diminished (BIlateral L>R) - Cardiovascular Rhythm: regular Heart sounds: normal: S1, S2 - Gastrointestinal General gastrointestinal: Present: distended, soft, tenderness - Integumentary Integumentary: Present: pale - Neurologic Neurologic Comment(s): NO focal defects Neurologic: Present: CNII-XII intact - Musculoskeletal Musculoskeletal: Present: generalized weakness, strength equal bilaterally - Psychiatric Psychiatric: Present: A&O x's 3, appropriate affect, intact judgment & insight - Labs CBC & Chem 7: 06/14/18 05:46 06/14/18 05:46 Labs: Abnormal Lab Results - Last 24 Hours (Table) 06/13/18 06/13/18 06/13/18 Range/Units 12:22 16:22 21:09 WBC (3.8-10.6) k/uL RBC (3.80-5.40) m/uL Hgb (11.4-16.0) gm/dL Hct (34.0-46.0) % RDW (11.5-15.5) % Plt Count (150-450) k/uL Neutrophils # (Manual) 15.69 H (1.3-7.7) k/uL Lymphocytes # (Manual) 298.02 H (1.0-4.8) k/uL APTT (22.0-30.0) sec Sodium (137-145) mmol/L BUN (7-17) mg/dL Glucose (74-99) mg/dL POC Glucose (mg/dL) 152 H 152 H (75-99) mg/dL Calcium (8.4-10.2) mg/dL Total Protein (6.3-8.2) g/dL Albumin (3.5-5.0) g/dL 06/14/18 06/14/18 06/14/18 Range/Units 05:46 05:46 05:46 WBC 281.9 H* (3.8-10.6) k/uL RBC 2.68 L (3.80-5.40) m/uL Hgb 8.0 L (11.4-16.0) gm/dL Hct 24.9 L (34.0-46.0) % RDW 18.5 H (11.5-15.5) % Plt Count 106 L (150-450) k/uL Neutrophils # (Manual) (1.3-7.7) k/uL Lymphocytes # (Manual) 279.08 H (1.0-4.8) k/uL APTT 20.5 L (22.0-30.0) sec Sodium 133 L (137-145) mmol/L BUN 18 H (7-17) mg/dL Glucose 111 H (74-99) mg/dL POC Glucose (mg/dL) (75-99) mg/dL Calcium 8.1 L (8.4-10.2) mg/dL Total Protein 5.0 L (6.3-8.2) g/dL Albumin 3.1 L (3.5-5.0) g/dL 06/14/18 06/14/18 Range/Units 05:51 11:43 WBC (3.8-10.6) k/uL RBC (3.80-5.40) m/uL Hgb (11.4-16.0) gm/dL Hct (34.0-46.0) % RDW (11.5-15.5) % Plt Count (150-450) k/uL Neutrophils # (Manual) (1.3-7.7) k/uL Lymphocytes # (Manual) (1.0-4.8) k/uL APTT (22.0-30.0) sec Sodium (137-145) mmol/L BUN (7-17) mg/dL Glucose (74-99) mg/dL POC Glucose (mg/dL) 123 H 119 H (75-99) mg/dL Calcium (8.4-10.2) mg/dL Total Protein (6.3-8.2) g/dL Albumin (3.5-5.0) g/dL Microbiology - Last 24 Hours (Table) 06/11/18 16:30 Anaerobic Culture - Preliminary Pleural Fluid 06/11/18 16:30 Gram Stain - Preliminary Pleural Fluid Body Fluid Culture - Preliminary Assessment and Plan Plan: Assessment and Recommendations: 1. Chronic Lymphocytic Leukemia - Likely with progressive disease - Continue on Prednisone 5mg PO Daily - Patient has refused further treatment other than Prednisone - She will continue on supportive care and symptom management with the refusal of other treatment modalities - Reviewed LDH and Uric acid, stable 2. Leukocytosis secondary to CLL - Monitor Differential - mildly increased tday, stable for her untreated disease 3. Normocytic Anemia - Secondary to chronic disease and CLL - Continue to monitor CBC and Transfuse hemoglobin less than 7. Reasonable to transfuse less than 7.5 with symptoms. - Hemoglobin 7.8 today, she is asymptomatic, no transfusion needed frp, hematology standpoint 4. Thrombocytopenia - Secondary to CLL - No transfusion needed at this time - Monitor CBC and if lower than 10 transfuse platelets - If s/s bleeding transfusion support below 50K - Stable over 100 today 5. Exacerbation CHF - Per Cardiology 6. Acute on Chronic Respiratory Failure - Secondary to #5 - Pulmonology 7. Bilateral Pleural Effusions. - Discussed plan for left thoracentesis today with Pulmonary, She is status POst Right on 06/11/18 8. Acute Mental Status change: Resolved - Improved, likely medication related. Thank You for allowing us to care along with you for this patient.
--- NOTE | 2018-06-14 14:52 | P.PN ---
Subjective Progress Note Date: 06/14/18 This is a pleasant 87-year-old female with past medical history significant for chronic lymphocytic leukemia, hyperlipidemia, nonsmoker, she does not drink alcohol, she had a recent admission to the hospital in May of this year at which time she presented with congestive cardiac failure, who did an echocardiogram with Doppler study on admission which revealed an ejection fraction of 20-25%, LAD was severely dilated, patient was noted to have severe aortic stenosis and mild to moderate mitral regurgitation. Patient was not initiated on any medications for her cardiomyopathy because of significant hypotension at that time. She presents to the hospital on this occasion with progressively worsening shortness of breath, positive PND and orthopnea, and bilateral swelling in her feet. Chest x-ray showed congestive heart failure slightly worse than prior exam. With an increase in pleural fluid. EKG showed sinus tachycardia with a left bundle-branch block pattern. CAT scan of the abdomen and pelvis was performed which revealed new moderate-sized pleural effusions, cardiomegaly, bilateral lower lobe pulmonary infiltrates and atelectasis. Moderately severe splenomegaly has progressed as compared with prior exam. There is a mass effect in the left kidney. Bilateral large inguinal lymph nodes. Significant retroperitoneal adenopathy with enlarged para -aortic nodes as well as mesenteric and celiac lymph nodes. This appears to be new as compared with prior exam. Blood pressure on arrival here 106/60 with a heart rate of 107, 93% on room air. Blood pressure this morning, 75/44, heart rate in the 70s, 97% on 3 L of oxygen. White blood cell count 291, hemoglobin 7.1, platelet count 102. Sodium 134, potassium 4.0, BUN 30, creatinine 0.9. Troponins 0.7, 0.9, 0.1. BNP level 22,700. At the time of my examination this morning, patient does state that her breathing is improved since admission, she still feels somewhat short of breath. 06/11/2018 Patient seen and examined this morning, very short of breath, somewhat lethargic. Ultrasound of the chest revealed bilateral significant pleural effusions of 8 cm. Patient had been seen in consultation by hematology to have cleared the patient to go ahead with a thoracentesis. Let pressure this morning 86/40 with a heart rate in the 70s, 95% on 5 L of oxygen. Sodium 134, potassium 4.7, BUN 24, creatinine 0.8. 06/12/2018 Should seen and examined this morning, underwent left-sided thoracentesis for 850 mL of dark hemorrhagic fluid yesterday. She was seen and examined this morning sitting up in bed, appeared more stable than yesterday, alert and oriented. Still short of breath. Pressure this morning in the 80 systolic range. CLAUDIA inhibitor has been discontinued, we will also decrease her Lasix to 20 mg daily today. 06/13/2018 Patient seen and examined this morning, she is sitting up in her chair at bedside. Repeat chest x-ray did show significant improvement, she still has evidence of small bilateral pleural effusions. Overall she is feeling significantly better, air entry much improved bilaterally. Blood pressure 90/ 50 with a heart rate in the 90s, 97% on 3 L of oxygen. Hemoglobin 7.8 today, platelet count 104. 06/14/2018 Patient seen and examined this morning, a repeat ultrasound of the chest was performed which revealed a small left sided pleural effusion. Patient diuresed well through the night last night her weight is down significantly. We will continue her on The os of IV Lasix. Objective - Vital Signs Vital signs: Vital Signs Temp 96.9 F L 06/14/18 12:00 Pulse 99 06/14/18 12:00 Resp 22 06/14/18 12:00 BP 86/56 06/14/18 12:00 Pulse Ox 99 06/14/18 12:00 Intake & Output 06/13/18 06/14/18 06/14/18 18:59 06:59 18:59 Intake Total 720 340 Output Total 0 3800 200 Balance 720 -3800 140 Weight 53.5 kg Intake: Oral 720 340 Output: Urine 3800 200 Stool 0 0 0 Other: Voiding Method Incontinent Incontinent Bedside Commode Incontinent # Voids 2 2 1 # Bowel Movements 1 1 0 - Exam PHYSICAL EXAMINATION: GENERAL: 87-year-old female in no acute distress at the time of my examination. HEENT: Head is atraumatic, normocephalic. Pupils equal, round. Sclera anicteric. Conjunctiva are clear. Mucous membranes of the mouth are moist. Neck is supple. There is elevated jugular venous pressure to the angle of the jaw. No carotid bruit is heard. HEART EXAMINATION: Heart S1 no S2 audible, systolic murmur suggesting severe aortic stenosis is noted. CHEST EXAMINATION: There is improvement in air entry bilaterally . ABDOMEN: Soft, nontender. Bowel sounds are heard. No organomegaly noted. EXTREMITIES: 2+ peripheral pulses with trace evidence of peripheral edema and no calf tenderness noted. NEUROLOGIC patient is awake, alert and oriented X3. - Labs CBC & Chem 7: 06/14/18 05:46 06/14/18 05:46 Labs: Abnormal Lab Results - Last 24 Hours (Table) 06/13/18 06/13/18 06/14/18 Range/Units 16:22 21:09 05:46 WBC 281.9 H* (3.8-10.6) k/uL RBC 2.68 L (3.80-5.40) m/uL Hgb 8.0 L (11.4-16.0) gm/dL Hct 24.9 L (34.0-46.0) % RDW 18.5 H (11.5-15.5) % Plt Count 106 L (150-450) k/uL Lymphocytes # (Manual) 279.08 H (1.0-4.8) k/uL APTT (22.0-30.0) sec Sodium (137-145) mmol/L BUN (7-17) mg/dL Glucose (74-99) mg/dL POC Glucose (mg/dL) 152 H 152 H (75-99) mg/dL Calcium (8.4-10.2) mg/dL Total Protein (6.3-8.2) g/dL Albumin (3.5-5.0) g/dL 06/14/18 06/14/18 06/14/18 Range/Units 05:46 05:46 05:51 WBC (3.8-10.6) k/uL RBC (3.80-5.40) m/uL Hgb (11.4-16.0) gm/dL Hct (34.0-46.0) % RDW (11.5-15.5) % Plt Count (150-450) k/uL Lymphocytes # (Manual) (1.0-4.8) k/uL APTT 20.5 L (22.0-30.0) sec Sodium 133 L (137-145) mmol/L BUN 18 H (7-17) mg/dL Glucose 111 H (74-99) mg/dL POC Glucose (mg/dL) 123 H (75-99) mg/dL Calcium 8.1 L (8.4-10.2) mg/dL Total Protein 5.0 L (6.3-8.2) g/dL Albumin 3.1 L (3.5-5.0) g/dL 06/14/18 Range/Units 11:43 WBC (3.8-10.6) k/uL RBC (3.80-5.40) m/uL Hgb (11.4-16.0) gm/dL Hct (34.0-46.0) % RDW (11.5-15.5) % Plt Count (150-450) k/uL Lymphocytes # (Manual) (1.0-4.8) k/uL APTT (22.0-30.0) sec Sodium (137-145) mmol/L BUN (7-17) mg/dL Glucose (74-99) mg/dL POC Glucose (mg/dL) 119 H (75-99) mg/dL Calcium (8.4-10.2) mg/dL Total Protein (6.3-8.2) g/dL Albumin (3.5-5.0) g/dL Microbiology - Last 24 Hours (Table) 06/11/18 16:30 Anaerobic Culture - Preliminary Pleural Fluid 06/11/18 16:30 Gram Stain - Preliminary Pleural Fluid Body Fluid Culture - Preliminary Assessment and Plan Plan: Assessment and plan #1 systolic congestive heart failure acute on chronic. Bilateral pleural effusions. Echocardiogram with Doppler study was performed in May of this year which revealed an ejection fraction of 20-25%, severe global hypokinesia, severe aortic stenosis, moderate MR. BNP level 22,700. #2 chronic lymphocytic leukemia #3 hyperlipidemia #4 cardiomyopathy, unknown etiology #5 abnormal troponin, likely representing a type II UT Plan We'll continue current dose of IV Lasix, check lytes BUN and creatinine in the morning. DNP note has been reviewed, I agree with a documented findings and plan of care. Patient was seen and examined.
[2018-06-14 16:32] LABS: Glucose,Whole Blood 243 mg/dL (75-99)
--- NOTE | 2018-06-14 17:50 | P.CNPUL ---
History of Present Illness Consult date: 06/14/18 Reason for consult: dyspnea, pleural effusion Chief complaint: SOB, acute on chronic hypoxic respirator failure, pleural infusion History of present illness: 87-year-old female who has the bilateral pleural effusion more so on the left side compared right side she is status post a left thoracentesis is 850 mL of fluid has been removed patient has severe degree of ischemic cardiomyopathy with ejection fraction only 20%, since thoracentesis she has been doing very well with supplemental oxygen of 4 L I have repeated the ultrasound today no significant effusion is seen no plans for thoracentesis continue gentle diuresis review of the data revealed that Ms. Huerta presented to [facility] ED on 06/08/18 with complaints of progressive Shortness of Breath over the past few days. She was recently admitted in May of this year for exacerbation of CHF. Her Ejection Fracture on that admission revealed 20-25% per echocardiogram. It was also noted she had severe dilation of the LAD, severe aortic stenosis, and mitral regurgitation. On presentation she was in mild distress with positive orthopnea and bilateral lower extremity edema. Chest Xray revealed bilateral pleural effusions, abnormal EKG. A CT of the abdomen and pelvis was also copleted and showed likely progression of underlying CLL with progressive splenomegaly, mass effect on the left kidney, significant bilateral inguinal lymphadenopathy, retroperitoneal adenopathy with enlarged para-arotic, mesenteric, and celiac nodes. Blood pressure has been running low, this am 75/ 44. She is requiring 3-4Liters of oxygen to maintain saturations above 92%. Her blood counts today revealed the following: WBC = 291, Hemoglin = 7.1, Platelets = 107BNP = 22,700. During assessment she states she is overall feeling better than admission but still very short of breath with exertion. Swelling of legs has also improved since admission. 06/10/2018, patient seen eval examined during the rounds clinically she is slightly better in terms of breathing but is still get short of breath, patient underwent ultrasound of the chest bilateral pleural effusion is noted right more than left on the right side more than 8 cm depth of fluid has been noted, procedure thoracentesis has been explained to the patient patient would like to proceed to relieve symptoms 06/11/2018, patient seen eval examined during the rounds patient had a rough night she became's hypoxic short of breath has a significant respiratory distress she did require extra dose of furosemide in addition required BiPAP 15/ 10 currently she is down to 6 L oxygen she is sleeping I have discussed with the oncology service about thoracentesis on the left side that may relieve some of the respiratory distress would plan to do it this afternoon On 06/12/2018 patient is currently sitting up in bed stating she feels much improved from yesterday. Patient underwent a thoracentesis yesterday removing 850 mL. Patient denies chest pain or shortness breath at this time. Blood pressure remains marginal. Hemoglobin level 7.2 patient is asymptomatic, no transfusion per oncology services. Will continue to monitor patient closely On 06/13/2018 patient is currently sitting up in bed A & O x 3. Patient remains on 3 L NC. Denies chest pain or shortness of breath. Hemoglobin 7.3 patient remains asymptomatic . Oncology services are following for her CLL. Cardiology services CLAUDIA inhibitor has been discontinued and Lasix have been decreased to 20 mg per. Today patient is resting comfortably denies any chest pain now that FiO2 is down to 2 L breathing comfortably her hemoglobin is 8 oncology services following patient is on by mouth Lasix blood pressure remains on the low side but stable noted that patient is on small dose of prednisone prior to arrival Will give a stress dose of steroid and resume prednisone Review of Systems All systems: negative Past Medical History Past Medical History: Cancer, Heart Failure, Hyperlipidemia, Hypertension, Thyroid Disorder Additional Past Medical History / Comment(s): CLL History of Any Multi-Drug Resistant Organisms: None Reported Past Surgical History: Appendectomy, Cholecystectomy, Hysterectomy Past Anesthesia/Blood Transfusion Reactions: No Reported Reaction Past Psychological History: No Psychological Hx Reported Additional Psychological History / Comment(s): Patient lives with daughter. Patient denies ever using tobacco. Patietn denies ever using alcohol. Smoking Status: Never smoker Past Alcohol Use History: None Reported Past Drug Use History: None Reported - Past Family History Father Family Medical History: No Reported History Additional Family Medical History / Comment(s): pt denies any significant medical conditions in mother or father Medications and Allergies Home Medications Medication Instructions Recorded Confirmed Type Allopurinol [Zyloprim] 300 mg PO DAILY 03/12/17 06/08/18 History Omeprazole 20 mg PO DAILY 03/12/17 06/08/18 History Gabapentin [Neurontin] 400 mg PO BID 05/20/18 06/08/18 History Levothyroxine Sodium [Synthroid] 25 mcg PO DAILY 05/20/18 06/08/18 History predniSONE 5 mg PO DAILY 05/20/18 06/08/18 History Aspirin 81 mg PO DAILY #30 chew 05/22/18 06/08/18 Rx Furosemide [Lasix] 20 mg PO DAILY #30 tab 05/22/18 06/08/18 Rx Potassium Chloride ER [K-Dur 10] 10 meq PO DAILY #30 tab 05/22/18 06/08/18 Rx Allergies Allergy/AdvReac Type Severity Reaction Status Date / Time No Known Allergies Allergy Verified 06/08/18 18:24 Physical Exam Vitals: Vital Signs Temp Pulse Resp BP Pulse Ox 06/14/18 16:00 97.1 F L 108 H 16 103/58 96 06/14/18 12:00 96.9 F L 99 22 86/56 99 06/14/18 08:00 96.8 F L 105 H 20 83/56 97 06/14/18 04:00 96.9 F L 89 20 86/54 98 06/14/18 00:00 94 20 88/62 99 06/13/18 20:00 97.2 F L 108 H 24 83/54 98 Intake and Output 06/14/18 06/14/18 06/14/18 06:59 14:59 22:59 Intake Total 340 Output Total 2000 200 0 Balance -1999 140 0 Intake: Oral 340 Output: Urine 1999 200 Stool 0 0 0 Other: Voiding Method Incontinent Bedside Commode Bedside Commode Incontinent Incontinent # Voids 2 1 # Bowel Movements 1 0 Weight 53.5 kg - Constitutional General appearance: cooperative, mild distress - EENT Eyes: EOMI, dentition normal ENT: hard of hearing, NA/AT, normal oropharynx - Neck Supple, Trachea midline Neck: normal ROM - Respiratory Respiratory: bilateral improved air entry compared to prior exam very minimal reduced air entry at the bases - Cardiovascular Rhythm: irregularly irregular leg Peripheral Edema: bilateral: 1+ - Gastrointestinal Palpable Lymphadenopathy General gastrointestinal: normal bowel sounds, organomegaly, soft, splenomegaly - Integumentary Integumentary: pale - Neurologic Non focal defects Neurologic: CNII-XII intact - Musculoskeletal Musculoskeletal: generalized weakness, strength equal bilaterally - Psychiatric Psychiatric: A&O x's 3, appropriate affect, intact judgment & insight Results - Laboratory Findings CBC and BMP: 06/14/18 05:46 06/14/18 05:46 PT/INR, D-dimer PT 10.4 sec (9.0-12.0) 06/14/18 05:46 INR 1.1 (<1.2) 06/14/18 05:46 Abnormal lab findings: Abnormal Labs 06/08/18 06/08/18 06/08/18 18:57 18:57 18:57 WBC 375.9 H* RBC 2.95 L Hgb 7.9 L Hct 26.7 L MCH MCHC 29.6 L RDW 18.5 H Plt Count 123 L Neutrophils # (Manual) 30.07 H Lymphocytes # (Manual) 345.83 H Monocytes # (Manual) 3.76 H Eosinophils # (Manual) 3.76 H Retic Count APTT Sodium 131 L Potassium Chloride 94 L Carbon Dioxide BUN 30 H Glucose 126 H POC Glucose (mg/dL) Hemoglobin A1c Uric Acid Calcium Phosphorus Iron AST Total Creatine Kinase <20 L Troponin I 0.072 H* Total Protein 6.1 L Albumin 06/08/18 06/09/18 06/09/18 18:57 00:47 01:24 WBC RBC Hgb Hct MCH MCHC RDW Plt Count Neutrophils # (Manual) Lymphocytes # (Manual) Monocytes # (Manual) Eosinophils # (Manual) Retic Count APTT 20.4 L Sodium Potassium Chloride Carbon Dioxide BUN Glucose POC Glucose (mg/dL) 152 H Hemoglobin A1c Uric Acid Calcium Phosphorus Iron AST Total Creatine Kinase Troponin I 0.094 H* Total Protein Albumin 06/09/18 06/09/18 06/09/18 04:22 04:22 04:22 WBC 291.1 H* RBC 2.47 L Hgb 7.1 L Hct 22.2 L MCH MCHC RDW 17.7 H Plt Count 102 L Neutrophils # (Manual) Lymphocytes # (Manual) Monocytes # (Manual) Eosinophils # (Manual) Retic Count 9.5 H APTT Sodium Potassium Chloride Carbon Dioxide BUN Glucose POC Glucose (mg/dL) Hemoglobin A1c Uric Acid 3.1 L Calcium Phosphorus Iron AST Total Creatine Kinase Troponin I Total Protein Albumin 06/09/18 06/09/18 06/09/18 04:22 04:28 06:15 WBC RBC Hgb Hct MCH MCHC RDW Plt Count Neutrophils # (Manual) Lymphocytes # (Manual) Monocytes # (Manual) Eosinophils # (Manual) Retic Count APTT Sodium 134 L Potassium Chloride Carbon Dioxide BUN 30 H Glucose 104 H POC Glucose (mg/dL) Hemoglobin A1c Uric Acid Calcium Phosphorus Iron 41 L AST Total Creatine Kinase Troponin I 0.106 H* Total Protein Albumin 06/09/18 06/10/18 06/11/18 16:28 20:10 03:44 WBC RBC Hgb Hct MCH MCHC RDW Plt Count Neutrophils # (Manual) Lymphocytes # (Manual) Monocytes # (Manual) Eosinophils # (Manual) Retic Count APTT Sodium Potassium Chloride Carbon Dioxide BUN Glucose POC Glucose (mg/dL) 256 H 152 H 215 H Hemoglobin A1c Uric Acid Calcium Phosphorus Iron AST Total Creatine Kinase Troponin I Total Protein Albumin 06/11/18 06/11/18 06/11/18 04:27 06:03 06:03 WBC 357.0 H* RBC 2.87 L Hgb 10.1 L D Hct 26.1 L MCH 35.3 H MCHC 38.8 H RDW 18.2 H Plt Count 95 L Neutrophils # (Manual) 17.85 H Lymphocytes # (Manual) 339.15 H Monocytes # (Manual) Eosinophils # (Manual) Retic Count APTT Sodium 134 L Potassium Chloride Carbon Dioxide 17 L BUN 24 H Glucose 213 H POC Glucose (mg/dL) 369 H Hemoglobin A1c Uric Acid Calcium 7.7 L Phosphorus Iron AST 61 H Total Creatine Kinase Troponin I Total Protein 5.6 L Albumin 06/11/18 06/11/18 06/11/18 06:03 16:27 20:50 WBC RBC Hgb Hct MCH MCHC RDW Plt Count Neutrophils # (Manual) Lymphocytes # (Manual) Monocytes # (Manual) Eosinophils # (Manual) Retic Count APTT Sodium Potassium Chloride Carbon Dioxide BUN Glucose POC Glucose (mg/dL) 138 H 124 H Hemoglobin A1c 6.1 H Uric Acid Calcium Phosphorus Iron AST Total Creatine Kinase Troponin I Total Protein Albumin 06/12/18 06/12/18 06/12/18 05:49 05:49 06:03 WBC 290.7 H* RBC 2.46 L Hgb 7.2 L D Hct 22.7 L MCH MCHC RDW 18.6 H Plt Count 86 L Neutrophils # (Manual) Lymphocytes # (Manual) 281.98 H Monocytes # (Manual) 5.81 H Eosinophils # (Manual) Retic Count APTT Sodium 133 L Potassium 3.3 L Chloride Carbon Dioxide BUN 21 H Glucose POC Glucose (mg/dL) 114 H Hemoglobin A1c Uric Acid Calcium 7.4 L Phosphorus Iron AST Total Creatine Kinase Troponin I Total Protein 4.9 L Albumin 06/12/18 06/12/18 06/12/18 11:39 11:50 16:29 WBC 338.0 H* RBC 2.70 L Hgb 7.9 L Hct 25.3 L MCH MCHC RDW 18.6 H Plt Count 99 L Neutrophils # (Manual) Lymphocytes # (Manual) 331.24 H Monocytes # (Manual) Eosinophils # (Manual) Retic Count APTT Sodium Potassium Chloride Carbon Dioxide BUN Glucose POC Glucose (mg/dL) 171 H 138 H Hemoglobin A1c Uric Acid Calcium Phosphorus Iron AST Total Creatine Kinase Troponin I Total Protein Albumin 06/12/18 06/13/18 06/13/18 20:34 05:37 06:02 WBC 292.5 H* RBC 2.60 L Hgb 7.3 L Hct 24.3 L MCH MCHC 30.1 L RDW 18.6 H Plt Count 89 L Neutrophils # (Manual) Lymphocytes # (Manual) 286.65 H Monocytes # (Manual) Eosinophils # (Manual) Retic Count APTT Sodium Potassium Chloride Carbon Dioxide BUN Glucose POC Glucose (mg/dL) 127 H 112 H Hemoglobin A1c Uric Acid Calcium Phosphorus Iron AST Total Creatine Kinase Troponin I Total Protein Albumin 06/13/18 06/13/18 06/13/18 06:02 11:29 12:22 WBC 313.7 H* RBC 2.77 L Hgb 7.8 L Hct 25.9 L MCH MCHC 30.0 L RDW 18.7 H Plt Count 104 L Neutrophils # (Manual) 15.69 H Lymphocytes # (Manual) 298.02 H Monocytes # (Manual) Eosinophils # (Manual) Retic Count APTT Sodium 132 L Potassium Chloride Carbon Dioxide BUN 20 H Glucose 102 H POC Glucose (mg/dL) 152 H Hemoglobin A1c Uric Acid Calcium 7.8 L Phosphorus 2.4 L Iron AST 49 H Total Creatine Kinase Troponin I Total Protein 4.9 L Albumin 3.1 L 06/13/18 06/13/18 06/14/18 16:22 21:09 05:46 WBC 281.9 H* RBC 2.68 L Hgb 8.0 L Hct 24.9 L MCH MCHC RDW 18.5 H Plt Count 106 L Neutrophils # (Manual) Lymphocytes # (Manual) 279.08 H Monocytes # (Manual) Eosinophils # (Manual) Retic Count APTT Sodium Potassium Chloride Carbon Dioxide BUN Glucose POC Glucose (mg/dL) 152 H 152 H Hemoglobin A1c Uric Acid Calcium Phosphorus Iron AST Total Creatine Kinase Troponin I Total Protein Albumin 06/14/18 06/14/18 06/14/18 05:46 05:46 05:51 WBC RBC Hgb Hct MCH MCHC RDW Plt Count Neutrophils # (Manual) Lymphocytes # (Manual) Monocytes # (Manual) Eosinophils # (Manual) Retic Count APTT 20.5 L Sodium 133 L Potassium Chloride Carbon Dioxide BUN 18 H Glucose 111 H POC Glucose (mg/dL) 123 H Hemoglobin A1c Uric Acid Calcium 8.1 L Phosphorus Iron AST Total Creatine Kinase Troponin I Total Protein 5.0 L Albumin 3.1 L 06/14/18 06/14/18 11:43 16:30 WBC RBC Hgb Hct MCH MCHC RDW Plt Count Neutrophils # (Manual) Lymphocytes # (Manual) Monocytes # (Manual) Eosinophils # (Manual) Retic Count APTT Sodium Potassium Chloride Carbon Dioxide BUN Glucose POC Glucose (mg/dL) 119 H 243 H Hemoglobin A1c Uric Acid Calcium Phosphorus Iron AST Total Creatine Kinase Troponin I Total Protein Albumin - Diagnostic Findings Chest x-ray: report reviewed, image reviewed (Findings as noted above, repeat ultrasound revealed minimal effusion) Assessment and Plan Assessment: Acute exacerbation of CHF due to acute on chronic systolic heart failure Acute hypoxic respirator failure related to above Bilateral pleural effusion left more than right, status post left thoracentesis CLL and severe leukocytosis related to above Chronic anemia thrombocytopenia Ischemic cardiomyopathy Chronic anemia Suspect component of adrenal insufficiency Plan: Repeat labs reviewed, events noted Patient could benefit from stress dose of steroids with reinitiation of prednisone No plans for repeat thoracentesis 1 now Continue gentle diuresis We'll DC the heparin due to thrombocytopenia we'll use pneumatic compression device for DVT prophylaxis Time with Patient: Greater than 30
[2018-06-14] MEDS ORDERED: HYDROCORTISONE SUCCINATE 100 MG/2 ML VIAL IV ONE (18:45)
[2018-06-14 20:43] LABS: Glucose,Whole Blood 108 mg/dL (75-99)
[2018-06-15 05:50] LABS: Glucose,Whole Blood 160 mg/dL (75-99)
[2018-06-15] MEDS: LEVOTHYROXINE 25 MCG TAB PO SCH (06:37)
[2018-06-15] MEDS: INSULIN ASPART 100 UNIT/ML 1 ML 10 ML VIAL SQ SCH ×4 (06:58→21:12)
[2018-06-15 07:07] LABS: Anisocytosis Slight; HCT 24.4 % (34.0-46.0); HGB 7.5 gm/dL (11.4-16.0); Hypochromasia Marked; MCH 28.4 pg (25.0-35.0); MCHC 30.6 g/dL (31.0-37.0); MCV 93.1 fL (80.0-100.0); Platelet Count 96 k/uL (150-450); RBC 2.62 m/uL (3.80-5.40); RDW 18.6 % (11.5-15.5)
[2018-06-15 07:10] LABS: WBC 280.3 k/uL (3.8-10.6)
[2018-06-15 07:13] LABS: Albumin 3.1 g/dL (3.5-5.0); Calcium 8.3 mg/dL (8.4-10.2); Potassium 4.4 mmol/L (3.5-5.1); Total Bilirubin 0.5 mg/dL (0.2-1.3)
[2018-06-15] MEDS: PANTOPRAZOLE 40 MG TABLET PO SCH (07:56)
[2018-06-15] MEDS: ALLOPURINOL 300 MG TAB PO SCH (07:56)
[2018-06-15] MEDS: GABAPENTIN 400 MG CAP PO SCH ×2 (07:56→20:29)
[2018-06-15] MEDS: ASPIRIN 81 MG PO SCH (07:56)
[2018-06-15] MEDS: FUROSEMIDE 10 MG/ML 2 ML VIAL IV SCH ×2 (07:56→20:29)
[2018-06-15] MEDS: predniSONE 5 MG TAB PO SCH (07:56)
[2018-06-15 08:43] LABS: Neutrophils # (M) 5.61 k/uL (1.3-7.7); Neutrophils % (M) 2 %; Nucleated Red Blood Cells 0 /100 WBC (0-0); Total Cells Counted 200
[2018-06-15 08:44] LABS: Ovalocytes Present; Poikilocytosis (M) Present; Tear Drop Cells Present
[2018-06-15 11:40] LABS: Glucose,Whole Blood 140 mg/dL (75-99)
--- NOTE | 2018-06-15 12:53 | P.PN ---
Subjective Progress Note Date: 06/15/18 Acute exacerbation of systolic heart failure with baseline ejection fraction 20% , bilateral pleural effusion left more than right, shortness of breath related to above, CLL, acute agitated delirium acute hypoxic respiratory failure Ms. Huerta presented to [facility] ED on 06/08/18 with complaints of progressive Shortness of Breath over the past few days. She was recently admitted in May of this year for exacerbation of CHF. Her Ejection Fracture on that admission revealed 20-25% per echocardiogram. It was also noted she had severe dilation of the LAD, severe aortic stenosis, and mitral regurgitation. On presentation she was in mild distress with positive orthopnea and bilateral lower extremity edema. Chest Xray revealed bilateral pleural effusions, abnormal EKG. A CT of the abdomen and pelvis was also copleted and showed likely progression of underlying CLL with progressive splenomegaly, mass effect on the left kidney, significant bilateral inguinal lymphadenopathy, retroperitoneal adenopathy with enlarged para-arotic, mesenteric, and celiac nodes. Blood pressure has been running low, this am 75/44. She is requiring 3-4Liters of oxygen to maintain saturations above 92%. Her blood counts today revealed the following: WBC = 291 , Hemoglin = 7.1, Platelets = 107BNP = 22,700. During assessment she states she is overall feeling better than admission but still very short of breath with exertion. Swelling of legs has also improved since admission. 06/10/2018, patient seen eval examined during the rounds clinically she is slightly better in terms of breathing but is still get short of breath, patient underwent ultrasound of the chest bilateral pleural effusion is noted right more than left on the right side more than 8 cm depth of fluid has been noted, procedure thoracentesis has been explained to the patient patient would like to proceed to relieve symptoms 06/11/2018, patient seen eval examined during the rounds patient had a rough night she became's hypoxic short of breath has a significant respiratory distress she did require extra dose of furosemide in addition required BiPAP currently she is down to 6 L oxygen she is sleeping I have discussed with the oncology service about thoracentesis on the left side that may relieve some of the respiratory distress would plan to do it this afternoon On 06/12/2018 patient is currently sitting up in bed stating she feels much improved from yesterday. Patient underwent a thoracentesis yesterday removing 850 mL. Patient denies chest pain or shortness breath at this time. Blood pressure remains marginal. Hemoglobin level 7.2 patient is asymptomatic, no transfusion per oncology services. Will continue to monitor patient closely On 06/13/2018 patient is currently sitting up in bed A & O x 3. Patient remains on 3 L NC. Denies chest pain or shortness of breath. Hemoglobin 7.3 patient remains asymptomatic . Oncology services are following for her CLL. Cardiology services CLAUDIA inhibitor has been discontinued and Lasix have been decreased to 20 mg per. On 06/14/2018 patient is currently resting comfortably in bed. Patient states she feels improved from previous days. Patient is still on 2 L nasal cannula. Patient did not wear any home O2 previously. Hemoglobin up to 8.0. oncology services are still following for her CLL. Lasix 20 twice a day. Blood pressure remains marginal. Patient continues to be asymptomatic and making good urine. On 06/15/2018 patient is currently resting comfortably in bed a known 3. Patient is currently on room air. Per pulmonary no plans for repeat thoracentesis at this point and to continue gentle diuresing. Patient denies chest pain or shortness of breath. She remains on IV Lasix 20 mg every 12 hours. Patient received 100 mg of Solu-Cortef [address] Muro per pulmonology. Objective - Vital Signs Vital signs: Vital Signs Temp 97.7 F 06/15/18 07:54 Pulse 103 H 06/15/18 07:54 Resp 16 06/15/18 07:54 BP 94/55 06/15/18 07:54 Pulse Ox 94 L 06/15/18 07:54 Intake & Output 06/14/18 06/15/18 06/15/18 18:59 06:59 18:59 Intake Total 340 Output Total 1300 1100 Balance -960 -1100 Weight 53.5 kg Intake: Oral 340 Output: Urine 1300 1100 Stool 0 0 Other: Voiding Method Bedside Commode Bedside Commode Bedside Commode Incontinent Incontinent Incontinent # Voids 1 1 # Bowel Movements 0 1 - Exam Head normocephalic Neck supple Lungs diminished bilaterally Heart regular rate and rhythm S1-S2, no rub or gallop Abdomen is soft nontender nondistended positive bowel sounds no hepatosplenomegaly Extremities no edema Neuro alert and orientated to 3 - Labs CBC & Chem 7: 06/15/18 05:54 06/15/18 05:54 Labs: Abnormal Lab Results - Last 24 Hours (Table) 06/14/18 06/14/18 06/15/18 Range/Units 16:30 20:41 05:48 WBC (3.8-10.6) k/uL RBC (3.80-5.40) m/uL Hgb (11.4-16.0) gm/dL Hct (34.0-46.0) % MCHC (31.0-37.0) g/dL RDW (11.5-15.5) % Plt Count (150-450) k/uL Lymphocytes # (Manual) (1.0-4.8) k/uL Sodium (137-145) mmol/L BUN (7-17) mg/dL Glucose (74-99) mg/dL POC Glucose (mg/dL) 243 H 108 H 160 H (75-99) mg/dL Calcium (8.4-10.2) mg/dL Total Protein (6.3-8.2) g/dL Albumin (3.5-5.0) g/dL 06/15/18 06/15/18 06/15/18 Range/Units 05:54 05:54 11:34 WBC 280.3 H* (3.8-10.6) k/uL RBC 2.62 L (3.80-5.40) m/uL Hgb 7.5 L (11.4-16.0) gm/dL Hct 24.4 L (34.0-46.0) % MCHC 30.6 L (31.0-37.0) g/dL RDW 18.6 H (11.5-15.5) % Plt Count 96 L (150-450) k/uL Lymphocytes # (Manual) 277.50 H (1.0-4.8) k/uL Sodium 133 L (137-145) mmol/L BUN 20 H (7-17) mg/dL Glucose 135 H (74-99) mg/dL POC Glucose (mg/dL) 140 H (75-99) mg/dL Calcium 8.3 L (8.4-10.2) mg/dL Total Protein 5.0 L (6.3-8.2) g/dL Albumin 3.1 L (3.5-5.0) g/dL Microbiology - Last 24 Hours (Table) 06/11/18 16:30 Gram Stain - Preliminary Pleural Fluid Body Fluid Culture - Preliminary Assessment and Plan Assessment: 1. Acute exacerbation of CHF due to acute on chronic systolic heart failure. Patient currently remains on 40 mg IV Lasix. Cardiology services are following. Per cardiology 2Decho with Doppler study was performed in May of this year which revealed an EF of 20-25%, severe global hypokinesia with severe aortic stenosis, moderate MR. 2. Acute hypoxic respirator failure related to above. 3. Bilateral pleural effusion left more than right. Patient received left thoracentesis 06/11 with 850 mL of fluid removed. Chest x-ray completed showing no evident complications status post pleurocentesis. Bibasilar effusions and associated atelectasis versus edema, correlate to exclude pneumonia. Cardiomegaly. Per Dr. Muro considering possible thoracentesis today on the right side. No need for thoracentesis at this time per pulmonary. Patient received 1 time dose of 100 [address] Solu-Cortef per Dr. Muro. 4. Chronic lymphocytic leukemia and severe leukocytosis related to above. Oncology services are following. WBC remains elevated at 280.3. Per oncology patient has refused further treatment other than prednisone will continue current supportive care and symptom management. 5. Chronic anemia thrombocytopenia. Hemoglobin 7.9 patient remains asymptomatic. We'll hold off on transfusion per oncology services. Platelets 96. Hemoglobin 7.5 6. Elevated cardiac enzymes. Troponins on admission 0.072, 0.094 and 0.106. Cardiology services are following. Per cardiology abnormal troponins, likely representing a type II event 7. Hyperlipedmia 8. Cardiomyopathy , uknown etiology. Cardiology services are following 9. hypotension. Blood pressure remains in the high 80s low 90s. Patient is making good urine and is asymptomatic. Lasix had been decreased to 20 twice a day. We'll continue to monitor closely DVT prophylaxis SCDs due to thrombocytopenia and GI prophylaxis protonix I performed an examination of the patient and discussed their management with the Nurse Practitioner. I have reviewed the Nurse Practitioner's notes and agree with the documented findings and plan of care
[2018-06-15 15:15] VITALS: BMI 20.2
--- NOTE | 2018-06-15 15:30 | P.PN ---
Subjective Progress Note Date: 06/15/18 Principal diagnosis: Acute exacerbation of systolic heart failure with baseline ejection fraction 20% , bilateral pleural effusion left more than right, shortness of breath related to above, CLL, acute agitated delirium acute hypoxic respiratory failure 7-year-old female who has the bilateral pleural effusion more so on the left side compared right side she is status post a left thoracentesis is 850 mL of fluid has been removed patient has severe degree of ischemic cardiomyopathy with ejection fraction only 20%, since thoracentesis she has been doing very well with supplemental oxygen of 4 L I have repeated the ultrasound today no significant effusion is seen no plans for thoracentesis continue gentle diuresis review of the data revealed that Ms. Huerta presented to [facility] ED on 06/08/18 with complaints of progressive Shortness of Breath over the past few days. She was recently admitted in May of this year for exacerbation of CHF. Her Ejection Fracture on that admission revealed 20-25% per echocardiogram. It was also noted she had severe dilation of the LAD, severe aortic stenosis, and mitral regurgitation. On presentation she was in mild distress with positive orthopnea and bilateral lower extremity edema. Chest Xray revealed bilateral pleural effusions, abnormal EKG. A CT of the abdomen and pelvis was also copleted and showed likely progression of underlying CLL with progressive splenomegaly, mass effect on the left kidney, significant bilateral inguinal lymphadenopathy, retroperitoneal adenopathy with enlarged para-arotic, mesenteric, and celiac nodes. Blood pressure has been running low, this am 75/ 44. She is requiring 3-4Liters of oxygen to maintain saturations above 92%. Her blood counts today revealed the following: WBC = 291, Hemoglin = 7.1, Platelets = 107BNP = 22,700. During assessment she states she is overall feeling better than admission but still very short of breath with exertion. Swelling of legs has also improved since admission. 06/10/2018, patient seen eval examined during the rounds clinically she is slightly better in terms of breathing but is still get short of breath, patient underwent ultrasound of the chest bilateral pleural effusion is noted right more than left on the right side more than 8 cm depth of fluid has been noted, procedure thoracentesis has been explained to the patient patient would like to proceed to relieve symptoms 06/11/2018, patient seen eval examined during the rounds patient had a rough night she became's hypoxic short of breath has a significant respiratory distress she did require extra dose of furosemide in addition required BiPAP currently she is down to 6 L oxygen she is sleeping I have discussed with the oncology service about thoracentesis on the left side that may relieve some of the respiratory distress would plan to do it this afternoon On 06/12/2018 patient is currently sitting up in bed stating she feels much improved from yesterday. Patient underwent a thoracentesis yesterday removing 850 mL. Patient denies chest pain or shortness breath at this time. Blood pressure remains marginal. Hemoglobin level 7.2 patient is asymptomatic, no transfusion per oncology services. Will continue to monitor patient closely On 06/13/2018 patient is currently sitting up in bed A & O x 3. Patient remains on 3 L NC. Denies chest pain or shortness of breath. Hemoglobin 7.3 patient remains asymptomatic . Oncology services are following for her CLL. Cardiology services CLAUDIA inhibitor has been discontinued and Lasix have been decreased to 20 mg per. 06/14/2018, patient is resting comfortably denies any chest pain now that FiO2 is down to 2 L breathing comfortably her hemoglobin is 8 oncology services following patient is on by mouth Lasix blood pressure remains on the low side but stable noted that patient is on small dose of prednisone prior to arrival Will give a stress dose of steroid and resume prednisone 06/15/2018, patient seen eval examined during the rounds clinically doing well awake and alert she is sleeping but arousable no obvious distress is present, her labs are reviewed medications reviewed patient blood pressure did come up with IV hard to cortisone but again back to in 80s she is off of oxygen sats are in mid 90s, her pleural fluid culture results and report Reviewed, no growth noted . Objective - Vital Signs Vital signs: Vital Signs Temp 97.7 F 06/15/18 07:54 Pulse 100 06/15/18 12:20 Resp 16 06/15/18 12:20 BP 86/55 06/15/18 12:20 Pulse Ox 96 06/15/18 12:20 Intake & Output 06/14/18 06/15/18 06/15/18 18:59 06:59 18:59 Intake Total 340 Output Total 1300 1100 350 Balance -960 -1100 -350 Weight 53.5 kg 53.5 kg Intake: Oral 340 Output: Urine 1300 1100 350 Stool 0 0 Other: Voiding Method Bedside Commode Bedside Commode Bedside Commode Incontinent Incontinent Incontinent # Voids 1 1 # Bowel Movements 0 1 - Exam - Constitutional General appearance: cooperative, mild distress - EENT Eyes: EOMI, dentition normal ENT: hard of hearing, NA/AT, normal oropharynx - Neck Supple, Trachea midline Neck: normal ROM - Respiratory Respiratory: bilateral: diminished (throughout, Left greater than right) - Cardiovascular Rhythm: irregularly irregular leg Peripheral Edema: bilateral: 1+ - Gastrointestinal Palpable Lymphadenopathy General gastrointestinal: normal bowel sounds, organomegaly, soft, splenomegaly - Integumentary Integumentary: pale - Neurologic Non focal defects Neurologic: CNII-XII intact - Musculoskeletal Musculoskeletal: generalized weakness, strength equal bilaterally - Psychiatric Psychiatric: A&O x's 3, appropriate affect, intact judgment & insight - Labs CBC & Chem 7: 06/15/18 05:54 06/15/18 05:54 Labs: Abnormal Lab Results - Last 24 Hours (Table) 06/14/18 06/14/18 06/15/18 Range/Units 16:30 20:41 05:48 WBC (3.8-10.6) k/uL RBC (3.80-5.40) m/uL Hgb (11.4-16.0) gm/dL Hct (34.0-46.0) % MCHC (31.0-37.0) g/dL RDW (11.5-15.5) % Plt Count (150-450) k/uL Lymphocytes # (Manual) (1.0-4.8) k/uL Sodium (137-145) mmol/L BUN (7-17) mg/dL Glucose (74-99) mg/dL POC Glucose (mg/dL) 243 H 108 H 160 H (75-99) mg/dL Calcium (8.4-10.2) mg/dL Total Protein (6.3-8.2) g/dL Albumin (3.5-5.0) g/dL 06/15/18 06/15/18 06/15/18 Range/Units 05:54 05:54 11:34 WBC 280.3 H* (3.8-10.6) k/uL RBC 2.62 L (3.80-5.40) m/uL Hgb 7.5 L (11.4-16.0) gm/dL Hct 24.4 L (34.0-46.0) % MCHC 30.6 L (31.0-37.0) g/dL RDW 18.6 H (11.5-15.5) % Plt Count 96 L (150-450) k/uL Lymphocytes # (Manual) 277.50 H (1.0-4.8) k/uL Sodium 133 L (137-145) mmol/L BUN 20 H (7-17) mg/dL Glucose 135 H (74-99) mg/dL POC Glucose (mg/dL) 140 H (75-99) mg/dL Calcium 8.3 L (8.4-10.2) mg/dL Total Protein 5.0 L (6.3-8.2) g/dL Albumin 3.1 L (3.5-5.0) g/dL Microbiology - Last 24 Hours (Table) 06/11/18 16:30 Gram Stain - Preliminary Pleural Fluid Body Fluid Culture - Preliminary Assessment and Plan Assessment: Acute exacerbation of CHF due to acute on chronic systolic heart failure Acute hypoxic respirator failure related to above Bilateral pleural effusion left more than right, status post left thoracentesis CLL and severe leukocytosis related to above Chronic anemia thrombocytopenia Ischemic cardiomyopathy Chronic anemia Suspect component of adrenal insufficiency Plan: Repeat labs reviewed, events noted Observe patient off of oxygen and check pulse ox if it's more than 90% DC oxygen No plans for repeat thoracentesis for now Continue gentle diuresis Continue pneumatic compression device for DVT prophylaxis Time with Patient: Greater than 30
[2018-06-15 16:23] LABS: Glucose,Whole Blood 163 mg/dL (75-99)
--- NOTE | 2018-06-15 18:33 | P.PN ---
Subjective Progress Note Date: 06/15/18 Principal diagnosis: Exacerbation CHF, Chronic Lymphocytic Leukemia Ms Huerta's mental status is stable today, She is doing well without complaints of acute events over night. SHe is resting well, awakes easiy and alert when awakes. Hemoglobin 7.5 today Objective - Vital Signs Vital signs: Vital Signs Temp 97.6 F 06/15/18 16:05 Pulse 98 06/15/18 16:05 Resp 16 06/15/18 16:05 BP 95/56 06/15/18 16:05 Pulse Ox 95 06/15/18 16:05 Intake & Output 06/14/18 06/15/18 06/15/18 18:59 06:59 18:59 Intake Total 340 180 Output Total 1300 1100 350 Balance -960 -1100 -170 Weight 53.5 kg 53.5 kg Intake: Oral 340 180 Output: Urine 1300 1100 350 Stool 0 0 0 Other: Voiding Method Bedside Commode Bedside Commode Bedside Commode Incontinent Incontinent Incontinent # Voids 1 1 2 # Bowel Movements 0 1 - Constitutional General appearance: Present: cooperative, no acute distress - EENT Eyes: Present: EOMI, dentition normal ENT: Present: hard of hearing, NA/AT, normal oropharynx - Neck Details: supple, trachea midline Neck: Present: normal ROM - Respiratory Respiratory: bilateral: CTA (no increased effort) - Cardiovascular Rhythm: regular Heart sounds: normal: S1, S2 - Integumentary Integumentary: Present: pale - Neurologic Neurologic Comment(s): no focal defects Neurologic: Present: CNII-XII intact - Musculoskeletal Musculoskeletal: Present: gait normal, generalized weakness, strength equal bilaterally - Psychiatric Psychiatric: Present: A&O x's 3, appropriate affect, intact judgment & insight - Labs CBC & Chem 7: 06/15/18 05:54 06/15/18 05:54 Labs: Abnormal Lab Results - Last 24 Hours (Table) 06/14/18 06/15/18 06/15/18 Range/Units 20:41 05:48 05:54 WBC 280.3 H* (3.8-10.6) k/uL RBC 2.62 L (3.80-5.40) m/uL Hgb 7.5 L (11.4-16.0) gm/dL Hct 24.4 L (34.0-46.0) % MCHC 30.6 L (31.0-37.0) g/dL RDW 18.6 H (11.5-15.5) % Plt Count 96 L (150-450) k/uL Lymphocytes # (Manual) 277.50 H (1.0-4.8) k/uL Sodium (137-145) mmol/L BUN (7-17) mg/dL Glucose (74-99) mg/dL POC Glucose (mg/dL) 108 H 160 H (75-99) mg/dL Calcium (8.4-10.2) mg/dL Total Protein (6.3-8.2) g/dL Albumin (3.5-5.0) g/dL 06/15/18 06/15/18 06/15/18 Range/Units 05:54 11:34 16:21 WBC (3.8-10.6) k/uL RBC (3.80-5.40) m/uL Hgb (11.4-16.0) gm/dL Hct (34.0-46.0) % MCHC (31.0-37.0) g/dL RDW (11.5-15.5) % Plt Count (150-450) k/uL Lymphocytes # (Manual) (1.0-4.8) k/uL Sodium 133 L (137-145) mmol/L BUN 20 H (7-17) mg/dL Glucose 135 H (74-99) mg/dL POC Glucose (mg/dL) 140 H 163 H (75-99) mg/dL Calcium 8.3 L (8.4-10.2) mg/dL Total Protein 5.0 L (6.3-8.2) g/dL Albumin 3.1 L (3.5-5.0) g/dL Microbiology - Last 24 Hours (Table) 06/11/18 16:30 Gram Stain - Preliminary Pleural Fluid Body Fluid Culture - Preliminary Assessment and Plan Plan: Assessment and Recommendations: 1. Chronic Lymphocytic Leukemia - Likely with progressive disease - Continue on Prednisone 5mg PO Daily - Patient has refused further treatment other than Prednisone - She will continue on supportive care and symptom management with the refusal of other treatment modalities - Reviewed LDH and Uric acid, stable 2. Leukocytosis secondary to CLL - Monitor Differential - mildly increased tday, stable for her untreated disease 3. Normocytic Anemia - Secondary to chronic disease and CLL - Continue to monitor CBC and Transfuse hemoglobin less than 7. Reasonable to transfuse less than 7.5 with symptoms. - Hemoglobin 7.5 today, she is asymptomatic, no transfusion needed frp, hematology standpoint 4. Thrombocytopenia - Secondary to CLL - No transfusion needed at this time - Monitor CBC and if lower than 10 transfuse platelets - If s/s bleeding transfusion support below 50K - Stable 96K today 5. Exacerbation CHF - Per Cardiology 6. Acute on Chronic Respiratory Failure - Secondary to #5 - Pulmonology 7. Bilateral Pleural Effusions. - Discussed plan for left thoracentesis today with Pulmonary, She is status POst Right on 06/11/18 8. Acute Mental Status change: Resolved - Improved, likely medication related. Thank You for allowing us to care along with you for this patient.
[2018-06-15 21:01] LABS: Glucose,Whole Blood 157 mg/dL (75-99)
[2018-06-16 06:28] LABS: Anisocytosis Slight; HCT 26.1 % (34.0-46.0); Hypochromasia Marked; MCH 28.4 pg (25.0-35.0); MCHC 30.5 g/dL (31.0-37.0); MCV 93.2 fL (80.0-100.0); Mean Platelet Volume 7.4; Platelet Count 112 k/uL (150-450); RDW 18.6 % (11.5-15.5)
[2018-06-16 06:29] LABS: Glucose,Whole Blood 108 mg/dL (75-99)
[2018-06-16 06:37] LABS: WBC 279.3 k/uL (3.8-10.6)
[2018-06-16] MEDS: INSULIN ASPART 100 UNIT/ML 1 ML 10 ML VIAL SQ SCH ×4 (06:39→20:59)
[2018-06-16] MEDS: LEVOTHYROXINE 25 MCG TAB PO SCH (06:41)
[2018-06-16 06:44] LABS: Albumin 3.2 g/dL (3.5-5.0); Calcium 8.6 mg/dL (8.4-10.2); Total Bilirubin 0.4 mg/dL (0.2-1.3); Total Protein 5.1 g/dL (6.3-8.2)
[2018-06-16 07:00] LABS: Lymphocytes # (M) 276.51 k/uL (1.0-4.8); Neutrophils # (M) 2.79 k/uL (1.3-7.7); Neutrophils % (M) 1 %; Nucleated Red Blood Cells 0 /100 WBC (0-0); Total Cells Counted 100
--- NOTE | 2018-06-16 08:31 | P.PN ---
Subjective Progress Note Date: 06/16/18 Principal diagnosis: Acute exacerbation of systolic heart failure with baseline ejection fraction 20% , bilateral pleural effusion left more than right, shortness of breath related to above, CLL, acute agitated delirium acute hypoxic respiratory failure 7-year-old female who has the bilateral pleural effusion more so on the left side compared right side she is status post a left thoracentesis is 850 mL of fluid has been removed patient has severe degree of ischemic cardiomyopathy with ejection fraction only 20%, since thoracentesis she has been doing very well with supplemental oxygen of 4 L I have repeated the ultrasound today no significant effusion is seen no plans for thoracentesis continue gentle diuresis review of the data revealed that Ms. Huerta presented to [facility] ED on 06/08/18 with complaints of progressive Shortness of Breath over the past few days. She was recently admitted in May of this year for exacerbation of CHF. Her Ejection Fracture on that admission revealed 20-25% per echocardiogram. It was also noted she had severe dilation of the LAD, severe aortic stenosis, and mitral regurgitation. On presentation she was in mild distress with positive orthopnea and bilateral lower extremity edema. Chest Xray revealed bilateral pleural effusions, abnormal EKG. A CT of the abdomen and pelvis was also copleted and showed likely progression of underlying CLL with progressive splenomegaly, mass effect on the left kidney, significant bilateral inguinal lymphadenopathy, retroperitoneal adenopathy with enlarged para-arotic, mesenteric, and celiac nodes. Blood pressure has been running low, this am 75/ 44. She is requiring 3-4Liters of oxygen to maintain saturations above 92%. Her blood counts today revealed the following: WBC = 291, Hemoglin = 7.1, Platelets = 107BNP = 22,700. During assessment she states she is overall feeling better than admission but still very short of breath with exertion. Swelling of legs has also improved since admission. 06/10/2018, patient seen eval examined during the rounds clinically she is slightly better in terms of breathing but is still get short of breath, patient underwent ultrasound of the chest bilateral pleural effusion is noted right more than left on the right side more than 8 cm depth of fluid has been noted, procedure thoracentesis has been explained to the patient patient would like to proceed to relieve symptoms 06/11/2018, patient seen eval examined during the rounds patient had a rough night she became's hypoxic short of breath has a significant respiratory distress she did require extra dose of furosemide in addition required BiPAP currently she is down to 6 L oxygen she is sleeping I have discussed with the oncology service about thoracentesis on the left side that may relieve some of the respiratory distress would plan to do it this afternoon On 06/12/2018 patient is currently sitting up in bed stating she feels much improved from yesterday. Patient underwent a thoracentesis yesterday removing 850 mL. Patient denies chest pain or shortness breath at this time. Blood pressure remains marginal. Hemoglobin level 7.2 patient is asymptomatic, no transfusion per oncology services. Will continue to monitor patient closely On 06/13/2018 patient is currently sitting up in bed A & O x 3. Patient remains on 3 L NC. Denies chest pain or shortness of breath. Hemoglobin 7.3 patient remains asymptomatic . Oncology services are following for her CLL. Cardiology services CLAUDIA inhibitor has been discontinued and Lasix have been decreased to 20 mg per. 06/14/2018, patient is resting comfortably denies any chest pain now that FiO2 is down to 2 L breathing comfortably her hemoglobin is 8 oncology services following patient is on by mouth Lasix blood pressure remains on the low side but stable noted that patient is on small dose of prednisone prior to arrival Will give a stress dose of steroid and resume prednisone 06/15/2018, patient seen hawa examined during the rounds clinically doing well awake and alert she is sleeping but arousable no obvious distress is present, her labs are reviewed medications reviewed patient blood pressure did come up with IV hard to cortisone but again back to in 80s she is off of oxygen sats are in mid 90s, her pleural fluid culture results and report Reviewed, no growth noted 06/16/2018, patient seen hawa examined during the rounds clinically patient has been doing well awake and alert breathing comfortably no obvious distress is present, blood pressure continued to be on the lower side but stable, patient has been on prednisone tolerating very well she has chronic leukocytosis related to CLL . Objective - Vital Signs Vital signs: Vital Signs Temp 97.6 F 06/16/18 04:00 Pulse 95 06/16/18 04:00 Resp 16 06/16/18 04:00 BP 85/59 06/16/18 04:00 Pulse Ox 94 L 06/16/18 04:00 Intake & Output 06/15/18 06/16/18 06/16/18 18:59 06:59 18:59 Intake Total 180 Output Total 350 450 Balance -170 -450 Weight 53.5 kg 55.6 kg Intake: Oral 180 Output: Urine 350 450 Stool 0 Other: Voiding Method Bedside Commode Bedside Commode Incontinent # Voids 2 1 - Exam - Constitutional General appearance: cooperative, mild distress - EENT Eyes: EOMI, dentition normal ENT: hard of hearing, NA/AT, normal oropharynx - Neck Supple, Trachea midline Neck: normal ROM - Respiratory Respiratory: bilateral: diminished (throughout, Left greater than right) - Cardiovascular Rhythm: irregularly irregular leg Peripheral Edema: bilateral: 1+ - Gastrointestinal Palpable Lymphadenopathy General gastrointestinal: normal bowel sounds, organomegaly, soft, splenomegaly - Integumentary Integumentary: pale - Neurologic Non focal defects Neurologic: CNII-XII intact - Musculoskeletal Musculoskeletal: generalized weakness, strength equal bilaterally - Psychiatric Psychiatric: A&O x's 3, appropriate affect, intact judgment & insight - Labs CBC & Chem 7: 06/16/18 06:03 06/16/18 06:03 Labs: Abnormal Lab Results - Last 24 Hours (Table) 06/15/18 06/15/18 06/15/18 Range/Units 05:54 11:34 16:21 WBC (3.8-10.6) k/uL RBC (3.80-5.40) m/uL Hgb (11.4-16.0) gm/dL Hct (34.0-46.0) % MCHC (31.0-37.0) g/dL RDW (11.5-15.5) % Plt Count (150-450) k/uL Lymphocytes # (Manual) 277.50 H (1.0-4.8) k/uL Sodium (137-145) mmol/L BUN (7-17) mg/dL Glucose (74-99) mg/dL POC Glucose (mg/dL) 140 H 163 H (75-99) mg/dL Total Protein (6.3-8.2) g/dL Albumin (3.5-5.0) g/dL 06/15/18 06/16/18 06/16/18 Range/Units 21:00 06:03 06:03 WBC 279.3 H* (3.8-10.6) k/uL RBC 2.80 L (3.80-5.40) m/uL Hgb 8.0 L (11.4-16.0) gm/dL Hct 26.1 L (34.0-46.0) % MCHC 30.5 L (31.0-37.0) g/dL RDW 18.6 H (11.5-15.5) % Plt Count 112 L (150-450) k/uL Lymphocytes # (Manual) 276.51 H (1.0-4.8) k/uL Sodium 136 L (137-145) mmol/L BUN 29 H (7-17) mg/dL Glucose 102 H (74-99) mg/dL POC Glucose (mg/dL) 157 H (75-99) mg/dL Total Protein 5.1 L (6.3-8.2) g/dL Albumin 3.2 L (3.5-5.0) g/dL 06/16/18 Range/Units 06:28 WBC (3.8-10.6) k/uL RBC (3.80-5.40) m/uL Hgb (11.4-16.0) gm/dL Hct (34.0-46.0) % MCHC (31.0-37.0) g/dL RDW (11.5-15.5) % Plt Count (150-450) k/uL Lymphocytes # (Manual) (1.0-4.8) k/uL Sodium (137-145) mmol/L BUN (7-17) mg/dL Glucose (74-99) mg/dL POC Glucose (mg/dL) 108 H (75-99) mg/dL Total Protein (6.3-8.2) g/dL Albumin (3.5-5.0) g/dL Microbiology - Last 24 Hours (Table) 06/11/18 16:30 Anaerobic Culture - Final Pleural Fluid 06/11/18 16:30 Gram Stain - Final Pleural Fluid Body Fluid Culture - Final Assessment and Plan Assessment: Acute exacerbation of CHF due to acute on chronic systolic heart failure Acute hypoxic respirator failure related to above Bilateral pleural effusion left more than right, status post left thoracentesis , so far no recurrence has been noted by repeat evaluation CLL and severe leukocytosis related to above Chronic anemia thrombocytopenia Ischemic cardiomyopathy Chronic anemia Suspect component of adrenal insufficiency Plan: Previous data graphic studies and labs reviewed, events noted Observe patient off of oxygen and check pulse ox if it's more than 90% DC oxygen No plans for repeat thoracentesis for now Continue gentle diuresis Continue pneumatic compression device for DVT prophylaxis Time with Patient: Greater than 30
[2018-06-16] MEDS: PANTOPRAZOLE 40 MG TABLET PO SCH (09:05)
[2018-06-16] MEDS: ASPIRIN 81 MG PO SCH (09:05)
[2018-06-16] MEDS: GABAPENTIN 400 MG CAP PO SCH ×2 (09:05→21:00)
[2018-06-16] MEDS: FUROSEMIDE 10 MG/ML 2 ML VIAL IV SCH ×2 (09:05→21:00)
[2018-06-16] MEDS: predniSONE 5 MG TAB PO SCH (09:05)
[2018-06-16] MEDS: ALLOPURINOL 300 MG TAB PO SCH (09:05)
--- NOTE | 2018-06-16 10:58 | P.PN ---
Subjective Progress Note Date: 06/16/18 Acute exacerbation of systolic heart failure with baseline ejection fraction 20% , bilateral pleural effusion left more than right, shortness of breath related to above, CLL, acute agitated delirium acute hypoxic respiratory failure Ms. Huerta presented to [facility] ED on 06/08/18 with complaints of progressive Shortness of Breath over the past few days. She was recently admitted in May of this year for exacerbation of CHF. Her Ejection Fracture on that admission revealed 20-25% per echocardiogram. It was also noted she had severe dilation of the LAD, severe aortic stenosis, and mitral regurgitation. On presentation she was in mild distress with positive orthopnea and bilateral lower extremity edema. Chest Xray revealed bilateral pleural effusions, abnormal EKG. A CT of the abdomen and pelvis was also copleted and showed likely progression of underlying CLL with progressive splenomegaly, mass effect on the left kidney, significant bilateral inguinal lymphadenopathy, retroperitoneal adenopathy with enlarged para-arotic, mesenteric, and celiac nodes. Blood pressure has been running low, this am 75/44. She is requiring 3-4Liters of oxygen to maintain saturations above 92%. Her blood counts today revealed the following: WBC = 291 , Hemoglin = 7.1, Platelets = 107BNP = 22,700. During assessment she states she is overall feeling better than admission but still very short of breath with exertion. Swelling of legs has also improved since admission. 06/10/2018, patient seen eval examined during the rounds clinically she is slightly better in terms of breathing but is still get short of breath, patient underwent ultrasound of the chest bilateral pleural effusion is noted right more than left on the right side more than 8 cm depth of fluid has been noted, procedure thoracentesis has been explained to the patient patient would like to proceed to relieve symptoms 06/11/2018, patient seen eval examined during the rounds patient had a rough night she became's hypoxic short of breath has a significant respiratory distress she did require extra dose of furosemide in addition required BiPAP 15/ 10 currently she is down to 6 L oxygen she is sleeping I have discussed with the oncology service about thoracentesis on the left side that may relieve some of the respiratory distress would plan to do it this afternoon On 06/12/2018 patient is currently sitting up in bed stating she feels much improved from yesterday. Patient underwent a thoracentesis yesterday removing 850 mL. Patient denies chest pain or shortness breath at this time. Blood pressure remains marginal. Hemoglobin level 7.2 patient is asymptomatic, no transfusion per oncology services. Will continue to monitor patient closely On 06/13/2018 patient is currently sitting up in bed A & O x 3. Patient remains on 3 L NC. Denies chest pain or shortness of breath. Hemoglobin 7.3 patient remains asymptomatic . Oncology services are following for her CLL. Cardiology services CLAUDIA inhibitor has been discontinued and Lasix have been decreased to 20 mg per. On 06/14/2018 patient is currently resting comfortably in bed. Patient states she feels improved from previous days. Patient is still on 2 L nasal cannula. Patient did not wear any home O2 previously. Hemoglobin up to 8.0. oncology services are still following for her CLL. Lasix 20 twice a day. Blood pressure remains marginal. Patient continues to be asymptomatic and making good urine. On 06/15/2018 patient is currently resting comfortably in bed a known 3. Patient is currently on room air. Per pulmonary no plans for repeat thoracentesis at this point and to continue gentle diuresing. Patient denies chest pain or shortness of breath. She remains on IV Lasix 20 mg every 12 hours. Patient received 100 mg of Solu-Cortef [address] Muro per pulmonology. On 06/16/2018 patient is alert and oriented 3 in no apparent distress she is sitting up in bed without oxygen, she denies any chest pain or shortness of breath, there is no fever or chills no headache no dizziness no cough no nausea or vomiting no abdominal pain and no urinary symptoms. Objective - Vital Signs Vital signs: Vital Signs Temp 97.7 F 06/16/18 08:00 Pulse 103 H 06/16/18 08:00 Resp 18 06/16/18 08:00 BP 99/56 06/16/18 08:00 Pulse Ox 96 06/16/18 08:00 Intake & Output 06/15/18 06/16/18 06/16/18 18:59 06:59 18:59 Intake Total 180 Output Total 350 450 0 Balance -170 -450 0 Weight 53.5 kg 55.6 kg Intake: Oral 180 Output: Urine 350 450 Stool 0 0 Other: Voiding Method Bedside Commode Bedside Commode Bedside Commode Incontinent # Voids 2 1 - Exam Head normocephalic and atraumatic Neck supple no JVD no goiter Lungs diminished bilaterally no wheezing Heart regular rate and rhythm S1-S2, no rub or gallop Abdomen is soft nontender nondistended positive bowel sounds no hepatosplenomegaly Extremities no edema no cyanosis or clubbing Neuro alert and orientated to 3 - Labs CBC & Chem 7: 06/16/18 06:03 06/16/18 06:03 Labs: Abnormal Lab Results - Last 24 Hours (Table) 06/15/18 06/15/18 06/15/18 Range/Units 11:34 16:21 21:00 WBC (3.8-10.6) k/uL RBC (3.80-5.40) m/uL Hgb (11.4-16.0) gm/dL Hct (34.0-46.0) % MCHC (31.0-37.0) g/dL RDW (11.5-15.5) % Plt Count (150-450) k/uL Lymphocytes # (Manual) (1.0-4.8) k/uL Sodium (137-145) mmol/L BUN (7-17) mg/dL Glucose (74-99) mg/dL POC Glucose (mg/dL) 140 H 163 H 157 H (75-99) mg/dL Total Protein (6.3-8.2) g/dL Albumin (3.5-5.0) g/dL 06/16/18 06/16/18 06/16/18 Range/Units 06:03 06:03 06:28 WBC 279.3 H* (3.8-10.6) k/uL RBC 2.80 L (3.80-5.40) m/uL Hgb 8.0 L (11.4-16.0) gm/dL Hct 26.1 L (34.0-46.0) % MCHC 30.5 L (31.0-37.0) g/dL RDW 18.6 H (11.5-15.5) % Plt Count 112 L (150-450) k/uL Lymphocytes # (Manual) 276.51 H (1.0-4.8) k/uL Sodium 136 L (137-145) mmol/L BUN 29 H (7-17) mg/dL Glucose 102 H (74-99) mg/dL POC Glucose (mg/dL) 108 H (75-99) mg/dL Total Protein 5.1 L (6.3-8.2) g/dL Albumin 3.2 L (3.5-5.0) g/dL Microbiology - Last 24 Hours (Table) 06/11/18 16:30 Anaerobic Culture - Final Pleural Fluid 06/11/18 16:30 Gram Stain - Final Pleural Fluid Body Fluid Culture - Final Assessment and Plan Plan: 1. Acute exacerbation of CHF due to acute on chronic systolic heart failure. Patient currently remains on 40 mg IV Lasix. Cardiology services are following. Per cardiology 2Decho with Doppler study was performed in May of this year which revealed an EF of 20-25%, severe global hypokinesia with severe aortic stenosis, moderate MR. 2. Acute hypoxic respirator failure related to above. 3. Bilateral pleural effusion left more than right. Patient received left thoracentesis 06/11 with 850 mL of fluid removed. Chest x-ray completed showing no evident complications status post pleurocentesis. Bibasilar effusions and associated atelectasis versus edema, correlate to exclude pneumonia. Cardiomegaly. Per Dr. Muro considering possible thoracentesis today on the right side. No need for thoracentesis at this time per pulmonary. Patient received 1 time dose of 100 mg Solu-Cortef per Dr. Muro. 4. Chronic lymphocytic leukemia and severe leukocytosis related to above. Oncology services are following. WBC remains elevated at 280.3. Per oncology patient has refused further treatment other than prednisone will continue current supportive care and symptom management. 5. Chronic anemia thrombocytopenia. Hemoglobin 7.9 patient remains asymptomatic. We'll hold off on transfusion per oncology services. Platelets 96. Hemoglobin 7.5 6. Elevated cardiac enzymes. Troponins on admission 0.072, 0.094 and 0.106. Cardiology services are following. Per cardiology abnormal troponins, likely representing a type II event 7. Hyperlipedmia 8. Cardiomyopathy , uknown etiology. Cardiology services are following 9. hypotension. Blood pressure remains in the high 80s low 90s. Patient is making good urine and is asymptomatic. Lasix had been decreased to 20 twice a day. We'll continue to monitor closely Plan at this time to recheck chest x-ray tomorrow, monitor patient and check pulse ox without oxygen with ambulation Recheck labs in a.m. If patient is stable plan for discharge home on Monday, patient lives at home with her daughter and she wants to return to her home. Will increase ambulation in the meanwhile. DVT prophylaxis SCDs due to thrombocytopenia and GI prophylaxis protonix
[2018-06-16 12:01] LABS: Glucose,Whole Blood 115 mg/dL (75-99)
--- NOTE | 2018-06-16 13:37 | XR ---
EXAMINATION TYPE: XR chest 2V DATE OF EXAM: 06/16/2018 HISTORY: follow up pleural effusion. REFERENCE: Previous study dated 06/12/2018. FINDINGS: There are bilateral effusions, worse on the right than the left. Right-sided effusion has i ncreased in size. The heart is mildly enlarged. There is bibasilar atelectasis. IMPRESSION: WORSENING RIGHT-SIDED PLEURAL EFFUSION. THIS MAY BE LOCULATED.
[2018-06-16 17:12] LABS: Glucose,Whole Blood 155 mg/dL (75-99)
[2018-06-16 20:44] LABS: Glucose,Whole Blood 120 mg/dL (75-99)
[2018-06-17 06:18] LABS: Anisocytosis Slight; HGB 7.6 gm/dL (11.4-16.0); Hypochromasia Marked; MCH 28.3 pg (25.0-35.0); MCHC 30.3 g/dL (31.0-37.0); MCV 93.3 fL (80.0-100.0); Mean Platelet Volume 7.1; Platelet Count 114 k/uL (150-450); RBC 2.68 m/uL (3.80-5.40); RDW 18.5 % (11.5-15.5)
[2018-06-17 06:20] LABS: Glucose,Whole Blood 147 mg/dL (75-99)
[2018-06-17 06:23] LABS: WBC 276.1 k/uL (3.8-10.6)
[2018-06-17 06:30] LABS: Albumin 3.1 g/dL (3.5-5.0); Calcium 8.5 mg/dL (8.4-10.2); Potassium 3.9 mmol/L (3.5-5.1); Total Bilirubin 0.4 mg/dL (0.2-1.3)
[2018-06-17] MEDS: LEVOTHYROXINE 25 MCG TAB PO SCH (06:52)
[2018-06-17] MEDS: INSULIN ASPART 100 UNIT/ML 1 ML 10 ML VIAL SQ SCH ×4 (06:52→23:12)
[2018-06-17] MEDS: ASPIRIN 81 MG PO SCH (07:38)
[2018-06-17] MEDS: ALLOPURINOL 300 MG TAB PO SCH (07:38)
[2018-06-17] MEDS: predniSONE 5 MG TAB PO SCH (07:38)
[2018-06-17] MEDS: GABAPENTIN 400 MG CAP PO SCH ×2 (07:38→23:12)
[2018-06-17] MEDS: PANTOPRAZOLE 40 MG TABLET PO SCH (07:39)
[2018-06-17 08:38] LABS: Lymphocytes # (M) 265.06 k/uL (1.0-4.8); Monocytes # (M) 2.76 k/uL (0-1.0); Neutrophils # (M) 11.04 k/uL (1.3-7.7); Neutrophils % (M) 4 %; Nucleated Red Blood Cells 0 /100 WBC (0-0); Poikilocytosis (M) Present; Total Cells Counted 200
[2018-06-17] MEDS: FUROSEMIDE 10 MG/ML 2 ML VIAL IV SCH ×2 (10:44→23:12)
[2018-06-17 12:03] LABS: Glucose,Whole Blood 124 mg/dL (75-99)
--- NOTE | 2018-06-17 13:50 | P.PN ---
Subjective Progress Note Date: 06/17/18 Acute exacerbation of systolic heart failure with baseline ejection fraction 20% , bilateral pleural effusion left more than right, shortness of breath related to above, CLL, acute agitated delirium acute hypoxic respiratory failure Ms. Huerta presented to [facility] ED on 06/08/18 with complaints of progressive Shortness of Breath over the past few days. She was recently admitted in May of this year for exacerbation of CHF. Her Ejection Fracture on that admission revealed 20-25% per echocardiogram. It was also noted she had severe dilation of the LAD, severe aortic stenosis, and mitral regurgitation. On presentation she was in mild distress with positive orthopnea and bilateral lower extremity edema. Chest Xray revealed bilateral pleural effusions, abnormal EKG. A CT of the abdomen and pelvis was also copleted and showed likely progression of underlying CLL with progressive splenomegaly, mass effect on the left kidney, significant bilateral inguinal lymphadenopathy, retroperitoneal adenopathy with enlarged para-arotic, mesenteric, and celiac nodes. Blood pressure has been running low, this am 75/44. She is requiring 3-4Liters of oxygen to maintain saturations above 92%. Her blood counts today revealed the following: WBC = 291 , Hemoglin = 7.1, Platelets = 107BNP = 22,700. During assessment she states she is overall feeling better than admission but still very short of breath with exertion. Swelling of legs has also improved since admission. 06/10/2018, patient seen eval examined during the rounds clinically she is slightly better in terms of breathing but is still get short of breath, patient underwent ultrasound of the chest bilateral pleural effusion is noted right more than left on the right side more than 8 cm depth of fluid has been noted, procedure thoracentesis has been explained to the patient patient would like to proceed to relieve symptoms 06/11/2018, patient seen eval examined during the rounds patient had a rough night she became's hypoxic short of breath has a significant respiratory distress she did require extra dose of furosemide in addition required BiPAP 15/ 10 currently she is down to 6 L oxygen she is sleeping I have discussed with the oncology service about thoracentesis on the left side that may relieve some of the respiratory distress would plan to do it this afternoon On 06/12/2018 patient is currently sitting up in bed stating she feels much improved from yesterday. Patient underwent a thoracentesis yesterday removing 850 mL. Patient denies chest pain or shortness breath at this time. Blood pressure remains marginal. Hemoglobin level 7.2 patient is asymptomatic, no transfusion per oncology services. Will continue to monitor patient closely On 06/13/2018 patient is currently sitting up in bed A & O x 3. Patient remains on 3 L NC. Denies chest pain or shortness of breath. Hemoglobin 7.3 patient remains asymptomatic . Oncology services are following for her CLL. Cardiology services CLAUDIA inhibitor has been discontinued and Lasix have been decreased to 20 mg per. On 06/14/2018 patient is currently resting comfortably in bed. Patient states she feels improved from previous days. Patient is still on 2 L nasal cannula. Patient did not wear any home O2 previously. Hemoglobin up to 8.0. oncology services are still following for her CLL. Lasix 20 twice a day. Blood pressure remains marginal. Patient continues to be asymptomatic and making good urine. On 06/15/2018 patient is currently resting comfortably in bed a known 3. Patient is currently on room air. Per pulmonary no plans for repeat thoracentesis at this point and to continue gentle diuresing. Patient denies chest pain or shortness of breath. She remains on IV Lasix 20 mg every 12 hours. Patient received 100 mg of Solu-Cortef [address] Muro per pulmonology. On 06/16/2018 patient is alert and oriented 3 in no apparent distress she is sitting up in bed without oxygen, she denies any chest pain or shortness of breath, there is no fever or chills no headache no dizziness no cough no nausea or vomiting no abdominal pain and no urinary symptoms. On 06/17/2018 patient is alert and oriented 3 in no apparent distress her shortness of breath has improved she has occasional cough otherwise she denies any symptoms chest x-ray revealing worsening pleural effusion at this time will continue to monitor till a.m. awaiting pulmonary input possible discharge tomorrow if no intervention is recommended Objective - Vital Signs Vital signs: Vital Signs Temp 98.2 F 06/17/18 07:37 Pulse 103 H 06/17/18 08:00 Resp 18 06/17/18 08:00 BP 88/52 06/17/18 07:37 Pulse Ox 99 06/17/18 07:37 Intake & Output 06/16/18 06/17/18 06/17/18 18:59 06:59 18:59 Intake Total 840 Output Total 1350 650 600 Balance -510 -650 -600 Weight 52.6 kg Intake: Oral 840 Output: Urine 1350 650 600 Stool 0 0 Other: Voiding Method Bedside Commode Bedside Commode Bedside Commode # Voids 1 - Exam Head normocephalic and atraumatic Neck supple no JVD no goiter Lungs diminished bilaterally no wheezing Heart regular rate and rhythm S1-S2, no rub or gallop Abdomen is soft nontender nondistended positive bowel sounds no hepatosplenomegaly Extremities no edema no cyanosis or clubbing Neuro alert and orientated to 3 - Labs CBC & Chem 7: 06/17/18 06:04 06/17/18 06:04 Labs: Abnormal Lab Results - Last 24 Hours (Table) 06/16/18 06/16/18 06/17/18 Range/Units 16:49 20:43 06:04 WBC 276.1 H* (3.8-10.6) k/uL RBC 2.68 L (3.80-5.40) m/uL Hgb 7.6 L (11.4-16.0) gm/dL Hct 25.0 L (34.0-46.0) % MCHC 30.3 L (31.0-37.0) g/dL RDW 18.5 H (11.5-15.5) % Plt Count 114 L (150-450) k/uL Neutrophils # (Manual) 11.04 H (1.3-7.7) k/uL Lymphocytes # (Manual) 265.06 H (1.0-4.8) k/uL Monocytes # (Manual) 2.76 H (0-1.0) k/uL Sodium (137-145) mmol/L Carbon Dioxide (22-30) mmol/L BUN (7-17) mg/dL Glucose (74-99) mg/dL POC Glucose (mg/dL) 155 H 120 H (75-99) mg/dL Total Protein (6.3-8.2) g/dL Albumin (3.5-5.0) g/dL 06/17/18 06/17/18 06/17/18 Range/Units 06:04 06:18 11:46 WBC (3.8-10.6) k/uL RBC (3.80-5.40) m/uL Hgb (11.4-16.0) gm/dL Hct (34.0-46.0) % MCHC (31.0-37.0) g/dL RDW (11.5-15.5) % Plt Count (150-450) k/uL Neutrophils # (Manual) (1.3-7.7) k/uL Lymphocytes # (Manual) (1.0-4.8) k/uL Monocytes # (Manual) (0-1.0) k/uL Sodium 135 L (137-145) mmol/L Carbon Dioxide 31 H (22-30) mmol/L BUN 30 H (7-17) mg/dL Glucose 115 H (74-99) mg/dL POC Glucose (mg/dL) 147 H 124 H (75-99) mg/dL Total Protein 5.0 L (6.3-8.2) g/dL Albumin 3.1 L (3.5-5.0) g/dL Assessment and Plan Plan: 1. Acute exacerbation of CHF due to acute on chronic systolic heart failure. Patient currently remains on 40 mg IV Lasix. Cardiology services are following. Per cardiology 2Decho with Doppler study was performed in May of this year which revealed an EF of 20-25%, severe global hypokinesia with severe aortic stenosis, moderate MR. 2. Acute hypoxic respirator failure related to above. 3. Bilateral pleural effusion left more than right. Patient received left thoracentesis 06/11 with 850 mL of fluid removed. Chest x-ray completed showing no evident complications status post pleurocentesis. Bibasilar effusions and associated atelectasis versus edema, correlate to exclude pneumonia. Cardiomegaly. Per Dr. Muro considering possible thoracentesis today on the right side. No need for thoracentesis at this time per pulmonary. Patient received 1 time dose of 100 mg Solu-Cortef per Dr. Muro. 4. Chronic lymphocytic leukemia and severe leukocytosis related to above. Oncology services are following. WBC remains elevated at 280.3. Per oncology patient has refused further treatment other than prednisone will continue current supportive care and symptom management. 5. Chronic anemia thrombocytopenia. Hemoglobin 7.9 patient remains asymptomatic. We'll hold off on transfusion per oncology services. Platelets 96. Hemoglobin 7.5 6. Elevated cardiac enzymes. Troponins on admission 0.072, 0.094 and 0.106. Cardiology services are following. Per cardiology abnormal troponins, likely representing a type II event 7. Hyperlipedmia 8. Cardiomyopathy , uknown etiology. Cardiology services are following 9. hypotension. Blood pressure remains in the high 80s low 90s. Patient is making good urine and is asymptomatic. Lasix had been decreased to 20 twice a day. We'll continue to monitor closely Plan at this time to recheck chest x-ray tomorrow, monitor patient and check pulse ox without oxygen with ambulation Recheck labs in a.m. If patient is stable plan for discharge home on Monday, patient lives at home with her daughter and she wants to return to her home. Will increase ambulation in the meanwhile. DVT prophylaxis SCDs due to thrombocytopenia and GI prophylaxis protonix
[2018-06-17 17:13] LABS: Glucose,Whole Blood 142 mg/dL (75-99)
--- NOTE | 2018-06-17 18:41 | PN ---
PROGRESS NOTE She was seen again on 06/17/2018. She continues to have shortness of breath. On physical examination: Respiratory rate is 18, pulse rate of 103, temperature 98.2, blood pressure 88/52, O2 saturation on room air is 99%. HEENT is unremarkable. Chest reveals decreased breath sounds bilaterally in the bases. Cardiovascular system reveals an S1, S2. Abdomen is soft. There is no pedal edema. Chest x-ray shows worsening right-sided effusion. IMPRESSION: At this time: 1. Congestive heart failure with congestive cardiomyopathy and bilateral pleural effusion secondary to congestive heart failure. 2. Chronic lymphocytic leukemia. 3. Respiratory failure. Continue current medications. Optimize the fluid status. Her prognosis is guarded. Will defer to primary team and primary treer Dr. Muro on deciding on further invasive thoracentesis on the right. MMODL / IJN: [id number] /
[2018-06-17 21:03] LABS: Glucose,Whole Blood 157 mg/dL (75-99)
[2018-06-18 06:26] LABS: Anisocytosis Slight; HCT 24.7 % (34.0-46.0); HGB 7.4 gm/dL (11.4-16.0); Hypochromasia Marked; MCH 27.9 pg (25.0-35.0); MCHC 30.1 g/dL (31.0-37.0); MCV 92.6 fL (80.0-100.0); Mean Platelet Volume 7.1; Platelet Count 124 k/uL (150-450); RBC 2.67 m/uL (3.80-5.40); RDW 18.5 % (11.5-15.5)
[2018-06-18 06:32] LABS: Glucose,Whole Blood 127 mg/dL (75-99)
[2018-06-18 06:32] LABS: Albumin 3.1 g/dL (3.5-5.0); Calcium 8.6 mg/dL (8.4-10.2); Potassium 3.6 mmol/L (3.5-5.1); Total Bilirubin 0.4 mg/dL (0.2-1.3)
[2018-06-18] MEDS: INSULIN ASPART 100 UNIT/ML 1 ML 10 ML VIAL SQ SCH ×2 (06:32→12:07)
[2018-06-18] MEDS: LEVOTHYROXINE 25 MCG TAB PO SCH (06:46)
[2018-06-18 06:48] LABS: WBC 269.3 k/uL (3.8-10.6)
[2018-06-18 08:44] LABS: Eosinophils # (M) 2.69 k/uL (0-0.7); Lymphocytes # (M) 261.22 k/uL (1.0-4.8); Monocytes # (M) 2.69 k/uL (0-1.0); Neutrophils # (M) 8.08 k/uL (1.3-7.7); Neutrophils % (M) 3 %; Nucleated Red Blood Cells 0 /100 WBC (0-0); Total Cells Counted 200
[2018-06-18 08:45] LABS: Ovalocytes Present; Poikilocytosis (M) Present
[2018-06-18 08:46] LABS: Polychromasia Present
[2018-06-18] MEDS: FUROSEMIDE 10 MG/ML 2 ML VIAL IV SCH (08:52)
[2018-06-18] MEDS: predniSONE 5 MG TAB PO SCH (08:52)
[2018-06-18] MEDS: PANTOPRAZOLE 40 MG TABLET PO SCH (08:52)
[2018-06-18] MEDS: ALLOPURINOL 300 MG TAB PO SCH (08:52)
[2018-06-18] MEDS: GABAPENTIN 400 MG CAP PO SCH (08:52)
[2018-06-18] MEDS: ASPIRIN 81 MG PO SCH (08:52)
[2018-06-18 09:04] VITALS: TEMP 97.1
[2018-06-18 11:49] LABS: Glucose,Whole Blood 129 mg/dL (75-99)
[2018-06-18 12:40] VITALS: BP 85/54; PULSE 99; RESP 17
--- NOTE | 2018-06-18 14:08 | P.DS ---
Providers Date of admission: 06/08/18 19:26 Expected date of discharge: 06/18/18 Attending physician: Agustin Wiley Consults: 06/09/18 04:21 Consult Physician Routine Consulting Provider: Nadia Goldsmith Consult Reason/Comments: positive trops Do you want consulting provider notified?: Yes, Notify in am 06/09/18 04:25 Consult Physician Routine Consulting Provider: Alvaro Wilson Consult Reason/Comments: abd distention Do you want consulting provider notified?: Yes, Notify in am 06/09/18 12:39 Consult Physician Routine Consulting Provider: Tyshawn Calzada Consult Reason/Comments: cll Do you want consulting provider notified?: Yes, Notify in am 06/13/18 13:44 Consult Physician Routine Consulting Provider: Dani Muro Consult Reason/Comments: pulmonary managment Do you want consulting provider notified?: Already Contacted Primary care physician: Janeth Castillo Hospital Course: Discharge diagnosis 1. Acute exacerbation of CHF due to acute on chronic systolic heart failure. Patient currently remains on 40 mg IV Lasix. Cardiology services are following. Per cardiology 2Decho with Doppler study was performed in May of this year which revealed an EF of 20-25%, severe global hypokinesia with severe aortic stenosis, moderate MR. 2. Acute hypoxic respirator failure related to above. 3. Bilateral pleural effusion left more than right. Patient received left thoracentesis 06/11 with 850 mL of fluid removed. Chest x-ray completed showing no evident complications status post pleurocentesis. Bibasilar effusions and associated atelectasis versus edema, correlate to exclude pneumonia. Cardiomegaly. Per Dr. Muro considering possible thoracentesis today on the right side. No need for thoracentesis at this time per pulmonary. Patient received 1 time dose of 100 mg Solu-Cortef per Dr. Muro. Patient cleared for discharge from Dr. Muro. Patient to follow-up with Dr. Muro in 1 week 4. Chronic lymphocytic leukemia and severe leukocytosis related to above. Oncology services are following. WBC remains elevated at 280.3. Per oncology patient has refused further treatment other than prednisone will continue current supportive care and symptom management. 5. Chronic anemia thrombocytopenia. Hemoglobin 7.9 patient remains asymptomatic. We'll hold off on transfusion per oncology services. Platelets 96. Hemoglobin 7.5. Patient to follow-up outpatient with Dr. Harper in 2 weeks 6. Elevated cardiac enzymes. Troponins on admission 0.072, 0.094 and 0.106. Cardiology services are following. Per cardiology abnormal troponins, likely representing a type II event 7. Hyperlipedmia 8. Cardiomyopathy , uknown etiology. Cardiology services are following 9. hypotension. Blood pressure remains in the high 80s low 90s. Patient is making good urine and is asymptomatic. Lasix had been decreased to 20 twice a day. We'll continue to monitor closely. Patient will be discharged home on 40 mg by mouth Lasix daily Hospital course Acute exacerbation of systolic heart failure with baseline ejection fraction 20% , bilateral pleural effusion left more than right, shortness of breath related to above, CLL, acute agitated delirium acute hypoxic respiratory failure Ms. Huerta presented to [facility] ED on 06/08/18 with complaints of progressive Shortness of Breath over the past few days. She was recently admitted in May of this year for exacerbation of CHF. Her Ejection Fracture on that admission revealed 20-25% per echocardiogram. It was also noted she had severe dilation of the LAD, severe aortic stenosis, and mitral regurgitation. On presentation she was in mild distress with positive orthopnea and bilateral lower extremity edema. Chest Xray revealed bilateral pleural effusions, abnormal EKG. A CT of the abdomen and pelvis was also copleted and showed likely progression of underlying CLL with progressive splenomegaly, mass effect on the left kidney, significant bilateral inguinal lymphadenopathy, retroperitoneal adenopathy with enlarged para-arotic, mesenteric, and celiac nodes. Blood pressure has been running low, this am 75/44. She is requiring 3-4Liters of oxygen to maintain saturations above 92%. Her blood counts today revealed the following: WBC = 291 , Hemoglin = 7.1, Platelets = 107BNP = 22,700. During assessment she states she is overall feeling better than admission but still very short of breath with exertion. Swelling of legs has also improved since admission. 06/10/2018, patient seen eval examined during the rounds clinically she is slightly better in terms of breathing but is still get short of breath, patient underwent ultrasound of the chest bilateral pleural effusion is noted right more than left on the right side more than 8 cm depth of fluid has been noted, procedure thoracentesis has been explained to the patient patient would like to proceed to relieve symptoms 06/11/2018, patient seen eval examined during the rounds patient had a rough night she became's hypoxic short of breath has a significant respiratory distress she did require extra dose of furosemide in addition required BiPAP currently she is down to 6 L oxygen she is sleeping I have discussed with the oncology service about thoracentesis on the left side that may relieve some of the respiratory distress would plan to do it this afternoon On 06/12/2018 patient is currently sitting up in bed stating she feels much improved from yesterday. Patient underwent a thoracentesis yesterday removing 850 mL. Patient denies chest pain or shortness breath at this time. Blood pressure remains marginal. Hemoglobin level 7.2 patient is asymptomatic, no transfusion per oncology services. Will continue to monitor patient closely On 06/13/2018 patient is currently sitting up in bed A & O x 3. Patient remains on 3 L NC. Denies chest pain or shortness of breath. Hemoglobin 7.3 patient remains asymptomatic . Oncology services are following for her CLL. Cardiology services CLAUDIA inhibitor has been discontinued and Lasix have been decreased to 20 mg per. On 06/14/2018 patient is currently resting comfortably in bed. Patient states she feels improved from previous days. Patient is still on 2 L nasal cannula. Patient did not wear any home O2 previously. Hemoglobin up to 8.0. oncology services are still following for her CLL. Lasix 20 twice a day. Blood pressure remains marginal. Patient continues to be asymptomatic and making good urine. On 06/15/2018 patient is currently resting comfortably in bed a known 3. Patient is currently on room air. Per pulmonary no plans for repeat thoracentesis at this point and to continue gentle diuresing. Patient denies chest pain or shortness of breath. She remains on IV Lasix 20 mg every 12 hours. Patient received 100 mg of Solu-Cortef [address] Muro per pulmonology. On 06/16/2018 patient is alert and oriented 3 in no apparent distress she is sitting up in bed without oxygen, she denies any chest pain or shortness of breath, there is no fever or chills no headache no dizziness no cough no nausea or vomiting no abdominal pain and no urinary symptoms. On 06/17/2018 patient is alert and oriented 3 in no apparent distress her shortness of breath has improved she has occasional cough otherwise she denies any symptoms chest x-ray revealing worsening pleural effusion at this time will continue to monitor till a.m. awaiting pulmonary input possible discharge tomorrow if no intervention is recommended On 06/18/2018 patient has been cleared for discharge from pulmonary standpoint. Patient is planning to go to [facility]. Patient is back to baseline with lab work. Repeat labs have been ordered for 2 days. Patient currently on room air. Patient denies chest pain or shortness of breath at this time. I performed an examination of the patient and discussed their management with the Nurse Practitioner. I have reviewed the Nurse Practitioner's notes and agree with the documented findings and plan of care Patient Condition at Discharge: Stable Plan - Discharge Summary Discharge Rx Participant: No New Discharge Prescriptions: New Furosemide [Lasix] 40 mg PO DAILY #30 tablet Continue Omeprazole 20 mg PO DAILY Allopurinol [Zyloprim] 300 mg PO DAILY Gabapentin [Neurontin] 400 mg PO BID Levothyroxine Sodium [Synthroid] 25 mcg PO DAILY predniSONE 5 mg PO DAILY Aspirin 81 mg PO DAILY #30 chew Potassium Chloride ER [K-Dur 10] 10 meq PO DAILY #30 tab Discontinued Furosemide [Lasix] 20 mg PO DAILY #30 tab Discharge Medication List Allopurinol [Zyloprim] 300 mg PO DAILY 03/12/17 [History] Omeprazole 20 mg PO DAILY 03/12/17 [History] Gabapentin [Neurontin] 400 mg PO BID 05/20/18 [History] Levothyroxine Sodium [Synthroid] 25 mcg PO DAILY 05/20/18 [History] predniSONE 5 mg PO DAILY 05/20/18 [History] Aspirin 81 mg PO DAILY #30 chew 05/22/18 [Rx] Potassium Chloride ER [K-Dur 10] 10 meq PO DAILY #30 tab 05/22/18 [Rx] Furosemide [Lasix] 40 mg PO DAILY #30 tablet 06/18/18 [Rx] Follow up Appointment(s)/Referral(s): Dani Muro MD [STAFF PHYSICIAN] - 1 Week Janeth Castillo DO [Primary Care Provider] - 06/21/18 1:00 pm () Shaan Harper MD [STAFF PHYSICIAN] - 2 Weeks Ambulatory/Diagnostic Orders: Complete Blood Count w/diff [LAB.AMB] Time Frame: 2 Days, Location: None Selected Complete Blood Count w/diff [LAB.AMB] Time Frame: 2 Days, Location: None Selected Comprehensive Metabolic Panel [LAB.AMB] Location: None Selected Activity/Diet/Wound Care/Special Instructions: Diet heart healthy Activity as tolerated Discharge Disposition: TRANSFER TO SNF/ECF
--- NOTE | 2018-06-18 16:28 | P.PN ---
Subjective Progress Note Date: 06/18/18 Principal diagnosis: CHF exacerbation. Being treated for MDS with prednisone Pt seen in f/u, she states feeling good, eating and drinking, breathing is improved, mild SOB on exertion, her leg swelling is resolved, she is weak so she is going to do rehab on DC. Objective - Vital Signs Vital signs: Vital Signs Temp 97.1 F L 06/18/18 08:00 Pulse 93 06/18/18 08:00 Resp 18 06/18/18 08:00 BP 91/58 06/18/18 08:00 Pulse Ox 93 L 06/18/18 08:00 Intake & Output 06/17/18 06/18/18 06/18/18 18:59 06:59 18:59 Intake Total 640 Output Total 1680 1700 300 Balance -1040 -1700 -300 Intake: Oral 640 Output: Urine 1680 1700 300 Stool 0 0 Other: Voiding Method Bedside Commode Bedside Commode # Voids 1 2 # Bowel Movements 1 - Constitutional General appearance: Present: average body habitus, cooperative, no acute distress - EENT Eyes: Present: anicteric sclerae - Respiratory Respiratory: bilateral: CTA - Cardiovascular Heart sounds: normal: S1, S2 Abnormal Heart Sounds: Present: systolic murmur - Neurologic Neurologic: Present: CNII-XII intact - Musculoskeletal Musculoskeletal: Present: generalized weakness - Psychiatric Psychiatric: Present: A&O x's 3, appropriate affect, intact judgment & insight - Labs CBC & Chem 7: 06/18/18 05:32 06/18/18 05:32 Labs: Abnormal Lab Results - Last 24 Hours (Table) 06/17/18 06/17/18 06/17/18 Range/Units 11:46 16:58 21:02 WBC (3.8-10.6) k/uL RBC (3.80-5.40) m/uL Hgb (11.4-16.0) gm/dL Hct (34.0-46.0) % MCHC (31.0-37.0) g/dL RDW (11.5-15.5) % Plt Count (150-450) k/uL Neutrophils # (Manual) (1.3-7.7) k/uL Lymphocytes # (Manual) (1.0-4.8) k/uL Monocytes # (Manual) (0-1.0) k/uL Eosinophils # (Manual) (0-0.7) k/uL Chloride (98-107) mmol/L Carbon Dioxide (22-30) mmol/L BUN (7-17) mg/dL Glucose (74-99) mg/dL POC Glucose (mg/dL) 124 H 142 H 157 H (75-99) mg/dL Total Protein (6.3-8.2) g/dL Albumin (3.5-5.0) g/dL 06/18/18 06/18/18 06/18/18 Range/Units 05:32 05:32 06:29 WBC 269.3 H* (3.8-10.6) k/uL RBC 2.67 L (3.80-5.40) m/uL Hgb 7.4 L (11.4-16.0) gm/dL Hct 24.7 L (34.0-46.0) % MCHC 30.1 L (31.0-37.0) g/dL RDW 18.5 H (11.5-15.5) % Plt Count 124 L (150-450) k/uL Neutrophils # (Manual) 8.08 H (1.3-7.7) k/uL Lymphocytes # (Manual) 261.22 H (1.0-4.8) k/uL Monocytes # (Manual) 2.69 H (0-1.0) k/uL Eosinophils # (Manual) 2.69 H (0-0.7) k/uL Chloride 97 L (98-107) mmol/L Carbon Dioxide 32 H (22-30) mmol/L BUN 31 H (7-17) mg/dL Glucose 106 H (74-99) mg/dL POC Glucose (mg/dL) 127 H (75-99) mg/dL Total Protein 5.0 L (6.3-8.2) g/dL Albumin 3.1 L (3.5-5.0) g/dL 06/18/18 Range/Units 11:38 WBC (3.8-10.6) k/uL RBC (3.80-5.40) m/uL Hgb (11.4-16.0) gm/dL Hct (34.0-46.0) % MCHC (31.0-37.0) g/dL RDW (11.5-15.5) % Plt Count (150-450) k/uL Neutrophils # (Manual) (1.3-7.7) k/uL Lymphocytes # (Manual) (1.0-4.8) k/uL Monocytes # (Manual) (0-1.0) k/uL Eosinophils # (Manual) (0-0.7) k/uL Chloride (98-107) mmol/L Carbon Dioxide (22-30) mmol/L BUN (7-17) mg/dL Glucose (74-99) mg/dL POC Glucose (mg/dL) 129 H (75-99) mg/dL Total Protein (6.3-8.2) g/dL Albumin (3.5-5.0) g/dL Assessment and Plan (1) Anemia Narrative/Plan: Baseline Hgb for pt 7-8, no transfusion today. Status: Chronic Priority: Medium Code(s): D64.9 - ANEMIA, UNSPECIFIED SNOMED Code(s): 198112260 (2) CLL (chronic lymphocytic leukemia) Narrative/Plan: Reviewed case with priary Oncologist Dr. Harper. The CLL in the pleural fluid is new. I reviewed this with the patient. We discussed that the fluid will likely re-accumulate without CLL treatment. She is not interested in the medications to treat CLL but, she will consider talking to Dr. Harper about it when she sees him in a few weeks. WBC elevated but, stable. Cont with prednisone as prescribed. Status: Chronic Priority: Medium Code(s): C91.90 - LYMPHOID LEUKEMIA, UNSPECIFIED NOT HAVING ACHIEVED REMISSION SNOMED Code(s): 50892525
--- NOTE | 2018-06-19 10:01 | P.PN ---
Subjective Progress Note Date: 06/18/18 (Late entry note) Principal diagnosis: Acute exacerbation of systolic heart failure with baseline ejection fraction 20% , bilateral pleural effusion left more than right, shortness of breath related to above, CLL, acute agitated delirium acute hypoxic respiratory failure 7-year-old female who has the bilateral pleural effusion more so on the left side compared right side she is status post a left thoracentesis is 850 mL of fluid has been removed patient has severe degree of ischemic cardiomyopathy with ejection fraction only 20%, since thoracentesis she has been doing very well with supplemental oxygen of 4 L I have repeated the ultrasound today no significant effusion is seen no plans for thoracentesis continue gentle diuresis review of the data revealed that Ms. Huetra presented to [facility] ED on 06/08/18 with complaints of progressive Shortness of Breath over the past few days. She was recently admitted in May of this year for exacerbation of CHF. Her Ejection Fracture on that admission revealed 20-25% per echocardiogram. It was also noted she had severe dilation of the LAD, severe aortic stenosis, and mitral regurgitation. On presentation she was in mild distress with positive orthopnea and bilateral lower extremity edema. Chest Xray revealed bilateral pleural effusions, abnormal EKG. A CT of the abdomen and pelvis was also copleted and showed likely progression of underlying CLL with progressive splenomegaly, mass effect on the left kidney, significant bilateral inguinal lymphadenopathy, retroperitoneal adenopathy with enlarged para-arotic, mesenteric, and celiac nodes. Blood pressure has been running low, this am 75/ 44. She is requiring 3-4Liters of oxygen to maintain saturations above 92%. Her blood counts today revealed the following: WBC = 291, Hemoglin = 7.1, Platelets = 107BNP = 22,700. During assessment she states she is overall feeling better than admission but still very short of breath with exertion. Swelling of legs has also improved since admission. 06/10/2018, patient seen eval examined during the rounds clinically she is slightly better in terms of breathing but is still get short of breath, patient underwent ultrasound of the chest bilateral pleural effusion is noted right more than left on the right side more than 8 cm depth of fluid has been noted, procedure thoracentesis has been explained to the patient patient would like to proceed to relieve symptoms 06/11/2018, patient seen eval examined during the rounds patient had a rough night she became's hypoxic short of breath has a significant respiratory distress she did require extra dose of furosemide in addition required BiPAP currently she is down to 6 L oxygen she is sleeping I have discussed with the oncology service about thoracentesis on the left side that may relieve some of the respiratory distress would plan to do it this afternoon On 06/12/2018 patient is currently sitting up in bed stating she feels much improved from yesterday. Patient underwent a thoracentesis yesterday removing 850 mL. Patient denies chest pain or shortness breath at this time. Blood pressure remains marginal. Hemoglobin level 7.2 patient is asymptomatic, no transfusion per oncology services. Will continue to monitor patient closely On 06/13/2018 patient is currently sitting up in bed A & O x 3. Patient remains on 3 L NC. Denies chest pain or shortness of breath. Hemoglobin 7.3 patient remains asymptomatic . Oncology services are following for her CLL. Cardiology services CLAUDIA inhibitor has been discontinued and Lasix have been decreased to 20 mg per. 06/14/2018, patient is resting comfortably denies any chest pain now that FiO2 is down to 2 L breathing comfortably her hemoglobin is 8 oncology services following patient is on by mouth Lasix blood pressure remains on the low side but stable noted that patient is on small dose of prednisone prior to arrival Will give a stress dose of steroid and resume prednisone 06/15/2018, patient seen eval examined during the rounds clinically doing well awake and alert she is sleeping but arousable no obvious distress is present, her labs are reviewed medications reviewed patient blood pressure did come up with IV hard to cortisone but again back to in 80s she is off of oxygen sats are in mid 90s, her pleural fluid culture results and report Reviewed, no growth noted 06/16/2018, patient seen eval examined during the rounds clinically patient has been doing well awake and alert breathing comfortably no obvious distress is present, blood pressure continued to be on the lower side but stable, patient has been on prednisone tolerating very well she has chronic leukocytosis related to CLL 06/18/2018, patient seen eval reexamined during the rounds clinically patient is doing well her shortness of breath is improved significantly denies any chest pain, clinically patient appears to be back to the baseline, discussed with primary service agree with discharge planning patient is now off of oxygen no significant pulmonary symptoms are present she still have a some effusion however will follow up on outpatient setting, discussed with oncology service no plans for any aggressive chemotherapy patient is being kept on low-dose prednisone, blood pressure remains on the lower side which is overall stable as compared to the baseline . Objective - Vital Signs Vital signs: Vital Signs Temp 97.1 F L 06/18/18 08:00 Pulse 99 06/18/18 12:00 Resp 17 06/18/18 12:00 BP 85/54 06/18/18 12:00 Pulse Ox 95 06/18/18 12:00 Intake & Output 06/18/18 06/19/18 06/19/18 18:59 06:59 18:59 Intake Total 360 Output Total 300 Balance 60 Intake: Oral 360 Output: Urine 300 Other: # Bowel Movements 1 - Exam - Constitutional General appearance: cooperative, mild distress - EENT Eyes: EOMI, dentition normal ENT: hard of hearing, NA/AT, normal oropharynx - Neck Supple, Trachea midline Neck: normal ROM - Respiratory Respiratory: bilateral: diminished (throughout, Left greater than right) - Cardiovascular Rhythm: irregularly irregular leg Peripheral Edema: bilateral: 1+ - Gastrointestinal Palpable Lymphadenopathy General gastrointestinal: normal bowel sounds, organomegaly, soft, splenomegaly - Integumentary Integumentary: pale - Neurologic Non focal defects Neurologic: CNII-XII intact - Musculoskeletal Musculoskeletal: generalized weakness, strength equal bilaterally - Psychiatric Psychiatric: A&O x's 3, appropriate affect, intact judgment & insight - Labs CBC & Chem 7: 06/18/18 05:32 06/18/18 05:32 Labs: Abnormal Lab Results - Last 24 Hours (Table) 06/18/18 Range/Units 11:38 POC Glucose (mg/dL) 129 H (75-99) mg/dL Assessment and Plan Assessment: Acute exacerbation of CHF due to acute on chronic systolic heart failure Acute hypoxic respirator failure related to above Bilateral pleural effusion left more than right, status post left thoracentesis , so far no recurrence has been noted by repeat evaluation, small pleural effusion will be monitor observe an outpatient setting CLL and severe leukocytosis related to above Chronic anemia thrombocytopenia Ischemic cardiomyopathy Chronic anemia Suspect component of adrenal insufficiency Plan: Previous data graphic studies and labs reviewed, events noted Observe patient off of oxygen and check pulse ox if it's more than 90% DC oxygen and observe patient off of oxygen And be discharged home from pulmonary standpoint Amy we'll follow this patient in outpatient setting No plans for repeat thoracentesis for now Continue gentle diuresis Continue pneumatic compression device for DVT prophylaxis Time with Patient: Greater than 30
== END 2018-06-18 16:13 | DRG 280 ==
LOC: EC 16:39 → 6SEL 19:26
PROVIDERS: ADMIT Internal Medicine; ATTEND Internal Medicine
PROC: 5A09457 Assistance with Respiratory Ventilation, 24-96 Consecutive Hours, Continuous Positive Airway Pressure (ICD-10-PCS; 2018-06-08)
PROC: 0W9B3ZX Drainage of Left Pleural Cavity, Percutaneous Approach, Diagnostic (ICD-10-PCS; principal; 2018-06-11)
DX: I11.0 Hypertensive heart disease with heart failure (principal); I21.A1 Myocardial infarction type 2; J96.01 Acute respiratory failure with hypoxia; C91.10 Chronic lymphocytic leukemia of B-cell type not having achieved remission; E87.1 Hypo-osmolality and hyponatremia; J98.11 Atelectasis; E27.40 Unspecified adrenocortical insufficiency; J90 Pleural effusion, not elsewhere classified; E03.9 Hypothyroidism, unspecified; E78.5 Hyperlipidemia, unspecified; I08.0 Rheumatic disorders of both mitral and aortic valves; I25.10 Atherosclerotic heart disease of native coronary artery without angina pectoris; I25.5 Ischemic cardiomyopathy; I44.7 Left bundle-branch block, unspecified; I50.23 Acute on chronic systolic (congestive) heart failure; K59.00 Constipation, unspecified; M10.9 Gout, unspecified; R16.1 Splenomegaly, not elsewhere classified; R59.0 Localized enlarged lymph nodes; R41.0 Disorientation, unspecified; T50.905A Adverse effect of unspecified drugs, medicaments and biological substances, initial encounter; R32 Unspecified urinary incontinence; H91.90 Unspecified hearing loss, unspecified ear; D63.0 Anemia in neoplastic disease; D69.6 Thrombocytopenia, unspecified; Z79.82 Long term (current) use of aspirin; Z79.899 Other long term (current) drug therapy; Z79.890 Hormone replacement therapy; Z79.52 Long term (current) use of systemic steroids; Z90.49 Acquired absence of other specified parts of digestive tract; Z90.710 Acquired absence of both cervix and uterus; Y92.239 Unspecified place in hospital as the place of occurrence of the external cause
CPT/HCPCS: 36415; 71045; 71046; 74176; 76604; 80048; 80053; 82150; 82550; 82553; 82607; 82728; 82746; 82945; 83036; 83540; 83550; 83615; 83735; 83880; 84100; 84155; 84157; 84484; 84550; 85025; 85027; 85045; 85610; 85730; 87070; 87075; 87102; 87116; 87205; 87206; 88108; 88305; 89050; 93005; 94640; 94660; 99285

== ENCOUNTER 2018-06-25 10:48 | Inpatient (IN) | payer MEDICARE, BC ==
--- NOTE | 2018-06-25 10:59 | ED ---
General Adult HPI - General Stated complaint: DIPTI Time Seen by Provider: 06/25/18 10:50 Source: patient, EMS, RN notes reviewed, old records reviewed - History of Present Illness Initial comments: 87-year-old female presented from custodial with dyspnea and episode of unresponsiveness. Patient is currently being treated for pneumonia, she is on Levaquin. According to custodial staff she became somewhat unresponsive with difficulty breathing and an oxygen saturation in the 80s. She was put on supplemental oxygen and transferred to the hospital for evaluation. At the time of my evaluation patient is alert and oriented, she has no complaints other than some mild dyspnea. Denies chest pain. Denies significant cough. Denies fever or chills. Denies abdominal pain. Denies nausea vomiting. - Related Data Home Medications Medication Instructions Recorded Confirmed Allopurinol [Zyloprim] 300 mg PO DAILY 03/12/17 06/25/18 Omeprazole 20 mg PO DAILY 03/12/17 06/25/18 Gabapentin [Neurontin] 400 mg PO BID 05/20/18 06/25/18 Levothyroxine Sodium [Synthroid] 25 mcg PO DAILY 05/20/18 06/25/18 predniSONE 5 mg PO DAILY 05/20/18 06/25/18 Aspirin 81 mg PO HS 06/25/18 06/25/18 Bisacodyl 10 mg RECTAL DAILY PRN 06/25/18 06/25/18 Ipratropium-Albuterol Nebulize 3 ml INHALATION RT-Q6H PRN 06/25/18 06/25/18 [Duoneb 0.5 mg-3 mg/3 ml Soln] Levofloxacin [Levaquin] 500 mg PO DAILY 06/25/18 06/25/18 Melatonin 3 mg PO HS PRN 06/25/18 06/25/18 Menthol/Zinc Oxide [Calmoseptine 1 applic TOPICAL TID 06/25/18 06/25/18 Ointment] Previous Rx's Medication Instructions Recorded Potassium Chloride ER [K-Dur 10] 10 meq PO DAILY #30 tab 05/22/18 Furosemide [Lasix] 40 mg PO DAILY #30 tablet 06/18/18 Allergies Allergy/AdvReac Type Severity Reaction Status Date / Time No Known Allergies Allergy Verified 06/25/18 11:16 Review of Systems ROS Statement: Those systems with pertinent positive or pertinent negative responses have been documented in the HPI. ROS Other: All systems not noted in ROS Statement are negative. Past Medical History Past Medical History: Cancer, Heart Failure, Hyperlipidemia, Hypertension, Thyroid Disorder Additional Past Medical History / Comment(s): CLL History of Any Multi-Drug Resistant Organisms: None Reported Past Surgical History: Appendectomy, Cholecystectomy, Hysterectomy Past Anesthesia/Blood Transfusion Reactions: No Reported Reaction Past Psychological History: No Psychological Hx Reported Additional Psychological History / Comment(s): Patient lives with daughter. Patient denies ever using tobacco. Patietn denies ever using alcohol. Smoking Status: Never smoker Past Alcohol Use History: None Reported Past Drug Use History: None Reported - Past Family History Father Family Medical History: No Reported History Additional Family Medical History / Comment(s): pt denies any significant medical conditions in mother or father General Exam General appearance: alert, in no apparent distress Head exam: Present: atraumatic, normocephalic Eye exam: Present: normal appearance, PERRL ENT exam: Present: normal exam Neck exam: Present: normal inspection. Absent: tenderness, meningismus Respiratory exam: Present: rhonchi. Absent: respiratory distress Cardiovascular Exam: Present: regular rate, normal rhythm GI/Abdominal exam: Present: soft. Absent: distended, tenderness Extremities exam: Present: normal inspection, normal capillary refill Neurological exam: Present: alert, oriented X3, CN II-XII intact. Absent: motor sensory deficit Psychiatric exam: Present: normal affect, normal mood Skin exam: Present: warm, dry, intact. Absent: cyanosis, diaphoretic Course Vital Signs 06/25/18 06/25/18 06/25/18 10:56 12:25 13:15 Temperature 97.5 F L Pulse Rate 110 H 99 100 Respiratory 20 18 22 Rate Blood Pressure 98/59 75/50 81/49 O2 Sat by Pulse 99 96 98 Oximetry 06/25/18 13:44 Temperature Pulse Rate 95 Respiratory 22 Rate Blood Pressure 78/44 O2 Sat by Pulse 96 Oximetry EKG Findings - EKG Comments: EKG Findings:: EKG: Sinus tachycardia, left bundle branch block, rate of 106, SD interval 1:30, QRS duration 132, QTC 5:15, previous left bundle noted on EKG 06/08/2018. Medical Decision Making - Medical Decision Making 87-year-old female presenting from custodial with an episode of unresponsiveness and hypoxia. Patient does have history of CLL, CHF, and recent pneumonia. She appears fluid overloaded on exam however blood pressure is low in the 80s systolic. Chest x-ray obtained, there is concern for CHF and possibility of bilateral infiltrates. White blood cell count is elevated at 353 , patient's baseline is in the 200s. She does have CLL. This is discussed with hematology, Dr. Calzada, this is typical of this patient's presentation and does not require urgent treatment. Hemoglobin 7.9, platelets are 140. Creatinine is 1.2, there is lactic of 1.0 which is normal. Both BMP and troponin are elevated. Patient's symptoms may be related to congestive heart failure with concurrent pneumonia. She will be given a dose of IV Lasix in an attempt to improve her oxygenation and hemodynamics. She will be admitted for further evaluation and treatment. Dr. Wiley will accept admission. - Lab Data Result diagrams: 06/25/18 11:24 06/25/18 11:24 Lab Results 06/25/18 06/25/18 06/25/18 Range/Units 11:24 11:24 11:24 WBC 353.5 H* (3.8-10.6) k/uL RBC 2.74 L (3.80-5.40) m/uL Hgb 7.8 L (11.4-16.0) gm/dL Hct 25.6 L (34.0-46.0) % MCV 93.5 (80.0-100.0) fL MCH 28.7 (25.0-35.0) pg MCHC 30.6 L (31.0-37.0) g/dL RDW 18.2 H (11.5-15.5) % Plt Count 140 L (150-450) k/uL PT 12.0 (9.0-12.0) sec INR 1.3 H (<1.2) APTT 20.6 L (22.0-30.0) sec VBG pH (7.31-7.41) VBG pCO2 (37-51) mmHg VBG HCO3 (24-28) mmol/L Sodium 136 L (137-145) mmol/L Potassium 3.8 (3.5-5.1) mmol/L Chloride 96 L (98-107) mmol/L Carbon Dioxide 29 (22-30) mmol/L Anion Gap 11 mmol/L BUN 65 H (7-17) mg/dL Creatinine 1.20 H (0.52-1.04) mg/dL Est GFR (CKD-EPI)AfAm 47 (>60 ml/min/1.73 sqM) Est GFR (CKD-EPI)NonAf 41 (>60 ml/min/1.73 sqM) Glucose 131 H (74-99) mg/dL Plasma Lactic Acid Burke (0.7-2.0) mmol/L Calcium 8.6 (8.4-10.2) mg/dL Magnesium 2.5 H (1.6-2.3) mg/dL Total Bilirubin 0.7 (0.2-1.3) mg/dL AST 41 H (14-36) U/L ALT 32 (9-52) U/L Alkaline Phosphatase 87 (38-126) U/L Total Creatine Kinase (30-135) U/L CK-MB (CK-2) (0.0-2.4) ng/mL CK-MB (CK-2) Rel Index Troponin I (0.000-0.034) ng/mL NT-Pro-B Natriuret Pep pg/mL Total Protein 5.8 L (6.3-8.2) g/dL Albumin 3.7 (3.5-5.0) g/dL Urine Color Urine Appearance (Clear) Urine pH (5.0-8.0) Ur Specific [place] (1.001-1.035) Urine Protein (Negative) Urine Glucose (UA) (Negative) Urine Ketones (Negative) Urine Blood (Negative) Urine Nitrite (Negative) Urine Bilirubin (Negative) Urine Urobilinogen (<2.0) mg/dL Ur Leukocyte Esterase (Negative) Urine WBC (0-5) /hpf Ur Squamous Epith Cells (0-4) /hpf Urine Bacteria (None) /hpf Urine Mucus (None) /hpf 06/25/18 06/25/18 06/25/18 Range/Units 11:24 11:24 11:24 WBC (3.8-10.6) k/uL RBC (3.80-5.40) m/uL Hgb (11.4-16.0) gm/dL Hct (34.0-46.0) % MCV (80.0-100.0) fL MCH (25.0-35.0) pg MCHC (31.0-37.0) g/dL RDW (11.5-15.5) % Plt Count (150-450) k/uL PT (9.0-12.0) sec INR (<1.2) APTT (22.0-30.0) sec VBG pH (7.31-7.41) VBG pCO2 (37-51) mmHg VBG HCO3 (24-28) mmol/L Sodium (137-145) mmol/L Potassium (3.5-5.1) mmol/L Chloride (98-107) mmol/L Carbon Dioxide (22-30) mmol/L Anion Gap mmol/L BUN (7-17) mg/dL Creatinine (0.52-1.04) mg/dL Est GFR (CKD-EPI)AfAm (>60 ml/min/1.73 sqM) Est GFR (CKD-EPI)NonAf (>60 ml/min/1.73 sqM) Glucose (74-99) mg/dL Plasma Lactic Acid Burke 1.0 (0.7-2.0) mmol/L Calcium (8.4-10.2) mg/dL Magnesium (1.6-2.3) mg/dL Total Bilirubin (0.2-1.3) mg/dL AST (14-36) U/L ALT (9-52) U/L Alkaline Phosphatase (38-126) U/L Total Creatine Kinase 38 (30-135) U/L CK-MB (CK-2) 3.3 H* (0.0-2.4) ng/mL CK-MB (CK-2) Rel Index 8.7 Troponin I 0.645 H* (0.000-0.034) ng/mL NT-Pro-B Natriuret Pep 17238 pg/mL Total Protein (6.3-8.2) g/dL Albumin (3.5-5.0) g/dL Urine Color Urine Appearance (Clear) Urine pH (5.0-8.0) Ur Specific [place] (1.001-1.035) Urine Protein (Negative) Urine Glucose (UA) (Negative) Urine Ketones (Negative) Urine Blood (Negative) Urine Nitrite (Negative) Urine Bilirubin (Negative) Urine Urobilinogen (<2.0) mg/dL Ur Leukocyte Esterase (Negative) Urine WBC (0-5) /hpf Ur Squamous Epith Cells (0-4) /hpf Urine Bacteria (None) /hpf Urine Mucus (None) /hpf 06/25/18 06/25/18 Range/Units 11:24 13:23 WBC (3.8-10.6) k/uL RBC (3.80-5.40) m/uL Hgb (11.4-16.0) gm/dL Hct (34.0-46.0) % MCV (80.0-100.0) fL MCH (25.0-35.0) pg MCHC (31.0-37.0) g/dL RDW (11.5-15.5) % Plt Count (150-450) k/uL PT (9.0-12.0) sec INR (<1.2) APTT (22.0-30.0) sec VBG pH 7.51 H (7.31-7.41) VBG pCO2 36 L (37-51) mmHg VBG HCO3 28 (24-28) mmol/L Sodium (137-145) mmol/L Potassium (3.5-5.1) mmol/L Chloride (98-107) mmol/L Carbon Dioxide (22-30) mmol/L Anion Gap mmol/L BUN (7-17) mg/dL Creatinine (0.52-1.04) mg/dL Est GFR (CKD-EPI)AfAm (>60 ml/min/1.73 sqM) Est GFR (CKD-EPI)NonAf (>60 ml/min/1.73 sqM) Glucose (74-99) mg/dL Plasma Lactic Acid Burke (0.7-2.0) mmol/L Calcium (8.4-10.2) mg/dL Magnesium (1.6-2.3) mg/dL Total Bilirubin (0.2-1.3) mg/dL AST (14-36) U/L ALT (9-52) U/L Alkaline Phosphatase (38-126) U/L Total Creatine Kinase (30-135) U/L CK-MB (CK-2) (0.0-2.4) ng/mL CK-MB (CK-2) Rel Index Troponin I (0.000-0.034) ng/mL NT-Pro-B Natriuret Pep pg/mL Total Protein (6.3-8.2) g/dL Albumin (3.5-5.0) g/dL Urine Color Light Yellow Urine Appearance Clear (Clear) Urine pH 6.5 (5.0-8.0) Ur Specific [place] 1.008 (1.001-1.035) Urine Protein Negative (Negative) Urine Glucose (UA) Negative (Negative) Urine Ketones Negative (Negative) Urine Blood Negative (Negative) Urine Nitrite Negative (Negative) Urine Bilirubin Negative (Negative) Urine Urobilinogen <2.0 (<2.0) mg/dL Ur Leukocyte Esterase Large H (Negative) Urine WBC 28 H (0-5) /hpf Ur Squamous Epith Cells 1 (0-4) /hpf Urine Bacteria Rare H (None) /hpf Urine Mucus Many H (None) /hpf Disposition Clinical Impression: Congestive heart failure, Troponin level elevated, CLL (chronic lymphocytic leukemia), Anemia, Pneumonia Disposition: ADMITTED IP TO THIS [facility] Condition: Serious Is patient prescribed a controlled substance at d/c from ED?: No Referrals: Janeth Castillo DO [Primary Care Provider] - 1-2 days Decision to Admit Reason: Admit from EC Decision Date: 06/25/18 Decision Time: 13:58
[2018-06-25 11:55] LABS: INR 1.3 (<1.2)
--- NOTE | 2018-06-25 11:55 | XR ---
EXAMINATION TYPE: XR chest 2V DATE OF EXAM: 06/25/2018 COMPARISON: Chest x-ray from 9 days ago. HISTORY: New shortness of breath, current pneumonia TECHNIQUE: Frontal and lateral views of the chest are obtained. FINDINGS: The osseous structures remain demineralized. There is redemonstration of cardiomegaly with atherosclerotic thoracic aorta. There is persistent right basilar opacity. There is worsening left b asilar opacity. Upper lungs are clear without pneumothorax. IMPRESSION: Suspect CHF exacerbation as there is cardiomegaly with small to moderate-sized left grea ter than right pleural effusions. There is associated bibasilar atelectasis. Underlying acute infiltr ate is not excluded.
[2018-06-25 11:58] LABS: Albumin 3.7 g/dL (3.5-5.0); Calcium 8.6 mg/dL (8.4-10.2); Magnesium 2.5 mg/dL (1.6-2.3); Potassium 3.8 mmol/L (3.5-5.1); Total Bilirubin 0.7 mg/dL (0.2-1.3); Total Protein 5.8 g/dL (6.3-8.2)
[2018-06-25 12:00] LABS: Partial Thromboplastin Time 20.6 sec (22.0-30.0)
[2018-06-25 12:01] LABS: VBG PH 7.51 (7.31-7.41)
[2018-06-25 12:05] LABS: Anisocytosis Slight; HCT 25.6 % (34.0-46.0); HGB 7.8 gm/dL (11.4-16.0); Hypochromasia Marked; MCH 28.7 pg (25.0-35.0); MCHC 30.6 g/dL (31.0-37.0); MCV 93.5 fL (80.0-100.0); Platelet Count 140 k/uL (150-450); RBC 2.74 m/uL (3.80-5.40); RDW 18.2 % (11.5-15.5)
[2018-06-25 12:08] LABS: WBC 353.5 k/uL (3.8-10.6)
[2018-06-25] MEDS ORDERED: CEFEPIME 2 GM in SODIUM CHLORIDE 0.9% 50 ML IVPB STA (12:17)
[2018-06-25] MEDS ORDERED: VANCOMYCIN IV PER PHARMACY 1 EACH MISC MISCELLANE PRN (12:17)
[2018-06-25] MEDS ORDERED: SODIUM CHLORIDE 0.9% 500 ML IV ONE (12:17)
[2018-06-25 12:22] LABS: Creatine Kinase MB 3.3 ng/mL (0.0-2.4); Troponin I 0.645 ng/mL (0.000-0.034)
[2018-06-25] MEDS ORDERED: VANCOMYCIN 1,000 MG in SODIUM CHLORIDE 0.9% 250 ML IVPB ONE (12:30)
[2018-06-25] MEDS ORDERED: SODIUM CHLORIDE 0.9% 1,000 ML IV SCH (12:30)
[2018-06-25 13:15] LABS: Blast Cells # (M) 17.68 k/uL (0); Nucleated Red Blood Cells 0 /100 WBC (0-0); Total Cells Counted 200
[2018-06-25 13:16] LABS: Poikilocytosis (M) Present
[2018-06-25 13:41] LABS: Appearance,Urine Clear (Clear); Bacteria,Urine Rare /hpf; Bilirubin,Urine Negative (Negative); Blood,Urine Negative (Negative); Color,Urine Light Yellow; Glucose,Urine (UA) Negative (Negative); Ketones,Urine Negative (Negative); Leukocyte Esterase,Urine Large (Negative); Mucus,Urine Many /hpf; Nitrite,Urine Negative (Negative); PH, Urine 6.5 (5.0-8.0); Protein,Urine Negative (Negative); Specific Gravity,Urine 1.008 (1.001-1.035); Squamous Epithelial Cell,Urine 1 /hpf (0-4); Urobilinogen,Urine <2.0 mg/dL (<2.0); WBC,Urine 28 /hpf (0-5)
[2018-06-25] MEDS ORDERED: FUROSEMIDE 10 MG/ML 4 ML VIAL IV STA (13:53)
[2018-06-25] MEDS ORDERED: NALOXONE 0.4 MG/ML 1 ML VIAL IV PRN (13:59)
[2018-06-25] MEDS ORDERED: BISACODYL 10 MG SUPP RECTAL PRN (14:35)
[2018-06-25 14:46] LABS: Lymphocytes # (M) 335.83 k/uL (1.0-4.8); Neutrophils # (M) 10.61 k/uL (1.3-7.7); Neutrophils % (M) 3 %
[2018-06-25 14:47] LABS: Monocytes # (M) 7.07 k/uL (0-1.0)
[2018-06-25] MEDS ORDERED: IPRATROPIUM-ALBUTEROL 3 ML NEB INHALATION PRN (14:55)
--- NOTE | 2018-06-25 15:07 | P.HPIM ---
History of Present Illness H&P Date: 06/25/18 Chief Complaint: Shortness of breath with hypoxia This is a 87-year-old female with a known history of CLL, congestive heart failure with a known EF of 20-25%, pleural effusions requiring left thoracentesis on 06/18/2018, hypothyroidism, hypertension and hyperlipidemia. Patient was currently at [facility] after being discharged from the hospital on June 18. At that time she was treated for congestive heart failure exacerbation and had undergone a left thoracentesis for pleural effusion. She was discharged on Lasix 40 mg daily. She is currently been on Levaquin for pneumonia. Per ER report they were notified from the [facility] the patient was dyspneic and having episodes of unresponsiveness and oxygen saturation was in the 80s. Oxygen supplement was placed and patient was transferred to the hospital for further evaluation and treatment. Chest x-ray shows suspected CHF exacerbation as there is cardiomegaly with small to moderate sized left greater than right pleural effusions. There is associated bibasilar atelectasis. Underlying acute infiltrate is not excluded. Patient started on cefepime and vancomycin in the emergency room. Patient also has evidence of a urinary tract infection urine culture obtained. Patient had evidence of fluid overload in the ER and was given IV Lasix 40 mg. Patient desats very easily. She is a mouth breather. Patient has been encouraged to breathe deeply. Her nose and her oxygen saturation does drop and to around [id number] with the deep breathing she is able to get her oxygen saturations into the 90s. She also is having episodes of hypotension. Blood pressure 78/44. It appears that she did receive a IV fluid bolus in the ER. She does have crackles on the right lower lobe. White count is 353.5, hemoglobin 7.8., Platelets are 140. At this time her aspirin will be on hold. She'll be seen evaluated by oncology. Pulmonary and cardiology both been consulted in regards to congestive heart failure and pleural effusions. BNP is elevated at 35,300. She also has elevated troponin of 0.645. Patient denies any chest pain. Patient denies any fever chills or sweats. Denies any cough. Denies any nausea vomiting. Denies abdominal changes or urinary symptoms. Review of Systems Please refer to HPI otherwise unremarkable Past Medical History Past Medical History: Cancer, Heart Failure, Hyperlipidemia, Hypertension, Thyroid Disorder Additional Past Medical History / Comment(s): CLL History of Any Multi-Drug Resistant Organisms: None Reported Past Surgical History: Appendectomy, Cholecystectomy, Hysterectomy Past Anesthesia/Blood Transfusion Reactions: No Reported Reaction Past Psychological History: No Psychological Hx Reported Additional Psychological History / Comment(s): Patient lives with daughter. Patient denies ever using tobacco. Jimn denies ever using alcohol. Smoking Status: Never smoker Past Alcohol Use History: None Reported Past Drug Use History: None Reported - Past Family History Father Family Medical History: No Reported History Additional Family Medical History / Comment(s): pt denies any significant medical conditions in mother or father Medications and Allergies Home Medications Medication Instructions Recorded Confirmed Type Allopurinol [Zyloprim] 300 mg PO DAILY 03/12/17 06/25/18 History Omeprazole 20 mg PO DAILY 03/12/17 06/25/18 History Gabapentin [Neurontin] 400 mg PO BID 05/20/18 06/25/18 History Levothyroxine Sodium [Synthroid] 25 mcg PO DAILY 05/20/18 06/25/18 History predniSONE 5 mg PO DAILY 05/20/18 06/25/18 History Potassium Chloride ER [K-Dur 10] 10 meq PO DAILY #30 tab 05/22/18 06/25/18 Rx Furosemide [Lasix] 40 mg PO DAILY #30 tablet 06/18/18 06/25/18 Rx Aspirin 81 mg PO HS 06/25/18 06/25/18 History Bisacodyl 10 mg RECTAL DAILY PRN 06/25/18 06/25/18 History Ipratropium-Albuterol Nebulize 3 ml INHALATION RT-Q6H PRN 06/25/18 06/25/18 History [Duoneb 0.5 mg-3 mg/3 ml Soln] Levofloxacin [Levaquin] 500 mg PO DAILY 06/25/18 06/25/18 History Melatonin 3 mg PO HS PRN 06/25/18 06/25/18 History Menthol/Zinc Oxide [Calmoseptine 1 applic TOPICAL TID 06/25/18 06/25/18 History Ointment] Allergies Allergy/AdvReac Type Severity Reaction Status Date / Time No Known Allergies Allergy Verified 06/25/18 11:16 Physical Exam Vitals: Vital Signs Temp Pulse Resp BP Pulse Ox 06/25/18 13:44 95 22 78/44 96 06/25/18 13:15 100 22 81/49 98 06/25/18 12:25 99 18 75/50 96 06/25/18 10:56 97.5 F L 110 H 20 98/59 99 Intake and Output 06/24/18 06/25/18 06/25/18 22:59 06:59 14:59 Other: Weight 56.699 kg Gen.: No evidence of distress Head normocephalic Neck supple Lungs crackles right lower lobe Heart regular rate and rhythm S1-S2, no rub or gallop Abdomen is soft nontender nondistended positive bowel sounds no hepatosplenomegaly Extremities no edema Neuro alert and orientated to 3 Results CBC & Chem 7: 06/25/18 11:24 06/25/18 11:24 Labs: Abnormal Lab Results - Last 24 Hours (Table) 06/25/18 06/25/18 06/25/18 Range/Units 11:24 11:24 11:24 WBC 353.5 H* (3.8-10.6) k/uL RBC 2.74 L (3.80-5.40) m/uL Hgb 7.8 L (11.4-16.0) gm/dL Hct 25.6 L (34.0-46.0) % MCHC 30.6 L (31.0-37.0) g/dL RDW 18.2 H (11.5-15.5) % Plt Count 140 L (150-450) k/uL INR 1.3 H (<1.2) APTT 20.6 L (22.0-30.0) sec VBG pH (7.31-7.41) VBG pCO2 (37-51) mmHg Sodium 136 L (137-145) mmol/L Chloride 96 L (98-107) mmol/L BUN 65 H (7-17) mg/dL Creatinine 1.20 H (0.52-1.04) mg/dL Glucose 131 H (74-99) mg/dL Magnesium 2.5 H (1.6-2.3) mg/dL AST 41 H (14-36) U/L CK-MB (CK-2) (0.0-2.4) ng/mL Troponin I (0.000-0.034) ng/mL Total Protein 5.8 L (6.3-8.2) g/dL Ur Leukocyte Esterase (Negative) Urine WBC (0-5) /hpf Urine Bacteria (None) /hpf Urine Mucus (None) /hpf 06/25/18 06/25/18 06/25/18 Range/Units 11:24 11:24 13:23 WBC (3.8-10.6) k/uL RBC (3.80-5.40) m/uL Hgb (11.4-16.0) gm/dL Hct (34.0-46.0) % MCHC (31.0-37.0) g/dL RDW (11.5-15.5) % Plt Count (150-450) k/uL INR (<1.2) APTT (22.0-30.0) sec VBG pH 7.51 H (7.31-7.41) VBG pCO2 36 L (37-51) mmHg Sodium (137-145) mmol/L Chloride (98-107) mmol/L BUN (7-17) mg/dL Creatinine (0.52-1.04) mg/dL Glucose (74-99) mg/dL Magnesium (1.6-2.3) mg/dL AST (14-36) U/L CK-MB (CK-2) 3.3 H* (0.0-2.4) ng/mL Troponin I 0.645 H* (0.000-0.034) ng/mL Total Protein (6.3-8.2) g/dL Ur Leukocyte Esterase Large H (Negative) Urine WBC 28 H (0-5) /hpf Urine Bacteria Rare H (None) /hpf Urine Mucus Many H (None) /hpf Assessment and Plan Assessment: 1. Acute hypoxic respiratory failure: Likely secondary to congestive heart failure exacerbation, pleural effusions and possible pneumonia. Patient has been placed on oxygen. Pulmonary service has been consulted. Change breathing treatments to 4 times a day and as needed 2. Acute on chronic systolic congestive heart failure exacerbation: Echo from May 2018 shows an EF of 20-25% and severe aortic stenosis. Patient has elevated BNP. Received a dose of IV Lasix in the ER. Cardiology will be consulted 3. Bilateral pleural effusions: with moderate sized left greater than right pleural effusion on chest x-ray. Pulmonary service consulted. Last hospitalization [place] 15 patient did require a left-sided thoracentesis 4. Possible pneumonia: Check sputum culture. Patient started on vancomycin and cefepime and ER. 5. Recent pneumonia on Levaquin outpatient 6. UTI: Check urine culture continue with antibiotics 7. Chronic lymphocytic leukemia: Oncology consulted. Patient does have evidence of pancytopenia likely related to her CLL. We'll await further recommendations per oncology. Patient's aspirin on hold. White count 353.5, hemoglobin 7.8, platelets 140 8. Acute kidney injury: creatinine 1.20. Monitor closely while being diuresed 9. Hypotension: Patient received fluid bolus and ER 10. Elevated troponin: Cardiology consulted 11. Hypothyroidism continue Synthroid GI prophylaxis omeprazole and DVT prophylaxis SCDs Time with Patient: Greater than 30 (Greater than 60% of the total time spent in counseling and coordination of care.I performed an examination of the patient and discussed their management with the physician Ambulance Mechanic. I have reviewed the Physician Ambulance Mechanic's notes and agree with the documented findings and plan of care)
[2018-06-25] MEDS: MENTHOL-ZINC OXIDE OINT 113 GM TUBE TOPICAL SCH ×2 (18:05→21:00)
[2018-06-25] MEDS: IPRATROPIUM-ALBUTEROL 3 ML NEB INHALATION SCH (20:21)
[2018-06-25] MEDS: GABAPENTIN 400 MG CAP PO SCH (21:00)
[2018-06-26] MEDS: IPRATROPIUM-ALBUTEROL 3 ML NEB INHALATION SCH ×4 (04:39→20:06)
[2018-06-26] MEDS: LEVOTHYROXINE 25 MCG TAB PO SCH (06:06)
[2018-06-26] MEDS: PANTOPRAZOLE 40 MG TABLET PO SCH (06:07)
[2018-06-26 06:49] LABS: Anisocytosis Slight; HCT 23.8 % (34.0-46.0); HGB 7.2 gm/dL (11.4-16.0); Hypochromasia Marked; MCH 29.3 pg (25.0-35.0); MCHC 30.2 g/dL (31.0-37.0); Macrocytosis Slight; Platelet Count 119 k/uL (150-450); RBC 2.46 m/uL (3.80-5.40); RDW 18.4 % (11.5-15.5)
[2018-06-26 06:57] LABS: Albumin 3.2 g/dL (3.5-5.0); Potassium 3.2 mmol/L (3.5-5.1); Total Bilirubin 0.6 mg/dL (0.2-1.3); Total Protein 5.2 g/dL (6.3-8.2)
[2018-06-26 07:06] LABS: WBC 314.5 k/uL (3.8-10.6)
[2018-06-26 08:12] LABS: Eosinophils # (M) 3.15 k/uL (0-0.7); Lymphocytes # (M) 301.92 k/uL (1.0-4.8); Monocytes # (M) 3.15 k/uL (0-1.0); Neutrophils # (M) 9.44 k/uL (1.3-7.7); Neutrophils % (M) 3 %; Nucleated Red Blood Cells 0 /100 WBC (0-0); Poikilocytosis (M) Present; Total Cells Counted 200
[2018-06-26] MEDS: MENTHOL-ZINC OXIDE OINT 113 GM TUBE TOPICAL SCH ×3 (08:22→20:11)
[2018-06-26] MEDS: GABAPENTIN 400 MG CAP PO SCH ×2 (08:22→20:10)
[2018-06-26] MEDS: ALLOPURINOL 300 MG TAB PO SCH (08:22)
[2018-06-26] MEDS: POTASSIUM CHLORIDE ER 10 MEQ TAB.ER.PRT PO SCH (08:22)
[2018-06-26] MEDS: predniSONE 5 MG TAB PO SCH (08:22)
[2018-06-26] MEDS: CEFEPIME 2 GM in SODIUM CHLORIDE 0.9% 50 ML IVPB SCH (08:22)
[2018-06-26] MEDS ORDERED: Potassium Replacement Protocol 1 EACH MISC MISCELLANE PRN (08:49)
[2018-06-26] MEDS: POTASSIUM CHLORIDE ER 20 MEQ TAB.ER PO SCH ×2 (09:00→10:02)
--- NOTE | 2018-06-26 10:22 | P.PN ---
Subjective Progress Note Date: 06/26/18 This is a 87-year-old female with a known history of CLL, congestive heart failure with a known EF of 20-25%, pleural effusions requiring left thoracentesis on 06/18/2018, hypothyroidism, hypertension and hyperlipidemia. Patient was currently at [facility] [place] [facility] after being discharged from the hospital on June 18. At that time she was treated for congestive heart failure exacerbation and had undergone a left thoracentesis for pleural effusion. She was discharged on Lasix 40 mg daily. She is currently been on Levaquin for pneumonia. Per ER report they were notified from the residential the patient was dyspneic and having episodes of unresponsiveness and oxygen saturation was in the 80s. Oxygen supplement was placed and patient was transferred to the hospital for further evaluation and treatment. Chest x-ray shows suspected CHF exacerbation as there is cardiomegaly with small to moderate sized left greater than right pleural effusions. There is associated bibasilar atelectasis. Underlying acute infiltrate is not excluded. Patient started on cefepime and vancomycin in the emergency room. Patient also has evidence of a urinary tract infection urine culture obtained. Patient had evidence of fluid overload in the ER and was given IV Lasix 40 mg. Patient desats very easily. She is a mouth breather. Patient has been encouraged to breathe deeply. Her nose and her oxygen saturation does drop and to around [id number] with the deep breathing she is able to get her oxygen saturations into the 90s. She also is having episodes of hypotension. Blood pressure 78/44. It appears that she did receive a IV fluid bolus in the ER. She does have crackles on the right lower lobe. White count is 353.5, hemoglobin 7.8., Platelets are 140. At this time her aspirin will be on hold. She'll be seen evaluated by oncology. Pulmonary and cardiology both been consulted in regards to congestive heart failure and pleural effusions. BNP is elevated at 35,300. She also has elevated troponin of 0.645. Patient denies any chest pain. Patient denies any fever chills or sweats. Denies any cough. Denies any nausea vomiting. Denies abdominal changes or urinary symptoms. On 06/26/2018 patient is currently sitting up in bed. Patient is a & O 3. Patient at this point cannot tolerate laying flat without becoming short of breath. Patient currently on 3 L nasal cannula. Blood pressure remains marginal. White blood cell remains critical at 314.5. Hemoglobin 7.2. Potassium is 3.2. Replacement has been ordered. Patient currently on vancomycin and cefepime. Dr. Muro consulted for pulmonary. Dr. Renae consulted for cardiology and Dr. Calzada consulted per oncology. awaiting consult providers. Patient denies chest pain. Denies nausea vomiting or diarrhea. Denies any urinary burning and frequency. Objective - Vital Signs Vital signs: Vital Signs Temp 97.1 F L 06/26/18 08:00 Pulse 95 06/26/18 08:01 Resp 18 06/26/18 08:00 BP 80/48 06/26/18 08:00 Pulse Ox 96 06/26/18 08:00 Intake & Output 06/25/18 06/26/18 06/26/18 18:59 06:59 18:59 Intake Total 240 400 100 Balance 240 400 100 Weight 56.699 kg 49.5 kg Intake: Intake, IV Titration 400 Amount Sodium Chloride 0.9% 1, 400 000 ml @ 75 mls/hr IV . [id number] [facility] Rx#:[id number] Oral 240 100 Other: Voiding Method Bedpan Bedpan # Voids 300 - Exam Head normocephalic Neck supple Lungs crackles right lower lobe Heart regular rate and rhythm S1-S2, no rub or gallop Abdomen is soft nontender nondistended positive bowel sounds no hepatosplenomegaly Extremities no edema Neuro alert and orientated to 3 - Labs CBC & Chem 7: 06/26/18 06:23 06/26/18 06:23 Labs: Abnormal Lab Results - Last 24 Hours (Table) 06/25/18 06/25/18 06/25/18 Range/Units 11:24 11:24 11:24 WBC 353.5 H* (3.8-10.6) k/uL RBC 2.74 L (3.80-5.40) m/uL Hgb 7.8 L (11.4-16.0) gm/dL Hct 25.6 L (34.0-46.0) % MCHC 30.6 L (31.0-37.0) g/dL RDW 18.2 H (11.5-15.5) % Plt Count 140 L (150-450) k/uL Neutrophils # (Manual) 10.61 H (1.3-7.7) k/uL Lymphocytes # (Manual) 335.83 H (1.0-4.8) k/uL Monocytes # (Manual) 7.07 H (0-1.0) k/uL Eosinophils # (Manual) (0-0.7) k/uL Blast Cells # (Man) 17.68 H (0) k/uL INR 1.3 H (<1.2) APTT 20.6 L (22.0-30.0) sec VBG pH (7.31-7.41) VBG pCO2 (37-51) mmHg Sodium 136 L (137-145) mmol/L Potassium (3.5-5.1) mmol/L Chloride 96 L (98-107) mmol/L BUN 65 H (7-17) mg/dL Creatinine 1.20 H (0.52-1.04) mg/dL Glucose 131 H (74-99) mg/dL Calcium (8.4-10.2) mg/dL Magnesium 2.5 H (1.6-2.3) mg/dL AST 41 H (14-36) U/L CK-MB (CK-2) (0.0-2.4) ng/mL Troponin I (0.000-0.034) ng/mL Total Protein 5.8 L (6.3-8.2) g/dL Albumin (3.5-5.0) g/dL Ur Leukocyte Esterase (Negative) Urine WBC (0-5) /hpf Urine Bacteria (None) /hpf Urine Mucus (None) /hpf 06/25/18 06/25/18 06/25/18 Range/Units 11:24 11:24 13:23 WBC (3.8-10.6) k/uL RBC (3.80-5.40) m/uL Hgb (11.4-16.0) gm/dL Hct (34.0-46.0) % MCHC (31.0-37.0) g/dL RDW (11.5-15.5) % Plt Count (150-450) k/uL Neutrophils # (Manual) (1.3-7.7) k/uL Lymphocytes # (Manual) (1.0-4.8) k/uL Monocytes # (Manual) (0-1.0) k/uL Eosinophils # (Manual) (0-0.7) k/uL Blast Cells # (Man) (0) k/uL INR (<1.2) APTT (22.0-30.0) sec VBG pH 7.51 H (7.31-7.41) VBG pCO2 36 L (37-51) mmHg Sodium (137-145) mmol/L Potassium (3.5-5.1) mmol/L Chloride (98-107) mmol/L BUN (7-17) mg/dL Creatinine (0.52-1.04) mg/dL Glucose (74-99) mg/dL Calcium (8.4-10.2) mg/dL Magnesium (1.6-2.3) mg/dL AST (14-36) U/L CK-MB (CK-2) 3.3 H* (0.0-2.4) ng/mL Troponin I 0.645 H* (0.000-0.034) ng/mL Total Protein (6.3-8.2) g/dL Albumin (3.5-5.0) g/dL Ur Leukocyte Esterase Large H (Negative) Urine WBC 28 H (0-5) /hpf Urine Bacteria Rare H (None) /hpf Urine Mucus Many H (None) /hpf 06/26/18 06/26/18 Range/Units 06:23 06:23 WBC 314.5 H* (3.8-10.6) k/uL RBC 2.46 L (3.80-5.40) m/uL Hgb 7.2 L (11.4-16.0) gm/dL Hct 23.8 L (34.0-46.0) % MCHC 30.2 L (31.0-37.0) g/dL RDW 18.4 H (11.5-15.5) % Plt Count 119 L (150-450) k/uL Neutrophils # (Manual) 9.44 H (1.3-7.7) k/uL Lymphocytes # (Manual) 301.92 H (1.0-4.8) k/uL Monocytes # (Manual) 3.15 H (0-1.0) k/uL Eosinophils # (Manual) 3.15 H (0-0.7) k/uL Blast Cells # (Man) (0) k/uL INR (<1.2) APTT (22.0-30.0) sec VBG pH (7.31-7.41) VBG pCO2 (37-51) mmHg Sodium (137-145) mmol/L Potassium 3.2 L (3.5-5.1) mmol/L Chloride (98-107) mmol/L BUN 49 H (7-17) mg/dL Creatinine 1.10 H (0.52-1.04) mg/dL Glucose (74-99) mg/dL Calcium 8.0 L (8.4-10.2) mg/dL Magnesium (1.6-2.3) mg/dL AST (14-36) U/L CK-MB (CK-2) (0.0-2.4) ng/mL Troponin I (0.000-0.034) ng/mL Total Protein 5.2 L (6.3-8.2) g/dL Albumin 3.2 L (3.5-5.0) g/dL Ur Leukocyte Esterase (Negative) Urine WBC (0-5) /hpf Urine Bacteria (None) /hpf Urine Mucus (None) /hpf Microbiology - Last 24 Hours (Table) 06/25/18 20:00 Urine Culture - Preliminary Urine,Voided Assessment and Plan Assessment: 1. Acute hypoxic respiratory failure: Likely secondary to congestive heart failure exacerbation, pleural effusions and possible pneumonia. Patient has been placed on oxygen. Pulmonary service has been consulted. Change breathing treatments to 4 times a day and as needed. Dr. Muro per pulmonary consulted. Awaiting consult 2. Acute on chronic systolic congestive heart failure exacerbation: Echo from May 2018 shows an EF of 20-25% and severe aortic stenosis. Patient has elevated BNP. Received a dose of IV Lasix in the ER. Cardiology will be consulted 3. Bilateral pleural effusions: with moderate sized left greater than right pleural effusion on chest x-ray. Pulmonary service consulted. Last hospitalization June 20 patient did require a left-sided thoracentesis 4. Possible pneumonia: Check sputum culture. Patient started on vancomycin and cefepime and ER. 5. Recent pneumonia on Levaquin outpatient 6. UTI: Check urine culture continue with antibiotics 7. Chronic lymphocytic leukemia: Oncology consulted. Patient does have evidence of pancytopenia likely related to her CLL. We'll await further recommendations per oncology. Patient's aspirin on hold. White count 314.5, hemoglobin 7.2, platelets 119 8. Acute kidney injury: creatinine 1.20. Monitor closely while being diuresed. Creatinine improving to 1.10 9. Hypotension: Patient received fluid bolus and ER 10. Elevated troponin: Cardiology consulted 11. Hypothyroidism continue Synthroid GI prophylaxis omeprazole and DVT prophylaxis SCDs I performed an examination of the patient and discussed their management with the Nurse Practitioner. I have reviewed the Nurse Practitioner's notes and agree with the documented findings and plan of care
--- NOTE | 2018-06-26 11:00 | P.CRDCN ---
History of Present Illness Consult date: 06/26/18 Requesting physician: Agustin Wiley Consult reason: congestive heart failure Chief complaint: Shortness of breath History of present illness: This is a pleasant 87-year-old female with past medical history significant for chronic lymphocytic leukemia, hyperlipidemia, hypertension, hypothyroidism nonsmoker, no EtOH, who was recently discharged home from the hospital to [facility], after being in the hospital with congestive heart failure exacerbation as well as bilateral pleural effusions for which the patient underwent a left-sided thoracentesis. Patient also was noted to have pneumonia, and was on Levaquin. Patient was brought to the hospital on this occasion because she was noted by the staff there to be quite dyspneic, she was also having episodes of unresponsiveness, it was found that her oxygen saturations were around 80%. Chest x-ray on admission showed congestive heart failure exacerbation with a small to moderate size left greater than right pleural effusion. There was also associated bibasilar atelectasis, and an acute infiltrate was not excluded. Patient was started on cefepime and vancomycin in the emergency room. She was also initiated on IV Lasix. According to the patient, she doesn't feel more short of breath than her usual, but visually the patient does appear that she is short of breath and extremely weak. Patient's blood pressure in the emergency room was also noted to be 78/44 , she received an IV fluid bolus. White blood cell count 353.5 on admission, 314.5 this morning, hemoglobin 7.8 on admission, 7.2 this morning. Platelet count 140 on admission, 119 this morning. Blood gases were obtained on admission, pH 7.5, pCO2 36, HCO3 28. Sodium 137, potassium 3.8 on admission, 3.2 this morning. BUN on admission 65 and creatinine 1.2, 49 and 1.1 this morning. Magnesium 2.5. BNP level 35,300. Troponin 0.64. On review of most recent records, patient is noted to have an abnormality in the troponins in that range. Patient also has a positive UTI this admission. Blood pressure this morning 80/40, heart rate around 100, 96% on 3 L of oxygen. Chest x-ray shows a sinus tachycardia with nonspecific ST-T wave changes noted. Past Medical History Past Medical History: Cancer, Heart Failure, Hyperlipidemia, Hypertension, Thyroid Disorder Additional Past Medical History / Comment(s): CLL History of Any Multi-Drug Resistant Organisms: None Reported Past Surgical History: Appendectomy, Cholecystectomy, Hysterectomy Additional Past Surgical History / Comment(s): lt thoracentesis, lt cataract Past Anesthesia/Blood Transfusion Reactions: No Reported Reaction Past Psychological History: No Psychological Hx Reported Additional Psychological History / Comment(s): Patient lives with daughter. Patient denies ever using tobacco. Patietn denies ever using alcohol. Smoking Status: Never smoker Past Alcohol Use History: None Reported Past Drug Use History: None Reported - Past Family History Father Family Medical History: No Reported History Additional Family Medical History / Comment(s): pt denies any significant medical conditions in mother or father Medications and Allergies Home Medications Medication Instructions Recorded Confirmed Type Allopurinol [Zyloprim] 300 mg PO DAILY 03/12/17 06/25/18 History Omeprazole 20 mg PO DAILY 03/12/17 06/25/18 History Gabapentin [Neurontin] 400 mg PO BID 05/20/18 06/25/18 History Levothyroxine Sodium [Synthroid] 25 mcg PO DAILY 05/20/18 06/25/18 History predniSONE 5 mg PO DAILY 05/20/18 06/25/18 History Potassium Chloride ER [K-Dur 10] 10 meq PO DAILY #30 tab 05/22/18 06/25/18 Rx Furosemide [Lasix] 40 mg PO DAILY #30 tablet 06/18/18 06/25/18 Rx Aspirin 81 mg PO HS 06/25/18 06/25/18 History Bisacodyl 10 mg RECTAL DAILY PRN 06/25/18 06/25/18 History Ipratropium-Albuterol Nebulize 3 ml INHALATION RT-Q6H PRN 06/25/18 06/25/18 History [Duoneb 0.5 mg-3 mg/3 ml Soln] Levofloxacin [Levaquin] 500 mg PO DAILY 06/25/18 06/25/18 History Melatonin 3 mg PO HS PRN 06/25/18 06/25/18 History Menthol/Zinc Oxide [Calmoseptine 1 applic TOPICAL TID 06/25/18 06/25/18 History Ointment] Allergies Allergy/AdvReac Type Severity Reaction Status Date / Time No Known Allergies Allergy Verified 06/25/18 11:16 Physical Exam Vitals: Vital Signs Temp Pulse Pulse Resp BP BP Pulse Ox 06/26/18 08:01 95 06/26/18 08:00 97.1 F L 110 H 18 80/48 96 06/26/18 07:47 94 06/26/18 04:00 97.0 F L 97 18 81/56 93 L 06/26/18 00:00 98.3 F 99 18 86/48 98 06/25/18 20:37 80 06/25/18 20:22 78 96 06/25/18 20:00 98.3 F 99 18 86/48 98 06/25/18 18:09 97.2 F L 109 H 16 90/61 98 06/25/18 17:02 97.8 F 89 20 81/59 98 06/25/18 16:02 94 18 82/58 97 06/25/18 14:55 97.9 F 96 16 85/59 97 06/25/18 13:44 95 22 78/44 96 06/25/18 13:15 100 22 81/49 98 06/25/18 12:25 99 18 75/50 96 06/25/18 10:56 97.5 F L 110 H 20 98/59 99 Intake and Output 06/25/18 06/26/18 06/26/18 22:59 06:59 14:59 Intake Total 240 400 100 Balance 240 400 100 Intake: Intake, IV Titration 400 Amount Sodium Chloride 0.9% 1, 400 000 ml @ 75 mls/hr IV . [id number] [facility] Rx#:[id number] Oral 240 100 Other: Voiding Method Bedpan Bedpan Bedpan # Voids 300 Weight 49.5 kg PHYSICAL EXAMINATION: GENERAL: 87-year-old female, appears weak and short of breath at the time of my examination HEENT: Head is atraumatic, normocephalic. Pupils equal, round. Sclera anicteric. Conjunctiva are clear. Mucous membranes of the mouth are moist. Neck is supple. There no elevated jugular venous pressure. No carotid bruit is heard. HEART EXAMINATION: Heart S1 and S2 systolic murmur is heard. CHEST EXAMINATION: Lungs reveal rales bilaterally with diminished air entry bilaterally left greater than right. ABDOMEN: Soft, nontender. Bowel sounds are heard. No organomegaly noted. EXTREMITIES: 2+ peripheral pulses with no evidence of peripheral edema and no calf tenderness noted. NEUROLOGIC patient is awake, alert and oriented ?-3. . Results 06/26/18 06:23 06/26/18 06:23 Cardiac Enzymes 06/25/18 06/25/18 06/26/18 Range/Units 11:24 11:24 06:23 AST 41 H 34 (14-36) U/L CK-MB (CK-2) 3.3 H* (0.0-2.4) ng/mL Troponin I 0.645 H* (0.000-0.034) ng/mL Coagulation 06/25/18 Range/Units 11:24 PT 12.0 (9.0-12.0) sec APTT 20.6 L (22.0-30.0) sec CBC 06/25/18 06/26/18 Range/Units 11:24 06:23 WBC 353.5 H* 314.5 H* (3.8-10.6) k/uL RBC 2.74 L 2.46 L (3.80-5.40) m/uL Hgb 7.8 L 7.2 L (11.4-16.0) gm/dL Hct 25.6 L 23.8 L (34.0-46.0) % Plt Count 140 L 119 L (150-450) k/uL Comprehensive Metabolic Panel 06/25/18 06/26/18 Range/Units 11:24 06:23 Sodium 136 L 137 (137-145) mmol/L Potassium 3.8 3.2 L (3.5-5.1) mmol/L Chloride 96 L 100 (98-107) mmol/L Carbon Dioxide 29 29 (22-30) mmol/L BUN 65 H 49 H (7-17) mg/dL Creatinine 1.20 H 1.10 H (0.52-1.04) mg/dL Glucose 131 H 92 (74-99) mg/dL Calcium 8.6 8.0 L (8.4-10.2) mg/dL AST 41 H 34 (14-36) U/L ALT 32 28 (9-52) U/L Alkaline Phosphatase 87 73 (38-126) U/L Total Protein 5.8 L 5.2 L (6.3-8.2) g/dL Albumin 3.7 3.2 L (3.5-5.0) g/dL Current Medications Generic Name Dose Route Start Last Admin Trade Name Freq PRN Reason Stop Dose Admin Albuterol/Ipratropium 3 ml 06/25/18 14:55 Duoneb 0.5 Mg-3 Mg/3 Ml Soln INHALATION RT-Q2H PRN Shortness Of Breath Or Wheezing Albuterol/Ipratropium 3 ml 06/25/18 20:00 06/26/18 07:47 Duoneb 0.5 Mg-3 Mg/3 Ml Soln INHALATION 3 ml RT-Q6H JORDYN Administration Allopurinol 300 mg 06/26/18 09:00 06/26/18 08:22 Zyloprim PO 300 mg DAILY JORDYN Administration Bisacodyl 10 mg 06/25/18 14:35 Dulcolax RECTAL DAILY PRN Constipation Calamine/Phenol 1 applic 06/25/18 16:00 06/26/18 08:22 Risamine Oint TOPICAL 1 applic TID JORDYN Administration Gabapentin 400 mg 06/25/18 21:00 06/26/18 08:22 Neurontin PO 400 mg BID JORDYN Administration Cefepime HCl 2 gm/ Sodium 50 mls @ 100 mls/hr 06/26/18 09:00 06/26/18 08:22 Chloride IVPB 100 mls/hr Q24HR JORDYN Administration Vancomycin HCl 1,000 mg/ 250 mls @ 125 mls/hr 06/26/18 14:00 Sodium Chloride IVPB Q24H JORDYN Levothyroxine Sodium 25 mcg 06/26/18 06:30 06/26/18 06:06 Synthroid PO 25 mcg DAILY@0630 JORDYN Administration Miscellaneous Information 1 each 06/26/18 08:49 Potassium Per Protocol MISCELLANE DAILY PRN Per Protocol Protocol Naloxone HCl 0.2 mg 06/25/18 13:59 Narcan IV Q2M PRN Opioid Reversal Pantoprazole Sodium 40 mg 06/26/18 07:30 06/26/18 06:07 Protonix PO 40 mg [id number] JORDYN Administration Potassium Chloride 10 meq 06/26/18 09:00 06/26/18 08:22 K-Dur 10 PO 10 meq DAILY JORDYN Administration Prednisone 5 mg 06/26/18 09:00 06/26/18 08:22 PO 5 mg DAILY JORDYN Administration Intake and Output 06/25/18 06/26/18 06/26/18 22:59 06:59 14:59 Intake Total 240 400 100 Balance 240 400 100 Intake: Intake, IV Titration 400 Amount Sodium Chloride 0.9% 1, 400 000 ml @ 75 mls/hr IV . [id number] [facility] Rx#:[id number] Oral 240 100 Other: Voiding Method Bedpan Bedpan Bedpan # Voids 300 Weight 49.5 kg 06/26/18 06:23 06/26/18 06:23 EKG Interpretations (text) EKG shows a sinus tachycardia with nonspecific ST-T wave changes Assessment and Plan Plan: Assessment: 1. Acute hypoxic respiratory failure: Likely secondary to congestive heart failure exacerbation, pleural effusions and possible pneumonia. 2. Acute on chronic systolic congestive heart failure exacerbation: Echo from May 2018 shows an EF of 20-25% and severe aortic stenosis. Patient has elevated BNP. Received a dose of IV Lasix in the ER. 3. Bilateral pleural effusions: with moderate sized left greater than right pleural effusion on chest x-ray. Status post recent left-sided thoracentesis 4. Possible pneumonia 5. Recent pneumonia on Levaquin outpatient 6. UTI: 7. Chronic lymphocytic leukemia 8. Acute kidney injury 9. Hypotension 10. Elevated troponin, likely secondary to supply and demand this. 11. Hypothyroidism Plan Echocardiogram with Doppler study performed in May of this year revealed an ejection fraction of 20-25%. Severe global hypokinesia noted. Severe aortic stenosis. Mild to moderate mitral regurgitation, we will not repeat an echo on this admission. Patient did receive a one time dose of IV Lasix in the emergency room, we will start twice a day IV Lasix today. Patient is not on a beta tree, CLAUDIA inhibitor, or Aldactone at this time, blood pressure running in the 80s systolic. Further recommendations to follow. DNP note has been reviewed, I agree with a documented findings and plan of care. Patient was seen and examined.
[2018-06-26] MEDS: DIGOXIN 250 MCG/ML 2 ML AMP IVP SCH ×2 (13:11→19:07)
[2018-06-26] MEDS: VANCOMYCIN 1,000 MG in SODIUM CHLORIDE 0.9% 250 ML IVPB SCH (13:11)
--- NOTE | 2018-06-26 13:23 | US ---
EXAMINATION TYPE: US chest DATE OF EXAM: 06/26/2018 COMPARISON: US 2018 CLINICAL HISTORY: pleural effusion. Bilateral pleural effusion, exam done portable. TECHNIQUE: Targeted ultrasound of the posterior lower bilateral hemithoraces EXAM MEASUREMENTS: Right Pleural Effusion pocket size: 11.2 cm Lung seen within mid portion of fluid pocket. Right skin surface to fluid distance: 2.2 cm Left Pleural Effusion pocket size: 9.7 cm Lung seen within mid portions of fluid pocket. Left skin surface to fluid distance: 1.8 cm Right side MARKED for possible thoracentesis outside the dept. Left side MARKED for possible thoracentesis outside the dept. Pulmonologists are able to review the images in the patient?s EMR. IMPRESSIONS: Bilateral pleural effusion
--- NOTE | 2018-06-26 13:46 | P.CNPUL ---
History of Present Illness Consult date: 06/26/18 Reason for consult: dyspnea, cough, chest pain, pleural effusion History of present illness: This is a 87-year-old female with a known history of CLL, congestive heart failure with a known EF of 20-25%, pleural effusions requiring left thoracentesis on 06/18/2018, hypothyroidism, hypertension and hyperlipidemia. Patient is well-known to me, patient currently at [facility], after being discharged from the hospital on June 18. At that time she was treated for congestive heart failure exacerbation and had undergone a left thoracentesis for pleural effusion. She was discharged on Lasix 40 mg daily. She is currently been on Levaquin for pneumonia. ER was notified about patient was dyspneic and having episodes of unresponsiveness and oxygen saturation was in the 80s. Oxygen supplement was placed and patient was transferred to the hospital for further evaluation and treatment. I have reviewed Chest x-ray shows suspected CHF exacerbation as there is cardiomegaly with small to moderate sized left greater than right pleural effusions. And have ordered the ultrasound of the chest, There is associated bibasilar atelectasis. Underlying acute infiltrate is not excluded. Patient started on cefepime and vancomycin in the emergency room. Patient also has evidence of a urinary tract infection urine culture obtained. Patient had evidence of fluid overload in the ER and was given IV Lasix 40 mg. Patient desaturated easily and drop her saturation into 80s,. 79 with the deep breathing she is able to get her oxygen saturations into the 90s. She also is having episodes of hypotension and also has a history of chronic hypertension with systolic blood pressure into 80s, on arrival was 78/44 patient did receive a IV fluid bolus in the ER. Significant labs include White count is 353.5, hemoglobin 7.8., Platelets are 140. At this time her aspirin is on hold. She'll be seen evaluated by oncology. Pulmonary and cardiology both been consulted in regards to congestive heart failure and pleural effusions. BNP is elevated at 35,300. She also has elevated troponin of 0.645. Patient denies any chest pain. Patient denies any fever chills or sweats. Denies any cough. Denies any nausea vomiting. Denies abdominal changes or urinary symptoms, however is short of breath with ongoing tachypnea Review of Systems All systems: negative Past Medical History Past Medical History: Cancer, Heart Failure, Hyperlipidemia, Hypertension, Thyroid Disorder Additional Past Medical History / Comment(s): CLL History of Any Multi-Drug Resistant Organisms: None Reported Past Surgical History: Appendectomy, Cholecystectomy, Hysterectomy Additional Past Surgical History / Comment(s): lt thoracentesis, lt cataract Past Anesthesia/Blood Transfusion Reactions: No Reported Reaction Past Psychological History: No Psychological Hx Reported Additional Psychological History / Comment(s): Patient lives with daughter. Patient denies ever using tobacco. Patietn denies ever using alcohol. Smoking Status: Never smoker Past Alcohol Use History: None Reported Past Drug Use History: None Reported - Past Family History Father Family Medical History: No Reported History Additional Family Medical History / Comment(s): pt denies any significant medical conditions in mother or father Medications and Allergies Home Medications Medication Instructions Recorded Confirmed Type Allopurinol [Zyloprim] 300 mg PO DAILY 03/12/17 06/25/18 History Omeprazole 20 mg PO DAILY 03/12/17 06/25/18 History Gabapentin [Neurontin] 400 mg PO BID 05/20/18 06/25/18 History Levothyroxine Sodium [Synthroid] 25 mcg PO DAILY 05/20/18 06/25/18 History predniSONE 5 mg PO DAILY 05/20/18 06/25/18 History Potassium Chloride ER [K-Dur 10] 10 meq PO DAILY #30 tab 05/22/18 06/25/18 Rx Furosemide [Lasix] 40 mg PO DAILY #30 tablet 06/18/18 06/25/18 Rx Aspirin 81 mg PO HS 06/25/18 06/25/18 History Bisacodyl 10 mg RECTAL DAILY PRN 06/25/18 06/25/18 History Ipratropium-Albuterol Nebulize 3 ml INHALATION RT-Q6H PRN 06/25/18 06/25/18 History [Duoneb 0.5 mg-3 mg/3 ml Soln] Levofloxacin [Levaquin] 500 mg PO DAILY 06/25/18 06/25/18 History Melatonin 3 mg PO HS PRN 06/25/18 06/25/18 History Menthol/Zinc Oxide [Calmoseptine 1 applic TOPICAL TID 06/25/18 06/25/18 History Ointment] Allergies Allergy/AdvReac Type Severity Reaction Status Date / Time No Known Allergies Allergy Verified 06/25/18 11:16 Physical Exam Vitals: Vital Signs Temp Pulse Pulse Resp BP BP Pulse Ox 06/26/18 12:00 97.6 F 107 H 20 83/48 95 06/26/18 08:01 95 06/26/18 08:00 97.1 F L 110 H 18 80/48 96 06/26/18 07:47 94 06/26/18 04:00 97.0 F L 97 18 81/56 93 L 06/26/18 00:00 98.3 F 99 18 86/48 98 06/25/18 20:37 80 06/25/18 20:22 78 96 06/25/18 20:00 98.3 F 99 18 86/48 98 06/25/18 18:09 97.2 F L 109 H 16 90/61 98 06/25/18 17:02 97.8 F 89 20 81/59 98 06/25/18 16:02 94 18 82/58 97 06/25/18 14:55 97.9 F 96 16 85/59 97 06/25/18 13:44 95 22 78/44 96 Intake and Output 06/25/18 06/26/18 06/26/18 22:59 06:59 14:59 Intake Total 240 400 310 Output Total 200 Balance 240 400 110 Intake: Intake, IV Titration 400 210 Amount Cefepime 2 gm In Sodium 50 Chloride 0.9% 50 ml @ 100 mls/hr IVPB Q24HR [facility] [place] Rx #:[id number] Sodium Chloride 0.9% 1, 400 160 000 ml @ 75 mls/hr IV . [id number] [facility] Rx#:[id number] Oral 240 100 Output: Urine 200 Other: Voiding Method Bedpan Bedpan Bedpan # Voids 300 Weight 49.5 kg 49.5 kg General appearance: alert, in mild respiratory distress Head exam: Present: atraumatic, normocephalic Eye exam: Present: normal appearance, PERRL ENT exam: Present: normal exam Neck exam: Present: normal inspection. Absent: tenderness, meningismus Respiratory exam: Present: rhonchi. The last to percussion and decrease in air entry bilaterally more so on the left side compared right side Cardiovascular Exam: Present: regular rate, normal rhythm GI/Abdominal exam: Present: soft. Absent: distended, tenderness Extremities exam: Present: normal inspection, normal capillary refill Neurological exam: Present: alert, oriented X3, CN II-XII intact. Absent: motor sensory deficit Psychiatric exam: Present: normal affect, normal mood Skin exam: Present: warm, dry, intact. Absent: cyanosis, diaphoretic Results - Laboratory Findings CBC and BMP: 06/26/18 06:23 06/26/18 06:23 PT/INR, D-dimer PT 12.0 sec (9.0-12.0) 06/25/18 11:24 INR 1.3 (<1.2) H 06/25/18 11:24 Abnormal lab findings: Abnormal Labs 06/25/18 06/25/18 06/25/18 11:24 11:24 11:24 WBC 353.5 H* RBC 2.74 L Hgb 7.8 L Hct 25.6 L MCHC 30.6 L RDW 18.2 H Plt Count 140 L Neutrophils # (Manual) 10.61 H Lymphocytes # (Manual) 335.83 H Monocytes # (Manual) 7.07 H Eosinophils # (Manual) Blast Cells # (Man) 17.68 H INR 1.3 H APTT 20.6 L VBG pH VBG pCO2 Sodium 136 L Potassium Chloride 96 L BUN 65 H Creatinine 1.20 H Glucose 131 H Calcium Magnesium 2.5 H AST 41 H CK-MB (CK-2) Troponin I Total Protein 5.8 L Albumin Ur Leukocyte Esterase Urine WBC Urine Bacteria Urine Mucus 06/25/18 06/25/18 06/25/18 11:24 11:24 13:23 WBC RBC Hgb Hct MCHC RDW Plt Count Neutrophils # (Manual) Lymphocytes # (Manual) Monocytes # (Manual) Eosinophils # (Manual) Blast Cells # (Man) INR APTT VBG pH 7.51 H VBG pCO2 36 L Sodium Potassium Chloride BUN Creatinine Glucose Calcium Magnesium AST CK-MB (CK-2) 3.3 H* Troponin I 0.645 H* Total Protein Albumin Ur Leukocyte Esterase Large H Urine WBC 28 H Urine Bacteria Rare H Urine Mucus Many H 06/26/18 06/26/18 06:23 06:23 WBC 314.5 H* RBC 2.46 L Hgb 7.2 L Hct 23.8 L MCHC 30.2 L RDW 18.4 H Plt Count 119 L Neutrophils # (Manual) 9.44 H Lymphocytes # (Manual) 301.92 H Monocytes # (Manual) 3.15 H Eosinophils # (Manual) 3.15 H Blast Cells # (Man) INR APTT VBG pH VBG pCO2 Sodium Potassium 3.2 L Chloride BUN 49 H Creatinine 1.10 H Glucose Calcium 8.0 L Magnesium AST CK-MB (CK-2) Troponin I Total Protein 5.2 L Albumin 3.2 L Ur Leukocyte Esterase Urine WBC Urine Bacteria Urine Mucus - Diagnostic Findings Chest x-ray: report reviewed, image reviewed (As noted above) Additional studies: Ultrasound of the chest reviewed bilateral pleural effusion more so on the right side compared to left side was noted Assessment and Plan Assessment: Acute exacerbation of CHF likely acute on chronic systolic heart failure Bilateral pleural effusion with worsening of effusion Advanced CML Acute hypoxic respirator failure related to fluid overload however occult pneumonia cannot be excluded agree with broad-spectrum antibiotics Plan: Agree with broad-spectrum antibiotics Gentle diuresis We'll do a right-sided thoracentesis followed by left after 24-48 hours Risk complication side effects discussed informed consent to be obtained, we'll proceed with a right thoracentesis later on today Time with Patient: Greater than 30
[2018-06-26] MEDS ORDERED: LIDOCAINE 1% INJ 10MG/ML (20 ML MDV) SQ ONE (14:43)
--- NOTE | 2018-06-26 18:13 | P.CONS ---
History of Present Illness - Reason for Consult Consult date: 06/26/18 CLL Requesting physician: Winnie Caceres - Chief Complaint SOB, DIPTI - History of Present Illness Unfortunately this is another admit for Ms. Huerta. she is a very pleasant lady who is monitored and treated by Dr. Harper for CLL, diagnosed in July 2006, pt was on watchful approach for many years, did try treatment once for about 6 weeks but stopped due to SE. She did well and continued on f/u. January 2018 she had progressive anemia and at that time she agreed to treatment with prednisone, she started 01/16/18, dose increase to 5 mg on 02/13/18 with some improvement in CBC. Pt has been admitted 3 times in the last 2 months for CHF exacerbation. On 06/11 she had thoracentesis, cytology positive for involvement with CLL. Pt was told this, did not want any treatment and was supposed to f/u with Dr. Harper but since she was in [facility] so family cancelled appt. When seen pt looks weaker, denies fevers, appetite is fair, no difficulty swallowing, nausea, chest pain, palpitations, she is having DIPTI, cannot exert much without getting SOB, no BLE swelling. Review of Systems 10 point ROS as stated in HPI Past Medical History Past Medical History: Cancer, Heart Failure, Hyperlipidemia, Hypertension, Thyroid Disorder Additional Past Medical History / Comment(s): CLL History of Any Multi-Drug Resistant Organisms: None Reported Past Surgical History: Appendectomy, Cholecystectomy, Hysterectomy Additional Past Surgical History / Comment(s): lt thoracentesis, lt cataract Past Anesthesia/Blood Transfusion Reactions: No Reported Reaction Past Psychological History: No Psychological Hx Reported Additional Psychological History / Comment(s): Patient lives with daughter. Patient denies ever using tobacco. Jimn denies ever using alcohol. Smoking Status: Never smoker Past Alcohol Use History: None Reported Past Drug Use History: None Reported - Past Family History Father Family Medical History: No Reported History Additional Family Medical History / Comment(s): pt denies any significant medical conditions in mother or father Medications and Allergies Home Medications Medication Instructions Recorded Confirmed Type Allopurinol [Zyloprim] 300 mg PO DAILY 03/12/17 06/25/18 History Omeprazole 20 mg PO DAILY 03/12/17 06/25/18 History Gabapentin [Neurontin] 400 mg PO BID 05/20/18 06/25/18 History Levothyroxine Sodium [Synthroid] 25 mcg PO DAILY 05/20/18 06/25/18 History predniSONE 5 mg PO DAILY 05/20/18 06/25/18 History Potassium Chloride ER [K-Dur 10] 10 meq PO DAILY #30 tab 05/22/18 06/25/18 Rx Furosemide [Lasix] 40 mg PO DAILY #30 tablet 06/18/18 06/25/18 Rx Aspirin 81 mg PO HS 06/25/18 06/25/18 History Bisacodyl 10 mg RECTAL DAILY PRN 06/25/18 06/25/18 History Ipratropium-Albuterol Nebulize 3 ml INHALATION RT-Q6H PRN 06/25/18 06/25/18 History [Duoneb 0.5 mg-3 mg/3 ml Soln] Levofloxacin [Levaquin] 500 mg PO DAILY 06/25/18 06/25/18 History Melatonin 3 mg PO HS PRN 06/25/18 06/25/18 History Menthol/Zinc Oxide [Calmoseptine 1 applic TOPICAL TID 06/25/18 06/25/18 History Ointment] Allergies Allergy/AdvReac Type Severity Reaction Status Date / Time No Known Allergies Allergy Verified 06/25/18 11:16 Physical Exam Vitals: Vital Signs Temp Pulse Pulse Resp BP BP Pulse Ox 06/26/18 12:00 97.6 F 107 H 20 83/48 95 06/26/18 08:01 95 06/26/18 08:00 97.1 F L 110 H 18 80/48 96 06/26/18 07:47 94 06/26/18 04:00 97.0 F L 97 18 81/56 93 L 06/26/18 00:00 98.3 F 99 18 86/48 98 06/25/18 20:37 80 06/25/18 20:22 78 96 06/25/18 20:00 98.3 F 99 18 86/48 98 06/25/18 18:09 97.2 F L 109 H 16 90/61 98 06/25/18 17:02 97.8 F 89 20 81/59 98 06/25/18 16:02 94 18 82/58 97 06/25/18 14:55 97.9 F 96 16 85/59 97 Intake and Output 06/25/18 06/26/18 06/26/18 22:59 06:59 14:59 Intake Total 240 400 310 Output Total 200 Balance 240 400 110 Intake: Intake, IV Titration 400 210 Amount Cefepime 2 gm In Sodium 50 Chloride 0.9% 50 ml @ 100 mls/hr IVPB Q24HR [facility] Rx #:[id number] Sodium Chloride 0.9% 1, 400 160 000 ml @ 75 mls/hr IV . [id number] [facility] Rx#:[id number] Oral 240 100 Output: Urine 200 Other: Voiding Method Bedpan Bedpan Bedpan # Voids 300 Weight 49.5 kg 49.5 kg - Constitutional General appearance: cooperative, no acute distress, thin - EENT Eyes: anicteric sclerae - Neck Neck: no lymphadenopathy - Respiratory Respiratory: bilateral: diminished, prolonged expiration (weak inspiration) - Cardiovascular Heart sounds: normal: S1, S2 Abnormal Heart Sounds: systolic murmur leg Peripheral Edema: bilateral: None - Gastrointestinal General gastrointestinal: no absent bowel sounds, no decreased bowel sounds, no distended, no hepatomegaly, no hyperactive bowel sounds, normal bowel sounds, no organomegaly, no rigid, no scaphoid, soft, no splenomegaly, no tenderness, no umbilical hernia, no ventral hernia - Integumentary Integumentary: pale - Neurologic Neurologic: CNII-XII intact - Musculoskeletal Musculoskeletal: generalized weakness - Psychiatric Psychiatric: A&O x's 3, appropriate affect, intact judgment & insight Results CBC & Chem 7: 06/26/18 06:23 06/26/18 06:23 Labs: Abnormal Lab Results - Last 24 Hours (Table) 06/25/18 06/26/18 06/26/18 Range/Units 11:24 06:23 06:23 WBC 314.5 H* (3.8-10.6) k/uL RBC 2.46 L (3.80-5.40) m/uL Hgb 7.2 L (11.4-16.0) gm/dL Hct 23.8 L (34.0-46.0) % MCHC 30.2 L (31.0-37.0) g/dL RDW 18.4 H (11.5-15.5) % Plt Count 119 L (150-450) k/uL Neutrophils # (Manual) 10.61 H 9.44 H (1.3-7.7) k/uL Lymphocytes # (Manual) 335.83 H 301.92 H (1.0-4.8) k/uL Monocytes # (Manual) 7.07 H 3.15 H (0-1.0) k/uL Eosinophils # (Manual) 3.15 H (0-0.7) k/uL Blast Cells # (Man) 17.68 H (0) k/uL Potassium 3.2 L (3.5-5.1) mmol/L BUN 49 H (7-17) mg/dL Creatinine 1.10 H (0.52-1.04) mg/dL Calcium 8.0 L (8.4-10.2) mg/dL Total Protein 5.2 L (6.3-8.2) g/dL Albumin 3.2 L (3.5-5.0) g/dL Microbiology - Last 24 Hours (Table) 06/25/18 11:24 Blood Culture - Preliminary Blood No Growth after 24 hours 06/25/18 20:00 Urine Culture - Preliminary Urine,Voided Chest x-ray: report reviewed Assessment and Plan (1) Bicytopenia Narrative/Plan: Monitor CBC, no transfusion today Current Visit: Yes Status: Acute Priority: High Code(s): D75.89 - OTHER SPECIFIED DISEASES OF BLOOD AND BLOOD-FORMING ORGANS SNOMED Code(s): 170929358 (2) CLL (chronic lymphocytic leukemia) Narrative/Plan: Pt was told at last visit that pleural fluid was positive for CLL. It appears that there is some recurrence of fluid in the lungs. We discussed that the fluid will re-accumulate unless CLL is treated. Pt verbalized understanding. She will wait to see Dr. Harper, she is not going to make CLL treatment decisions right now. Cont pred 5mg as prescribed for now Current Visit: Yes Status: Chronic Priority: High Code(s): C91.90 - LYMPHOID LEUKEMIA, UNSPECIFIED NOT HAVING ACHIEVED REMISSION SNOMED Code(s): 52605744
--- NOTE | 2018-06-26 19:08 | P.PCN ---
Date of Procedure: 06/26/18 (Emergent procedure due to progressive shortness of breath) Preoperative Diagnosis: Bilateral pleural effusion acute on chronic systolic heart failure Postoperative Diagnosis: Heart failure acute on chronic systolic heart failure, bilateral pleural effusion Procedure(s) Performed: Right thoracentesis Anesthesia: local Surgeon: Dani Muro Estimated Blood Loss (ml): 0 Condition: stable Disposition: PACU Indications for Procedure: Progressive increased shortness of breath, cardiomyopathy with acute on chronic systolic heart failure related ischemic cardiomyopathy, chronic lymphocytic leukemia, pneumonia Operative Findings: As below Description of Procedure: Patient prepared and draped in a usual fashion informed consent obtained from the patient, ultrasound was utilized to assess the maximum depth of the fluid, 1 % lidocaine was infiltrated into the eighth intercostal space on the right side going over the top margin of the rib the pleural space was [place] III encourage 24 needle fluid was aspirated followed by a stab incision less than 1/8 of a centimeter catheter in needle was placed through that incision the needle was withdrawn catheter was left in position and the 750 mL of the dark orange pleural fluid aspirated patient tolerated procedure well no complication noted fluid is being sent for Gram stain and culture cytology cell count and differential, chest x-rays pending
[2018-06-26 21:22] LABS: Appearance,BF Blood Tinged; Color,BF Orange; Nucleated Cells, Body Fluid 800 /uL
[2018-06-26 21:23] LABS: RBC, Body Fluid 5125 /uL
[2018-06-26 21:24] LABS: Total Cells Counted,Body Fluid 100
[2018-06-26] MEDS ORDERED: ACETAMINOPHEN TAB 325 MG TAB PO PRN (21:33)
--- NOTE | 2018-06-26 21:45 | XR ---
EXAMINATION: XR chest 1V portable DATE AND TIME: 06/26/2018 7:34 PM ORDERING PROVIDER: Dani Muro CLINICAL INDICATION: right thoracentesis TECHNIQUE: AP upright portable COMPARISON: 06/25/2018 at 11:38 AM DESCRIPTION: There is no pneumothorax. There is interval improvement in the overall lung inflation of the right lung parenchyma status post right thoracentesis. Small right pleural effusion presently, moderate left pleural effusion presently. Associated bibasila r airlessness, particularly prominent on the left. Lungs are otherwise dominantly clear. IMPRESSION: INTERVAL IMPROVEMENT - POST RIGHT THORACENTESIS.
[2018-06-27 01:12] LABS: Total Protein, Body Fluid 1200 mg/dL
[2018-06-27] MEDS: IPRATROPIUM-ALBUTEROL 3 ML NEB INHALATION SCH ×5 (01:35→19:55)
[2018-06-27 06:22] LABS: Anisocytosis Slight; HCT 25.1 % (34.0-46.0); HGB 7.7 gm/dL (11.4-16.0); Hypochromasia Marked; MCH 29.7 pg (25.0-35.0); MCHC 30.9 g/dL (31.0-37.0); MCV 96.3 fL (80.0-100.0); Macrocytosis Slight; Mean Platelet Volume 7.5; Platelet Count 112 k/uL (150-450); RDW 18.6 % (11.5-15.5)
[2018-06-27] MEDS: LEVOTHYROXINE 25 MCG TAB PO SCH (06:24)
[2018-06-27] MEDS: PANTOPRAZOLE 40 MG TABLET PO SCH (06:24)
[2018-06-27 06:44] LABS: Albumin 3.2 g/dL (3.5-5.0); Calcium 8.4 mg/dL (8.4-10.2); Potassium 3.9 mmol/L (3.5-5.1); Total Bilirubin 0.6 mg/dL (0.2-1.3); Total Protein 5.1 g/dL (6.3-8.2)
[2018-06-27] MEDS: predniSONE 5 MG TAB PO SCH (08:04)
[2018-06-27] MEDS: POTASSIUM CHLORIDE ER 10 MEQ TAB.ER.PRT PO SCH (08:04)
[2018-06-27] MEDS: ALLOPURINOL 300 MG TAB PO SCH (08:04)
[2018-06-27] MEDS: MENTHOL-ZINC OXIDE OINT 113 GM TUBE TOPICAL SCH ×3 (08:04→19:44)
[2018-06-27] MEDS: GABAPENTIN 400 MG CAP PO SCH ×2 (08:04→19:44)
[2018-06-27] MEDS: CEFEPIME 2 GM in SODIUM CHLORIDE 0.9% 50 ML IVPB SCH (08:04)
[2018-06-27 08:52] LABS: Neutrophils % (M) 3 %; Nucleated Red Blood Cells 0 /100 WBC (0-0); Total Cells Counted 200
[2018-06-27 08:53] LABS: Poikilocytosis (M) Present
--- NOTE | 2018-06-27 09:42 | CDI ---
Last Revision, October 2017 Documentation Clarification Form Date: 06/27/2018 From: Syl Lee RN Admit Date: 06/25/2018 1:59:00 PM Patient Name: Ginny Huerta Visit Number: [id number] ATTENTION: The Clinical Documentation Specialists (CDI) and [facility] Coding Staff appreciate your assistance in clarifying documentation. Please respond to the clarification below the line at the bottom and electronically sign. The CDI & [facility] Coding staff will review the response and follow-up if needed. Please note: Queries are made part of the Legal Health Record. If you have any questions, please contact the author of this message via ITS. Dr. Agustin Wiley MD, Can you please render your opinion on the following documentation? Presented with SOB Pt. admitted with Acute hypoxic respiratory failure. Pt. is being treated for pneumonia outpatient. History/Risk Factors: CLL, CHF, HTN, hyperlipidemia, thyroid disorder, pneumonia Clinical Indicators: WBC on admission 353.5, 06/27 320.0, Lactic acid: 1.0 Blood cultures: neg. after 24 hrs Vitals signs on admission: T 97.5, P 110, R 20, 98/59, 99% 3L Other Clinical Indicators: Pt. was being treated for pneumonia Positive UTI, final cultures neg. Pleural Fluid culture pending CXR: Underlying acute infiltrate is no excluded. Treatment: ID Consult: Cardiology, Pulmonary Antibiotics: Cefepime IVPB, Vanco. IVPB IV Bolus: 500ml x1, running at 125mls/hr Other: Pt was taking Levaquin outpatient for pneumonia In your professional opinion, please clarify if these findings signify one of the following conditions, whether the condition is POA, and cause, if known: Condition Sepsis ruled out Sepsis ruled in Severe Sepsis Other, please specify Unable to determine Present on Admission: Yes or No Identify the (suspected) organism Please continue to document in your progress notes, under the line below and/ or in the discharge summary in order to capture severity of illness and risk of mortality. Include clinical findings that support your diagnosis. MTDD
--- NOTE | 2018-06-27 10:52 | P.PN ---
Subjective Progress Note Date: 06/27/18 This is a 87-year-old female with a known history of CLL, congestive heart failure with a known EF of 20-25%, pleural effusions requiring left thoracentesis on 06/18/2018, hypothyroidism, hypertension and hyperlipidemia. Patient was currently at [facility] [employer] [facility] after being discharged from the hospital on June 18. At that time she was treated for congestive heart failure exacerbation and had undergone a left thoracentesis for pleural effusion. She was discharged on Lasix 40 mg daily. She is currently been on Levaquin for pneumonia. Per ER report they were notified from the [facility] the patient was dyspneic and having episodes of unresponsiveness and oxygen saturation was in the 80s. Oxygen supplement was placed and patient was transferred to the hospital for further evaluation and treatment. Chest x-ray shows suspected CHF exacerbation as there is cardiomegaly with small to moderate sized left greater than right pleural effusions. There is associated bibasilar atelectasis. Underlying acute infiltrate is not excluded. Patient started on cefepime and vancomycin in the emergency room. Patient also has evidence of a urinary tract infection urine culture obtained. Patient had evidence of fluid overload in the ER and was given IV Lasix 40 mg. Patient desats very easily. She is a mouth breather. Patient has been encouraged to breathe deeply. Her nose and her oxygen saturation does drop and to around [id number] with the deep breathing she is able to get her oxygen saturations into the 90s. She also is having episodes of hypotension. Blood pressure 78/44. It appears that she did receive a IV fluid bolus in the ER. She does have crackles on the right lower lobe. White count is 353.5, hemoglobin 7.8., Platelets are 140. At this time her aspirin will be on hold. She'll be seen evaluated by oncology. Pulmonary and cardiology both been consulted in regards to congestive heart failure and pleural effusions. BNP is elevated at 35,300. She also has elevated troponin of 0.645. Patient denies any chest pain. Patient denies any fever chills or sweats. Denies any cough. Denies any nausea vomiting. Denies abdominal changes or urinary symptoms. On 06/26/2018 patient is currently sitting up in bed. Patient is a & O 3. Patient at this point cannot tolerate laying flat without becoming short of breath. Patient currently on 3 L nasal cannula. Blood pressure remains marginal. White blood cell remains critical at 314.5. Hemoglobin 7.2. Potassium is 3.2. Replacement has been ordered. Patient currently on vancomycin and cefepime. Dr. Muro consulted for pulmonary. Dr. Renae consulted for cardiology and Dr. Calzada consulted per oncology. awaiting consult providers. Patient denies chest pain. Denies nausea vomiting or diarrhea. Denies any urinary burning and frequency. 06/27/2018 patient is currently anal 3 and sitting up in bed. Patient states that she is feeling much less short of breath today. Patient did receive a right thoracentesis per Dr. Muro yesterday. Patient remains on 2-3 L nasal cannula. Potassium improving to 3.9. Hemoglobin 7.7. Patient remains on vancomycin and cefempime for antibiotics. She denies chest pain at this time. Denies nausea vomiting or diarrhea. Denies any urinary burning and frequency. Objective - Vital Signs Vital signs: Vital Signs Temp 97.0 F L 06/27/18 08:00 Pulse 92 06/27/18 08:00 Resp 18 06/27/18 08:00 BP 88/51 06/27/18 08:00 Pulse Ox 96 06/27/18 08:00 Intake & Output 06/26/18 06/27/18 06/27/18 18:59 06:59 18:59 Intake Total 710 168 Output Total 500 300 Balance 210 -300 168 Weight 49.5 kg 46.5 kg Intake: Intake, IV Titration 370 50 Amount Cefepime 2 gm In Sodium 210 50 Chloride 0.9% 50 ml @ 100 mls/hr IVPB Q24HR [facility] Rx #:[id number] Sodium Chloride 0.9% 1, 160 000 ml @ 75 mls/hr IV . [id number] [facility] Rx#:[id number] Oral 340 118 Output: Urine 500 300 Other: Voiding Method Bedpan Bedpan # Voids 1 1 - Exam Head normocephalic Neck supple Lungs crackles right lower lobe Heart regular rate and rhythm S1-S2, no rub or gallop Abdomen is soft nontender nondistended positive bowel sounds no hepatosplenomegaly Extremities no edema Neuro alert and orientated to 3 - Labs CBC & Chem 7: 06/27/18 05:37 06/27/18 05:37 Labs: Abnormal Lab Results - Last 24 Hours (Table) 06/27/18 06/27/18 Range/Units 05:37 05:37 WBC 320.0 H* (3.8-10.6) k/uL RBC 2.60 L (3.80-5.40) m/uL Hgb 7.7 L (11.4-16.0) gm/dL Hct 25.1 L (34.0-46.0) % MCHC 30.9 L (31.0-37.0) g/dL RDW 18.6 H (11.5-15.5) % Plt Count 112 L (150-450) k/uL Neutrophils # (Manual) 9.60 H (1.3-7.7) k/uL Lymphocytes # (Manual) 313.60 H (1.0-4.8) k/uL BUN 45 H (7-17) mg/dL Glucose 101 H (74-99) mg/dL Total Protein 5.1 L (6.3-8.2) g/dL Albumin 3.2 L (3.5-5.0) g/dL Microbiology - Last 24 Hours (Table) 06/26/18 18:45 Gram Stain - Preliminary Pleural Fluid Body Fluid Culture - Preliminary 06/26/18 18:45 Acid Fast Bacilli Culture - Preliminary Pleural Fluid 06/26/18 18:45 Fungal Culture - Preliminary Pleural Fluid 06/25/18 20:00 Urine Culture - Final Urine,Voided 06/25/18 11:24 Blood Culture - Preliminary Blood No Growth after 24 hours Assessment and Plan Assessment: 1. Acute hypoxic respiratory failure: Likely secondary to congestive heart failure exacerbation, pleural effusions and possible pneumonia. Patient has been placed on oxygen. Pulmonary service has been consulted. Change breathing treatments to 4 times a day and as needed. Dr. Muro per pulmonary consulted. Right-sided thoracentesis performed yesterday by Dr. Muro. 2. Acute on chronic systolic congestive heart failure exacerbation: Echo from May 2018 shows an EF of 20-25% and severe aortic stenosis. Patient has elevated BNP. Received a dose of IV Lasix in the ER. Cardiology will be consulted 3. Bilateral pleural effusions: with moderate sized left greater than right pleural effusion on chest x-ray. Pulmonary service consulted. Last hospitalization June 20 patient did require a left-sided thoracentesis. Right -sided thoracentesis performed yesterday by Dr. Muro 4. Possible pneumonia: Check sputum culture. Patient started on vancomycin and cefepime. 5. Recent pneumonia on Levaquin outpatient 6. UTI: Check urine culture continue with antibiotics. Urine culture currently negative 7. Chronic lymphocytic leukemia: Oncology consulted. Patient does have evidence of pancytopenia likely related to her CLL. We'll await further recommendations per oncology. Patient's aspirin on hold. White count 320, hemoglobin 7.7, platelets 112. Per oncology pleural fluid was positive for CLL. Oncology discussed with patient that fluid will continue to reaccumulate unless it is treated. Patient is waiting to see Dr. Harper before making decisions in regards to treatment vs hospice 8. Acute kidney injury: creatinine 1.20. Monitor closely while being diuresed. Creatinine improving to 1.00 9. Hypotension: Patient received fluid bolus and ER 10. Elevated troponin: Cardiology consulted. Per cardiology likely secondary to supply and demand 11. Hypothyroidism continue Synthroid GI prophylaxis omeprazole and DVT prophylaxis SCDs I performed an examination of the patient and discussed their management with the Nurse Practitioner. I have reviewed the Nurse Practitioner's notes and agree with the documented findings and plan of care
[2018-06-27 11:10] LABS: Mononuclear WBC,Body Fluid 99 %; Polynuclear WBC,Body Fluid 1 %
--- NOTE | 2018-06-27 12:36 | P.PN ---
Subjective Progress Note Date: 06/27/18 This is a pleasant 87-year-old female with past medical history significant for chronic lymphocytic leukemia, hyperlipidemia, hypertension, hypothyroidism nonsmoker, no EtOH, who was recently discharged home from the hospital to [facility], after being in the hospital with congestive heart failure exacerbation as well as bilateral pleural effusions for which the patient underwent a left-sided thoracentesis. Patient also was noted to have pneumonia, and was on Levaquin. Patient was brought to the hospital on this occasion because she was noted by the staff there to be quite dyspneic, she was also having episodes of unresponsiveness, it was found that her oxygen saturations were around 80%. Chest x-ray on admission showed congestive heart failure exacerbation with a small to moderate size left greater than right pleural effusion. There was also associated bibasilar atelectasis, and an acute infiltrate was not excluded. Patient was started on cefepime and vancomycin in the emergency room. She was also initiated on IV Lasix. According to the patient, she doesn't feel more short of breath than her usual, but visually the patient does appear that she is short of breath and extremely weak. Patient's blood pressure in the emergency room was also noted to be 78/44 , she received an IV fluid bolus. White blood cell count 353.5 on admission, 314.5 this morning, hemoglobin 7.8 on admission, 7.2 this morning. Platelet count 140 on admission, 119 this morning. Blood gases were obtained on admission, pH 7.5, pCO2 36, HCO3 28. Sodium 137, potassium 3.8 on admission, 3.2 this morning. BUN on admission 65 and creatinine 1.2, 49 and 1.1 this morning. Magnesium 2.5. BNP level 35,300. Troponin 0.64. On review of most recent records, patient is noted to have an abnormality in the troponins in that range. Patient also has a positive UTI this admission. Blood pressure this morning 80/40, heart rate around 100, 96% on 3 L of oxygen. Chest x-ray shows a sinus tachycardia with nonspecific ST-T wave changes noted. 06/27/2018 A shunt seen and examined this morning, she underwent a right-sided thoracentesis yesterday by Dr. Beckman for 750 mL of dark orange peripheral fluid which was aspirated. At the time of our examination this morning, she states overall she is feeling significantly better, she still appears to be somewhat short of breath but states that overall her breathing has improved a lot. Her weight today is down 3 kg. Blood pressure continues to be on the low side at 88 /50, heart rate in the 90s, 96% on 2 L of oxygen. White blood cell count 320, hemoglobin 7.7, platelet count 112. Sodium 138, potassium 3.9, BUN 45, creatinine 1.0. Chest x-ray revealed interval improvement post right thoracentesis. Heart rate today is under much better control, we will add oral Lanoxin to her medication regime. Objective - Vital Signs Vital signs: Vital Signs Temp 97.3 F L 06/27/18 12:00 Pulse 96 06/27/18 12:00 Resp 22 06/27/18 12:00 BP 86/45 06/27/18 12:00 Pulse Ox 97 06/27/18 12:00 Intake & Output 06/26/18 06/27/18 06/27/18 18:59 06:59 18:59 Intake Total 710 168 Output Total 500 300 Balance 210 -300 168 Weight 49.5 kg 46.5 kg Intake: Intake, IV Titration 370 50 Amount Cefepime 2 gm In Sodium 210 50 Chloride 0.9% 50 ml @ 100 mls/hr IVPB Q24HR [facility] Rx #:[id number] Sodium Chloride 0.9% 1, 160 000 ml @ 75 mls/hr IV . [id number] [facility] Rx#:[id number] Oral 340 118 Output: Urine 500 300 Other: Voiding Method Bedpan Bedpan # Voids 1 1 - Exam PHYSICAL EXAMINATION: GENERAL: 87-year-old female, appears weak and short of breath at the time of my examination HEENT: Head is atraumatic, normocephalic. Pupils equal, round. Sclera anicteric. Conjunctiva are clear. Mucous membranes of the mouth are moist. Neck is supple. There no elevated jugular venous pressure. No carotid bruit is heard. HEART EXAMINATION: Heart S1 and S2 systolic murmur is heard. CHEST EXAMINATION: Lungs reveal improvement in air entry to the right base, continues to be diminished on the left. ABDOMEN: Soft, nontender. Bowel sounds are heard. No organomegaly noted. EXTREMITIES: 2+ peripheral pulses with no evidence of peripheral edema and no calf tenderness noted. NEUROLOGIC patient is awake, alert and oriented ?-3. - Labs CBC & Chem 7: 06/27/18 05:37 06/27/18 05:37 Labs: Abnormal Lab Results - Last 24 Hours (Table) 06/27/18 06/27/18 Range/Units 05:37 05:37 WBC 320.0 H* (3.8-10.6) k/uL RBC 2.60 L (3.80-5.40) m/uL Hgb 7.7 L (11.4-16.0) gm/dL Hct 25.1 L (34.0-46.0) % MCHC 30.9 L (31.0-37.0) g/dL RDW 18.6 H (11.5-15.5) % Plt Count 112 L (150-450) k/uL Neutrophils # (Manual) 9.60 H (1.3-7.7) k/uL Lymphocytes # (Manual) 313.60 H (1.0-4.8) k/uL BUN 45 H (7-17) mg/dL Glucose 101 H (74-99) mg/dL Total Protein 5.1 L (6.3-8.2) g/dL Albumin 3.2 L (3.5-5.0) g/dL Microbiology - Last 24 Hours (Table) 06/26/18 18:45 Gram Stain - Preliminary Pleural Fluid Body Fluid Culture - Preliminary 06/26/18 18:45 Acid Fast Bacilli Culture - Preliminary Pleural Fluid 06/26/18 18:45 Fungal Culture - Preliminary Pleural Fluid 06/25/18 20:00 Urine Culture - Final Urine,Voided 06/25/18 11:24 Blood Culture - Preliminary Blood No Growth after 24 hours Assessment and Plan Plan: Assessment: 1. Acute hypoxic respiratory failure: Likely secondary to congestive heart failure exacerbation systolic acute on, pleural effusions and possible pneumonia. 2. Acute on chronic systolic congestive heart failure exacerbation: Echo from May 2018 shows an EF of 20-25% and severe aortic stenosis. Patient has elevated BNP. Received a dose of IV Lasix in the ER. 3. Bilateral pleural effusions: with moderate sized left greater than right pleural effusion on chest x-ray. Status post recent left-sided thoracentesis 4. Possible pneumonia 5. Recent pneumonia on Levaquin outpatient 6. UTI: 7. Chronic lymphocytic leukemia 8. Acute kidney injury 9. Hypotension 10. Elevated troponin, likely secondary to supply and demand this. 11. Hypothyroidism Plan We will continue the patient on Lasix 20 IV twice a day, check lytes creatinine in the morning, monitor intake and output. We will also add Lanoxin 0.125 mg orally daily to the patient's medication regime. DNP note has been reviewed, I agree with a documented findings and plan of care. Patient was seen and examined.
--- NOTE | 2018-06-27 13:45 | P.PN ---
Subjective Progress Note Date: 06/27/18 Principal diagnosis: DIPTI, CLL Pt seen in f/u, she is breathing much better after Dr. Muro performed a thoracentesis on the right, 750cc flui9d removed, sent for further studies and cytology. Pt pleural fluid from a previous thoracentesis on the left in the last 3 weeks was positive for involvement with leukemia cells. Pt is not sure if she wants to do any more rehab, she is just getting weaker and weaker, she states she doesn't even really move. She denies nausea or pain. Objective - Vital Signs Vital signs: Vital Signs Temp 97.3 F L 06/27/18 12:00 Pulse 96 06/27/18 12:00 Resp 22 06/27/18 12:00 BP 86/45 06/27/18 12:00 Pulse Ox 97 06/27/18 12:00 Intake & Output 06/26/18 06/27/18 06/27/18 18:59 06:59 18:59 Intake Total 710 168 Output Total 500 300 Balance 210 -300 168 Weight 49.5 kg 46.5 kg Intake: Intake, IV Titration 370 50 Amount Cefepime 2 gm In Sodium 210 50 Chloride 0.9% 50 ml @ 100 mls/hr IVPB Q24HR [facility] Rx #:[id number] Sodium Chloride 0.9% 1, 160 000 ml @ 75 mls/hr IV . [id number] [facility] Rx#:[id number] Oral 340 118 Output: Urine 500 300 Other: Voiding Method Bedpan Bedpan # Voids 1 1 - Constitutional General appearance: Present: cooperative, no acute distress, thin - EENT Eyes: Present: poor dentition - Respiratory Respiratory: bilateral: diminished - Cardiovascular Heart sounds: normal: S1, S2 Abnormal Heart Sounds: Present: systolic murmur - Peripheral edema leg Peripheral Edema: bilateral: None - Gastrointestinal General gastrointestinal: Present: normal bowel sounds, soft - Neurologic Neurologic: Present: CNII-XII intact - Musculoskeletal Musculoskeletal: Present: generalized weakness - Psychiatric Psychiatric: Present: A&O x's 3, appropriate affect, intact judgment & insight - Labs CBC & Chem 7: 06/27/18 05:37 06/27/18 05:37 Labs: Abnormal Lab Results - Last 24 Hours (Table) 06/27/18 06/27/18 Range/Units 05:37 05:37 WBC 320.0 H* (3.8-10.6) k/uL RBC 2.60 L (3.80-5.40) m/uL Hgb 7.7 L (11.4-16.0) gm/dL Hct 25.1 L (34.0-46.0) % MCHC 30.9 L (31.0-37.0) g/dL RDW 18.6 H (11.5-15.5) % Plt Count 112 L (150-450) k/uL Neutrophils # (Manual) 9.60 H (1.3-7.7) k/uL Lymphocytes # (Manual) 313.60 H (1.0-4.8) k/uL BUN 45 H (7-17) mg/dL Glucose 101 H (74-99) mg/dL Total Protein 5.1 L (6.3-8.2) g/dL Albumin 3.2 L (3.5-5.0) g/dL Microbiology - Last 24 Hours (Table) 06/25/18 11:24 Blood Culture - Preliminary Blood No Growth after 48 hours 06/26/18 18:45 Gram Stain - Preliminary Pleural Fluid Body Fluid Culture - Preliminary 06/26/18 18:45 Acid Fast Bacilli Culture - Preliminary Pleural Fluid 06/26/18 18:45 Fungal Culture - Preliminary Pleural Fluid 06/25/18 20:00 Urine Culture - Final Urine,Voided Assessment and Plan (1) Bicytopenia Narrative/Plan: Stable, no acute intervention needed at this time Current Visit: Yes Status: Acute Priority: High Code(s): D75.89 - OTHER SPECIFIED DISEASES OF BLOOD AND BLOOD-FORMING ORGANS SNOMED Code(s): 182822325 (2) CLL (chronic lymphocytic leukemia) Narrative/Plan: Pt does understand that at her previous visit her CLL was progressing as leukemia cells were in the pleural fluid, which was new. She understands that the fluid build up in the lungs is likely because of a combination of CHF and CLL. CLL is progressive and treatment was recommended but pt states she will continue on the prednisone for now. F/U appt with Dr. Harper will be scheduled. Cont pred, no other treatment or interventions for CLL at this time, right pleural fluid pending. Current Visit: Yes Status: Chronic Priority: High Code(s): C91.90 - LYMPHOID LEUKEMIA, UNSPECIFIED NOT HAVING ACHIEVED REMISSION SNOMED Code(s): 19234243
[2018-06-27] MEDS: VANCOMYCIN 1,000 MG in SODIUM CHLORIDE 0.9% 250 ML IVPB SCH (13:49)
[2018-06-27] MEDS: DIGOXIN 125 MCG TAB PO SCH (13:50)
[2018-06-27] MEDS ORDERED: IPRATROPIUM-ALBUTEROL 3 ML NEB INHALATION PRN (19:40)
[2018-06-28] MEDS: FUROSEMIDE 10 MG/ML 2 ML VIAL IV SCH ×3 (00:03→19:59)
[2018-06-28] MEDS: PANTOPRAZOLE 40 MG TABLET PO SCH (06:44)
[2018-06-28] MEDS: LEVOTHYROXINE 25 MCG TAB PO SCH (06:44)
[2018-06-28 06:49] LABS: Anisocytosis Slight; HCT 24.9 % (34.0-46.0); HGB 7.3 gm/dL (11.4-16.0); Hypochromasia Marked; MCH 29.1 pg (25.0-35.0); MCHC 29.5 g/dL (31.0-37.0); MCV 98.6 fL (80.0-100.0); Macrocytosis Moderate; Mean Platelet Volume 7.9; Platelet Count 107 k/uL (150-450); RBC 2.52 m/uL (3.80-5.40); RDW 19.1 % (11.5-15.5)
[2018-06-28 07:00] LABS: WBC 284.4 k/uL (3.8-10.6)
[2018-06-28 07:15] LABS: Albumin 2.9 g/dL (3.5-5.0); Calcium 8.2 mg/dL (8.4-10.2); Total Bilirubin 0.6 mg/dL (0.2-1.3); Total Protein 4.9 g/dL (6.3-8.2)
[2018-06-28 08:03] LABS: Lymphocytes # (M) 278.71 k/uL (1.0-4.8); Monocytes # (M) 2.84 k/uL (0-1.0); Neutrophils # (M) 5.69 k/uL (1.3-7.7); Neutrophils % (M) 2 %; Nucleated Red Blood Cells 0 /100 WBC (0-0); Total Cells Counted 200
[2018-06-28 08:04] LABS: Ovalocytes Present; Poikilocytosis (M) Present
[2018-06-28] MEDS: IPRATROPIUM-ALBUTEROL 3 ML NEB INHALATION SCH ×3 (08:34→18:53)
[2018-06-28] MEDS: CEFEPIME 2 GM in SODIUM CHLORIDE 0.9% 50 ML IVPB SCH (09:06)
[2018-06-28] MEDS: GABAPENTIN 400 MG CAP PO SCH ×2 (09:06→19:59)
[2018-06-28] MEDS: DIGOXIN 125 MCG TAB PO SCH (09:06)
[2018-06-28] MEDS: POTASSIUM CHLORIDE ER 10 MEQ TAB.ER.PRT PO SCH (09:07)
[2018-06-28] MEDS: MENTHOL-ZINC OXIDE OINT 113 GM TUBE TOPICAL SCH ×3 (09:07→19:59)
[2018-06-28] MEDS: predniSONE 5 MG TAB PO SCH (09:07)
--- NOTE | 2018-06-28 12:03 | P.PN ---
Subjective Progress Note Date: 06/28/18 This is a 87-year-old female with a known history of CLL, congestive heart failure with a known EF of 20-25%, pleural effusions requiring left thoracentesis on 06/18/2018, hypothyroidism, hypertension and hyperlipidemia. Patient was currently at [facility] [place] [facility] after being discharged from the hospital on June 18. At that time she was treated for congestive heart failure exacerbation and had undergone a left thoracentesis for pleural effusion. She was discharged on Lasix 40 mg daily. She is currently been on Levaquin for pneumonia. Per ER report they were notified from the long-term the patient was dyspneic and having episodes of unresponsiveness and oxygen saturation was in the 80s. Oxygen supplement was placed and patient was transferred to the hospital for further evaluation and treatment. Chest x-ray shows suspected CHF exacerbation as there is cardiomegaly with small to moderate sized left greater than right pleural effusions. There is associated bibasilar atelectasis. Underlying acute infiltrate is not excluded. Patient started on cefepime and vancomycin in the emergency room. Patient also has evidence of a urinary tract infection urine culture obtained. Patient had evidence of fluid overload in the ER and was given IV Lasix 40 mg. Patient desats very easily. She is a mouth breather. Patient has been encouraged to breathe deeply. Her nose and her oxygen saturation does drop and to around 7879 with the deep breathing she is able to get her oxygen saturations into the 90s. She also is having episodes of hypotension. Blood pressure 78/44. It appears that she did receive a IV fluid bolus in the ER. She does have crackles on the right lower lobe. White count is 353.5, hemoglobin 7.8., Platelets are 140. At this time her aspirin will be on hold. She'll be seen evaluated by oncology. Pulmonary and cardiology both been consulted in regards to congestive heart failure and pleural effusions. BNP is elevated at 35,300. She also has elevated troponin of 0.645. Patient denies any chest pain. Patient denies any fever chills or sweats. Denies any cough. Denies any nausea vomiting. Denies abdominal changes or urinary symptoms. On 06/26/2018 patient is currently sitting up in bed. Patient is a & O 3. Patient at this point cannot tolerate laying flat without becoming short of breath. Patient currently on 3 L nasal cannula. Blood pressure remains marginal. White blood cell remains critical at 314.5. Hemoglobin 7.2. Potassium is 3.2. Replacement has been ordered. Patient currently on vancomycin and cefepime. Dr. Muro consulted for pulmonary. Dr. Renae consulted for cardiology and Dr. Calzada consulted per oncology. awaiting consult providers. Patient denies chest pain. Denies nausea vomiting or diarrhea. Denies any urinary burning and frequency. 06/27/2018 patient is currently A and O3 and sitting up in bed. Patient states that she is feeling much less short of breath today. Patient did receive a right thoracentesis per Dr. Muro yesterday. Patient remains on 2-3 L nasal cannula. Potassium improving to 3.9. Hemoglobin 7.7. Patient remains on vancomycin and cefempime for antibiotics. She denies chest pain at this time. Denies nausea vomiting or diarrhea. Denies any urinary burning and frequency. 06/28/2018 patient is currently sitting in bed. Denies any shortness of breath. She is on 2 L nasal cannula satting at 95%. She had a right sided thoracentesis with 750 mL removed. Possible left sided thoracentesis later today after evaluation by pulmonary service. Patient denies any chest pain. Denies any nausea or vomiting. Denies any bowel movement changes or urinary symptoms. Hemoglobin 7.3. BP 86/33 Objective - Vital Signs Vital signs: Vital Signs Temp 96.6 F L 06/28/18 08:00 Pulse 104 H 06/28/18 08:00 Resp 20 06/28/18 04:00 BP 86/33 06/28/18 08:00 Pulse Ox 95 06/28/18 08:00 Intake & Output 06/27/18 06/28/18 06/28/18 18:59 06:59 18:59 Intake Total 418 120 Output Total 0 Balance 418 0 120 Weight 40.5 kg Intake: Intake, IV Titration 300 Amount Cefepime 2 gm In Sodium 50 Chloride 0.9% 50 ml @ 100 mls/hr IVPB Q24HR [facility] Rx #:[id number] Vancomycin 1,000 mg In 250 Sodium Chloride 0.9% 250 ml @ 125 mls/hr IVPB Q24H [facility] Rx#:[id number] Oral 118 120 Output: Urine 0 Other: Voiding Method Bedpan Bedpan # Voids 1 0 # Bowel Movements 0 - Exam Head normocephalic Neck supple Lungs crackles on the bases at the right. Left side diminished Heart regular rate and rhythm S1-S2, no rub or gallop Abdomen is soft nontender nondistended positive bowel sounds no hepatosplenomegaly Extremities no edema Neuro alert and orientated to 3 - Labs CBC & Chem 7: 06/28/18 05:59 06/28/18 05:59 Labs: Abnormal Lab Results - Last 24 Hours (Table) 06/28/18 06/28/18 Range/Units 05:59 05:59 WBC 284.4 H* (3.8-10.6) k/uL RBC 2.52 L (3.80-5.40) m/uL Hgb 7.3 L (11.4-16.0) gm/dL Hct 24.9 L (34.0-46.0) % MCHC 29.5 L (31.0-37.0) g/dL RDW 19.1 H (11.5-15.5) % Plt Count 107 L (150-450) k/uL Lymphocytes # (Manual) 278.71 H (1.0-4.8) k/uL Monocytes # (Manual) 2.84 H (0-1.0) k/uL BUN 36 H (7-17) mg/dL Glucose 112 H (74-99) mg/dL Calcium 8.2 L (8.4-10.2) mg/dL Total Protein 4.9 L (6.3-8.2) g/dL Albumin 2.9 L (3.5-5.0) g/dL Microbiology - Last 24 Hours (Table) 06/26/18 18:45 Acid Fast Bacilli Smear - Final Pleural Fluid Acid Fast Bacilli Culture - Preliminary 06/26/18 18:45 Gram Stain - Preliminary Pleural Fluid Body Fluid Culture - Preliminary 06/25/18 11:24 Blood Culture - Preliminary Blood No Growth after 48 hours Assessment and Plan Assessment: 1. Acute hypoxic respiratory failure: Likely secondary to congestive heart failure exacerbation, pleural effusions and possible pneumonia. Patient required 2 L of oxygen. Continue nebulizer treatments. 2. Acute on chronic systolic congestive heart failure exacerbation: Echo from May 2018 shows an EF of 20-25% and severe aortic stenosis. Patient has elevated BNP. Cardiology following. Continue IV Lasix. Cardiology added digoxin 3. Bilateral pleural effusions: with moderate sized left greater than right pleural effusion on chest x-ray. Pulmonary service consulted. Last hospitalization June 20 patient did require a left-sided thoracentesis. Patient status post right-sided thoracentesis with 750 mL removed on 2017. Patient may require a left-sided thoracentesis awaiting pulmonary recommendations 4. Possible pneumonia: Check sputum culture. Patient started on vancomycin and cefepime and ER. 5. Recent pneumonia on Levaquin outpatient 6. UTI: Urine culture negative. 7. Chronic lymphocytic leukemia: Oncology consulted. Patient does have evidence of pancytopenia likely related to her CLL. We'll await further recommendations per oncology. Patient's aspirin on hold. Per oncology pleural fluid was positive for CLL. Likely patient's pleural effusions are secondary to a combination of congestive heart failure and CLL. CLL is progressive and treatment was recommended but patient states she will continue on prednisone for now. She'll follow-up with oncology outpatient. Final fluid cultures pending. 8. Acute kidney injury: Improved 9. Hypotension: Patient received fluid bolus and ER 10. Elevated troponin: Per cardiology likely secondary to supply and demand 11. Hypothyroidism continue Synthroid 12. 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 Continue to monitor 13. Possible sepsis present on admission secondary to pneumonia and UTI GI prophylaxis omeprazole and DVT prophylaxis SCDs Patient's overall prognosis is poor and guarded. Family meeting will be scheduled tomorrow to discuss treatment plans versus hospice care I performed an examination of the patient and discussed their management with the physician Spray Gun Striper. I have reviewed the Physician Spray Gun Striper's notes and agree with the documented findings and plan of care
[2018-06-28] MEDS: ALLOPURINOL 300 MG TAB PO SCH (12:41)
[2018-06-28] MEDS: VANCOMYCIN 1,000 MG in SODIUM CHLORIDE 0.9% 250 ML IVPB SCH (12:41)
[2018-06-28] MEDS ORDERED: VANCOMYCIN TROUGH DUE 1 EACH MISC MISCELLANE ONE (13:00)
[2018-06-28] MEDS ORDERED: LIDOCAINE 1% INJ 10MG/ML (20 ML MDV) SQ STA (13:11)
--- NOTE | 2018-06-28 13:22 | P.PN ---
Subjective Progress Note Date: 06/27/18 (Late entry note) Principal diagnosis: Acute exacerbation of congestive heart failure, bilateral pleural effusion, advanced CML, acute hypoxic respirator failure, healthcare associated pneumonia cannot be excluded 06/27/2018, patient seen eval examined during the rounds he is she is status post right thoracentesis about 750-800 mL of fluid has been removed, feels better post procedure x-ray reviewed small amount of residual fluid on the right side noted moderate pleural effusion seen on the left side will monitor observe today we'll consider doing a thoracentesis tomorrow on the left side procedure explained to the patient at length This is a 87-year-old female with a known history of CLL, congestive heart failure with a known EF of 20-25%, pleural effusions requiring left thoracentesis on 06/18/2018, hypothyroidism, hypertension and hyperlipidemia. Patient is well-known to me, patient currently at [facility], after being discharged from the hospital on June 18. At that time she was treated for congestive heart failure exacerbation and had undergone a left thoracentesis for pleural effusion. She was discharged on Lasix 40 mg daily. She is currently been on Levaquin for pneumonia. ER was notified about patient was dyspneic and having episodes of unresponsiveness and oxygen saturation was in the 80s. Oxygen supplement was placed and patient was transferred to the hospital for further evaluation and treatment. I have reviewed Chest x-ray shows suspected CHF exacerbation as there is cardiomegaly with small to moderate sized left greater than right pleural effusions. And have ordered the ultrasound of the chest, There is associated bibasilar atelectasis. Underlying acute infiltrate is not excluded. Patient started on cefepime and vancomycin in the emergency room. Patient also has evidence of a urinary tract infection urine culture obtained. Patient had evidence of fluid overload in the ER and was given IV Lasix 40 mg. Patient desaturated easily and drop her saturation into 80s,. 79 with the deep breathing she is able to get her oxygen saturations into the 90s. She also is having episodes of hypotension and also has a history of chronic hypertension with systolic blood pressure into 80s, on arrival was 78/44 patient did receive a IV fluid bolus in the ER. Significant labs include White count is 353.5, hemoglobin 7.8., Platelets are 140. At this time her aspirin is on hold. She'll be seen evaluated by oncology. Pulmonary and cardiology both been consulted in regards to congestive heart failure and pleural effusions. BNP is elevated at 35,300. She also has elevated troponin of 0.645. Patient denies any chest pain. Patient denies any fever chills or sweats. Denies any cough. Denies any nausea vomiting. Denies abdominal changes or urinary symptoms, however is short of breath with ongoing tachypnea Objective - Vital Signs Vital signs: Vital Signs Temp 96.6 F L 06/28/18 08:00 Pulse 104 H 06/28/18 08:00 Resp 20 06/28/18 04:00 BP 86/33 06/28/18 08:00 Pulse Ox 95 06/28/18 08:00 Intake & Output 06/27/18 06/28/18 06/28/18 18:59 06:59 18:59 Intake Total 418 120 Output Total 0 Balance 418 0 120 Weight 40.5 kg Intake: Intake, IV Titration 300 Amount Cefepime 2 gm In Sodium 50 Chloride 0.9% 50 ml @ 100 mls/hr IVPB Q24HR [facility] Rx #:[id number] Vancomycin 1,000 mg In 250 Sodium Chloride 0.9% 250 ml @ 125 mls/hr IVPB Q24H [facility] Rx#:[id number] Oral 118 120 Output: Urine 0 Other: Voiding Method Bedpan Bedpan # Voids 1 0 # Bowel Movements 0 - Exam General appearance: alert, in mild respiratory distress Head exam: Present: atraumatic, normocephalic Eye exam: Present: normal appearance, PERRL ENT exam: Present: normal exam Neck exam: Present: normal inspection. Absent: tenderness, meningismus Respiratory exam: Present: rhonchi. The last 2 percussion and decrease in air entry bilaterally more so on the left side compared right side, and right-sided air entry has significantly improved compared to prior exam however Cardiovascular Exam: Present: regular rate, normal rhythm GI/Abdominal exam: Present: soft. Absent: distended, tenderness Extremities exam: Present: normal inspection, normal capillary refill Neurological exam: Present: alert, oriented X3, CN II-XII intact. Absent: motor sensory deficit Psychiatric exam: Present: normal affect, normal mood Skin exam: Present: warm, dry, intact. Absent: cyanosis, diaphoretic - Labs CBC & Chem 7: 06/28/18 05:59 06/28/18 05:59 Labs: Abnormal Lab Results - Last 24 Hours (Table) 06/28/18 06/28/18 Range/Units 05:59 05:59 WBC 284.4 H* (3.8-10.6) k/uL RBC 2.52 L (3.80-5.40) m/uL Hgb 7.3 L (11.4-16.0) gm/dL Hct 24.9 L (34.0-46.0) % MCHC 29.5 L (31.0-37.0) g/dL RDW 19.1 H (11.5-15.5) % Plt Count 107 L (150-450) k/uL Lymphocytes # (Manual) 278.71 H (1.0-4.8) k/uL Monocytes # (Manual) 2.84 H (0-1.0) k/uL BUN 36 H (7-17) mg/dL Glucose 112 H (74-99) mg/dL Calcium 8.2 L (8.4-10.2) mg/dL Total Protein 4.9 L (6.3-8.2) g/dL Albumin 2.9 L (3.5-5.0) g/dL Microbiology - Last 24 Hours (Table) 06/26/18 18:45 Acid Fast Bacilli Smear - Final Pleural Fluid Acid Fast Bacilli Culture - Preliminary 06/26/18 18:45 Gram Stain - Preliminary Pleural Fluid Body Fluid Culture - Preliminary 06/25/18 11:24 Blood Culture - Preliminary Blood No Growth after 48 hours Assessment and Plan Assessment: Acute exacerbation of CHF likely acute on chronic systolic heart failure Bilateral pleural effusion with worsening of effusion, status post a right thoracentesis 800 mL of orange pleural fluid removed Advanced CML Acute hypoxic respirator failure related to fluid overload however occult pneumonia cannot be excluded agree with broad-spectrum antibiotics Plan: Agree with broad-spectrum antibiotics Gentle diuresis We'll do a left thoracentesis followed by left after 24 hours Risk complication side effects discussed informed consent to be obtained, we'll proceed with a left thoracentesis likely tomorrow Time with Patient: Greater than 30
--- NOTE | 2018-06-28 13:24 | P.PN ---
Subjective Progress Note Date: 06/28/18 Principal diagnosis: Acute exacerbation of congestive heart failure, bilateral pleural effusion, advanced CML, acute hypoxic respirator failure, healthcare associated pneumonia cannot be excluded 06/28/2018, patient seen hawa examined during the rounds clinically patient is doing slightly better breathing more comfortably but still get short of breath on minimal activity and exertion or is having intermittent dry nonproductive cough sinus present bedside have discussed with him at length about plans for left thoracentesis later on today, procedure and date of complication explained 06/27/2018, patient seen hawa examined during the rounds he is she is status post right thoracentesis about 750-800 mL of fluid has been removed, feels better post procedure x-ray reviewed small amount of residual fluid on the right side noted moderate pleural effusion seen on the left side will monitor observe today we'll consider doing a thoracentesis tomorrow on the left side procedure explained to the patient at length This is a 87-year-old female with a known history of CLL, congestive heart failure with a known EF of 20-25%, pleural effusions requiring left thoracentesis on 06/18/2018, hypothyroidism, hypertension and hyperlipidemia. Patient is well-known to me, patient currently at [facility], after being discharged from the hospital on June 18. At that time she was treated for congestive heart failure exacerbation and had undergone a left thoracentesis for pleural effusion. She was discharged on Lasix 40 mg daily. She is currently been on Levaquin for pneumonia. ER was notified about patient was dyspneic and having episodes of unresponsiveness and oxygen saturation was in the 80s. Oxygen supplement was placed and patient was transferred to the hospital for further evaluation and treatment. I have reviewed Chest x-ray shows suspected CHF exacerbation as there is cardiomegaly with small to moderate sized left greater than right pleural effusions. And have ordered the ultrasound of the chest, There is associated bibasilar atelectasis. Underlying acute infiltrate is not excluded. Patient started on cefepime and vancomycin in the emergency room. Patient also has evidence of a urinary tract infection urine culture obtained. Patient had evidence of fluid overload in the ER and was given IV Lasix 40 mg. Patient desaturated easily and drop her saturation into 80s,. 79 with the deep breathing she is able to get her oxygen saturations into the 90s. She also is having episodes of hypotension and also has a history of chronic hypertension with systolic blood pressure into 80s, on arrival was 78/44 patient did receive a IV fluid bolus in the ER. Significant labs include White count is 353.5, hemoglobin 7.8., Platelets are 140. At this time her aspirin is on hold. She'll be seen evaluated by oncology. Pulmonary and cardiology both been consulted in regards to congestive heart failure and pleural effusions. BNP is elevated at 35,300. She also has elevated troponin of 0.645. Patient denies any chest pain. Patient denies any fever chills or sweats. Denies any cough. Denies any nausea vomiting. Denies abdominal changes or urinary symptoms, however is short of breath with ongoing tachypnea Objective - Vital Signs Vital signs: Vital Signs Temp 96.6 F L 06/28/18 08:00 Pulse 104 H 06/28/18 08:00 Resp 20 06/28/18 04:00 BP 86/33 06/28/18 08:00 Pulse Ox 95 06/28/18 08:00 Intake & Output 06/27/18 06/28/18 06/28/18 18:59 06:59 18:59 Intake Total 418 120 Output Total 0 Balance 418 0 120 Weight 40.5 kg Intake: Intake, IV Titration 300 Amount Cefepime 2 gm In Sodium 50 Chloride 0.9% 50 ml @ 100 mls/hr IVPB Q24HR [facility] Rx #:[id number] Vancomycin 1,000 mg In 250 Sodium Chloride 0.9% 250 ml @ 125 mls/hr IVPB Q24H [facility] Rx#:[id number] Oral 118 120 Output: Urine 0 Other: Voiding Method Bedpan Bedpan # Voids 1 0 # Bowel Movements 0 - Exam General appearance: alert, in mild respiratory distress Head exam: Present: atraumatic, normocephalic Eye exam: Present: normal appearance, PERRL ENT exam: Present: normal exam Neck exam: Present: normal inspection. Absent: tenderness, meningismus Respiratory exam: Present: rhonchi. The last 2 percussion and decrease in air entry bilaterally more so on the left side compared right side, and right-sided air entry has significantly improved compared to prior exam however Cardiovascular Exam: Present: regular rate, normal rhythm GI/Abdominal exam: Present: soft. Absent: distended, tenderness Extremities exam: Present: normal inspection, normal capillary refill Neurological exam: Present: alert, oriented X3, CN II-XII intact. Absent: motor sensory deficit Psychiatric exam: Present: normal affect, normal mood Skin exam: Present: warm, dry, intact. Absent: cyanosis, diaphoretic - Labs CBC & Chem 7: 06/28/18 05:59 06/28/18 05:59 Labs: Abnormal Lab Results - Last 24 Hours (Table) 06/28/18 06/28/18 Range/Units 05:59 05:59 WBC 284.4 H* (3.8-10.6) k/uL RBC 2.52 L (3.80-5.40) m/uL Hgb 7.3 L (11.4-16.0) gm/dL Hct 24.9 L (34.0-46.0) % MCHC 29.5 L (31.0-37.0) g/dL RDW 19.1 H (11.5-15.5) % Plt Count 107 L (150-450) k/uL Lymphocytes # (Manual) 278.71 H (1.0-4.8) k/uL Monocytes # (Manual) 2.84 H (0-1.0) k/uL BUN 36 H (7-17) mg/dL Glucose 112 H (74-99) mg/dL Calcium 8.2 L (8.4-10.2) mg/dL Total Protein 4.9 L (6.3-8.2) g/dL Albumin 2.9 L (3.5-5.0) g/dL Microbiology - Last 24 Hours (Table) 06/26/18 18:45 Acid Fast Bacilli Smear - Final Pleural Fluid Acid Fast Bacilli Culture - Preliminary 06/26/18 18:45 Gram Stain - Preliminary Pleural Fluid Body Fluid Culture - Preliminary 06/25/18 11:24 Blood Culture - Preliminary Blood No Growth after 48 hours Assessment and Plan Assessment: Acute exacerbation of CHF likely acute on chronic systolic heart failure Bilateral pleural effusion with worsening of effusion, status post a right thoracentesis 800 mL of orange pleural fluid removed Advanced CML Acute hypoxic respirator failure related to fluid overload however occult pneumonia cannot be excluded agree with broad-spectrum antibiotics Plan: Agree with broad-spectrum antibiotics Gentle diuresis We'll do a left thoracentesis later on today Risk complication side effects discussed informed consent to be obtained, we'll proceed with a left thoracentesis as planned Time with Patient: Greater than 30
--- NOTE | 2018-06-28 13:44 | P.PCN ---
Date of Procedure: 06/28/18 Preoperative Diagnosis: Pleural effusion, CML, healthcare associated pneumonia Postoperative Diagnosis: As above Procedure(s) Performed: Left thoracentesis Anesthesia: local Surgeon: Dani Muro Disposition: PACU Indications for Procedure: As above Operative Findings: As below Description of Procedure: Ultrasound was utilized to look into the maximum depth of fluid, procedure explained to the patient and the family at length, 1% lidocaine was infiltrated along the left eighth intercostal space, gauge 24 needle was placed and blood- tinged pleural fluid aspirated followed by removal then a stab incision are less than 1/8 of the centimeter was performed followed by placement of catheter in needle the needle was withdrawn catheter left in position on 850 mL of blood- tinged pleural fluid aspirated patient tolerated procedure well no complication noted, chest x-ray pending
--- NOTE | 2018-06-28 14:11 | XR ---
EXAMINATION TYPE: XR chest 1V portable DATE OF EXAM: 06/28/2018 COMPARISON: 06/26/2018 HISTORY: Status post left thoracentesis TECHNIQUE: Single frontal view of the chest is obtained. FINDINGS: Bilateral consolidation and pleural effusion which appears to be improved on the left. No sizable pneumothorax. Interstitial process and cardiomegaly noted with atherosclerotic change aorta. Diffuse osteopenia and arthropathy of the shoulders. Pulmonary arteries and hilum appear to be promin ent could be related the pulmonary arterial hypertension. IMPRESSION: 1. Bilateral infiltrate and small effusion with improvement on the left postthoracentesis and no siza ble pneumothorax. 2. Underlying chronic interstitial lung disease with probable superimposed interstitial pneumonitis o r venous congestion suspected.
--- NOTE | 2018-06-28 14:44 | P.PN ---
Subjective Progress Note Date: 06/28/18 This is a pleasant 87-year-old female with past medical history significant for chronic lymphocytic leukemia, hyperlipidemia, hypertension, hypothyroidism nonsmoker, no EtOH, who was recently discharged home from the hospital to [facility], after being in the hospital with congestive heart failure exacerbation as well as bilateral pleural effusions for which the patient underwent a left-sided thoracentesis. Patient also was noted to have pneumonia, and was on Levaquin. Patient was brought to the hospital on this occasion because she was noted by the staff there to be quite dyspneic, she was also having episodes of unresponsiveness, it was found that her oxygen saturations were around 80%. Chest x-ray on admission showed congestive heart failure exacerbation with a small to moderate size left greater than right pleural effusion. There was also associated bibasilar atelectasis, and an acute infiltrate was not excluded. Patient was started on cefepime and vancomycin in the emergency room. She was also initiated on IV Lasix. According to the patient, she doesn't feel more short of breath than her usual, but visually the patient does appear that she is short of breath and extremely weak. Patient's blood pressure in the emergency room was also noted to be 78/44 , she received an IV fluid bolus. White blood cell count 353.5 on admission, 314.5 this morning, hemoglobin 7.8 on admission, 7.2 this morning. Platelet count 140 on admission, 119 this morning. Blood gases were obtained on admission, pH 7.5, pCO2 36, HCO3 28. Sodium 137, potassium 3.8 on admission, 3.2 this morning. BUN on admission 65 and creatinine 1.2, 49 and 1.1 this morning. Magnesium 2.5. BNP level 35,300. Troponin 0.64. On review of most recent records, patient is noted to have an abnormality in the troponins in that range. Patient also has a positive UTI this admission. Blood pressure this morning 80/40, heart rate around 100, 96% on 3 L of oxygen. Chest x-ray shows a sinus tachycardia with nonspecific ST-T wave changes noted. 06/27/2018 Patien seen and examined this morning, she underwent a right-sided thoracentesis yesterday by Dr. Beckman for 750 mL of dark orange peripheral fluid which was aspirated. At the time of our examination this morning, she states overall she is feeling significantly better, she still appears to be somewhat short of breath but states that overall her breathing has improved a lot. Her weight today is down 3 kg. Blood pressure continues to be on the low side at 88 /50, heart rate in the 90s, 96% on 2 L of oxygen. White blood cell count 320, hemoglobin 7.7, platelet count 112. Sodium 138, potassium 3.9, BUN 45, creatinine 1.0. Chest x-ray revealed interval improvement post right thoracentesis. Heart rate today is under much better control, we will add oral Lanoxin to her medication regime. 06/28/2018 Patient seen and examined this morning, appears more short of breath today, very weak. Anticipating possible thoracentesis on the left side today. Family and primary care are going to get together tomorrow and discuss hospice. Objective - Vital Signs Vital signs: Vital Signs Temp 96.6 F L 06/28/18 08:00 Pulse 104 H 06/28/18 08:00 Resp 20 06/28/18 04:00 BP 86/33 06/28/18 08:00 Pulse Ox 95 06/28/18 08:00 Intake & Output 06/27/18 06/28/18 06/28/18 18:59 06:59 18:59 Intake Total 418 120 Output Total 0 Balance 418 0 120 Weight 40.5 kg Intake: Intake, IV Titration 300 Amount Cefepime 2 gm In Sodium 50 Chloride 0.9% 50 ml @ 100 mls/hr IVPB Q24HR JORD[facility] Rx #:[id number] Vancomycin 1,000 mg In 250 Sodium Chloride 0.9% 250 ml @ 125 mls/hr IVPB Q24H JORD[facility] Rx#:[id number] Oral 118 120 Output: Urine 0 Other: Voiding Method Bedpan Bedpan # Voids 1 0 # Bowel Movements 0 - Exam PHYSICAL EXAMINATION: GENERAL: 87-year-old female, appears weak and short of breath at the time of my examination HEENT: Head is atraumatic, normocephalic. Pupils equal, round. Sclera anicteric. Conjunctiva are clear. Mucous membranes of the mouth are moist. Neck is supple. There no elevated jugular venous pressure. No carotid bruit is heard. HEART EXAMINATION: Heart S1 and S2 systolic murmur is heard. CHEST EXAMINATION: Lungs reveal improvement in air entry to the right base, continues to be diminished on the left. ABDOMEN: Soft, nontender. Bowel sounds are heard. No organomegaly noted. EXTREMITIES: 2+ peripheral pulses with no evidence of peripheral edema and no calf tenderness noted. NEUROLOGIC patient is awake, alert and oriented ?-3. - Labs CBC & Chem 7: 06/28/18 05:59 06/28/18 05:59 Labs: Abnormal Lab Results - Last 24 Hours (Table) 06/28/18 06/28/18 Range/Units 05:59 05:59 WBC 284.4 H* (3.8-10.6) k/uL RBC 2.52 L (3.80-5.40) m/uL Hgb 7.3 L (11.4-16.0) gm/dL Hct 24.9 L (34.0-46.0) % MCHC 29.5 L (31.0-37.0) g/dL RDW 19.1 H (11.5-15.5) % Plt Count 107 L (150-450) k/uL Lymphocytes # (Manual) 278.71 H (1.0-4.8) k/uL Monocytes # (Manual) 2.84 H (0-1.0) k/uL BUN 36 H (7-17) mg/dL Glucose 112 H (74-99) mg/dL Calcium 8.2 L (8.4-10.2) mg/dL Total Protein 4.9 L (6.3-8.2) g/dL Albumin 2.9 L (3.5-5.0) g/dL Microbiology - Last 24 Hours (Table) 06/25/18 11:24 Blood Culture - Preliminary Blood No Growth after 72 hours 06/26/18 18:45 Acid Fast Bacilli Smear - Final Pleural Fluid Acid Fast Bacilli Culture - Preliminary 06/26/18 18:45 Gram Stain - Preliminary Pleural Fluid Body Fluid Culture - Preliminary Assessment and Plan Plan: Assessment: 1. Acute hypoxic respiratory failure: Likely secondary to congestive heart failure exacerbation systolic acute on, pleural effusions and possible pneumonia. 2. Acute on chronic systolic congestive heart failure exacerbation: Echo from May 2018 shows an EF of 20-25% and severe aortic stenosis. Patient has elevated BNP. Received a dose of IV Lasix in the ER. 3. Bilateral pleural effusions: with moderate sized left greater than right pleural effusion on chest x-ray. Status post recent left-sided thoracentesis 4. Possible pneumonia 5. Recent pneumonia on Levaquin outpatient 6. UTI: 7. Chronic lymphocytic leukemia 8. Acute kidney injury 9. Hypotension 10. Elevated troponin, likely secondary to supply and demand this. 11. Hypothyroidism Plan We will continue the patient on Lasix 20 IV twice a day, check lytes creatinine in the morning, monitor intake and output. Possible thoracentesis on the left side today. Hospice discussion meeting tomorrow. DNP note has been reviewed, I agree with a documented findings and plan of care. Patient was seen and examined.
[2018-06-28 18:20] LABS: Appearance,BF Bloody; Color,BF Red; Nucleated Cells, Body Fluid 4500 /uL; RBC, Body Fluid 34100 /uL
[2018-06-28 18:21] LABS: Mononuclear WBC,Body Fluid 98 %; Polynuclear WBC,Body Fluid 2 %
[2018-06-28 19:35] LABS: Total Protein, Body Fluid 2100 mg/dL
[2018-06-29] MEDS: PANTOPRAZOLE 40 MG TABLET PO SCH (06:12)
[2018-06-29] MEDS: LEVOTHYROXINE 25 MCG TAB PO SCH (06:12)
[2018-06-29 06:51] LABS: Albumin 2.6 g/dL (3.5-5.0); Calcium 7.9 mg/dL (8.4-10.2); Potassium 3.5 mmol/L (3.5-5.1); Total Bilirubin 0.6 mg/dL (0.2-1.3); Total Protein 4.5 g/dL (6.3-8.2)
[2018-06-29 06:52] LABS: Anisocytosis Slight; HCT 25.2 % (34.0-46.0); HGB 7.1 gm/dL (11.4-16.0); Hypochromasia Marked; MCHC 28.1 g/dL (31.0-37.0); MCV 99.7 fL (80.0-100.0); Macrocytosis Moderate; Mean Platelet Volume 9.7; Platelet Count 106 k/uL (150-450); RBC 2.53 m/uL (3.80-5.40); RDW 19.6 % (11.5-15.5)
[2018-06-29 06:56] LABS: WBC 269.2 k/uL (3.8-10.6)
[2018-06-29 08:08] LABS: Lymphocytes # (M) 253.05 k/uL (1.0-4.8); Neutrophils # (M) 16.15 k/uL (1.3-7.7); Neutrophils % (M) 6 %; Nucleated Red Blood Cells 0 /100 WBC (0-0); Total Cells Counted 100
[2018-06-29 08:09] LABS: Poikilocytosis (M) Present
[2018-06-29] MEDS: IPRATROPIUM-ALBUTEROL 3 ML NEB INHALATION SCH ×3 (08:21→20:10)
[2018-06-29] MEDS: CEFEPIME 2 GM in SODIUM CHLORIDE 0.9% 50 ML IVPB SCH (09:01)
[2018-06-29] MEDS: ALLOPURINOL 300 MG TAB PO SCH (09:02)
[2018-06-29] MEDS: GABAPENTIN 400 MG CAP PO SCH ×2 (09:02→22:14)
[2018-06-29] MEDS: FUROSEMIDE 10 MG/ML 2 ML VIAL IV SCH ×2 (09:02→22:14)
[2018-06-29] MEDS: DIGOXIN 125 MCG TAB PO SCH (09:02)
[2018-06-29] MEDS: predniSONE 5 MG TAB PO SCH (09:02)
[2018-06-29] MEDS: POTASSIUM CHLORIDE ER 10 MEQ TAB.ER.PRT PO SCH (09:02)
[2018-06-29] MEDS: MENTHOL-ZINC OXIDE OINT 113 GM TUBE TOPICAL SCH ×3 (09:09→22:14)
[2018-06-29] MEDS: VANCOMYCIN 750 MG in SODIUM CHLORIDE 0.9% 250 ML IVPB SCH (11:53)
--- NOTE | 2018-06-29 13:02 | P.PN ---
Subjective Progress Note Date: 06/29/18 This is a 87-year-old female with a known history of CLL, congestive heart failure with a known EF of 20-25%, pleural effusions requiring left thoracentesis on 06/18/2018, hypothyroidism, hypertension and hyperlipidemia. Patient was currently at [facility] after being discharged from the hospital on June 18. At that time she was treated for congestive heart failure exacerbation and had undergone a left thoracentesis for pleural effusion. She was discharged on Lasix 40 mg daily. She is currently been on Levaquin for pneumonia. Per ER report they were notified from the [facility] the patient was dyspneic and having episodes of unresponsiveness and oxygen saturation was in the 80s. Oxygen supplement was placed and patient was transferred to the hospital for further evaluation and treatment. Chest x-ray shows suspected CHF exacerbation as there is cardiomegaly with small to moderate sized left greater than right pleural effusions. There is associated bibasilar atelectasis. Underlying acute infiltrate is not excluded. Patient started on cefepime and vancomycin in the emergency room. Patient also has evidence of a urinary tract infection urine culture obtained. Patient had evidence of fluid overload in the ER and was given IV Lasix 40 mg. Patient desats very easily. She is a mouth breather. Patient has been encouraged to breathe deeply. Her nose and her oxygen saturation does drop and to around [id number] with the deep breathing she is able to get her oxygen saturations into the 90s. She also is having episodes of hypotension. Blood pressure 78/44. It appears that she did receive a IV fluid bolus in the ER. She does have crackles on the right lower lobe. White count is 353.5, hemoglobin 7.8., Platelets are 140. At this time her aspirin will be on hold. She'll be seen evaluated by oncology. Pulmonary and cardiology both been consulted in regards to congestive heart failure and pleural effusions. BNP is elevated at 35,300. She also has elevated troponin of 0.645. Patient denies any chest pain. Patient denies any fever chills or sweats. Denies any cough. Denies any nausea vomiting. Denies abdominal changes or urinary symptoms. On 06/26/2018 patient is currently sitting up in bed. Patient is a & O 3. Patient at this point cannot tolerate laying flat without becoming short of breath. Patient currently on 3 L nasal cannula. Blood pressure remains marginal. White blood cell remains critical at 314.5. Hemoglobin 7.2. Potassium is 3.2. Replacement has been ordered. Patient currently on vancomycin and cefepime. Dr. Muro consulted for pulmonary. Dr. Renae consulted for cardiology and Dr. Calzada consulted per oncology. awaiting consult providers. Patient denies chest pain. Denies nausea vomiting or diarrhea. Denies any urinary burning and frequency. 06/27/2018 patient is currently A and O3 and sitting up in bed. Patient states that she is feeling much less short of breath today. Patient did receive a right thoracentesis per Dr. Muro yesterday. Patient remains on 2-3 L nasal cannula. Potassium improving to 3.9. Hemoglobin 7.7. Patient remains on vancomycin and cefempime for antibiotics. She denies chest pain at this time. Denies nausea vomiting or diarrhea. Denies any urinary burning and frequency. 06/28/2018 patient is currently sitting in bed. Denies any shortness of breath. She is on 2 L nasal cannula satting at 95%. She had a right sided thoracentesis with 750 mL removed. Possible left sided thoracentesis later today after evaluation by pulmonary service. Patient denies any chest pain. Denies any nausea or vomiting. Denies any bowel movement changes or urinary symptoms. Hemoglobin 7.3. BP 86/33 06/29/2018 patient had left sided thoracentesis completed yesterday with 850 mL of blood tinged fluid. Pathology reports on the right thoracentesis shows pleural fluid consistent with CLL. Dr. Wiley met with the family this afternoon for a family meeting. At this time they have questions about a possible Pleurx catheter to help with the recurrent pleural effusions. This was discussed with Dr. Muro via phone. Dr. Palmer will be through this afternoon to answer questions about Pleurx catheter with family. At this time they do not want to proceed with hospice. Patient has no complaints. Objective - Vital Signs Vital signs: Vital Signs Temp 97.0 F L 06/29/18 08:00 Pulse 91 06/29/18 08:00 Resp 16 06/29/18 08:00 BP 80/45 06/29/18 08:00 Pulse Ox 95 06/29/18 08:00 Intake & Output 06/28/18 06/29/18 06/29/18 18:59 06:59 18:59 Intake Total 360 118 Output Total 800 Balance 360 -800 118 Weight 41.5 kg Intake: Oral 360 118 Output: Urine 800 Other: Voiding Method Bedpan Bedpan # Voids 1 1 2 # Bowel Movements 0 - Exam Head normocephalic Neck supple Lungs crackles at bases bilaterally. Improvement in left-sided air movement Heart regular rate and rhythm S1-S2, no rub or gallop Abdomen is soft nontender nondistended positive bowel sounds no hepatosplenomegaly Extremities no edema Neuro alert and orientated to 3 - Labs CBC & Chem 7: 06/29/18 05:42 06/29/18 05:42 Labs: Abnormal Lab Results - Last 24 Hours (Table) 06/29/18 06/29/18 Range/Units 05:42 05:42 WBC 269.2 H* (3.8-10.6) k/uL RBC 2.53 L (3.80-5.40) m/uL Hgb 7.1 L (11.4-16.0) gm/dL Hct 25.2 L (34.0-46.0) % MCHC 28.1 L (31.0-37.0) g/dL RDW 19.6 H (11.5-15.5) % Plt Count 106 L (150-450) k/uL Neutrophils # (Manual) 16.15 H (1.3-7.7) k/uL Lymphocytes # (Manual) 253.05 H (1.0-4.8) k/uL BUN 31 H (7-17) mg/dL Calcium 7.9 L (8.4-10.2) mg/dL Total Protein 4.5 L (6.3-8.2) g/dL Albumin 2.6 L (3.5-5.0) g/dL Microbiology - Last 24 Hours (Table) 06/28/18 13:30 Gram Stain - Preliminary Pleural Fluid Body Fluid Culture - Preliminary 06/28/18 13:30 Fungal Culture - Preliminary Pleural Fluid 06/28/18 13:30 Acid Fast Bacilli Culture - Preliminary Pleural Fluid 06/26/18 18:45 Gram Stain - Preliminary Pleural Fluid Body Fluid Culture - Preliminary 06/25/18 11:24 Blood Culture - Preliminary Blood No Growth after 72 hours Assessment and Plan Assessment: 1. Acute hypoxic respiratory failure: Likely secondary to congestive heart failure exacerbation, pleural effusions and possible pneumonia. Patient required 2 L of oxygen. Continue nebulizer treatments. 2. Acute on chronic systolic congestive heart failure exacerbation: Echo from May 2018 shows an EF of 20-25% and severe aortic stenosis. Patient has elevated BNP. Cardiology following. Continue IV Lasix. Cardiology added digoxin 3. Bilateral pleural effusions: with moderate sized left greater than right pleural effusion on chest x-ray. Pulmonary service consulted. Last hospitalization June 20 patient did require a left-sided thoracentesis. Patient status post right-sided thoracentesis with 750 mL removed on 2017. Status post left-sided thoracentesis 06/28/2018 with 850 mL removed. 4. Possible pneumonia: Check sputum culture. Patient started on vancomycin and cefepime and ER. 5. Recent pneumonia on Levaquin outpatient 6. UTI: Urine culture negative. 7. Chronic lymphocytic leukemia: Patient does have evidence of pancytopenia likely related to her CLL. Patient's aspirin on hold. Per oncology pleural fluid was positive for CLL. Likely patient's pleural effusions are secondary to a combination of congestive heart failure and CLL. CLL is progressive and treatment was recommended but patient states she will continue on prednisone for now. She'll follow-up with oncology outpatient. Right-sided thoracentesis pleural fluid consistent with CLL 8. Acute kidney injury: Improved 9. Hypotension: Patient received fluid bolus and ER 10. Elevated troponin: Per cardiology likely secondary to supply and demand 11. Hypothyroidism continue Synthroid 12. 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 Continue to monitor 13. Possible sepsis present on admission secondary to pneumonia and UTI GI prophylaxis omeprazole and DVT prophylaxis SCDs Family meeting completed today. Family requesting information about possible placement of Pleurx catheter. Dr. Muro will be to do discuss this with family later this afternoon. At this time patient's family wants to continue with current treatment. They are not ready to proceed with hospice yet I performed an examination of the patient and discussed their management with the physician B2B Appointment Setter. I have reviewed the Physician B2B Appointment Setter's notes and agree with the documented findings and plan of care
--- NOTE | 2018-06-29 14:15 | P.PN ---
Subjective Progress Note Date: 06/29/18 This is a pleasant 87-year-old female with past medical history significant for chronic lymphocytic leukemia, hyperlipidemia, hypertension, hypothyroidism, nonsmoker, was recently discharged home from the hospital to [facility]. During that admission she was here for congestive heart failure exacerbation as well as bilateral pleural effusions for which she underwent a left-sided thoracentesis. She was also noted to have pneumonia and was put on Levaquin. She was brought to the hospital on this occasion because she was noted by staff to be quite dyspneic with episodes of unresponsiveness and low oxygen saturations. Chest x-ray on admission showed congestive heart failure with small to moderate-sized left greater than right pleural effusion. She underwent a left-sided pleurocentesis yesterday. There was a meeting today regarding hospice and at this time the patient's family do not wish to pursue this and would like to pursue possible Pleur-x catheter placement for recurrent pleural effusions. May pursue hospice and later date. Patient remains hypotensive with some improvement in blood pressure at 98/54 today heart rates in the 90s she is satting 96% on 2 L. She remains short of breath with minimal exertion. Objective - Vital Signs Vital signs: Vital Signs Temp 98 F 06/29/18 12:00 Pulse 104 H 06/29/18 12:00 Resp 18 06/29/18 12:00 BP 98/54 06/29/18 12:00 Pulse Ox 96 06/29/18 12:00 Intake & Output 06/28/18 06/29/18 06/29/18 18:59 06:59 18:59 Intake Total 360 118 Output Total 800 Balance 360 -800 118 Weight 41.5 kg Intake: Oral 360 118 Output: Urine 800 Other: Voiding Method Bedpan Bedpan # Voids 1 1 2 # Bowel Movements 0 - Exam PHYSICAL EXAMINATION: HEENT: [Head is atraumatic, normocephalic. Pupils equal, round. Neck is supple. There is no elevated jugular venous pressure.] HEART EXAMINATION: [Heart sounds regular, S1 and S2 with a systolic murmur.] CHEST EXAMINATION:[ Lungs diminished air entry bilaterally. No chest wall tenderness is noted on palpation or with deep breathing.] ABDOMEN: [ Soft, nontender. Bowel sounds are heard. No organomegaly noted]. EXTREMITIES:[ 2+ peripheral pulses with no evidence of peripheral edema and no calf tenderness noted]. NEUROLOGIC [patient is drowsy.] . - Labs CBC & Chem 7: 06/29/18 05:42 06/29/18 05:42 Labs: Abnormal Lab Results - Last 24 Hours (Table) 06/29/18 06/29/18 Range/Units 05:42 05:42 WBC 269.2 H* (3.8-10.6) k/uL RBC 2.53 L (3.80-5.40) m/uL Hgb 7.1 L (11.4-16.0) gm/dL Hct 25.2 L (34.0-46.0) % MCHC 28.1 L (31.0-37.0) g/dL RDW 19.6 H (11.5-15.5) % Plt Count 106 L (150-450) k/uL Neutrophils # (Manual) 16.15 H (1.3-7.7) k/uL Lymphocytes # (Manual) 253.05 H (1.0-4.8) k/uL BUN 31 H (7-17) mg/dL Calcium 7.9 L (8.4-10.2) mg/dL Total Protein 4.5 L (6.3-8.2) g/dL Albumin 2.6 L (3.5-5.0) g/dL Microbiology - Last 24 Hours (Table) 06/25/18 11:24 Blood Culture - Preliminary Blood No Growth after 96 hours 06/28/18 13:30 Gram Stain - Preliminary Pleural Fluid Body Fluid Culture - Preliminary 06/28/18 13:30 Fungal Culture - Preliminary Pleural Fluid 06/28/18 13:30 Acid Fast Bacilli Culture - Preliminary Pleural Fluid 06/26/18 18:45 Gram Stain - Preliminary Pleural Fluid Body Fluid Culture - Preliminary Assessment and Plan Assessment: 1. Acute hypoxic respiratory failure: Likely secondary to congestive heart failure exacerbation systolic acute on, pleural effusions and possible pneumonia. 2. Acute on chronic systolic congestive heart failure exacerbation: Echo from May 2018 shows an EF of 20-25% and severe aortic stenosis. Patient has elevated BNP. Currently on Lasix IV push 20 mg every 12 hours 3. Bilateral pleural effusions: with moderate sized left greater than right pleural effusion on chest x-ray. Status post recent left-sided thoracentesis. Patient is anticipating possible Pleurx catheter placement 4. Possible pneumonia 5. Recent pneumonia on Levaquin outpatient 6. UTI: 7. Chronic lymphocytic leukemia 8. Acute kidney injury 9. Hypotension 10. Elevated troponin, likely secondary to supply and demand mismatch. 11. Hypothyroidism Plan: From cardiology's perspective, medications were reviewed continue the same. At this time we will follow the patient on an as-needed basis. BUSINESS PROCESS MODELER note has been reviewed, I agree with a documented findings and plan of care. Patient was seen and examined.
--- NOTE | 2018-06-29 14:32 | P.PN ---
Subjective Progress Note Date: 06/29/18 Principal diagnosis: Progressed CLL, Recurrent Malignant Pleural Effusions Ms. Huerta had fluid drained yesterday, she states she does not notice much of a change in how she feels. I sat with family today and the patient and family continue to refuse any treatment for CLL. We discussed a plan of potential pleurex for comfort and home hospice care. We feel this is resonable Objective - Vital Signs Vital signs: Vital Signs Temp 98 F 06/29/18 12:00 Pulse 104 H 06/29/18 12:00 Resp 18 06/29/18 12:00 BP 98/54 06/29/18 12:00 Pulse Ox 96 06/29/18 12:00 Intake & Output 06/28/18 06/29/18 06/29/18 18:59 06:59 18:59 Intake Total 360 118 Output Total 800 Balance 360 -800 118 Weight 41.5 kg Intake: Oral 360 118 Output: Urine 800 Other: Voiding Method Bedpan Bedpan # Voids 1 1 2 # Bowel Movements 0 - Constitutional General appearance: Present: cooperative, no acute distress - EENT Eyes: Present: EOMI, poor dentition ENT: Present: hard of hearing, NA/AT, normal oropharynx - Neck Details: Supple, Midline Neck: Present: lymphadenopathy, normal ROM - Respiratory Respiratory: bilateral: diminished (Throughout) - Cardiovascular Rhythm: regular Heart sounds: normal: S1, S2 - Gastrointestinal General gastrointestinal: Present: distended, normal bowel sounds, soft - Integumentary Integumentary: Present: pale - Neurologic Neurologic: Present: CNII-XII intact - Musculoskeletal Musculoskeletal: Present: generalized weakness, strength equal bilaterally - Psychiatric Psychiatric: Present: A&O x's 3 - Labs CBC & Chem 7: 06/29/18 05:42 06/29/18 05:42 Labs: Abnormal Lab Results - Last 24 Hours (Table) 06/29/18 06/29/18 Range/Units 05:42 05:42 WBC 269.2 H* (3.8-10.6) k/uL RBC 2.53 L (3.80-5.40) m/uL Hgb 7.1 L (11.4-16.0) gm/dL Hct 25.2 L (34.0-46.0) % MCHC 28.1 L (31.0-37.0) g/dL RDW 19.6 H (11.5-15.5) % Plt Count 106 L (150-450) k/uL Neutrophils # (Manual) 16.15 H (1.3-7.7) k/uL Lymphocytes # (Manual) 253.05 H (1.0-4.8) k/uL BUN 31 H (7-17) mg/dL Calcium 7.9 L (8.4-10.2) mg/dL Total Protein 4.5 L (6.3-8.2) g/dL Albumin 2.6 L (3.5-5.0) g/dL Microbiology - Last 24 Hours (Table) 06/25/18 11:24 Blood Culture - Preliminary Blood No Growth after 96 hours 06/28/18 13:30 Gram Stain - Preliminary Pleural Fluid Body Fluid Culture - Preliminary 06/28/18 13:30 Fungal Culture - Preliminary Pleural Fluid 06/28/18 13:30 Acid Fast Bacilli Culture - Preliminary Pleural Fluid 06/26/18 18:45 Gram Stain - Preliminary Pleural Fluid Body Fluid Culture - Preliminary Assessment and Plan Plan: Assessment and Recomendations: 1. Progressive CLL - Refuses treatment related to CLL -Discussed with family and primary team and resonable for patient to be discharged home with hospice after pleurex drain is placed for recurrent malignant pleural effusions. If a pleurex is an option, explained with bilateral effusions this would be deferred to pulmonary.
--- NOTE | 2018-06-29 15:26 | P.PN ---
Progress Note - Text Progress Note Date: 06/29/18 Family meeting completed today with Dr. Wiley and myself with 3 of the patient' s family members. Discussed the plan of care with patient. Discussed possible initiation of hospice. At this time family wanted to further investigate possible Pleurx catheter for her recurrent fluid. Dr. Muro was notified of this he will be in to discuss this option with the family. All of the family members questions were answered to the best of her ability. Family meeting lasted for about 15 minutes. And at this time we will continue with current treatment plan and await further pulmonary recommendations.
--- NOTE | 2018-06-29 15:28 | P.PN ---
Subjective Progress Note Date: 06/29/18 Principal diagnosis: Acute exacerbation of congestive heart failure, bilateral pleural effusion, advanced CML, acute hypoxic respirator failure, healthcare associated pneumonia cannot be excluded 06/29/2018, patient seen eval reexamined during the rounds she is remains short of breath very tired and exhausted resting she has ongoing chronic shortness of breath however severity has improved after removal of bilateral thoracentesis on the cytology from left pleural fluid is pending the culture results and reports are reviewed [place] the cytology from the right side is positive for lymphocytes and cytometry results revealed monoclonal B lymphocytes consistent with CLL 06/28/2018, patient seen eval examined during the rounds clinically patient is doing slightly better breathing more comfortably but still get short of breath on minimal activity and exertion or is having intermittent dry nonproductive cough sinus present bedside have discussed with him at length about plans for left thoracentesis later on today, procedure and date of complication explained 06/27/2018, patient seen eval examined during the rounds he is she is status post right thoracentesis about 750-800 mL of fluid has been removed, feels better post procedure x-ray reviewed small amount of residual fluid on the right side noted moderate pleural effusion seen on the left side will monitor observe today we'll consider doing a thoracentesis tomorrow on the left side procedure explained to the patient at length This is a 87-year-old female with a known history of CLL, congestive heart failure with a known EF of 20-25%, pleural effusions requiring left thoracentesis on 06/18/2018, hypothyroidism, hypertension and hyperlipidemia. Patient is well-known to me, patient currently at [facility], after being discharged from the hospital on June 18. At that time she was treated for congestive heart failure exacerbation and had undergone a left thoracentesis for pleural effusion. She was discharged on Lasix 40 mg daily. She is currently been on Levaquin for pneumonia. ER was notified about patient was dyspneic and having episodes of unresponsiveness and oxygen saturation was in the 80s. Oxygen supplement was placed and patient was transferred to the hospital for further evaluation and treatment. I have reviewed Chest x-ray shows suspected CHF exacerbation as there is cardiomegaly with small to moderate sized left greater than right pleural effusions. And have ordered the ultrasound of the chest, There is associated bibasilar atelectasis. Underlying acute infiltrate is not excluded. Patient started on cefepime and vancomycin in the emergency room. Patient also has evidence of a urinary tract infection urine culture obtained. Patient had evidence of fluid overload in the ER and was given IV Lasix 40 mg. Patient desaturated easily and drop her saturation into 80s,. 79 with the deep breathing she is able to get her oxygen saturations into the 90s. She also is having episodes of hypotension and also has a history of chronic hypertension with systolic blood pressure into 80s, on arrival was 78/44 patient did receive a IV fluid bolus in the ER. Significant labs include White count is 353.5, hemoglobin 7.8., Platelets are 140. At this time her aspirin is on hold. She'll be seen evaluated by oncology. Pulmonary and cardiology both been consulted in regards to congestive heart failure and pleural effusions. BNP is elevated at 35,300. She also has elevated troponin of 0.645. Patient denies any chest pain. Patient denies any fever chills or sweats. Denies any cough. Denies any nausea vomiting. Denies abdominal changes or urinary symptoms, however is short of breath with ongoing tachypnea Objective - Vital Signs Vital signs: Vital Signs Temp 98 F 06/29/18 12:00 Pulse 104 H 06/29/18 12:00 Resp 18 06/29/18 12:00 BP 98/54 06/29/18 12:00 Pulse Ox 96 06/29/18 12:00 Intake & Output 06/28/18 06/29/18 06/29/18 18:59 06:59 18:59 Intake Total 360 233 Output Total 800 Balance 360 -800 233 Weight 41.5 kg Intake: Oral 360 233 Output: Urine 800 Other: Voiding Method Bedpan Bedpan # Voids 1 1 2 # Bowel Movements 0 - Exam General appearance: alert, in mild respiratory distress Head exam: Present: atraumatic, normocephalic Eye exam: Present: normal appearance, PERRL ENT exam: Present: normal exam Neck exam: Present: normal inspection. Absent: tenderness, meningismus Respiratory exam: Present: rhonchi. The last 2 percussion and decrease in air entry bilaterally more so on the left side compared right side, and right-sided air entry has significantly improved compared to prior exam however Cardiovascular Exam: Present: regular rate, normal rhythm GI/Abdominal exam: Present: soft. Absent: distended, tenderness Extremities exam: Present: normal inspection, normal capillary refill Neurological exam: Present: alert, oriented X3, CN II-XII intact. Absent: motor sensory deficit Psychiatric exam: Present: normal affect, normal mood Skin exam: Present: warm, dry, intact. Absent: cyanosis, diaphoretic - Labs CBC & Chem 7: 06/29/18 05:42 06/29/18 05:42 Labs: Abnormal Lab Results - Last 24 Hours (Table) 06/29/18 06/29/18 Range/Units 05:42 05:42 WBC 269.2 H* (3.8-10.6) k/uL RBC 2.53 L (3.80-5.40) m/uL Hgb 7.1 L (11.4-16.0) gm/dL Hct 25.2 L (34.0-46.0) % MCHC 28.1 L (31.0-37.0) g/dL RDW 19.6 H (11.5-15.5) % Plt Count 106 L (150-450) k/uL Neutrophils # (Manual) 16.15 H (1.3-7.7) k/uL Lymphocytes # (Manual) 253.05 H (1.0-4.8) k/uL BUN 31 H (7-17) mg/dL Calcium 7.9 L (8.4-10.2) mg/dL Total Protein 4.5 L (6.3-8.2) g/dL Albumin 2.6 L (3.5-5.0) g/dL Microbiology - Last 24 Hours (Table) 06/25/18 11:24 Blood Culture - Preliminary Blood No Growth after 96 hours 06/28/18 13:30 Gram Stain - Preliminary Pleural Fluid Body Fluid Culture - Preliminary 06/28/18 13:30 Fungal Culture - Preliminary Pleural Fluid 06/28/18 13:30 Acid Fast Bacilli Culture - Preliminary Pleural Fluid 06/26/18 18:45 Gram Stain - Preliminary Pleural Fluid Body Fluid Culture - Preliminary Assessment and Plan Assessment: Acute exacerbation of CHF likely acute on chronic systolic heart failure Bilateral pleural effusion with worsening of effusion, status post a bilateral thoracentesis Advanced CLL Acute hypoxic respirator failure related to fluid overload however occult pneumonia cannot be excluded agree with broad-spectrum antibiotics Plan: Agree with broad-spectrum antibiotics Gentle diuresis Status post bilateral thoracentesis would recommend as needed thoracentesis in the future consider Hospice is a reasonable option Time with Patient: Greater than 30
[2018-06-29 16:42] LABS: Glucose,Whole Blood 261 mg/dL (75-99)
[2018-06-30] MEDS: VANCOMYCIN 750 MG in SODIUM CHLORIDE 0.9% 250 ML IVPB SCH ×2 (06:43→21:23)
[2018-06-30] MEDS: PANTOPRAZOLE 40 MG TABLET PO SCH (06:47)
[2018-06-30] MEDS: LEVOTHYROXINE 25 MCG TAB PO SCH (06:47)
[2018-06-30] MEDS: IPRATROPIUM-ALBUTEROL 3 ML NEB INHALATION SCH ×3 (07:37→19:14)
[2018-06-30] MEDS: ALLOPURINOL 300 MG TAB PO SCH (08:05)
[2018-06-30] MEDS: GABAPENTIN 400 MG CAP PO SCH ×2 (08:05→21:14)
[2018-06-30] MEDS: DIGOXIN 125 MCG TAB PO SCH (08:06)
[2018-06-30] MEDS: predniSONE 5 MG TAB PO SCH (08:06)
[2018-06-30] MEDS: POTASSIUM CHLORIDE ER 10 MEQ TAB.ER.PRT PO SCH (08:06)
[2018-06-30] MEDS: FUROSEMIDE 10 MG/ML 2 ML VIAL IV SCH ×2 (08:06→21:14)
[2018-06-30] MEDS: MENTHOL-ZINC OXIDE OINT 113 GM TUBE TOPICAL SCH ×3 (08:11→21:18)
[2018-06-30] MEDS: CEFEPIME 2 GM in SODIUM CHLORIDE 0.9% 50 ML IVPB SCH (08:23)
[2018-06-30 11:09] VITALS: BMI 17.1
--- NOTE | 2018-06-30 15:09 | P.PN ---
Subjective Progress Note Date: 06/30/18 This is a 87-year-old female with a known history of CLL, congestive heart failure with a known EF of 20-25%, pleural effusions requiring left thoracentesis on 06/18/2018, hypothyroidism, hypertension and hyperlipidemia. Patient was currently at [facility] [place] [facility] after being discharged from the hospital on June 18. At that time she was treated for congestive heart failure exacerbation and had undergone a left thoracentesis for pleural effusion. She was discharged on Lasix 40 mg daily. She is currently been on Levaquin for pneumonia. Per ER report they were notified from the senior care the patient was dyspneic and having episodes of unresponsiveness and oxygen saturation was in the 80s. Oxygen supplement was placed and patient was transferred to the hospital for further evaluation and treatment. Chest x-ray shows suspected CHF exacerbation as there is cardiomegaly with small to moderate sized left greater than right pleural effusions. There is associated bibasilar atelectasis. Underlying acute infiltrate is not excluded. Patient started on cefepime and vancomycin in the emergency room. Patient also has evidence of a urinary tract infection urine culture obtained. Patient had evidence of fluid overload in the ER and was given IV Lasix 40 mg. Patient desats very easily. She is a mouth breather. Patient has been encouraged to breathe deeply. Her nose and her oxygen saturation does drop and to around 7879 with the deep breathing she is able to get her oxygen saturations into the 90s. She also is having episodes of hypotension. Blood pressure 78/44. It appears that she did receive a IV fluid bolus in the ER. She does have crackles on the right lower lobe. White count is 353.5, hemoglobin 7.8., Platelets are 140. At this time her aspirin will be on hold. She'll be seen evaluated by oncology. Pulmonary and cardiology both been consulted in regards to congestive heart failure and pleural effusions. BNP is elevated at 35,300. She also has elevated troponin of 0.645. Patient denies any chest pain. Patient denies any fever chills or sweats. Denies any cough. Denies any nausea vomiting. Denies abdominal changes or urinary symptoms. On 06/26/2018 patient is currently sitting up in bed. Patient is a & O 3. Patient at this point cannot tolerate laying flat without becoming short of breath. Patient currently on 3 L nasal cannula. Blood pressure remains marginal. White blood cell remains critical at 314.5. Hemoglobin 7.2. Potassium is 3.2. Replacement has been ordered. Patient currently on vancomycin and cefepime. Dr. Muro consulted for pulmonary. Dr. Renae consulted for cardiology and Dr. Calzada consulted per oncology. awaiting consult providers. Patient denies chest pain. Denies nausea vomiting or diarrhea. Denies any urinary burning and frequency. 06/27/2018 patient is currently A and O3 and sitting up in bed. Patient states that she is feeling much less short of breath today. Patient did receive a right thoracentesis per Dr. Muro yesterday. Patient remains on 2-3 L nasal cannula. Potassium improving to 3.9. Hemoglobin 7.7. Patient remains on vancomycin and cefempime for antibiotics. She denies chest pain at this time. Denies nausea vomiting or diarrhea. Denies any urinary burning and frequency. 06/28/2018 patient is currently sitting in bed. Denies any shortness of breath. She is on 2 L nasal cannula satting at 95%. She had a right sided thoracentesis with 750 mL removed. Possible left sided thoracentesis later today after evaluation by pulmonary service. Patient denies any chest pain. Denies any nausea or vomiting. Denies any bowel movement changes or urinary symptoms. Hemoglobin 7.3. BP 86/33 06/29/2018 patient had left sided thoracentesis completed yesterday with 850 mL of blood tinged fluid. Pathology reports on the right thoracentesis shows pleural fluid consistent with CLL. Dr. Wiley met with the family this afternoon for a family meeting. At this time they have questions about a possible Pleurx catheter to help with the recurrent pleural effusions. This was discussed with Dr. Muro via phone. Dr. Palmer will be through this afternoon to answer questions about Pleurx catheter with family. At this time they do not want to proceed with hospice. Patient has no complaints. On 06/30/2018 patient is alert and oriented in no apparent distress there is no fever or chills no headache no dizziness no chest pain no nausea or vomiting no diarrhea no abdominal pain and no urinary symptoms, patient is feeling weak, otherwise no symptoms at this Objective - Vital Signs Vital signs: Vital Signs Temp 98 F 06/30/18 12:00 Pulse 90 08/25/18 12:00 Resp 16 06/30/18 12:00 BP 81/47 06/30/18 12:00 Pulse Ox 94 L 06/30/18 12:00 Intake & Output 06/29/18 06/30/18 06/30/18 18:59 06:59 18:59 Intake Total 351 800 Balance 351 800 Weight 39.7 kg 39.7 kg Intake: Intake, IV Titration 300 Amount Cefepime 2 gm In Sodium 50 Chloride 0.9% 50 ml @ 100 mls/hr IVPB Q24HR JORD[facility] Rx #:[id number] Vancomycin 750 mg In 250 Sodium Chloride 0.9% 250 ml @ 125 mls/hr IVPB Q18H JORDYN Rx#:[id number] Oral 351 500 Other: Voiding Method Bedpan Bedpan Bedpan # Voids 2 2 4 - Exam Head normocephalic and atraumatic Neck supple no JVD no goiter Lungs crackles at bases bilaterally. Improvement in left-sided air movement Heart regular rate and rhythm S1-S2, no rub or gallop Abdomen is soft nontender nondistended positive bowel sounds no hepatosplenomegaly Extremities no edema no cyanosis or clubbing Neuro alert and orientated to 3 - Labs CBC & Chem 7: 06/29/18 05:42 06/29/18 05:42 Labs: Abnormal Lab Results - Last 24 Hours (Table) 06/29/18 Range/Units 16:37 POC Glucose (mg/dL) 261 H (75-99) mg/dL Microbiology - Last 24 Hours (Table) 06/25/18 11:24 Blood Culture - Preliminary Blood No Growth after 120 hours 06/28/18 13:30 Gram Stain - Preliminary Pleural Fluid Body Fluid Culture - Preliminary 06/28/18 13:30 Acid Fast Bacilli Smear - Final Pleural Fluid Acid Fast Bacilli Culture - Preliminary 06/26/18 18:45 Gram Stain - Preliminary Pleural Fluid Body Fluid Culture - Preliminary Assessment and Plan Plan: 1. Acute hypoxic respiratory failure: Likely secondary to congestive heart failure exacerbation, pleural effusions and possible pneumonia. Patient required 2 L of oxygen. Continue nebulizer treatments. 2. Acute on chronic systolic congestive heart failure exacerbation: Echo from May 2018 shows an EF of 20-25% and severe aortic stenosis. Patient has elevated BNP. Cardiology following. Continue IV Lasix. Cardiology added digoxin 3. Bilateral pleural effusions: with moderate sized left greater than right pleural effusion on chest x-ray. Pulmonary service consulted. Last hospitalization June 20 patient did require a left-sided thoracentesis. Patient status post right-sided thoracentesis with 750 mL removed on 2017. Status post left-sided thoracentesis 06/28/2018 with 850 mL removed. 4. Possible pneumonia: Check sputum culture. Patient started on vancomycin and cefepime and ER. 5. Recent pneumonia on Levaquin outpatient 6. UTI: Urine culture negative. 7. Chronic lymphocytic leukemia: Patient does have evidence of pancytopenia likely related to her CLL. Patient's aspirin on hold. Per oncology pleural fluid was positive for CLL. Likely patient's pleural effusions are secondary to a combination of congestive heart failure and CLL. CLL is progressive and treatment was recommended but patient states she will continue on prednisone for now. She'll follow-up with oncology outpatient. Right-sided thoracentesis pleural fluid consistent with CLL 8. Acute kidney injury: Improved 9. Hypotension: Patient received fluid bolus and ER 10. Elevated troponin: Per cardiology likely secondary to supply and demand 11. Hypothyroidism continue Synthroid 12. 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 Continue to monitor 13. Possible sepsis present on admission secondary to pneumonia and UTI GI prophylaxis omeprazole and DVT prophylaxis SCDs
--- NOTE | 2018-06-30 15:09 | PN ---
Patient seen and examined covering for Dr. Muro. The patient states her breathing is getting better. She is on room air. She did undergo bilateral thoracentesis. The patient has no needs or complaints. We will check a.m. chest x-ray. Continue supportive care. ~Pepper Saleem DO PROGRESS NOTE DATE OF SERVICE: 06/30/2018 HISTORY OF PRESENT ILLNESS: Patient is an 87-year-old female who is a patient at [facility]. She recently was in the hospital and discharged on June 18. At this time she had congestive heart failure exacerbation and required left thoracentesis for pleural effusion. She had about 800 mL of fluid removed. X-ray showed small residual fluid on the right side and moderate pleural effusion on the left side. She had thoracentesis also done on left side. The patient is at present on room air. She did have cytology results showing monoclonal B lymphocytes that were consistent with CLL. She chronically has shortness of breath and there has been discussion about possible hospice. There has also been discussion about catheter placement for recurrent fluid buildup. She has had no problems with nausea, vomiting or diarrhea at this time. Oncology has also been following the patient for the progressive CLL and their recommendations are that patient be discharged home with hospice after a PleurX drain is placed due to her problems with recurrent malignant pleural effusion. Of note, we are covering for Dr. Muro at this time. She has had problems with hypotension off and on and continues to be short of breath with activity. PHYSICAL EXAMINATION: Vital signs show temperature of 98, heart rate 90, respiratory rate 16. Blood pressure is 81/47. Oxygen saturation on room air is 94%. Her labs show WBC of 269.2, hemoglobin 7.1, hematocrit 25.2, and platelets are 106. Sodium is 137, potassium 3.5, chloride 104, CO2 30, BUN 31, creatinine 0.8, glucose 93, calcium 7.9, total bilirubin 0.6, AST 29, ALT 23, alkaline phosphatase 60, total protein 4.5, albumin 2.6. GENERAL: She is an 87-year-old female with shortness of breath on activity. HEENT: Atraumatic, normocephalic. Pupils are reactive. NECK: Supple. LUNGS: Lungs sounds with rhonchi. CARDIOVASCULAR: S1 and S2 are heard. Regular. ABDOMEN: Soft. Bowel sounds are heard. Not distended. EXTREMITIES: Normal capillary refill. Pulses are palpable. No edema. NEUROLOGIC: She is awake, alert. SKIN: Warm, dry. IMPRESSION: 1. Acute exacerbation of congestive heart failure with acute on chronic systolic heart failure on admission. 2. Bilateral pleural effusions requiring bilateral thoracentesis. 3. Advanced CLL. 4. Acute hypoxic respiratory failure due to fluid overload. PLAN: Medications have been reviewed. Continue as ordered. Continue with nebulizer treatments as ordered. Continue with antibiotics. Continue with GI and DVT prophylaxis. Increase activity as tolerated. Follow with Dr. Muro for potential need of PleurX catheter. Agree with hospice planning. Will continue to follow patient closely and make further recommendations as needed. MMODL / IJN: [id number] / MTDD
[2018-07-01] MEDS: LEVOTHYROXINE 25 MCG TAB PO SCH (06:36)
[2018-07-01] MEDS: PANTOPRAZOLE 40 MG TABLET PO SCH (06:36)
[2018-07-01 07:02] LABS: Albumin 2.7 g/dL (3.5-5.0); Calcium 8.2 mg/dL (8.4-10.2); Potassium 3.8 mmol/L (3.5-5.1); Total Bilirubin 0.7 mg/dL (0.2-1.3); Total Protein 4.7 g/dL (6.3-8.2)
[2018-07-01 07:13] LABS: Anisocytosis Slight; HCT 26.4 % (34.0-46.0); HGB 7.7 gm/dL (11.4-16.0); Hypochromasia Marked; MCH 28.7 pg (25.0-35.0); MCHC 29.1 g/dL (31.0-37.0); MCV 98.9 fL (80.0-100.0); Macrocytosis Moderate; Mean Platelet Volume 8.2; Platelet Count 97 k/uL (150-450); RBC 2.67 m/uL (3.80-5.40); RDW 19.5 % (11.5-15.5)
[2018-07-01 07:18] LABS: WBC 293.6 k/uL (3.8-10.6)
[2018-07-01] MEDS: IPRATROPIUM-ALBUTEROL 3 ML NEB INHALATION SCH ×3 (07:59→19:33)
[2018-07-01] MEDS: DIGOXIN 125 MCG TAB PO SCH (08:13)
[2018-07-01] MEDS: GABAPENTIN 400 MG CAP PO SCH ×2 (08:13→21:34)
[2018-07-01] MEDS: POTASSIUM CHLORIDE ER 10 MEQ TAB.ER.PRT PO SCH (08:13)
[2018-07-01] MEDS: FUROSEMIDE 10 MG/ML 2 ML VIAL IV SCH ×2 (08:13→21:34)
[2018-07-01] MEDS: ALLOPURINOL 300 MG TAB PO SCH (08:13)
[2018-07-01] MEDS: CEFEPIME 2 GM in SODIUM CHLORIDE 0.9% 50 ML IVPB SCH (08:13)
[2018-07-01] MEDS: predniSONE 5 MG TAB PO SCH (08:14)
[2018-07-01] MEDS: MENTHOL-ZINC OXIDE OINT 113 GM TUBE TOPICAL SCH ×2 (08:21→17:46)
[2018-07-01 08:43] LABS: Eosinophils # (M) 2.94 k/uL (0-0.7); Monocytes # (M) 5.87 k/uL (0-1.0); Neutrophils # (M) 26.42 k/uL (1.3-7.7); Neutrophils % (M) 9 %; Nucleated Red Blood Cells 0 /100 WBC (0-0); Ovalocytes Present; Polychromasia Present; Total Cells Counted 200
--- NOTE | 2018-07-01 10:44 | P.PN ---
Subjective Progress Note Date: 07/01/18 Patient is an 87-year-old female who is a patient at [facility]. She recently was in the hospital and discharged on June 18. At this time she had congestive heart failure exacerbation and required left thoracentesis for pleural effusion. She had about 800 mL of fluid removed. X-ray showed small residual fluid on the right side and moderate pleural effusion on the left side. She had thoracentesis also done on left side. The patient is at present on room air. She did have cytology results showing monoclonal B lymphocytes that were consistent with CLL. She chronically has shortness of breath and there has been discussion about possible hospice. There has also been discussion about catheter placement for recurrent fluid buildup. She has had no problems with nausea, vomiting or diarrhea at this time. Oncology has also been following the patient for the progressive CLL and their recommendations are that patient be discharged home with hospice after a PleurX drain is placed due to her problems with recurrent malignant pleural effusion. Of note, we are covering for Dr. Muro at this time. She has had problems with hypotension off and on and continues to be short of breath with activity. 07/01/2018: Patient seen and examined. Patient is somnolent but arousable. She opens her eyes and states she is okay. She denies any needs or complaints at this time. She states she is just tired. She is currently on room air. Objective - Vital Signs Vital signs: Vital Signs Temp 97.7 F 07/01/18 08:08 Pulse 88 07/01/18 08:22 Resp 18 07/01/18 08:22 BP 86/52 07/01/18 08:08 Pulse Ox 91 L 07/01/18 08:08 Intake & Output 06/30/18 07/01/18 07/01/18 18:59 06:59 18:59 Intake Total 1160 450 Balance 1160 450 Weight 39.7 kg 48.5 kg Intake: Intake, IV Titration 300 250 Amount Cefepime 2 gm In Sodium 50 Chloride 0.9% 50 ml @ 100 mls/hr IVPB Q24HR [facility] Rx #:[id number] Vancomycin 750 mg In 250 250 Sodium Chloride 0.9% 250 ml @ 125 mls/hr IVPB Q18H [facility] Rx#:[id number] Oral 860 200 Other: Voiding Method Bedpan Bedpan Bedpan Diaper # Voids 4 3 # Bowel Movements 1 - Exam GENERAL: She is an 87-year-old female with shortness of breath on activity. HEENT: Atraumatic, normocephalic. Pupils are reactive. NECK: Supple. LUNGS: Lungs sounds scattered crackles bilaterally, diminished at the bases CARDIOVASCULAR: S1 and S2 are heard. Regular. ABDOMEN: Soft. Bowel sounds are heard. Not distended. EXTREMITIES: Normal capillary refill. Pulses are palpable. No edema. NEUROLOGIC: She is awake, alert. SKIN: Warm, dry. - Labs CBC & Chem 7: 07/01/18 05:46 07/01/18 05:46 Labs: Abnormal Lab Results - Last 24 Hours (Table) 07/01/18 07/01/18 Range/Units 05:46 05:46 WBC 293.6 H* (3.8-10.6) k/uL RBC 2.67 L (3.80-5.40) m/uL Hgb 7.7 L (11.4-16.0) gm/dL Hct 26.4 L (34.0-46.0) % MCHC 29.1 L (31.0-37.0) g/dL RDW 19.5 H (11.5-15.5) % Plt Count 97 L (150-450) k/uL Neutrophils # (Manual) 26.42 H (1.3-7.7) k/uL Lymphocytes # (Manual) 261.30 H (1.0-4.8) k/uL Monocytes # (Manual) 5.87 H (0-1.0) k/uL Eosinophils # (Manual) 2.94 H (0-0.7) k/uL Carbon Dioxide 33 H (22-30) mmol/L BUN 35 H (7-17) mg/dL Glucose 107 H (74-99) mg/dL Calcium 8.2 L (8.4-10.2) mg/dL Total Protein 4.7 L (6.3-8.2) g/dL Albumin 2.7 L (3.5-5.0) g/dL Microbiology - Last 24 Hours (Table) 06/28/18 13:30 Gram Stain - Preliminary Pleural Fluid Body Fluid Culture - Preliminary 06/26/18 18:45 Gram Stain - Final Pleural Fluid Body Fluid Culture - Final 06/25/18 11:24 Blood Culture - Preliminary Blood No Growth after 120 hours Assessment and Plan Assessment: IMPRESSION: 1. Acute exacerbation of congestive heart failure with acute on chronic systolic heart failure on admission. 2. Bilateral pleural effusions requiring bilateral thoracentesis. 3. Advanced CLL. 4. Acute hypoxic respiratory failure due to fluid overload. PLAN: Medications have been reviewed. Continue as ordered. Continue with nebulizer treatments as ordered. Continue with antibiotics. Continue with GI and DVT prophylaxis. Increase activity as tolerated. Follow with Dr. Muro for potential need of PleurX catheter. Agree with hospice planning. Will continue to follow patient closely and make further recommendations as needed. AM CXR pending. Continue supportive care.
--- NOTE | 2018-07-01 11:16 | P.PN ---
Subjective Progress Note Date: 07/01/18 This is a 87-year-old female with a known history of CLL, congestive heart failure with a known EF of 20-25%, pleural effusions requiring left thoracentesis on 06/18/2018, hypothyroidism, hypertension and hyperlipidemia. Patient was currently at [facility] [place] [facility] after being discharged from the hospital on June 18. At that time she was treated for congestive heart failure exacerbation and had undergone a left thoracentesis for pleural effusion. She was discharged on Lasix 40 mg daily. She is currently been on Levaquin for pneumonia. Per ER report they were notified from the group home the patient was dyspneic and having episodes of unresponsiveness and oxygen saturation was in the 80s. Oxygen supplement was placed and patient was transferred to the hospital for further evaluation and treatment. Chest x-ray shows suspected CHF exacerbation as there is cardiomegaly with small to moderate sized left greater than right pleural effusions. There is associated bibasilar atelectasis. Underlying acute infiltrate is not excluded. Patient started on cefepime and vancomycin in the emergency room. Patient also has evidence of a urinary tract infection urine culture obtained. Patient had evidence of fluid overload in the ER and was given IV Lasix 40 mg. Patient desats very easily. She is a mouth breather. Patient has been encouraged to breathe deeply. Her nose and her oxygen saturation does drop and to around 7879 with the deep breathing she is able to get her oxygen saturations into the 90s. She also is having episodes of hypotension. Blood pressure 78/44. It appears that she did receive a IV fluid bolus in the ER. She does have crackles on the right lower lobe. White count is 353.5, hemoglobin 7.8., Platelets are 140. At this time her aspirin will be on hold. She'll be seen evaluated by oncology. Pulmonary and cardiology both been consulted in regards to congestive heart failure and pleural effusions. BNP is elevated at 35,300. She also has elevated troponin of 0.645. Patient denies any chest pain. Patient denies any fever chills or sweats. Denies any cough. Denies any nausea vomiting. Denies abdominal changes or urinary symptoms. On 06/26/2018 patient is currently sitting up in bed. Patient is a & O 3. Patient at this point cannot tolerate laying flat without becoming short of breath. Patient currently on 3 L nasal cannula. Blood pressure remains marginal. White blood cell remains critical at 314.5. Hemoglobin 7.2. Potassium is 3.2. Replacement has been ordered. Patient currently on vancomycin and cefepime. Dr. Muro consulted for pulmonary. Dr. Renae consulted for cardiology and Dr. Calzada consulted per oncology. awaiting consult providers. Patient denies chest pain. Denies nausea vomiting or diarrhea. Denies any urinary burning and frequency. 06/27/2018 patient is currently A and O3 and sitting up in bed. Patient states that she is feeling much less short of breath today. Patient did receive a right thoracentesis per Dr. Muro yesterday. Patient remains on 2-3 L nasal cannula. Potassium improving to 3.9. Hemoglobin 7.7. Patient remains on vancomycin and cefempime for antibiotics. She denies chest pain at this time. Denies nausea vomiting or diarrhea. Denies any urinary burning and frequency. 06/28/2018 patient is currently sitting in bed. Denies any shortness of breath. She is on 2 L nasal cannula satting at 95%. She had a right sided thoracentesis with 750 mL removed. Possible left sided thoracentesis later today after evaluation by pulmonary service. Patient denies any chest pain. Denies any nausea or vomiting. Denies any bowel movement changes or urinary symptoms. Hemoglobin 7.3. BP 86/33 06/29/2018 patient had left sided thoracentesis completed yesterday with 850 mL of blood tinged fluid. Pathology reports on the right thoracentesis shows pleural fluid consistent with CLL. Dr. Wiley met with the family this afternoon for a family meeting. At this time they have questions about a possible Pleurx catheter to help with the recurrent pleural effusions. This was discussed with Dr. Muro via phone. Dr. Palmer will be through this afternoon to answer questions about Pleurx catheter with family. At this time they do not want to proceed with hospice. Patient has no complaints. On 06/30/2018 patient is alert and oriented in no apparent distress there is no fever or chills no headache no dizziness no chest pain no nausea or vomiting no diarrhea no abdominal pain and no urinary symptoms, patient is feeling weak, otherwise no symptoms at this On 07/01/2018 patient is alert and oriented in no apparent distress she is laying constantly in bed she has extreme weakness and some shortness of breath with any activity there is no chest pain there is no fever or chills no headache or dizziness there is no nausea or vomiting no abdominal pain no diarrhea and no urinary symptoms. She was evaluated this morning by Dr. Saleem warehouse examiner, covering for Dr. Muro, no new recommendation at this time. Objective - Vital Signs Vital signs: Vital Signs Temp 97.7 F 07/01/18 08:08 Pulse 88 07/01/18 08:22 Resp 18 07/01/18 08:22 BP 86/52 07/01/18 08:08 Pulse Ox 91 L 07/01/18 08:08 Intake & Output 06/30/18 07/01/18 07/01/18 18:59 06:59 18:59 Intake Total 1160 450 Balance 1160 450 Weight 39.7 kg 48.5 kg Intake: Intake, IV Titration 300 250 Amount Cefepime 2 gm In Sodium 50 Chloride 0.9% 50 ml @ 100 mls/hr IVPB Q24HR [facility] Rx #:[id number] Vancomycin 750 mg In 250 250 Sodium Chloride 0.9% 250 ml @ 125 mls/hr IVPB Q18H [facility] Rx#:[id number] Oral 860 200 Other: Voiding Method Bedpan Bedpan Bedpan Diaper # Voids 4 3 # Bowel Movements 1 - Exam Head normocephalic and atraumatic Neck supple no JVD no goiter Lungs crackles at bases bilaterally. Improvement in left-sided air movement Heart regular rate and rhythm S1-S2, no rub or gallop Abdomen is soft nontender nondistended positive bowel sounds no hepatosplenomegaly Extremities no edema no cyanosis or clubbing Neuro alert and orientated to 3 - Labs CBC & Chem 7: 07/01/18 05:46 07/01/18 05:46 Labs: Abnormal Lab Results - Last 24 Hours (Table) 07/01/18 07/01/18 Range/Units 05:46 05:46 WBC 293.6 H* (3.8-10.6) k/uL RBC 2.67 L (3.80-5.40) m/uL Hgb 7.7 L (11.4-16.0) gm/dL Hct 26.4 L (34.0-46.0) % MCHC 29.1 L (31.0-37.0) g/dL RDW 19.5 H (11.5-15.5) % Plt Count 97 L (150-450) k/uL Neutrophils # (Manual) 26.42 H (1.3-7.7) k/uL Lymphocytes # (Manual) 261.30 H (1.0-4.8) k/uL Monocytes # (Manual) 5.87 H (0-1.0) k/uL Eosinophils # (Manual) 2.94 H (0-0.7) k/uL Carbon Dioxide 33 H (22-30) mmol/L BUN 35 H (7-17) mg/dL Glucose 107 H (74-99) mg/dL Calcium 8.2 L (8.4-10.2) mg/dL Total Protein 4.7 L (6.3-8.2) g/dL Albumin 2.7 L (3.5-5.0) g/dL Microbiology - Last 24 Hours (Table) 06/28/18 13:30 Gram Stain - Preliminary Pleural Fluid Body Fluid Culture - Preliminary 06/26/18 18:45 Gram Stain - Final Pleural Fluid Body Fluid Culture - Final 06/25/18 11:24 Blood Culture - Preliminary Blood No Growth after 120 hours Assessment and Plan Plan: 1. Acute hypoxic respiratory failure: Likely secondary to congestive heart failure exacerbation, pleural effusions and possible pneumonia. Patient required 2 L of oxygen. Continue nebulizer treatments. 2. Acute on chronic systolic congestive heart failure exacerbation: Echo from May 2018 shows an EF of 20-25% and severe aortic stenosis. Patient has elevated BNP. Cardiology following. Continue IV Lasix. Cardiology added digoxin 3. Bilateral pleural effusions: with moderate sized left greater than right pleural effusion on chest x-ray. Pulmonary service consulted. Last hospitalization June 20 patient did require a left-sided thoracentesis. Patient status post right-sided thoracentesis with 750 mL removed on 2017. Status post left-sided thoracentesis 06/28/2018 with 850 mL removed. 4. Possible pneumonia: Check sputum culture. Patient started on vancomycin and cefepime and ER. 5. Recent pneumonia on Levaquin outpatient 6. UTI: Urine culture negative. 7. Chronic lymphocytic leukemia: Patient does have evidence of pancytopenia likely related to her CLL. Patient's aspirin on hold. Per oncology pleural fluid was positive for CLL. Likely patient's pleural effusions are secondary to a combination of congestive heart failure and CLL. CLL is progressive and treatment was recommended but patient states she will continue on prednisone for now. She'll follow-up with oncology outpatient. Right-sided thoracentesis pleural fluid consistent with CLL 8. Acute kidney injury: Improved 9. Hypotension: Patient received fluid bolus and ER 10. Elevated troponin: Per cardiology likely secondary to supply and demand 11. Hypothyroidism continue Synthroid 12. 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 Continue to monitor 13. Possible sepsis present on admission secondary to pneumonia and UTI GI prophylaxis omeprazole and DVT prophylaxis SCDs
--- NOTE | 2018-07-01 11:36 | XR ---
EXAMINATION TYPE: XR chest 1V portable DATE OF EXAM: 07/01/2018 HISTORY: pna. REFERENCE: Previous study dated 06/27/2018. FINDINGS: The heart is enlarged. There is left basilar airspace disease. There is improved aeration a t the right lung base. There is underlying interstitial change. There is blunting of both CP angles. I could not exclude small effusions. IMPRESSION: 1. CARDIOMEGALY. 2. LEFT BASILAR AIRSPACE DISEASE. 3. IMPROVED AERATION, RIGHT LUNG BASE. 4. I SUSPECT UNDERLYING COPD.
[2018-07-01] MEDS: VANCOMYCIN 750 MG in SODIUM CHLORIDE 0.9% 250 ML IVPB SCH (17:46)
[2018-07-02] MEDS: MENTHOL-ZINC OXIDE OINT 113 GM TUBE TOPICAL SCH ×3 (06:07→16:44)
[2018-07-02] MEDS: LEVOTHYROXINE 25 MCG TAB PO SCH (06:08)
[2018-07-02] MEDS: PANTOPRAZOLE 40 MG TABLET PO SCH (06:09)
[2018-07-02 06:17] LABS: Anisocytosis Slight; HCT 27.1 % (34.0-46.0); HGB 8.3 gm/dL (11.4-16.0); Hypochromasia Marked; MCHC 30.8 g/dL (31.0-37.0); MCV 97.5 fL (80.0-100.0); Macrocytosis Slight; Mean Platelet Volume 7.8; Platelet Count 109 k/uL (150-450); RBC 2.78 m/uL (3.80-5.40); RDW 19.4 % (11.5-15.5)
[2018-07-02 06:25] LABS: WBC 279.6 k/uL (3.8-10.6)
[2018-07-02 06:37] LABS: Albumin 2.7 g/dL (3.5-5.0); Calcium 8.2 mg/dL (8.4-10.2); Potassium 3.8 mmol/L (3.5-5.1); Total Bilirubin 0.7 mg/dL (0.2-1.3); Total Protein 4.7 g/dL (6.3-8.2)
[2018-07-02 06:45] LABS: Lymphocytes # (M) 271.21 k/uL (1.0-4.8); Neutrophils # (M) 5.59 k/uL (1.3-7.7); Neutrophils % (M) 2 %; Nucleated Red Blood Cells 0 /100 WBC (0-0); Total Cells Counted 100
[2018-07-02 06:46] LABS: Anisocytosis (M) Present
[2018-07-02] MEDS: IPRATROPIUM-ALBUTEROL 3 ML NEB INHALATION SCH ×3 (07:58→19:47)
[2018-07-02] MEDS: FUROSEMIDE 10 MG/ML 2 ML VIAL IV SCH (08:05)
[2018-07-02] MEDS: GABAPENTIN 400 MG CAP PO SCH ×2 (08:06→21:16)
[2018-07-02] MEDS: DIGOXIN 125 MCG TAB PO SCH (08:06)
[2018-07-02] MEDS: POTASSIUM CHLORIDE ER 10 MEQ TAB.ER.PRT PO SCH (08:06)
[2018-07-02] MEDS: CEFEPIME 2 GM in SODIUM CHLORIDE 0.9% 50 ML IVPB SCH (08:06)
[2018-07-02] MEDS: predniSONE 5 MG TAB PO SCH (08:06)
[2018-07-02] MEDS: ALLOPURINOL 300 MG TAB PO SCH (08:06)
--- NOTE | 2018-07-02 10:10 | P.PN ---
<Katelyn Fontana E - Last Filed: 07/02/18 10:04> Subjective Progress Note Date: 07/02/18 HPI: Patient is an 87-year-old female who is a patient at [facility]. She recently was in the hospital and discharged on June 18. At this time she had congestive heart failure exacerbation and required left thoracentesis for pleural effusion. She had about 800 mL of fluid removed. X-ray showed small residual fluid on the right side and moderate pleural effusion on the left side. She had thoracentesis also done on left side. The patient is at present on room air. She did have cytology results showing monoclonal B lymphocytes that were consistent with CLL. She chronically has shortness of breath and there has been discussion about possible hospice. There has also been discussion about catheter placement for recurrent fluid buildup. She has had no problems with nausea, vomiting or diarrhea at this time. Oncology has also been following the patient for the progressive CLL and their recommendations are that patient be discharged home with hospice after a PleurX drain is placed due to her problems with recurrent malignant pleural effusion. Of note, we are covering for Dr. Muro at this time. She has had problems with hypotension off and on and continues to be short of breath with activity. 07/01/2018: Patient seen and examined. Patient is somnolent but arousable. She opens her eyes and states she is okay. She denies any needs or complaints at this time. She states she is just tired. She is currently on room air. 07/02/18- patient is being seen examined and evaluated today on rounds. She is resting up in bed on room air. She has been refusing her turn every 2 hours. She does have a specialty mattress. She has not been out of bed. We'll try to get the patient up with meals. Physical therapy is put on consult. She continues to have poor appetite. All labs and reports have been reviewed. Chest x-ray from this morning reviewed, does show cardiomegaly, left basilar airspace disease, improved aeration in the right lung base, and suspected underlying COPD. She is afebrile no further complaints. Objective - Vital Signs Vital signs: Vital Signs Temp 96.8 F L 07/02/18 08:00 Pulse 92 07/02/18 08:00 Resp 18 07/02/18 08:00 BP 77/45 08/27/18 08:00 Pulse Ox 92 L 07/02/18 08:00 Intake & Output 07/01/18 07/02/18 07/02/18 18:59 06:59 18:59 Intake Total 270 270 Balance 270 270 Weight 41.8 kg Intake: IV 120 20 .9 @ 10 120 20 Intake, IV Titration 50 250 Amount Cefepime 2 gm In Sodium 50 Chloride 0.9% 50 ml @ 100 mls/hr IVPB Q24HR [facility] Rx #:[id number] Vancomycin 750 mg In 250 Sodium Chloride 0.9% 250 ml @ 125 mls/hr IVPB Q18H [facility] Rx#:[id number] Oral 100 Other: Voiding Method Bedpan Bedpan Bedpan Diaper Diaper Diaper # Voids 1 2 - Exam GENERAL: She is an 87-year-old female with shortness of breath on activity. HEENT: Atraumatic, normocephalic. Pupils are reactive. NECK: Supple. LUNGS: Lungs sounds scattered crackles bilaterally, diminished at the bases CARDIOVASCULAR: S1 and S2 are heard. Regular. ABDOMEN: Soft. Bowel sounds are heard. Not distended. EXTREMITIES: Normal capillary refill. Pulses are palpable. No edema. NEUROLOGIC: She is awake, alert. SKIN: Warm, dry. - Labs CBC & Chem 7: 07/02/18 05:36 07/02/18 05:36 Labs: Abnormal Lab Results - Last 24 Hours (Table) 07/02/18 07/02/18 Range/Units 05:36 05:36 WBC 279.6 H* (3.8-10.6) k/uL RBC 2.78 L (3.80-5.40) m/uL Hgb 8.3 L (11.4-16.0) gm/dL Hct 27.1 L (34.0-46.0) % MCHC 30.8 L (31.0-37.0) g/dL RDW 19.4 H (11.5-15.5) % Plt Count 109 L (150-450) k/uL Lymphocytes # (Manual) 271.21 H (1.0-4.8) k/uL Monocytes # (Manual) 2.80 H (0-1.0) k/uL Carbon Dioxide 31 H (22-30) mmol/L BUN 34 H (7-17) mg/dL Creatinine 1.06 H (0.52-1.04) mg/dL Calcium 8.2 L (8.4-10.2) mg/dL Total Protein 4.7 L (6.3-8.2) g/dL Albumin 2.7 L (3.5-5.0) g/dL Microbiology - Last 24 Hours (Table) 06/28/18 13:30 Gram Stain - Preliminary Pleural Fluid Body Fluid Culture - Preliminary 06/25/18 11:24 Blood Culture - Final Blood No Growth after 144 hours Assessment and Plan Assessment: IMPRESSION: 1. Acute exacerbation of congestive heart failure with acute on chronic systolic heart failure on admission. 2. Bilateral pleural effusions requiring bilateral thoracentesis. 3. Advanced CLL. 4. Acute hypoxic respiratory failure due to fluid overload. PLAN: Medications have been reviewed Continue as ordered. Continue with nebulizer treatments as ordered. Continue with antibiotics. GI and DVT prophylaxis. Incentive spirometer and pulmonary hygiene Increase activity as tolerated. Out of bed for meals, PT and OT Chest x-ray reviewed Follow with Dr. Muro for potential need of PleurX catheter. Continue supportive care. Agree with hospice planning. Will continue to follow patient closely and make further recommendations as needed. . I performed an examination of the patient and discussed their management with the nurse practitioner. I have reviewed the nurse practitioner's note and agree with the documented findings and plan of care. <Pepper Saleem A - Last Filed: 07/02/18 14:12> Objective - Vital Signs Vital signs: Vital Signs Temp 97.6 F 07/02/18 11:15 Pulse 92 07/02/18 11:15 Resp 18 07/02/18 11:15 BP 86/51 07/02/18 11:15 Pulse Ox 95 07/02/18 11:15 Intake & Output 07/01/18 07/02/18 07/02/18 18:59 06:59 18:59 Intake Total 270 270 Balance 270 270 Weight 41.8 kg Intake: IV 120 20 .9 @ 10 120 20 Intake, IV Titration 50 250 Amount Cefepime 2 gm In Sodium 50 Chloride 0.9% 50 ml @ 100 mls/hr IVPB Q24HR [facility] Rx #:[id number] Vancomycin 750 mg In 250 Sodium Chloride 0.9% 250 ml @ 125 mls/hr IVPB Q18H [facility] Rx#:[id number] Oral 100 Other: Voiding Method Bedpan Bedpan Bedpan Diaper Diaper Diaper # Voids 1 2 1 - Labs CBC & Chem 7: 07/02/18 05:36 07/02/18 05:36 Labs: Abnormal Lab Results - Last 24 Hours (Table) 07/02/18 07/02/18 Range/Units 05:36 05:36 WBC 279.6 H* (3.8-10.6) k/uL RBC 2.78 L (3.80-5.40) m/uL Hgb 8.3 L (11.4-16.0) gm/dL Hct 27.1 L (34.0-46.0) % MCHC 30.8 L (31.0-37.0) g/dL RDW 19.4 H (11.5-15.5) % Plt Count 109 L (150-450) k/uL Lymphocytes # (Manual) 271.21 H (1.0-4.8) k/uL Monocytes # (Manual) 2.80 H (0-1.0) k/uL Carbon Dioxide 31 H (22-30) mmol/L BUN 34 H (7-17) mg/dL Creatinine 1.06 H (0.52-1.04) mg/dL Calcium 8.2 L (8.4-10.2) mg/dL Total Protein 4.7 L (6.3-8.2) g/dL Albumin 2.7 L (3.5-5.0) g/dL Microbiology - Last 24 Hours (Table) 06/28/18 13:30 Gram Stain - Preliminary Pleural Fluid Body Fluid Culture - Preliminary 06/25/18 11:24 Blood Culture - Final Blood No Growth after 144 hours Assessment and Plan Assessment: patient seen and examined. Patient states her breathing is okay. She denies any shortness of breath or chest pain. She states she did eat a little bit this morning. She states she only ate a banana and does not want to eat anything else. She believes it has been several days and she has been out of bed. We will consult PT and OT. Patient to be out of bed with meals. ~Pepper Saleem,
[2018-07-02] MEDS ORDERED: VANCOMYCIN TROUGH DUE 1 EACH MISC MISCELLANE ONE (11:00)
[2018-07-02] MEDS ORDERED: VANCOMYCIN IV PER PHARMACY 1 EACH MISC MISCELLANE PRN (11:53)
--- NOTE | 2018-07-02 11:54 | P.PN ---
Subjective Progress Note Date: 07/02/18 This is a 87-year-old female with a known history of CLL, congestive heart failure with a known EF of 20-25%, pleural effusions requiring left thoracentesis on 06/18/2018, hypothyroidism, hypertension and hyperlipidemia. Patient was currently at [facility] after being discharged from the hospital on June 18. At that time she was treated for congestive heart failure exacerbation and had undergone a left thoracentesis for pleural effusion. She was discharged on Lasix 40 mg daily. She is currently been on Levaquin for pneumonia. Per ER report they were notified from the [facility] the patient was dyspneic and having episodes of unresponsiveness and oxygen saturation was in the 80s. Oxygen supplement was placed and patient was transferred to the hospital for further evaluation and treatment. Chest x-ray shows suspected CHF exacerbation as there is cardiomegaly with small to moderate sized left greater than right pleural effusions. There is associated bibasilar atelectasis. Underlying acute infiltrate is not excluded. Patient started on cefepime and vancomycin in the emergency room. Patient also has evidence of a urinary tract infection urine culture obtained. Patient had evidence of fluid overload in the ER and was given IV Lasix 40 mg. Patient desats very easily. She is a mouth breather. Patient has been encouraged to breathe deeply. Her nose and her oxygen saturation does drop and to around [id number] with the deep breathing she is able to get her oxygen saturations into the 90s. She also is having episodes of hypotension. Blood pressure 78/44. It appears that she did receive a IV fluid bolus in the ER. She does have crackles on the right lower lobe. White count is 353.5, hemoglobin 7.8., Platelets are 140. At this time her aspirin will be on hold. She'll be seen evaluated by oncology. Pulmonary and cardiology both been consulted in regards to congestive heart failure and pleural effusions. BNP is elevated at 35,300. She also has elevated troponin of 0.645. Patient denies any chest pain. Patient denies any fever chills or sweats. Denies any cough. Denies any nausea vomiting. Denies abdominal changes or urinary symptoms. On 06/26/2018 patient is currently sitting up in bed. Patient is a & O 3. Patient at this point cannot tolerate laying flat without becoming short of breath. Patient currently on 3 L nasal cannula. Blood pressure remains marginal. White blood cell remains critical at 314.5. Hemoglobin 7.2. Potassium is 3.2. Replacement has been ordered. Patient currently on vancomycin and cefepime. Dr. Muro consulted for pulmonary. Dr. Renae consulted for cardiology and Dr. Calzada consulted per oncology. awaiting consult providers. Patient denies chest pain. Denies nausea vomiting or diarrhea. Denies any urinary burning and frequency. 06/27/2018 patient is currently A and O3 and sitting up in bed. Patient states that she is feeling much less short of breath today. Patient did receive a right thoracentesis per Dr. Muro yesterday. Patient remains on 2-3 L nasal cannula. Potassium improving to 3.9. Hemoglobin 7.7. Patient remains on vancomycin and cefempime for antibiotics. She denies chest pain at this time. Denies nausea vomiting or diarrhea. Denies any urinary burning and frequency. 06/28/2018 patient is currently sitting in bed. Denies any shortness of breath. She is on 2 L nasal cannula satting at 95%. She had a right sided thoracentesis with 750 mL removed. Possible left sided thoracentesis later today after evaluation by pulmonary service. Patient denies any chest pain. Denies any nausea or vomiting. Denies any bowel movement changes or urinary symptoms. Hemoglobin 7.3. BP 86/33 06/29/2018 patient had left sided thoracentesis completed yesterday with 850 mL of blood tinged fluid. Pathology reports on the right thoracentesis shows pleural fluid consistent with CLL. Dr. Wiley met with the family this afternoon for a family meeting. At this time they have questions about a possible Pleurx catheter to help with the recurrent pleural effusions. This was discussed with Dr. Muro via phone. Dr. Palmer will be through this afternoon to answer questions about Pleurx catheter with family. At this time they do not want to proceed with hospice. Patient has no complaints. On 06/30/2018 patient is alert and oriented in no apparent distress there is no fever or chills no headache no dizziness no chest pain no nausea or vomiting no diarrhea no abdominal pain and no urinary symptoms, patient is feeling weak, otherwise no symptoms at this On 07/01/2018 patient is alert and oriented in no apparent distress she is laying constantly in bed she has extreme weakness and some shortness of breath with any activity there is no chest pain there is no fever or chills no headache or dizziness there is no nausea or vomiting no abdominal pain no diarrhea and no urinary symptoms. She was evaluated this morning by Dr. Saleem ticket dispenser changer, covering for Dr. Muro, no new recommendation at this time. 07/02/2018 patient lying in bed with no evidence of distress. She denies any shortness of breath. She remains on the IV Lasix. She had a low BP of 77/40 5 repeat blood pressure showed a systolic blood pressure in the 80s. Hemoglobin 8.3. Creatinine is 1.06. Patient has not been out of bed. Physical therapy was consulted. We'll try to increase patient's activity. She does feel very weak. Chest x-ray left basilar airspace disease, improved aeration of the right lung base, suspect underlying COPD Objective - Vital Signs Vital signs: Vital Signs Temp 96.8 F L 07/02/18 08:00 Pulse 92 07/02/18 08:00 Resp 18 07/02/18 08:00 BP 77/45 07/02/18 08:00 Pulse Ox 92 L 07/02/18 08:00 Intake & Output 07/01/18 07/02/18 07/02/18 18:59 06:59 18:59 Intake Total 270 270 Balance 270 270 Weight 41.8 kg Intake: IV 120 20 .9 @ 10 120 20 Intake, IV Titration 50 250 Amount Cefepime 2 gm In Sodium 50 Chloride 0.9% 50 ml @ 100 mls/hr IVPB Q24HR [facility] Rx #:[id number] Vancomycin 750 mg In 250 Sodium Chloride 0.9% 250 ml @ 125 mls/hr IVPB Q18H [facility] Rx#:[id number] Oral 100 Other: Voiding Method Bedpan Bedpan Bedpan Diaper Diaper Diaper # Voids 1 2 - Exam Head normocephalic Neck supple Lungs few faint crackles at bases Heart regular rate and rhythm S1-S2, no rub or gallop Abdomen is soft nontender nondistended positive bowel sounds no hepatosplenomegaly Extremities no edema Neuro alert and orientated to 3 - Labs CBC & Chem 7: 07/02/18 05:36 07/02/18 05:36 Labs: Abnormal Lab Results - Last 24 Hours (Table) 08/27/18 08/27/18 Range/Units 05:36 05:36 WBC 279.6 H* (3.8-10.6) k/uL RBC 2.78 L (3.80-5.40) m/uL Hgb 8.3 L (11.4-16.0) gm/dL Hct 27.1 L (34.0-46.0) % MCHC 30.8 L (31.0-37.0) g/dL RDW 19.4 H (11.5-15.5) % Plt Count 109 L (150-450) k/uL Lymphocytes # (Manual) 271.21 H (1.0-4.8) k/uL Monocytes # (Manual) 2.80 H (0-1.0) k/uL Carbon Dioxide 31 H (22-30) mmol/L BUN 34 H (7-17) mg/dL Creatinine 1.06 H (0.52-1.04) mg/dL Calcium 8.2 L (8.4-10.2) mg/dL Total Protein 4.7 L (6.3-8.2) g/dL Albumin 2.7 L (3.5-5.0) g/dL Microbiology - Last 24 Hours (Table) 06/28/18 13:30 Gram Stain - Preliminary Pleural Fluid Body Fluid Culture - Preliminary 06/25/18 11:24 Blood Culture - Final Blood No Growth after 144 hours Assessment and Plan Assessment: 1. Acute hypoxic respiratory failure: Likely secondary to congestive heart failure exacerbation, pleural effusions and possible pneumonia. Patient required 2 L of oxygen. Continue nebulizer treatments. 2. Acute on chronic systolic congestive heart failure exacerbation: Echo from May 2018 shows an EF of 20-25% and severe aortic stenosis. Patient has elevated BNP. Cardiology following. Continue IV Lasix. Cardiology added digoxin 3. Bilateral pleural effusions: with moderate sized left greater than right pleural effusion on chest x-ray. Pulmonary service consulted. Last hospitalization June 20 patient did require a left-sided thoracentesis. Patient status post right-sided thoracentesis with 750 mL removed on 2017. Status post left-sided thoracentesis 06/28/2018 with 850 mL removed. 4. Possible pneumonia: Chest x-ray showing left basilar airspace disease. Patient started on vancomycin and cefepime and ER. 5. Recent pneumonia on Levaquin outpatient 6. UTI: Urine culture negative. 7. Chronic lymphocytic leukemia: Patient does have evidence of pancytopenia likely related to her CLL. Patient's aspirin on hold. Per oncology pleural fluid was positive for CLL. Likely patient's pleural effusions are secondary to a combination of congestive heart failure and CLL. CLL is progressive and treatment was recommended but patient states she will continue on prednisone for now. She'll follow-up with oncology outpatient. Right-sided and left- sided thoracentesis pleural fluid consistent with CLL 8. Acute kidney injury: Monitor closely while on IV Lasix. 9. Hypotension: Patient received fluid bolus and ER 10. Elevated troponin: Per cardiology likely secondary to supply and demand 11. Hypothyroidism continue Synthroid 12. 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 Continue to monitor 13. Possible sepsis present on admission secondary to pneumonia and UTI 14. Consult PT OT and increase activity. Patient's overall condition is very poor and guarded. GI prophylaxis omeprazole and DVT prophylaxis SCDs I performed an examination of the patient and discussed their management with the physician Dryer And Washer Mechanic. I have reviewed the Physician Dryer And Washer Mechanic's notes and agree with the documented findings and plan of care
--- NOTE | 2018-07-02 12:26 | P.PN ---
Subjective Progress Note Date: 07/02/18 Principal diagnosis: Progressed CLL, Recurrent Malignant Pleural Effusions Ms. Huerta was seen in follow-up this am. She is resting comfortably with no acute complaints. Objective - Vital Signs Vital signs: Vital Signs Temp 96.8 F L 07/02/18 08:00 Pulse 92 07/02/18 08:00 Resp 18 07/02/18 08:00 BP 77/45 07/02/18 08:00 Pulse Ox 92 L 07/02/18 08:00 Intake & Output 07/01/18 07/02/18 07/02/18 18:59 06:59 18:59 Intake Total 270 270 Balance 270 270 Weight 41.8 kg Intake: IV 120 20 .9 @ 10 120 20 Intake, IV Titration 50 250 Amount Cefepime 2 gm In Sodium 50 Chloride 0.9% 50 ml @ 100 mls/hr IVPB Q24HR [facility] Rx #:[id number] Vancomycin 750 mg In 250 Sodium Chloride 0.9% 250 ml @ 125 mls/hr IVPB Q18H [facility] Rx#:[id number] Oral 100 Other: Voiding Method Bedpan Bedpan Bedpan Diaper Diaper Diaper # Voids 1 2 1 - Exam Head nc, nt Neck supple, trachea midline Lungs diminished bibasilar with crackles at bases Heart regular rate and rhythm S1-S2, no rub or gallop Abdomen is soft nontender nondistended positive bowel sounds no hepatosplenomegaly Extremities no edema Neuro alert and orientated to 3 - Labs CBC & Chem 7: 07/02/18 05:36 07/02/18 05:36 Labs: Abnormal Lab Results - Last 24 Hours (Table) 07/02/18 07/02/18 Range/Units 05:36 05:36 WBC 279.6 H* (3.8-10.6) k/uL RBC 2.78 L (3.80-5.40) m/uL Hgb 8.3 L (11.4-16.0) gm/dL Hct 27.1 L (34.0-46.0) % MCHC 30.8 L (31.0-37.0) g/dL RDW 19.4 H (11.5-15.5) % Plt Count 109 L (150-450) k/uL Lymphocytes # (Manual) 271.21 H (1.0-4.8) k/uL Monocytes # (Manual) 2.80 H (0-1.0) k/uL Carbon Dioxide 31 H (22-30) mmol/L BUN 34 H (7-17) mg/dL Creatinine 1.06 H (0.52-1.04) mg/dL Calcium 8.2 L (8.4-10.2) mg/dL Total Protein 4.7 L (6.3-8.2) g/dL Albumin 2.7 L (3.5-5.0) g/dL Microbiology - Last 24 Hours (Table) 06/28/18 13:30 Gram Stain - Preliminary Pleural Fluid Body Fluid Culture - Preliminary 06/25/18 11:24 Blood Culture - Final Blood No Growth after 144 hours Assessment and Plan Plan: Assessment and Recomendations: 1. Progressive CLL - Refuses treatment related to CLL -Discussed with family and primary team and resonable for patient to be discharged home with hospice after pleurex drain is placed for recurrent malignant pleural effusions. If a pleurex is an option, explained with bilateral effusions this would be deferred to pulmonary. Plan appears to await pleurex drain per pulmonary and then home with hospice care.
[2018-07-03] MEDS: MENTHOL-ZINC OXIDE OINT 113 GM TUBE TOPICAL SCH ×2 (03:41→09:16)
[2018-07-03] MEDS: LEVOTHYROXINE 25 MCG TAB PO SCH (06:20)
[2018-07-03] MEDS: PANTOPRAZOLE 40 MG TABLET PO SCH (06:20)
[2018-07-03] MEDS: IPRATROPIUM-ALBUTEROL 3 ML NEB INHALATION SCH ×2 (08:02→11:39)
[2018-07-03] MEDS: DIGOXIN 125 MCG TAB PO SCH (08:16)
[2018-07-03] MEDS: GABAPENTIN 400 MG CAP PO SCH (08:16)
[2018-07-03] MEDS: POTASSIUM CHLORIDE ER 10 MEQ TAB.ER.PRT PO SCH (08:16)
[2018-07-03] MEDS: CEFEPIME 2 GM in SODIUM CHLORIDE 0.9% 50 ML IVPB SCH (08:16)
[2018-07-03] MEDS: predniSONE 5 MG TAB PO SCH (08:16)
[2018-07-03] MEDS: ALLOPURINOL 300 MG TAB PO SCH (08:16)
[2018-07-03 08:27] VITALS: RESP 16
[2018-07-03] MEDS ORDERED: FUROSEMIDE 40 MG TAB PO SCH (09:00)
--- NOTE | 2018-07-03 10:25 | P.PN ---
Subjective Progress Note Date: 07/03/18 Principal diagnosis: Progressed CLL, Recurrent Malignant Pleural Effusions Ms. Huerta was seen in follow-up this am. She is resting comfortably with no acute complaints. No family at bedside this morning. She is sitting up sleeping. Awakens to stimulation and quickly falls back asleep. Objective - Vital Signs Vital signs: Vital Signs Temp 98.3 F 07/03/18 08:00 Pulse 96 07/03/18 08:00 Resp 16 07/03/18 08:00 BP 82/45 07/03/18 08:00 Pulse Ox 94 L 07/03/18 08:00 Intake & Output 07/02/18 07/03/18 07/03/18 18:59 06:59 18:59 Intake Total 240 Balance 240 Weight 43.5 kg Intake: Oral 240 Other: Voiding Method Bedpan Bedpan Bedpan Diaper Diaper Diaper # Voids 1 0 - Exam Head nc, nt Mucous membranes dry, no thrush Neck supple, trachea midline Lungs diminished bibasilar with crackles at bases Heart regular rate and rhythm S1-S2, no rub or gallop Abdomen is soft nontender nondistended positive bowel sounds no hepatosplenomegaly Extremities no edema Neuro alert and orientated to 3, awakens to stimulation although increasingly lethargic today. - Labs CBC & Chem 7: 07/02/18 05:36 07/02/18 05:36 Labs: Microbiology - Last 24 Hours (Table) 06/28/18 13:30 Gram Stain - Final Pleural Fluid Body Fluid Culture - Final Assessment and Plan Plan: Assessment and Recomendations: 1. Progressive CLL - Refuses treatment related to CLL -Discussed with family and primary team and resonable for patient to be discharged home with hospice after pleurex drain is placed for recurrent malignant pleural effusions. If a pleurex is an option, explained with bilateral effusions this would be deferred to pulmonary. Plan appears to await pleurex drain per pulmonary and then home with hospice care. Continue with support and comfort care
[2018-07-03 11:15] VITALS: BP 89/49; PULSE 100; TEMP 97.7
--- NOTE | 2018-07-03 12:44 | P.DS ---
Providers Date of admission: 06/25/18 13:59 Expected date of discharge: 07/03/18 Attending physician: Agustin Wiley Consults: 06/25/18 14:45 Consult Physician Routine Consulting Provider: Dani Muro Consult Reason/Comments: hypoxia, pleural effusions Do you want consulting provider notified?: Yes 06/25/18 14:46 Consult Physician Routine Consulting Provider: Park Renae Consult Reason/Comments: CHF Do you want consulting provider notified?: Yes Consult Physician Routine Consulting Provider: Tyshawn Calzada Consult Reason/Comments: CLL Do you want consulting provider notified?: Yes Primary care physician: Janeth Castillo Hospital Course: Discharge Diagnosis Terminal diagnosis 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 Pleural fluid growing CLL 1. Acute hypoxic respiratory failure: Likely secondary to congestive heart failure exacerbation, pleural effusions and possible pneumonia. Patient required 2 L of oxygen. Continue nebulizer treatments. 2. Acute on chronic systolic congestive heart failure exacerbation: Echo from May 2018 shows an EF of 20-25% and severe aortic stenosis. Patient has elevated BNP. Cardiology following. Cardiology added digoxin 3. Bilateral pleural effusions: with moderate sized left greater than right pleural effusion on chest x-ray. Pulmonary service consulted. Last hospitalization June 20 patient did require a left-sided thoracentesis. Patient status post right-sided thoracentesis with 750 mL removed on 2017. Status post left-sided thoracentesis 06/28/2018 with 850 mL removed. 4. Possible pneumonia: Chest x-ray showing left basilar airspace disease. Continue Ceftin for 7 days 5. Recent pneumonia on Levaquin outpatient 6. UTI: Urine culture negative. 7. Chronic lymphocytic leukemia: Patient does have evidence of pancytopenia likely related to her CLL. Patient's aspirin on hold. Per oncology pleural fluid was positive for CLL. Likely patient's pleural effusions are secondary to a combination of congestive heart failure and CLL. CLL is progressive and treatment was recommended but patient states she will continue on prednisone for now. Right-sided and left-sided thoracentesis pleural fluid consistent with CLL 8. Acute kidney injury 9. Hypotension: Patient received fluid bolus and ER 10. Elevated troponin: Per cardiology likely secondary to supply and demand 11. Hypothyroidism continue Synthroid 12. 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 Continue to monitor 13. Possible sepsis present on admission secondary to pneumonia and UTI Hospital course This is a 87-year-old female with a known history of CLL, congestive heart failure with a known EF of 20-25%, pleural effusions requiring left thoracentesis on 06/18/2018, hypothyroidism, hypertension and hyperlipidemia. Patient was currently at [facility] [place] [facility] after being discharged from the hospital on June 18. At that time she was treated for congestive heart failure exacerbation and had undergone a left thoracentesis for pleural effusion. She was discharged on Lasix 40 mg daily. She is currently been on Levaquin for pneumonia. Per ER report they were notified from the retirement the patient was dyspneic and having episodes of unresponsiveness and oxygen saturation was in the 80s. Oxygen supplement was placed and patient was transferred to the hospital for further evaluation and treatment. Chest x-ray shows suspected CHF exacerbation as there is cardiomegaly with small to moderate sized left greater than right pleural effusions. There is associated bibasilar atelectasis. Underlying acute infiltrate is not excluded. Patient started on cefepime and vancomycin in the emergency room. Patient also has evidence of a urinary tract infection urine culture obtained. Patient had evidence of fluid overload in the ER and was given IV Lasix 40 mg. Patient desats very easily. She is a mouth breather. Patient has been encouraged to breathe deeply. Her nose and her oxygen saturation does drop and to around 7879 with the deep breathing she is able to get her oxygen saturations into the 90s. She also is having episodes of hypotension. Blood pressure 78/44. It appears that she did receive a IV fluid bolus in the ER. She does have crackles on the right lower lobe. White count is 353.5, hemoglobin 7.8., Platelets are 140. At this time her aspirin will be on hold. She'll be seen evaluated by oncology. Pulmonary and cardiology both been consulted in regards to congestive heart failure and pleural effusions. BNP is elevated at 35,300. She also has elevated troponin of 0.645. Patient denies any chest pain. Patient denies any fever chills or sweats. Denies any cough. Denies any nausea vomiting. Denies abdominal changes or urinary symptoms. On 06/26/2018 patient is currently sitting up in bed. Patient is a & O 3. Patient at this point cannot tolerate laying flat without becoming short of breath. Patient currently on 3 L nasal cannula. Blood pressure remains marginal. White blood cell remains critical at 314.5. Hemoglobin 7.2. Potassium is 3.2. Replacement has been ordered. Patient currently on vancomycin and cefepime. Dr. Muro consulted for pulmonary. Dr. Renae consulted for cardiology and Dr. Calzada consulted per oncology. awaiting consult providers. Patient denies chest pain. Denies nausea vomiting or diarrhea. Denies any urinary burning and frequency. 06/27/2018 patient is currently A and O3 and sitting up in bed. Patient states that she is feeling much less short of breath today. Patient did receive a right thoracentesis per Dr. Muro yesterday. Patient remains on 2-3 L nasal cannula. Potassium improving to 3.9. Hemoglobin 7.7. Patient remains on vancomycin and cefempime for antibiotics. She denies chest pain at this time. Denies nausea vomiting or diarrhea. Denies any urinary burning and frequency. 06/28/2018 patient is currently sitting in bed. Denies any shortness of breath. She is on 2 L nasal cannula satting at 95%. She had a right sided thoracentesis with 750 mL removed. Possible left sided thoracentesis later today after evaluation by pulmonary service. Patient denies any chest pain. Denies any nausea or vomiting. Denies any bowel movement changes or urinary symptoms. Hemoglobin 7.3. BP 86/33 06/29/2018 patient had left sided thoracentesis completed yesterday with 850 mL of blood tinged fluid. Pathology reports on the right thoracentesis shows pleural fluid consistent with CLL. Dr. Wiley met with the family this afternoon for a family meeting. At this time they have questions about a possible Pleurx catheter to help with the recurrent pleural effusions. This was discussed with Dr. Muro via phone. Dr. Palmer will be through this afternoon to answer questions about Pleurx catheter with family. At this time they do not want to proceed with hospice. Patient has no complaints. On 06/30/2018 patient is alert and oriented in no apparent distress there is no fever or chills no headache no dizziness no chest pain no nausea or vomiting no diarrhea no abdominal pain and no urinary symptoms, patient is feeling weak, otherwise no symptoms at this On 07/01/2018 patient is alert and oriented in no apparent distress she is laying constantly in bed she has extreme weakness and some shortness of breath with any activity there is no chest pain there is no fever or chills no headache or dizziness there is no nausea or vomiting no abdominal pain no diarrhea and no urinary symptoms. She was evaluated this morning by Dr. Saleem slot supervisor, covering for Dr. Muro, no new recommendation at this time. 07/02/2018 patient lying in bed with no evidence of distress. She denies any shortness of breath. She remains on the IV Lasix. She had a low BP of 77/40 5 repeat blood pressure showed a systolic blood pressure in the 80s. Hemoglobin 8.3. Creatinine is 1.06. Patient has not been out of bed. Physical therapy was consulted. We'll try to increase patient's activity. She does feel very weak. Chest x-ray left basilar airspace disease, improved aeration of the right lung base, suspect underlying COPD Patient is medically stable for discharge on 07/03/2018. She'll be discharged home with hospice. Patient's overall condition is very poor and guarded. The pleural fluid from her thoracentesis was positive for CLL on both the right and left. Pulmonary service did evaluate patient for possible Pleurx catheter. Patient is not a candidate for this intervention. Patient will be placed on hospice care. We'll continue with her current medications and start hospice medications at home which include the Roxanol Ativan and atropine. She also continue antibiotics for her pneumonia. I performed an examination of the patient and discussed their management with the physician Photogrammetrist. I have reviewed the Physician Photogrammetrist's notes and agree with the documented findings and plan of care Patient Condition at Discharge: Stable Plan - Discharge Summary Discharge Rx Participant: No New Discharge Prescriptions: New Atropine Ophth Soln 1% 5Ml [Isopto Atropine 1% 5Ml] 1 drop SUBLINGUAL Q4H PRN #1 bottle PRN Reason: Congestion Cefuroxime Axetil [Ceftin] 500 mg PO BID #14 tab Digoxin [Lanoxin] 125 mcg PO DAILY #30 tab LORazepam [Ativan] 1 mg PO Q4H PRN #18 tab PRN Reason: Anxiety MORPHINE ORAL ELDER CONC 20mg/mL [Roxanol Oral Soln Conc 20MG/ML] 10 mg PO Q4H PRN 3 Days #9 ml PRN Reason: Pain Continue Omeprazole 20 mg PO DAILY Allopurinol [Zyloprim] 300 mg PO DAILY Gabapentin [Neurontin] 400 mg PO BID Levothyroxine Sodium [Synthroid] 25 mcg PO DAILY predniSONE 5 mg PO DAILY Potassium Chloride ER [K-Dur 10] 10 meq PO DAILY #30 tab Furosemide [Lasix] 40 mg PO DAILY #30 tablet Bisacodyl 10 mg RECTAL DAILY PRN PRN Reason: Constipation Ipratropium-Albuterol Nebulize [Duoneb 0.5 mg-3 mg/3 ml Soln] 3 ml INHALATION RT-Q6H PRN PRN Reason: Cough Menthol/Zinc Oxide [Calmoseptine Ointment] 1 applic TOPICAL TID Melatonin 3 mg PO HS PRN PRN Reason: Insomnia Discontinued Levofloxacin [Levaquin] 500 mg PO DAILY Aspirin 81 mg PO HS Discharge Medication List Allopurinol [Zyloprim] 300 mg PO DAILY 03/12/17 [History] Omeprazole 20 mg PO DAILY 03/12/17 [History] Gabapentin [Neurontin] 400 mg PO BID 05/20/18 [History] Levothyroxine Sodium [Synthroid] 25 mcg PO DAILY 05/20/18 [History] predniSONE 5 mg PO DAILY 05/20/18 [History] Potassium Chloride ER [K-Dur 10] 10 meq PO DAILY #30 tab 05/22/18 [Rx] Furosemide [Lasix] 40 mg PO DAILY #30 tablet 06/18/18 [Rx] Bisacodyl 10 mg RECTAL DAILY PRN 06/25/18 [History] Ipratropium-Albuterol Nebulize [Duoneb 0.5 mg-3 mg/3 ml Soln] 3 ml INHALATION RT -Q6H PRN 06/25/18 [History] Melatonin 3 mg PO HS PRN 06/25/18 [History] Menthol/Zinc Oxide [Calmoseptine Ointment] 1 applic TOPICAL TID 06/25/18 [ History] Atropine Ophth Soln 1% 5Ml [Isopto Atropine 1% 5Ml] 1 drop SUBLINGUAL Q4H PRN # 1 bottle 07/03/18 [Rx] Cefuroxime Axetil [Ceftin] 500 mg PO BID #14 tab 07/03/18 [Rx] Digoxin [Lanoxin] 125 mcg PO DAILY #30 tab 07/03/18 [Rx] LORazepam [Ativan] 1 mg PO Q4H PRN #18 tab 07/03/18 [Rx] MORPHINE ORAL ELDER CONC 20mg/mL [Roxanol Oral Soln Conc 20MG/ML] 10 mg PO Q4H PRN 3 Days #9 ml 07/03/18 [Rx] Follow up Appointment(s)/Referral(s): [facility] Visiting Nurse, [NON-STAFF] - Activity/Diet/Wound Care/Special Instructions: Discharge patient home with hospice Discharge Disposition: HOME WITH HOSPICE
--- NOTE | 2018-07-03 17:07 | P.PN ---
Subjective Progress Note Date: 07/03/18 Principal diagnosis: Acute exacerbation of congestive heart failure, bilateral pleural effusion, advanced CML, acute hypoxic respirator failure, healthcare associated pneumonia cannot be excluded 07/03/2018, patient seen eval reexamined during the rounds clinically overall not much change compared to prior exam she does get some shortness of breath activity and exertion but severity has not been changed she is comfortable at rest, reviewed recommendation from oncology services, given that patient has no recurrence of significant effusion is not a candidate for Pleurx catheter also if it needs to be placed will likely require bilateral which could be a source of ongoing chronic pain and discomfort, rather simpler approach would be to observe her and do thoracentesis as needed on the side where more effusion noted , also feel that the Pleurx catheter not improved prognosis neither would be a comfortable procedure 06/29/2018, patient seen eval reexamined during the rounds she is remains short of breath very tired and exhausted resting she has ongoing chronic shortness of breath however severity has improved after removal of bilateral thoracentesis on the cytology from left pleural fluid is pending the culture results and reports are reviewed [place] the cytology from the right side is positive for lymphocytes and cytometry results revealed monoclonal B lymphocytes consistent with CLL 06/28/2018, patient seen eval examined during the rounds clinically patient is doing slightly better breathing more comfortably but still get short of breath on minimal activity and exertion or is having intermittent dry nonproductive cough sinus present bedside have discussed with him at length about plans for left thoracentesis later on today, procedure and date of complication explained 06/27/2018, patient seen eval examined during the rounds he is she is status post right thoracentesis about 750-800 mL of fluid has been removed, feels better post procedure x-ray reviewed small amount of residual fluid on the right side noted moderate pleural effusion seen on the left side will monitor observe today we'll consider doing a thoracentesis tomorrow on the left side procedure explained to the patient at length This is a 87-year-old female with a known history of CLL, congestive heart failure with a known EF of 20-25%, pleural effusions requiring left thoracentesis on 06/18/2018, hypothyroidism, hypertension and hyperlipidemia. Patient is well-known to me, patient currently at [facility], after being discharged from the hospital on June 18. At that time she was treated for congestive heart failure exacerbation and had undergone a left thoracentesis for pleural effusion. She was discharged on Lasix 40 mg daily. She is currently been on Levaquin for pneumonia. ER was notified about patient was dyspneic and having episodes of unresponsiveness and oxygen saturation was in the 80s. Oxygen supplement was placed and patient was transferred to the hospital for further evaluation and treatment. I have reviewed Chest x-ray shows suspected CHF exacerbation as there is cardiomegaly with small to moderate sized left greater than right pleural effusions. And have ordered the ultrasound of the chest, There is associated bibasilar atelectasis. Underlying acute infiltrate is not excluded. Patient started on cefepime and vancomycin in the emergency room. Patient also has evidence of a urinary tract infection urine culture obtained. Patient had evidence of fluid overload in the ER and was given IV Lasix 40 mg. Patient desaturated easily and drop her saturation into 80s,. 79 with the deep breathing she is able to get her oxygen saturations into the 90s. She also is having episodes of hypotension and also has a history of chronic hypertension with systolic blood pressure into 80s, on arrival was 78/44 patient did receive a IV fluid bolus in the ER. Significant labs include White count is 353.5, hemoglobin 7.8., Platelets are 140. At this time her aspirin is on hold. She'll be seen evaluated by oncology. Pulmonary and cardiology both been consulted in regards to congestive heart failure and pleural effusions. BNP is elevated at 35,300. She also has elevated troponin of 0.645. Patient denies any chest pain. Patient denies any fever chills or sweats. Denies any cough. Denies any nausea vomiting. Denies abdominal changes or urinary symptoms, however is short of breath with ongoing tachypnea Objective - Vital Signs Vital signs: Vital Signs Temp 97.7 F 07/03/18 11:14 Pulse 100 07/03/18 11:14 Resp 16 07/03/18 11:14 BP 89/49 07/03/18 11:14 Pulse Ox 93 L 07/03/18 11:14 Intake & Output 07/02/18 07/03/18 07/03/18 18:59 06:59 18:59 Intake Total 240 Balance 240 Weight 43.5 kg Intake: Oral 240 Other: Voiding Method Bedpan Bedpan Bedpan Diaper Diaper Diaper # Voids 1 0 - Exam General appearance: alert, in mild respiratory distress Head exam: Present: atraumatic, normocephalic Eye exam: Present: normal appearance, PERRL ENT exam: Present: normal exam Neck exam: Present: normal inspection. Absent: tenderness, meningismus Respiratory exam: Present: rhonchi. The last 2 percussion and decrease in air entry bilaterally more so on the left side compared right side, and right-sided air entry has significantly improved compared to prior exam however Cardiovascular Exam: Present: regular rate, normal rhythm GI/Abdominal exam: Present: soft. Absent: distended, tenderness Extremities exam: Present: normal inspection, normal capillary refill Neurological exam: Present: alert, oriented X3, CN II-XII intact. Absent: motor sensory deficit Psychiatric exam: Present: normal affect, normal mood Skin exam: Present: warm, dry, intact. Absent: cyanosis, diaphoretic - Labs CBC & Chem 7: 07/02/18 05:36 07/02/18 05:36 Labs: Microbiology - Last 24 Hours (Table) 06/28/18 13:30 Gram Stain - Final Pleural Fluid Body Fluid Culture - Final Assessment and Plan Assessment: Acute exacerbation of CHF likely acute on chronic systolic heart failure Bilateral pleural effusion with worsening of effusion, status post a bilateral thoracentesis no recurrence of it has been noted with stable symptoms Advanced CLL Acute hypoxic respirator failure related to fluid overload however occult pneumonia cannot be excluded agree with broad-spectrum antibiotics Plan: Will hold Pleurx catheter as it will increase the likelihood of complication and discomfort so no significant recurrence of effusion noted Gentle diuresis continued Status post bilateral thoracentesis would recommend as needed thoracentesis in the future consider Hospice is a reasonable option Time with Patient: Greater than 30
[2018-07-04] MEDS ORDERED: VANCOMYCIN 750 MG in SODIUM CHLORIDE 0.9% 250 ML IVPB ONE (06:00)
== END 2018-07-03 14:50 | disposition hospice, home (50) | DRG 871 ==
LOC: EC 10:48 → 6SEL 13:59
PROVIDERS: ADMIT Internal Medicine; ATTEND Internal Medicine
PROC: 0W993ZX Drainage of Right Pleural Cavity, Percutaneous Approach, Diagnostic (ICD-10-PCS; principal; 2018-06-26)
PROC: 0W9B3ZX Drainage of Left Pleural Cavity, Percutaneous Approach, Diagnostic (ICD-10-PCS; 2018-06-28)
DX: A41.9 Sepsis, unspecified organism (principal); J96.01 Acute respiratory failure with hypoxia; I50.23 Acute on chronic systolic (congestive) heart failure; J18.9 Pneumonia, unspecified organism; C91.10 Chronic lymphocytic leukemia of B-cell type not having achieved remission; N39.0 Urinary tract infection, site not specified; N17.9 Acute kidney failure, unspecified; D61.818 Other pancytopenia; J91.0 Malignant pleural effusion; J98.11 Atelectasis; Z66 Do not resuscitate; Z51.5 Encounter for palliative care; I95.9 Hypotension, unspecified; I11.0 Hypertensive heart disease with heart failure; D69.59 Other secondary thrombocytopenia; I25.5 Ischemic cardiomyopathy; D63.0 Anemia in neoplastic disease; I44.7 Left bundle-branch block, unspecified; I08.0 Rheumatic disorders of both mitral and aortic valves; E03.9 Hypothyroidism, unspecified; E78.5 Hyperlipidemia, unspecified; Y95 Nosocomial condition; R77.9 Abnormality of plasma protein, unspecified; Z79.82 Long term (current) use of aspirin; Z79.890 Hormone replacement therapy; Z79.52 Long term (current) use of systemic steroids; Z79.899 Other long term (current) drug therapy; Z90.710 Acquired absence of both cervix and uterus; Z90.49 Acquired absence of other specified parts of digestive tract; Z87.01 Personal history of pneumonia (recurrent); Z98.42 Cataract extraction status, left eye
CPT/HCPCS: 36415; 71045; 71046; 76604; 80053; 80202; 81001; 82550; 82553; 82803; 82945; 83605; 83615; 83735; 83880; 84157; 84484; 85025; 85610; 85730; 87040; 87070; 87086; 87102; 87116; 87205; 87206; 88108; 88305; 89050; 93005; 94640; 96361; 96365; 96366; 96367; 96375; 99285